=== PATIENT | male | born 1955 | race Caucasian/White ===

== ENCOUNTER → 2017-11-18 | Outpatient (CLI) | payer OTHER, MEDICARE ==
[~2017-11-18] MED LIST: AMLO10 PO; AMOCLA875 PO; ASPI325 PO; ASPI81CH PO; Bactrim Ds Tab1 EACH PO; CLOP75 PO; DOCCAL240 PO; ENAL20 PO; Enalapril-Hctz1 EACH PO; FERR325 PO; GABA300 PO; HYDR1TAB94 PO; INSUASPI; INSUASPI SC; INSUASPI SQ; INSULANI SQ; INSULANPEN SQ; JARDIANCE25 MG PO; LEVO750 PO; METR500 PO; Mobic15 MG PO; POTCHL20ER PO; PRAV10 PO; PRAV20 PO; SENN187 PO; SERT50 PO; SULTRIDS PO; TRESIBA FL100 UNIT/1 SC; TRESIBA FL100 UNIT/1 SQ
[2017-11-18 12:54] LABS: Body Fluid Crystals NEG (NEGATIVE)
[2017-11-18 13:32] LABS: WBC Count, Synovial Fluid 14420 /mm3 (0-180)
[2017-11-18 13:56] LABS: Color, Synovial Fluid Yellow (None-P Yel)
[2017-11-18 13:57] LABS: Appearance, Synovial Fluid Cloudy (Clear); RBC Count, Synovial Fluid 92 /mm3 (0-0)
[2017-11-18 14:25] LABS: Lymphs, Synovial Fluid 1 % (0-15); Monocytes/Macrophages, Synovia 7 % (0-65); Neutrophils, Synovial Fluid 92 % (0-24)
== END ==
LOC: LAB SHORT 12:25 → LAB 12:25
PROVIDERS: Orthopaedic Surgery
DX: M25.40 Effusion, unspecified joint (principal)
CPT/HCPCS: 89051; 89060

== ENCOUNTER 2018-03-07 08:15 | Inpatient (IN) | payer OTHER, MEDICARE ==
[~2018-03-07] VITALS: Ht 175.3 cm; Wt 95.6 kg
[~2018-03-07 08:15] MED LIST changes: -INSUASPI SC; +Novolog Fl100 UNIT/1 INJ
[2018-03-07 12:43] LABS: Source, Urine Clean Catch
[2018-03-07 12:49] LABS: Bilirubin, Urine Neg (Neg); Blood, Urine Neg (Neg); Glucose Qualitative, Urine 4+ (Neg); Ketones, Urine 2+ (Neg); Leukocyte Esterase, Urine Neg (Neg); Nitrite, Urine Neg (Neg); Protein, Urine 3+ (Neg); Specific Gravity, Urine 1.015 (1.003-1.022); Urobilinogen, Urine NORM (Normal)
[2018-03-07 12:50] LABS: BASOPHILS ABSOLUTE AUTO 0.02 K/mm3 (0.00-0.23); BASOPHILS PERCENT AUTO 0 % (0-2); EOSINOPHILS ABSOLUTE AUTO 0.01 K/mm3 (0.00-0.68); EOSINOPHILS PERCENT AUTO 0 % (0-6); Hematocrit 30.2 % (37.0-53.0); Hemoglobin 9.1 g/dL (13.5-17.5); IMMATURE GRAN ABSOLUTE AUTO 0.07 K/mm3 (0.00-0.10); IMMATURE GRAN PERCENT AUTO 0 % (0-1); LYMPHOCYTES PERCENT AUTO 7 % (21-46); MONOCYTES ABSOLUTE AUTO 0.54 K/mm3 (0.16-1.47); MONOCYTES PERCENT AUTO 4 % (4-13); Mean Corpuscular HGB Conc 30.1 g/dL (31.5-36.5); Mean Corpuscular Volume 76 fL (80-100); Mean Platelet Volume 8.3 fL (9.1-12.4); NEUTROPHILS PERCENT AUTO 89 % (41-73); Platelet Count 553 K/mm3 (150-400); RDW Coefficient Variation 18.5 % (11.7-14.2); RDW Standard Deviation 50.7 fL (35.1-46.3); Red Blood Cell Count 3.96 M/mm3 (4.30-5.90); White Blood Cell Count 15.64 K/mm3 (4.00-11.30)
[2018-03-07 12:54] LABS: Appearance, Urine Clear (Clear); Color, Urine Yellow (P-Yellow)
[2018-03-07 12:56] LABS: Red Blood Cells, Urine 0-2 /hpf (0-2)
[2018-03-07 12:57] LABS: Bacteria Few /hpf; Squamous Epithelial Cells Rare /hpf (Few)
[2018-03-07 13:15] LABS: Alanine Aminotransfer (ALT/SGP 30 U/L (12-78); Albumin, Blood 2.2 g/dL (3.4-5.0); Albumin/Globulin Ratio 0.4 (0.8-1.8); Alk Phos 160 U/L (50-136); Anion Gap 9 mmol/L (6-16); Aspartate Aminotrans (AST/SGOT 29 U/L (12-37); Bilirubin, Total 0.2 mg/dL (0.1-1.0); Blood Urea Nitrogen 30 mg/dL (8-24); Bun/Creatinine Ratio 36.6 (12.0-20.0); CO2, Blood 23 mmol/L (21-32); Calcium, Blood 8.2 mg/dL (8.5-10.1); Chloride, Blood 98 mmol/L (98-108); Creatinine, Blood 0.82 mg/dL (0.60-1.20); Globulin, Blood 5.5 g/dL (2.2-4.0); Glomerular Filtration Rate >60 (60-); Glucose, Blood 123 mg/dL (70-99); Potassium, Blood 3.8 mmol/L (3.5-5.5); Sodium, Blood 130 mmol/L (136-145); Total Protein, Blood 7.7 g/dL (6.4-8.2)
[2018-03-07 14:25] LABS: Percent Saturation 5.5 % (20.0-50.0)
[2018-03-07] MEDS ORDERED: OMEPRAZOLE MAGN20 MG PO (17:55)
[2018-03-07] MEDS ORDERED: Ferrous Glucon324 M1 PO (17:56)
[2018-03-07] MEDS ORDERED: BASAGLAR K100 UNIT/1 SC (17:57)
--- NOTE | 2018-03-07 19:13 | NUR ---
SHIFT SUMMARY PATIENT A&O X4, WALKS WITH WHEELCHAIR AT BASELINE BUT HAS NOT BEEN GETTING UP HERE DUE TO SEVERE LOWER BACK PAIN. RN MEDICATED FOR PAIN X1. DENIES NAUSEA OR SOB. HAS A WOUND TO HIS R THIRD TOE AND LEFT SECOND TOE. RN DID WOUND CARE AND DRESSING CHANGES WITH PATIENTS . APPLIED HOME WOUND CREAM. IV FLUIDS RUNNING. SAFETY PARAMETERS IN PLACE. NO ACUTE CHANGES.
--- NOTE | 2018-03-07 20:07 | NUR ---
field start iv rt AC clean dry intact
[2018-03-08 05:21] LABS: BASOPHILS ABSOLUTE AUTO 0.01 K/mm3 (0.00-0.23); BASOPHILS PERCENT AUTO 0 % (0-2); EOSINOPHILS PERCENT AUTO 0 % (0-6); Hematocrit 36.1 % (37.0-53.0); Hemoglobin 10.5 g/dL (13.5-17.5); IMMATURE GRAN ABSOLUTE AUTO 0.05 K/mm3 (0.00-0.10); IMMATURE GRAN PERCENT AUTO 1 % (0-1); LYMPHOCYTES ABSOLUTE AUTO 2.14 K/mm3 (0.84-5.20); LYMPHOCYTES PERCENT AUTO 19 % (21-46); MONOCYTES ABSOLUTE AUTO 0.55 K/mm3 (0.16-1.47); MONOCYTES PERCENT AUTO 5 % (4-13); Mean Corpuscular HGB 22.5 pg (26.0-34.0); Mean Corpuscular HGB Conc 29.1 g/dL (31.5-36.5); Mean Corpuscular Volume 78 fL (80-100); Mean Platelet Volume 8.3 fL (9.1-12.4); NEUTROPHILS ABSOLUTE AUTO 8.35 K/mm3 (1.96-9.15); NEUTROPHILS PERCENT AUTO 75 % (41-73); Platelet Count 619 K/mm3 (150-400); RDW Coefficient Variation 18.4 % (11.7-14.2); RDW Standard Deviation 51.4 fL (35.1-46.3); Red Blood Cell Count 4.66 M/mm3 (4.30-5.90)
[2018-03-08 05:42] LABS: Anion Gap 9 mmol/L (6-16); Blood Urea Nitrogen 32 mg/dL (8-24); Bun/Creatinine Ratio 38.6 (12.0-20.0); CO2, Blood 21 mmol/L (21-32); Calcium, Blood 8.8 mg/dL (8.5-10.1); Chloride, Blood 104 mmol/L (98-108); Creatinine, Blood 0.83 mg/dL (0.60-1.20); Glomerular Filtration Rate >60 (60-); Glucose, Blood 134 mg/dL (70-99); Sodium, Blood 134 mmol/L (136-145)
--- NOTE | 2018-03-08 18:22 | NUR ---
SHIFT SUMMARY PT AXO, PLEASANT AND COOPERATIVE WITH CARE. PT MEDICATED FOR PAIN PER EMAR THOUGH PATIENT STATES THAT THE NORCO WAS MORE EFFECTIVE IN PAIN CONTROL THAN TRAMEDOL. DR CASTELLANOS NOTIFIED AT 1820. VSS, IV PATENT AND INFUSING. CBG ELEVATED, PT EDUCATED ON CORRELATION WITH DIET AND ELEVATION OF CBG. MEDICATED PER EMAR. DRESSINGS CHANGED THIS MORNING AT START OF SHIFT, PICTURES IN CHART. PT REFUSING TO GET UP FROM BED BUT DOES SOME EXERCISES IN BED. BED IN LOW POSITION, CALL LIGHT WITHIN REACH.
--- NOTE | 2018-03-09 06:18 | NUR ---
Rn summary: Patient is alert and oriented. Pt has back pain which he has received meds at shift change and 0140. Pt feels like the 2 norco do not hold him over the 6 hours. Pt has rested some, but has been playing games on his phone most of the night. Pt blood sugar was 356. He got his insulin as ordered. Pt is usually on a medium sliding scale at home and wonders if it can be increased today. Will pass on to day shift. Drsg to mayi toes C/D/I. Mepilex changed to his inner gluteal cleft, small open area present. No BM this shift. Call light in reach.
--- NOTE | 2018-03-09 18:06 | NUR ---
SHIFT SUMMARY PATIENT A&O X4, BEDREST THIS SHIFT. DENIES ANY NAUSEA OR SOB. HAD COMPLAINTS OF CHRONIC BACK AND SIATIC PAIN THROUGHOUT THE SHIFT. RN MEDICATED X 2 WITH NORCO WHICH SEEMS TO HELP BRING PATIENT PAIN LEVEL DOWN. MEPILEX DRESSING ON R BUTTICKS. C/D/I. PATIENT USING URINAL IN BED. RESFUSES TO GET UP DUE TO IT BEING TOO PAINFUL. AT THE BEDISDE. BED IN LOWEST POSITION, CALL LIGHT WITHIN REACH.
--- NOTE | 2018-03-10 03:01 | NUR ---
HYPERTENSION BP THIS AM IS ELEVATED @ 174/85, NO DISCREPANCY BETWEEN R AND L ARMS. PT DENIES HEADACHE OR PAIN. PT DOES NOT HAVE PRN BP MED ORDERED. PLACED CALL TO DR PADRNO TO OBTAIN ORDERS. ORDER FOR 10 MG HYDRALAZINE IV Q6H PRN FOR SBP > 160. ADMINISTERING TO PT.
--- NOTE | 2018-03-10 06:11 | NUR ---
INSULIN: PHARMACY CONSULT PT HAS BEEN USING HOME INSULIN (BASAGLAR) FOR 3 DAYS, HOWEVER THIS MED HAS NOT BEEN VERIFIED BY PHARMACY. DISCUSSED WITH NICK, PHARMACIST,WHO REPORTS THAT THIS INSULIN IS THE HOSPITAL EQUIVALENT TO LANTUS. PT WILL NOW BE ON LANTUS @ NIGHT, HOME MED MAY GO BACK TO PT.
--- NOTE | 2018-03-10 06:13 | NUR ---
SHIFT SUMMARY: PT STILL IMMOBILE THIS SHIFT, REFUSES TO GET OUT OF BED c PT AND NURSING STAFF D/T PAIN. USING URINAL IN BED, Q2H REPOSITIONS. FOR PAIN, PT IS RECIEVING 10MG NORCO Q6H, PT REPORTS THIS IS NOT PROVIDING RELIEF AND EXPRESSES WISHES FOR FREQUENCY TO BE INCREASED TO Q4H. HE REPORTS THAT HE WILL DISCUSS THIS HIMSELF c DR CASTELLANOS. CBG @ 361 THIS PM, REQUIRED LONG ACTING AND SHORT ACTING COVERAGE. PRN HYDRALAZINE ADDED TO EMAR PER DR PADRON ORDERS FOR SBP >160. WOUNDS TO R 3RD TOE, L 2ND TOE, AND R BUTTOCK; DRESSING ARE ALL C/D/I. NS RUNNING @ 75ML/HR INTO 18 G IN R A/C. PT REMAINS A&O, PLEASANT, AND COOPERATIVE c CARE. PLAN OF CARE APPEARS TO BE HOMEHEALTH AND PT UPON D/C. NO OTHER ACUTE CHANGES TO REPORT. WILL CONT TO MONITOR AND PROVIDE CARE UNTIL PRESUMED BY ONCOMING RN.
--- NOTE | 2018-03-10 08:00 | NUR ---
PT PLEASANT SOMEWHAT ANXIOUS CONCERNED ABOUT BACK PAIN. PRESENTS UNMOTIVATED TO MOVE. H/R REG, MURMER NOTED NO TELE. LUNGS CLEAR, RESP EASY, UNLABORED ON R/A. BT X4 LAST BM YEST. VOIDS URINAL. PT NOT GETTING OUT OF BED FEAR OF PAIN. DOES NOT GUARD, BUT FLAILS AND COMPLAINS WHEN ATTEMPTING TO GET TO SITTING POSITION. BED IN LOW POSITOIN, CALL LITE IN REACH, CALLS APPROP
--- NOTE | 2018-03-10 18:42 | NUR ---
PT HAD MRI OF BACK TODAY. PAIN MED MOVED TO ROXYCODONE. DID WELL. PT SLEPT IM MID DAY AFTER DOSE. DID A LITTLE PT TODAY. PT NOT GUARDING BACK PAIN,BUT FLAILING AND COMPLAINING. I DID SIT HIM UP TO EDGE OF BED, HE STATES TOO WEAK TIRED TO SIT. FLOPPED BACK TO BED. MARCIA ATTEMPT TO CONVEY IMPORTANCE OF EXERCISE AND MOVEMENT TO GET OUT OF BED AND HEALED TO GO PLAY GOLF. BED IN LOW POSITION, CALL LITE IN REACH, CALLS APPROP
--- NOTE | 2018-03-11 04:34 | NUR ---
SHIFT SUMMARY A/O X4, ABLE TO MAKE NEEDS KNOWN. COOPERATIVE WITH CARE. CALLS AND ANSWERS QUESTIONS APPROPRIATELY. C/O PAIN 8/10 TO SCIATIC/MID BACK/GENERALIZED; MEDICATED PER EMAR. STATED UNABLE TO GET COMFORTABLY. MINIMAL RESTED NOTED THROUGHOUT SHIFT. NEW IV PLACED BY MAJOR ASSEMBLY INSPECTOR TO [facility]; NS CONTINUES TO RUN AT 75 ML/HR WITHOUT COMPLICATIONS. REMAINS ON BEDREST. HYPERTENSIVE, BUT APPEARS ON TREND WITH PREVIOUS PRESSURE. BED IN LOWEST POSITION. CALL LIGHT AND BELONGINGS WITHIN REACH. WCTM. REPORT TO ONCOMING RN.
--- NOTE | 2018-03-11 06:42 | NUR ---
FEVER 0620 FEVER NOTED BY PHOTOLETTERING MACHINE OPERATOR THIS AM; TAKEN ORALLY. PHOTOLETTERING MACHINE OPERATOR STATED PULSE AND RESPIRATIONS ELEVATED. CALLED ACCESS LEAD AND SHE STATED TO GIVE TYLENOL TO BRING DOWN FEVER. PT STATES NO SOB OR CP NOTED. IV FLUIDS STILL RUNNING @ 75 ML/HR. WILL MAKE DAY RN AWARE.
[2018-03-11 08:22] LABS: Hematocrit 29.9 % (37.0-53.0); Hemoglobin 9.2 g/dL (13.5-17.5); Mean Corpuscular HGB 22.9 pg (26.0-34.0); Mean Corpuscular HGB Conc 30.8 g/dL (31.5-36.5); Mean Platelet Volume 8.4 fL (9.1-12.4); NRBC ABSOLUTE 0.04 K/mm3 (0.00-0.02); NRBC Auto 0.2 /100 WBC (0.0-0.2); Platelet Count 666 K/mm3 (150-400); RDW Coefficient Variation 18.6 % (11.7-14.2); RDW Standard Deviation 49.7 fL (35.1-46.3); Red Blood Cell Count 4.02 M/mm3 (4.30-5.90)
[2018-03-11 08:33] LABS: Mean Corpuscular Volume 74 fL (80-100)
[2018-03-11 08:43] LABS: Anion Gap 7 mmol/L (6-16); Blood Urea Nitrogen 16 mg/dL (8-24); Bun/Creatinine Ratio 22.7 (12.0-20.0); CO2, Blood 26 mmol/L (21-32); Calcium, Blood 8.5 mg/dL (8.5-10.1); Chloride, Blood 99 mmol/L (98-108); Glomerular Filtration Rate >60 (60-); Glucose, Blood 84 mg/dL (70-99); Potassium, Blood 3.3 mmol/L (3.5-5.5); Sodium, Blood 132 mmol/L (136-145)
[2018-03-11 08:47] LABS: BASOPHILS PERCENT MAN 0 % (0-2); EOSINOPHILS PERCENT MAN 0 % (0-6); LYMPHOCYTES ABSOLUTE MAN 2.08 K/mm3 (0.84-5.20); LYMPHOCYTES PERCENT MAN 8 % (21-46); MONOCYTES ABSOLUTE MAN 1.04 K/mm3 (0.16-1.47); MONOCYTES PERCENT MAN 4 % (4-13); NEUTROPHILS ABSOLUTE MAN 22.96 K/mm3 (1.96-9.15); SEG NEUTROPHILS PERCENT MAN 88 % (41-73); TOTAL CELLS COUNTED 100
--- NOTE | 2018-03-11 19:10 | NUR ---
PATIENT TOLERATING BED EXERCISE ONLY. PAIN MEDICATIONS GIVEN FOR 9/10 PAIN. TOES REWRAPPED WITH 'S HELP. POSSIBLE TRANSFER TO [place] TOMORROW MORNING.
--- NOTE | 2018-03-11 20:40 | NUR ---
PT HAD VEWS SCORE OF 4. T 101.6, P 110, RESP 16. TYLENOL GIVEN TO TEMP OF 101.6. ABX INFUSING. WILL CONTINUE TO MONITOR.
--- NOTE | 2018-03-11 22:00 | NUR ---
BEDSIDE REPORT GIVEN TO HUANG CHENG.
--- NOTE | 2018-03-12 05:45 | NUR ---
SHIFT SUMMARY PT VERY LETHARGIC T/O NIGHT BUT WOKE UP AROUND 0415 OR SO AND WAS MORE ALERT. CBG 140 HELD [address] PADRON. CBG @ 0415 WAS 67 GIVEN OJ AND MADAY CRACKERS AND WILL RECHECK. NO C/O PAIN. INCONT OF URINE WHILE ASLEEP BUT USES URINAL WHEN AWAKE. ORAL TEMP @ 2130 WAS 102.1 AND GIVEN TYLENOL CAME DOWN TO 100.5 AND 98.5 WITH RECHECKS. NO STOOL. WILL CONTINUE TO MONITOR AND PASS ON REPORT TO DAY RN
--- NOTE | 2018-03-12 19:21 | NUR ---
AWAITING TRANSFER TO [facility] WHEN A BED IS AVAILABLE. PAIN MEDICATIONS GIVEN Q4 HR FOR CONSTANT BACK PAIN. PATIENT NOT AMBULATING AT THIS TIME. USING URINAL WITH SET UP ASSISTANCE. CALLS APPROPRIATELY. CALL LIGHT IN REACH
--- NOTE | 2018-03-12 19:34 | NUR ---
LEFT AND RIGHT POINTER TOES HAVE WRAPS APPLIED BY PATIENT'S . WOUNDS ARE CLEANED DAILY. WINVIVO CREME APPLIED TO AFFECTED AREAS, WRAPPED IN KERLEX AND TAPED DOWN.
[2018-03-12 19:42] LABS: Vancomycin, Trough 14.9 ug/mL (5.0-10.0)
--- NOTE | 2018-03-13 04:19 | NUR ---
SHIFT SUMMARY: PT IS ALERT AND ORIENTED. PT IS CALM AND COOPERATIVE WITH CARE. PT CALLS APPROPRIATELY. PT IS NOT GETTING OUT OF BED, STILL TOO PAINFUL TO AMBULATE. PT AWAITING TRANSFER TO [place] WHEN BED IS AVAILABLE. PT REPORTS LOW BACK PAIN, MEDICATING PER EMAR. PT DENIES NAUSEA, VOMITING, AND SOB. PT USING THE URINAL IN BED INDEPENDENTLY. NO ACUTE CHANGES OVERNIGHT. BED IN LOW POSITION, CALL LIGHT WITHIN REACH.
[2018-03-13 05:18] LABS: BASOPHILS ABSOLUTE AUTO 0.03 K/mm3 (0.00-0.23); BASOPHILS PERCENT AUTO 0 % (0-2); EOSINOPHILS ABSOLUTE AUTO 0.09 K/mm3 (0.00-0.68); EOSINOPHILS PERCENT AUTO 0 % (0-6); Hematocrit 29.5 % (37.0-53.0); IMMATURE GRAN ABSOLUTE AUTO 0.19 K/mm3 (0.00-0.10); IMMATURE GRAN PERCENT AUTO 1 % (0-1); LYMPHOCYTES ABSOLUTE AUTO 3.29 K/mm3 (0.84-5.20); LYMPHOCYTES PERCENT AUTO 13 % (21-46); MONOCYTES ABSOLUTE AUTO 1.09 K/mm3 (0.16-1.47); MONOCYTES PERCENT AUTO 4 % (4-13); Mean Corpuscular HGB Conc 30.5 g/dL (31.5-36.5); Mean Corpuscular Volume 75 fL (80-100); Mean Platelet Volume 8.5 fL (9.1-12.4); NEUTROPHILS ABSOLUTE AUTO 21.52 K/mm3 (1.96-9.15); NEUTROPHILS PERCENT AUTO 82 % (41-73); Platelet Count 580 K/mm3 (150-400); RDW Coefficient Variation 19.4 % (11.7-14.2); RDW Standard Deviation 52.2 fL (35.1-46.3); Red Blood Cell Count 3.92 M/mm3 (4.30-5.90); White Blood Cell Count 26.21 K/mm3 (4.00-11.30)
[2018-03-13 05:40] LABS: Anion Gap 8 mmol/L (6-16); Blood Urea Nitrogen 17 mg/dL (8-24); Bun/Creatinine Ratio 22.6 (12.0-20.0); CO2, Blood 24 mmol/L (21-32); Chloride, Blood 102 mmol/L (98-108); Creatinine, Blood 0.75 mg/dL (0.60-1.20); Glomerular Filtration Rate >60 (60-); Glucose, Blood 135 mg/dL (70-99); Potassium, Blood 3.9 mmol/L (3.5-5.5); Sodium, Blood 134 mmol/L (136-145)
[2018-03-13 17:55] LABS: Source, Urine Catheter
[2018-03-13 18:07] LABS: Appearance, Urine Clear (Clear); Bilirubin, Urine Neg (Neg); Blood, Urine Neg (Neg); Color, Urine Yellow (P-Yellow); Glucose Qualitative, Urine 2+ (Neg); Ketones, Urine Neg (Neg); Leukocyte Esterase, Urine Neg (Neg); Nitrite, Urine Neg (Neg); Protein, Urine 2+ (Neg); Urobilinogen, Urine NORM (Normal)
[2018-03-13 18:18] LABS: Bacteria Few /hpf; Red Blood Cells, Urine 0-2 /hpf (0-2); Squamous Epithelial Cells Rare /hpf (Few); White Blood Cells, Urine 0-2 /hpf (0-5)
--- NOTE | 2018-03-13 18:18 | NUR ---
PT IS A/OX3, COOPERATIVE, THE PT APPEARS TO BE BREATHING EASILY ON RA, THE PT WAS MEDICATED FOR BACK PAIN T/O THE DAY, THE PT REMAINED IN BED, THE PHYSICAL THERAPIST COACHED THE PT WITH BED EXCERCISES, A BLADDER SCAN WAS PERFORMED ON THE PT THIS AFTERNOON AND IT WAS FOUND THAT HE WAS RETAINING URINE, A MCMULLEN CATHETER WAS INSERTED PER DR. HAHN ORDERS, THE PT HAD 1500 CC OUT IMMEDIATLY, DR SANTOS CONSULT WAS CALLED, HOWEVER THE WILL NOT TAKE CONSULTS FROM THE NURSING STAFF AT THIS TIME AND WILL ONLY TALK DIRECTLY TO THE DOCTORS ON 03/18/18, DR. HAHN WAS NOTIFIED, PT IS AWAITING COBRA TRANSFER TO [facility] WHEN A BED THERE IS AVAILABLE
--- NOTE | 2018-03-14 04:39 | NUR ---
SHIFT SUMMARY: PT IS ALERT AND ORIENTED. PT IS CALM AND COOPERATIVE WITH CARE. PT CALLS APPROPRIATELY. PT STILL TOO PAINFUL TO GET OUT OF BED, MEDICATING PER EMAR FOR PAIN. CATHETER IN PLACE AND DRAINING, APPEARS TO BE SOME BLOOD IN THE URINE. PT SLEPT PERIODICALLY THROUGHOUT THE NIGHT. PT DENIES NAUSEA, VOMITING, AND SOB. AWAITING BED AVAILABILITY AT [facility] IN [place]. NO ACUTE CHANGES OR COMPLICATIONS. WILL REPORT TO DAY NURSE.
[2018-03-14 08:35] LABS: Vancomycin, Trough 19.2 ug/mL (5.0-10.0)
[2018-03-14 08:38] LABS: Alanine Aminotransfer (ALT/SGP 21 U/L (12-78); Albumin, Blood 1.8 g/dL (3.4-5.0); Albumin/Globulin Ratio 0.4 (0.8-1.8); Alk Phos 178 U/L (50-136); Anion Gap 7 mmol/L (6-16); Aspartate Aminotrans (AST/SGOT 13 U/L (12-37); Bilirubin, Total 0.3 mg/dL (0.1-1.0); Blood Urea Nitrogen 13 mg/dL (8-24); Bun/Creatinine Ratio 17.3 (12.0-20.0); CO2, Blood 26 mmol/L (21-32); Calcium, Blood 7.6 mg/dL (8.5-10.1); Chloride, Blood 98 mmol/L (98-108); Creatinine, Blood 0.75 mg/dL (0.60-1.20); Globulin, Blood 4.4 g/dL (2.2-4.0); Glomerular Filtration Rate >60 (60-); Glucose, Blood 114 mg/dL (70-99); Potassium, Blood 3.7 mmol/L (3.5-5.5); Sodium, Blood 131 mmol/L (136-145); Total Protein, Blood 6.2 g/dL (6.4-8.2)
--- NOTE | 2018-03-14 16:11 | NUR ---
PT A/OX3, FORGETFUL AT TIMES, VERY DROWSY AT TIMES, THE PT WAS MEDICATED FOR PAIN T/O THE DAY, THE PT WAS REPOSITIONED T/O THE DAY, THE PT APPEARS TO BE BREATHING EASILY ON RA AT THIS TIME, THE PTS WAS AT THE BEDSIDE FOR MOST OF THE DAY, PT WAS GIVEN LACTULOSE TODAY FOR BOWEL CARE, THE PT REPORTS PASSIN GAS ONLY CALL LIGHT IN REACH, BED IN THE LOW POSITION
[2018-03-15 05:19] LABS: Hematocrit 27.8 % (37.0-53.0); Hemoglobin 8.2 g/dL (13.5-17.5); Mean Corpuscular HGB Conc 29.5 g/dL (31.5-36.5); Mean Corpuscular Volume 75 fL (80-100); Mean Platelet Volume 8.8 fL (9.1-12.4); Platelet Count 538 K/mm3 (150-400); RDW Coefficient Variation 18.8 % (11.7-14.2); RDW Standard Deviation 50.4 fL (35.1-46.3); Red Blood Cell Count 3.73 M/mm3 (4.30-5.90); White Blood Cell Count 15.85 K/mm3 (4.00-11.30)
[2018-03-15 05:48] LABS: Anion Gap 8 mmol/L (6-16); Blood Urea Nitrogen 11 mg/dL (8-24); Bun/Creatinine Ratio 13.8 (12.0-20.0); CO2, Blood 27 mmol/L (21-32); Chloride, Blood 94 mmol/L (98-108); Glomerular Filtration Rate >60 (60-); Glucose, Blood 103 mg/dL (70-99); Potassium, Blood 3.4 mmol/L (3.5-5.5); Sodium, Blood 129 mmol/L (136-145)
[2018-03-15 06:04] LABS: BASOPHILS PERCENT MAN 0 % (0-2); EOSINOPHILS ABSOLUTE MAN 0.15 K/mm3 (0.00-0.68); EOSINOPHILS PERCENT MAN 1 % (0-6); METAMYELOCYTE ABSOLUTE MAN 0.31 K/mm3 (0.00-0.00); MYELOCYTE ABSOLUTE MAN 0.15 K/mm3 (0.00-0.00); TOTAL CELLS COUNTED 100
[2018-03-15 06:31] LABS: LYMPHOCYTES PERCENT MAN 16 % (21-46); NEUTROPHILS ABSOLUTE MAN 11.72 K/mm3 (1.96-9.15); SEG NEUTROPHILS PERCENT MAN 74 % (41-73)
[2018-03-15 06:32] LABS: LYMPHOCYTES ABSOLUTE MAN 2.53 K/mm3 (0.84-5.20); MONOCYTES ABSOLUTE MAN 1.42 K/mm3 (0.16-1.47); MONOCYTES PERCENT MAN 9 % (4-13)
--- NOTE | 2018-03-15 07:41 | NUR ---
Rn Summary: Patient is alert and oriented. He is a little drowsy on and off. Pt having back pain 10/16 all sh;ift. Pt receiving Oxy 10mg q4 hours. This am pt still hurting after 2 hours, tylenol 650 given with baclofen early with some relief. Pt has a rodriguez cath for retention. Clear yellow urine. Pt has not had a BM since 03/08. Pt given MOM and Colace. No results yet this am. Pt encouraged to do deep breathing due to bed ridden condition due to pain. Has slept on and off. Pt with call light in reach. Report to Vannessa ENCINAS.
--- NOTE | 2018-03-15 18:32 | NUR ---
NO ACUTE CHANGES NOTED THIS SHIFT, PT ONLY SEMI COOPERATIVE WITH THERAPIES. SEE THERAPY NOTES. REQUESTING PAIN MEDICATIONS ON A REGULAR BASIS AND REFUSING TO GET UP OR TURN FROM SIDE TO SIDE. WILL CONTINUE TO MONITOR AND REPORT TO ONCOMING RN.
--- NOTE | 2018-03-16 06:11 | NUR ---
PHARMACY SALES REPRESENTATIVE SUMMARY NO ACUTE CHANGES. PT AAOX4 AND COOPERATIVE WITH CARE. TREATED FOR PAIN OF LOWER BACK AND ABCESS X1 PER EMAR. DRESSING C/D/I, HOWEVER PT IS RESISTANT TO REPOSITIONING OR USING PILLOWS TO TAKE PRESSURE OFF WOUND. NO BM THIS SHIFT, GAVE PT ANOTHER DOSE OF MILK OF MAG. PT STATES THAT HIS MILK OF MAG DOSE ON DAY SHIFT HELPED HIM PASS QUITE A BIT OF GAS. NO OTHER COMPLAINTS/CONCERNS FROM PT. VSS, WILL CONTINUE TO MONITOR.
--- NOTE | 2018-03-16 07:45 | NUR ---
MCMULLEN MCMULLEN CATH REMOVED PER ORDERS, WILL MONITOR FOR VOIDS.
--- NOTE | 2018-03-16 12:20 | NUR ---
PT REPORTS NOT BEING ABLE TO VOID, HAS THE URGE BUT UNABLE. PROMOTIONS OFFICER ATTEMPTED TO HELP AND FOUND BED/ATTENDS VERY WET. PT NOT AWARE. WILL CONTINUE TO MONITOR
--- NOTE | 2018-03-16 13:40 | NUR ---
PT REPORTS "DISCOMFORT" OF THE BLADDER, FEELING URGE AND NOT BEING ABLE TO VOID. BLADDER SCAN DONE BY BOBY WISDOM RN WITH A RESULT OF [address] HAHN CALLED AND ORDERS OBTAINED FOR MCMULLEN TO BE REPLACED,
--- NOTE | 2018-03-16 13:51 | NUR ---
MCMULLEN CATH MCMULLEN 14 Fr PLACED BY EMIR JUSTIN RN. PT TOLERATED WELL, REPORTS FEELING RELIEF MCMULLEN DRAINS.
[2018-03-16 14:04] LABS: Source, Urine Catheter
[2018-03-16 14:40] LABS: Bilirubin, Urine Neg (Neg); Blood, Urine Neg (Neg); Glucose Qualitative, Urine Neg (Neg); Ketones, Urine Neg (Neg); Leukocyte Esterase, Urine Neg (Neg); Nitrite, Urine Neg (Neg); Protein, Urine 1+ (Neg); Specific Gravity, Urine 1.005 (1.003-1.022); Urobilinogen, Urine NORM (Normal); pH, Urine 6.5 (5.0-8.0)
[2018-03-16 15:11] LABS: Appearance, Urine Clear (Clear); Color, Urine Yellow (P-Yellow)
--- NOTE | 2018-03-16 18:31 | NUR ---
PT NOT PARTICIPATING WITH PHYSICAL THERAPY. SEE THERAPY NOTES. NO RESULTS FROM MILK OF MAG RECEIVED THIS MORNING, GIVEN SUPPOSITORY THIS AFTERNOON, OF THIS TIME NO RESULTS OBTAINED. WILL CONTINUE TO MONITOR AND REPORT TO ONCOMING RN.
--- NOTE | 2018-03-17 06:22 | NUR ---
STEEL FABRICATING SUPERVISOR SUMMARY PT AAOX4, HOWEVER SOMETIMES FORGETFUL/DISORIENTED AFTER WAKING UP. PT IRRITABLE WITH CARE AT TIMES AND OFTEN REFUSES REPOSITIONING. PT FEBRILE AT ONE POINT, OFFERED TYLENOL. PT REFUSED TYLENOL AND ASKED FOR ASPIRIN FOR FEVER. SPOKE WITH DR URIBE REGARDING THIS, RECIEVED ORDER FOR IBUPROFEN. PT TOOK MED, LAST TEMP 99 DEGREES. PT HAD SEVERAL BM'S TODAY AFTER NOT HAVING ONE FOR 5-6 DAYS. WOUND ON COCCYX CLOSED AND DRY, DRESSING CHANGED AFTER BM. VSS, WILL CONTINUE TO MONITOR.
--- NOTE | 2018-03-17 11:06 | NUR ---
DR SANTOS CONSULT LINE REPORTS HE IS NOT TAKING CONSULTS UNTIL 03/18/18, ON THE 10TH FOR THE ATTENDING PHYSICIAN TO CALL HIM FOR CONSULTS. DR HAHN NOTIFIED.
[2018-03-17 14:19] LABS: Stool Occult Blood Guaiac 1 Pos (Neg)
--- NOTE | 2018-03-17 14:45 | NUR ---
GUAIAC STOOL CAME BACK POSITIVE, DR HAHN NOTIFIED. NO NEW ORDERS AT THIS TIME.
--- NOTE | 2018-03-17 16:50 | NUR ---
SHIFT SUMMARY- PT A/O X3. PT MEDICATED T/O SHIFT FOR BACK PAIN. PT UP TO CHAIR TWICE WITH PHYSICAL THERAPY, ABD BINDER USED FOR BACK SUPPORT. 1 ASSIST WITH FWW BACK INTO BED. LS CLEAR, ON RA. MCMULLEN PATENT AND DRAINING, IN PLACE FOR RETENTION. PICC LINE PLACED FOR LONG-TERM ANTIBIOTICS. NEW PHOTO TAKEN OF RIGHT BUTTOCK, HEALING WELL COMPARED TO OLD PHOTO. IVF DC'D. GUAIAC SENT AND CAME BACK POSITIVE. AWAITING IFECTIOUS DISEASE CONSULT TOMORROW. WILL NEED SNF UPON D/C. NO OTHER ACUTE CHANGES THIS SHIFT.
--- NOTE | 2018-03-18 06:14 | NUR ---
SHIFT SUMMARY PT VERY DROWSY AT START OF SHIFT. HELD OFF ON MEDICATING FOR PAIN UNTIL PT WAS MORE ALERT. PT BECAME INCREASINGLY CONFUSED THROUGHOUT THE NIGHT. BELIEVING HE WAS IN [place] THIS MORNING. AND ASKING ABOUT WHAT SPORTS HE WAS GOING TO HAVE TO DO. PT ALSO PULLED OUT PICC LINE THIS AM. PICC LINE WAS FOUND ON TABLE IN FRONT OF PT. PT REPORTED PAIN IN BACK WHENEVER AWAKE. MEDICATED X 2 W/ 10 MG ROXICODONE. PT REPORTS MEDICATION WAS NOT VERY EFFECTIVE, HOWEVER PT SLEPT OFF AND ON THROUGH MOST OF THE NIGHT. MCMULLEN CATH REMAINS IN PLACE PATENT AND DRAINING YELLOW URINE. VSS. NO OTHER ACUTE CHANGES. WILL CONTINUE TO MONITOR.
--- NOTE | 2018-03-18 11:15 | NUR ---
SPOKE WITH DR HAHN REGARDING POSITIVE GUAIAC AND PT RECEIVING LOVENOX, PER DR HAHN D/C LOVENOX AND PLACE SCD'S.
--- NOTE | 2018-03-18 15:59 | NUR ---
DR SANTOS IN TO SEE PT.
--- NOTE | 2018-03-18 16:00 | NUR ---
MRI SCHEDULED FOR THIS EVENING, PT REPORTS HE IS CLAUSTROPHOBIC AND REQUIRED ATIVAN LAST TIME, PT REPORTS HE RECEIVED 1MG ORAL WHICH WAS INNEFECTIVE. SPOKE WITH DR HAHN WHO ORDERED ATIVAN 1MG IV. WILL GIVE 30 MIN PRIOR TO MRI.
--- NOTE | 2018-03-18 17:06 | NUR ---
SHIFT SUMMARY- PT A/OX4, FORGETFUL AT TIMES. PT MEDICATED X2 FOR BACK PAIN. UP TO CHAIR WITH PHYSICAL THERAPY AND 1 ASSIST. PT REFUSED SHOWER TODAY. LS CLEAR ON RA. HRR, MURMUR NOTED. LOVENOX DC'D DUE TO POSITIVE GUIAC, SCD'S ORDERED HOWEVER PT ONLY TOLERATED SHORT PERIOD OF TIME WITH THEM ON. TOE DRESSINGS CHANGED BY SPOUSE. PICC LINE REPLACED TO MILENA, SECURED WITH COBAN. DR SANTOS CONSULTED, REPEAT MRI ORDERED. POSS D/C TO [facility] TOMORROW. NO OTHER ACUTE CHANGES THIS SHIFT.
--- NOTE | 2018-03-18 17:53 | NUR ---
PT TO IMAGING FOR MRI.
[2018-03-19 05:17] LABS: BASOPHILS ABSOLUTE AUTO 0.02 K/mm3 (0.00-0.23); BASOPHILS PERCENT AUTO 0 % (0-2); EOSINOPHILS ABSOLUTE AUTO 0.21 K/mm3 (0.00-0.68); EOSINOPHILS PERCENT AUTO 2 % (0-6); Hematocrit 25.6 % (37.0-53.0); Hemoglobin 7.6 g/dL (13.5-17.5); IMMATURE GRAN ABSOLUTE AUTO 0.04 K/mm3 (0.00-0.10); IMMATURE GRAN PERCENT AUTO 0 % (0-1); LYMPHOCYTES ABSOLUTE AUTO 2.18 K/mm3 (0.84-5.20); LYMPHOCYTES PERCENT AUTO 17 % (21-46); MONOCYTES PERCENT AUTO 6 % (4-13); Mean Corpuscular HGB 22.6 pg (26.0-34.0); Mean Corpuscular HGB Conc 29.7 g/dL (31.5-36.5); Mean Corpuscular Volume 76 fL (80-100); Mean Platelet Volume 8.1 fL (9.1-12.4); NEUTROPHILS ABSOLUTE AUTO 9.56 K/mm3 (1.96-9.15); NEUTROPHILS PERCENT AUTO 75 % (41-73); Platelet Count 594 K/mm3 (150-400); RDW Coefficient Variation 18.9 % (11.7-14.2); RDW Standard Deviation 52.1 fL (35.1-46.3); Red Blood Cell Count 3.37 M/mm3 (4.30-5.90); White Blood Cell Count 12.81 K/mm3 (4.00-11.30)
[2018-03-19 06:05] LABS: Anion Gap 5 mmol/L (6-16); Blood Urea Nitrogen 8 mg/dL (8-24); Bun/Creatinine Ratio 9.8 (12.0-20.0); CO2, Blood 30 mmol/L (21-32); Calcium, Blood 7.8 mg/dL (8.5-10.1); Chloride, Blood 96 mmol/L (98-108); Creatinine, Blood 0.82 mg/dL (0.60-1.20); Glomerular Filtration Rate >60 (60-); Glucose, Blood 144 mg/dL (70-99); Potassium, Blood 3.9 mmol/L (3.5-5.5); Sodium, Blood 131 mmol/L (136-145)
--- NOTE | 2018-03-19 06:10 | NUR ---
SHIFT SUMMARY PT ONCE AGAIN WAS VERY DROWSY AT START OF SHIFT BUT HAD RECIEVED ATIVAN PRIOR IN PREVIOUS SHIFT FOR MRI SCAN. PT SLEPT HARD THROUGH A GOOD PORTION OF THE NIGHT. WAKING AT APPROX 0400 MUCH MORE ALERT. CONFUSION IMPROVED THIS EVENING. PT CONTINUES TO REPORT BACK PAIN, 7-10/16, MEDICATED WHEN MORE ALERT THIS AM W/ 10 MG ROXICODONE. NEW PICC LINE REMAINED IN PLACE THROUGHOUT THE NIGHT. VSS. OTHERWISE NO OTHER ACUTE CHANGES. WILL CONTINUE TO MONITOR AND REPORT TO DAY RN.
--- NOTE | 2018-03-19 17:54 | NUR ---
LATE ENTRY DISCHARGE SUMMARY PATIENT TRANSFERED BY [facility] @ 1330. BELONGING AND MEDICATIONS SENT WITH PATIENT. AT HIS SIDE.
== END 2018-03-19 14:00 | disposition short-term general hospital (02) | DRG 95 ==
LOC: ER 08:15 → MEDS 08:16
PROVIDERS: Emergency Medicine; Hospitalist; Internal Medicine; ADMIT Internal Medicine
PROC: 02HV33Z Insertion of Infusion Device into Superior Vena Cava, Percutaneous Approach (ICD-10-PCS; principal; 2018-03-17)
PROC: B548ZZA Ultrasonography of Superior Vena Cava, Guidance (ICD-10-PCS; 2018-03-17)
DX: G06.2 Extradural and subdural abscess, unspecified (principal); R78.81 Bacteremia; M46.27 Osteomyelitis of vertebra, lumbosacral region; E11.22 Type 2 diabetes mellitus with diabetic chronic kidney disease; E11.40 Type 2 diabetes mellitus with diabetic neuropathy, unspecified; E11.65 Type 2 diabetes mellitus with hyperglycemia; N18.3 Chronic kidney disease, stage 3 (moderate); I12.9 Hypertensive chronic kidney disease with stage 1 through stage 4 chronic kidney disease, or unspecified chronic kidney disease; I73.9 Peripheral vascular disease, unspecified; E78.5 Hyperlipidemia, unspecified; M46.47 Discitis, unspecified, lumbosacral region; B95.4 Other streptococcus as the cause of diseases classified elsewhere; R33.9 Retention of urine, unspecified; D64.9 Anemia, unspecified; R19.5 Other fecal abnormalities; Z74.09 Other reduced mobility; R10.9 Unspecified abdominal pain; I70.0 Atherosclerosis of aorta; I08.0 Rheumatic disorders of both mitral and aortic valves; Z98.1 Arthrodesis status; Z98.890 Other specified postprocedural states; Z79.4 Long term (current) use of insulin; Z79.899 Other long term (current) drug therapy; Z79.82 Long term (current) use of aspirin; Z87.891 Personal history of nicotine dependence; Z89.411 Acquired absence of right great toe; Z87.440 Personal history of urinary (tract) infections; Z87.01 Personal history of pneumonia (recurrent); Z87.11 Personal history of peptic ulcer disease; Z98.49 Cataract extraction status, unspecified eye
CPT/HCPCS: 36415; 36569; 72100; 72148; 72158; 80048; 80053; 80202; 81001; 82272; 82607; 82728; 82746; 82947; 83036; 83540; 83550; 83605; 85025; 85651; 86140; 87040; 87184; 93306; 96361; 96365; 96372; 96374; 96375; 96376; 97110; 97116; 97162; 97530; 99285-25; A9577; C1751; G0378; G8978; G8979; J0360; J0696; J1100; J1170; J1650; J2060; J3370; J7030; J7050

== ENCOUNTER → 2018-06-10 | Outpatient (CLI) | payer OTHER, MEDICARE ==
[~2018-06-10] MED LIST changes: +BASAGLAR K100 UNIT/1 SC; +Ferrous Glucon324 M1 PO; +OMEPRAZOLE MAGN20 MG PO
[2018-06-10 15:29] LABS: BASOPHILS ABSOLUTE AUTO 0.02 K/mm3 (0.00-0.23); BASOPHILS PERCENT AUTO 0 % (0-2); EOSINOPHILS ABSOLUTE AUTO 0.04 K/mm3 (0.00-0.68); EOSINOPHILS PERCENT AUTO 0 % (0-6); IMMATURE GRAN ABSOLUTE AUTO 0.05 K/mm3 (0.00-0.10); IMMATURE GRAN PERCENT AUTO 1 % (0-1); LYMPHOCYTES ABSOLUTE AUTO 1.89 K/mm3 (0.84-5.20); LYMPHOCYTES PERCENT AUTO 18 % (21-46); MONOCYTES ABSOLUTE AUTO 1.12 K/mm3 (0.16-1.47); MONOCYTES PERCENT AUTO 11 % (4-13); Mean Corpuscular HGB 24.1 pg (26.0-34.0); Mean Corpuscular Volume 78 fL (80-100); Mean Platelet Volume 9.5 fL (9.1-12.4); NEUTROPHILS ABSOLUTE AUTO 7.52 K/mm3 (1.96-9.15); NEUTROPHILS PERCENT AUTO 71 % (41-73); Platelet Count 426 K/mm3 (150-400); RDW Coefficient Variation 17.8 % (11.7-14.2); RDW Standard Deviation 50.4 fL (35.1-46.3); Red Blood Cell Count 3.74 M/mm3 (4.30-5.90); White Blood Cell Count 10.64 K/mm3 (4.00-11.30)
[2018-06-10 15:37] LABS: Alanine Aminotransfer (ALT/SGP 61 U/L (12-78); Albumin, Blood 2.7 g/dL (3.4-5.0); Albumin/Globulin Ratio 0.6 (0.8-1.8); Alk Phos 342 U/L (50-136); Anion Gap 5 mmol/L (6-16); Aspartate Aminotrans (AST/SGOT 51 U/L (12-37); Bilirubin, Total 0.2 mg/dL (0.1-1.0); Blood Urea Nitrogen 23 mg/dL (8-24); Bun/Creatinine Ratio 22.8 (12.0-20.0); CO2, Blood 27 mmol/L (21-32); Calcium, Blood 8.2 mg/dL (8.5-10.1); Chloride, Blood 102 mmol/L (98-108); Creatinine, Blood 1.01 mg/dL (0.60-1.20); Globulin, Blood 4.9 g/dL (2.2-4.0); Glomerular Filtration Rate >60 (60-); Glucose, Blood 182 mg/dL (70-99); Potassium, Blood 3.9 mmol/L (3.5-5.5); Sodium, Blood 134 mmol/L (136-145); Total Protein, Blood 7.6 g/dL (6.4-8.2)
[2018-06-10 15:38] LABS: Percent Saturation 6.8 % (20.0-50.0)
== END | disposition home or self-care (01) ==
LOC: LAB SHORT 15:01 → LAB 15:01
PROVIDERS: Family Medicine
DX: E11.9 Type 2 diabetes mellitus without complications (principal); D50.8 Other iron deficiency anemias; M46.27 Osteomyelitis of vertebra, lumbosacral region; I10 Essential (primary) hypertension
CPT/HCPCS: 80053; 82728; 83540; 83550; 85025; 85651; 86140

== ENCOUNTER 2019-05-09 07:38 | Day surgery (SDC) | payer OTHER ==
[~2019-05-09] VITALS: Ht 175.3 cm; Wt 97.8 kg
[~2019-05-09 07:38] MED LIST changes: +ENDOCET 2.5-321 EACH PO; +Humalog100 UNIT/1 SC; +NOVOLOG FL100 UNIT/1 SC; +Oxybutynin Chlo15 MG PO
--- NOTE | 2019-05-09 10:07 | NUR ---
05/09/19 1007 Fatemeh Adam PROCEDURE ABORTED - UNABLE TO SEE LUMEN DUE TO OBSTRUCTION FROM BLADDER MASS
== END 2019-05-09 10:33 | disposition home or self-care (01) ==
LOC: ORSCSDS 07:38
PROVIDERS: Student in an Organized Health Care Education/Training Program
PROC: 0DBN8ZX Excision of Sigmoid Colon, Via Natural or Artificial Opening Endoscopic, Diagnostic (ICD-10-PCS; principal; 2019-05-09 09:00)
DX: R19.09 Other intra-abdominal and pelvic swelling, mass and lump (principal); K64.8 Other hemorrhoids; K62.89 Other specified diseases of anus and rectum; K57.30 Diverticulosis of large intestine without perforation or abscess without bleeding; E11.9 Type 2 diabetes mellitus without complications; I10 Essential (primary) hypertension; Z79.01 Long term (current) use of anticoagulants; Z79.4 Long term (current) use of insulin; Z79.899 Other long term (current) drug therapy
CPT/HCPCS: 82947; J2704; J7120; J7799

== ENCOUNTER 2020-04-28 10:45 | Inpatient (IN) | payer OTHER ==
[~2020-04-28] VITALS: Ht 175.3 cm; Wt 83.7 kg
[~2020-04-28 10:45] MED LIST changes: +Enalapril Malea20 MG PO; -Humalog100 UNIT/1 SC; -NOVOLOG FL100 UNIT/1 SC; +NOVOLOG FL100 UNIT/3 SC
[2020-04-28 11:19] LABS: BASOPHILS ABSOLUTE AUTO 0.04 K/mm3 (0.00-0.23); BASOPHILS PERCENT AUTO 0 % (0-2); EOSINOPHILS PERCENT AUTO 0 % (0-6); Hematocrit 34.2 % (37.0-53.0); Hemoglobin 10.8 g/dL (13.5-17.5); IMMATURE GRAN ABSOLUTE AUTO 0.09 K/mm3 (0.00-0.10); IMMATURE GRAN PERCENT AUTO 1 % (0-1); LYMPHOCYTES ABSOLUTE AUTO 1.09 K/mm3 (0.84-5.20); LYMPHOCYTES PERCENT AUTO 7 % (21-46); MONOCYTES ABSOLUTE AUTO 0.46 K/mm3 (0.16-1.47); MONOCYTES PERCENT AUTO 3 % (4-13); Mean Corpuscular HGB 25.7 pg (26.0-34.0); Mean Corpuscular HGB Conc 31.6 g/dL (31.5-36.5); Mean Corpuscular Volume 81 fL (80-100); Mean Platelet Volume 8.7 fL (9.1-12.4); NEUTROPHILS ABSOLUTE AUTO 14.76 K/mm3 (1.96-9.15); NEUTROPHILS PERCENT AUTO 90 % (41-73); Platelet Count 822 K/mm3 (150-400); RDW Coefficient Variation 14.9 % (11.7-14.2); RDW Standard Deviation 43.9 fL (35.1-46.3); Red Blood Cell Count 4.21 M/mm3 (4.30-5.90); White Blood Cell Count 16.44 K/mm3 (4.00-11.30)
[2020-04-28 11:46] LABS: Albumin, Blood 1.9 g/dL (3.4-5.0); Albumin/Globulin Ratio 0.3 (0.8-1.8); Bilirubin, Total 0.6 mg/dL (0.1-1.0); Bun/Creatinine Ratio 18.8 (12.0-20.0); Calcium, Blood 8.1 mg/dL (8.5-10.1); Creatinine, Blood 2.02 mg/dL (0.60-1.20); Potassium, Blood 5.2 mmol/L (3.5-5.5); Total Protein, Blood 7.9 g/dL (6.4-8.2)
[2020-04-28] MEDS ORDERED: TRULICITY0.75 MG/01 SC (13:25)
[2020-04-28] MEDS ORDERED: Cipro500 MG PO (13:26)
[2020-04-28] MEDS ORDERED: SULFAMETHOXAZO1 EAC1 PO (13:28)
[2020-04-28] MEDS ORDERED: BASAGLAR K100 UNIT/6 SC (14:08)
[2020-04-28 16:21] LABS: Influenza A, PCR NEGATIVE (NEGATIVE); Influenza B, PCR NEGATIVE (NEGATIVE); Resp Syncytial Virus, PCR NEGATIVE (NEGATIVE); SARS-Cov-2 (COVID-19) PCR, MMC NEGATIVE (NEGATIVE)
--- NOTE | 2020-04-28 18:31 | NUR ---
ARRIVAL TO ICU PT ARRIVES TO ICU FROM ER AT 1715. ADMITING DX PNEUMOPERITENOUM. PT REPORTS ABD PAIN X 1 DAY. CURRENTLY BEING TREATED FOR BLADDER CA IN [place]. STATES PAIN 8/10. MEDICATED c DILAUID c MINIMAL RELIEF. PT ARRIVED CLAMMY, DIAPHORETIC, PALE. HYPOTENSIVE. PICC LINE PLACED TO [facility] BY VIVIENNE ENCINAS. LEVO GTT STARTED FOR MAP >65, CURRENTLY INFUSING AT 10 MCG/MIN. NSR, RATE 90-100. 2L O2 PLACED VIA NC POST DILAUDID ADMINISTRATION. PT A&OX 4. ABD ROUND, DISTENDED, TENDER THROUGHOUT. PT STATES PAIN WORSE ON LEFT LOWER QUADRENT. BT X 4. DENIES NAUSEA AT THIS TIME. MCMULLEN PLACED, URINE SENT TO LAB. WILL CONTINUE TO MONITOR UNTIL REPORT TO ONCOMING NURSE.
[2020-04-28 18:38] LABS: Source, Urine Clean Catch
[2020-04-28 18:41] LABS: Appearance, Urine Hazy (Clear); Bilirubin, Urine Neg (Neg); Blood, Urine Neg (Neg); Color, Urine Yellow (P-Yellow); Glucose Qualitative, Urine 3+ (Neg); Ketones, Urine 1+ (Neg); Leukocyte Esterase, Urine 2+ (Neg); Nitrite, Urine Neg (Neg); Protein, Urine 3+ (Neg); Specific Gravity, Urine 1.025 (1.003-1.022); Urobilinogen, Urine NORM (Normal)
[2020-04-28 18:51] LABS: Amorphous Heavy (0-Heavy); Bacteria Many /hpf; Red Blood Cells, Urine 0-2 /hpf (0-2); Squamous Epithelial Cells Few /hpf (Few); White Blood Cells, Urine 25-50 /hpf (0-5)
[2020-04-29 04:21] LABS: BASOPHILS ABSOLUTE AUTO 0.04 K/mm3 (0.00-0.23); BASOPHILS PERCENT AUTO 0 % (0-2); EOSINOPHILS PERCENT AUTO 0 % (0-6); Hematocrit 29.3 % (37.0-53.0); Hemoglobin 8.9 g/dL (13.5-17.5); IMMATURE GRAN ABSOLUTE AUTO 0.22 K/mm3 (0.00-0.10); IMMATURE GRAN PERCENT AUTO 1 % (0-1); LYMPHOCYTES ABSOLUTE AUTO 1.38 K/mm3 (0.84-5.20); LYMPHOCYTES PERCENT AUTO 6 % (21-46); MONOCYTES ABSOLUTE AUTO 0.61 K/mm3 (0.16-1.47); MONOCYTES PERCENT AUTO 3 % (4-13); Mean Corpuscular HGB 25.4 pg (26.0-34.0); Mean Corpuscular HGB Conc 30.4 g/dL (31.5-36.5); Mean Corpuscular Volume 84 fL (80-100); Mean Platelet Volume 8.2 fL (9.1-12.4); NEUTROPHILS ABSOLUTE AUTO 20.88 K/mm3 (1.96-9.15); NEUTROPHILS PERCENT AUTO 90 % (41-73); Platelet Count 712 K/mm3 (150-400); RDW Coefficient Variation 15.1 % (11.7-14.2); RDW Standard Deviation 46.1 fL (35.1-46.3); White Blood Cell Count 23.13 K/mm3 (4.00-11.30)
[2020-04-29 04:39] LABS: Albumin, Blood 2.7 g/dL (3.4-5.0); Albumin/Globulin Ratio 0.7 (0.8-1.8); Bilirubin, Total 0.6 mg/dL (0.1-1.0); Bun/Creatinine Ratio 15.8 (12.0-20.0); Calcium, Blood 7.3 mg/dL (8.5-10.1); Creatinine, Blood 2.98 mg/dL (0.60-1.20); Globulin, Blood 3.8 g/dL (2.2-4.0); Magnesium, Blood 2.1 mg/dL (1.6-2.4); Potassium, Blood 5.4 mmol/L (3.5-5.5); Total Protein, Blood 6.5 g/dL (6.4-8.2)
[2020-04-29 05:36] LABS: BAND PERCENT MAN 27 % (0-8); BASOPHILS PERCENT MAN 0 % (0-2); EOSINOPHILS PERCENT MAN 0 % (0-6); LYMPHOCYTES ABSOLUTE MAN 2.77 K/mm3 (0.84-5.20); LYMPHOCYTES PERCENT MAN 12 % (21-46); METAMYELOCYTE ABSOLUTE MAN 0.69 K/mm3 (0.00-0.00); METAMYELOCYTE PERCENT MAN 3 % (0-0); MONOCYTES PERCENT MAN 0 % (4-13); NEUTROPHILS ABSOLUTE MAN 19.66 K/mm3 (1.96-9.15); SEG NEUTROPHILS PERCENT MAN 58 % (41-73); TOTAL CELLS COUNTED 100
--- NOTE | 2020-04-29 05:49 | NUR ---
SHIFT SUMMARY PT. DID NOT SLEEP MUCH OF THE NIGHT. INITIALLY HAD SOME MOMENTS OF DOZING OFF FOR A FEW MINUTES THEN WAKE UP. INFORMED DR MUSA OF LOW TEMPERATURE, SWEATING, NO FURTHER ORDERS, TRY TO USE WARM BLANKETS, PT. TOOK THEM OFF AFTER AN HOUR, STATES HE WAS TOO UNCOMFORTABLE. PT. STARTED GETTING MORE ANXIOUS AROUND 4AM, GAVE 1MG IVP ATIVAN. PT. FELL DEEPLY ASLEEP, HAD TO RESTART LEVOPHED, DESATURATED, EVEN HAVING TO DO JAW THRUST FOR ABOUT [address] ENGLAND WE WILL BE GIVING ROMAZICON, PER DR. URIBE DO NOT GIVE ROMAZICON, "ATIVAN IS SHORT ACTING, IT WILL WEAR OFF." NO FURTHER INTERVENTION AT THIS TIME. AFTER THE 30 SECONDS OF JAW THRUST PT. STIRRED, WAS ABLE TO MAINTAIN AIRWAY BETTER. STILL ON 15L NON-REBREATHER, BUT MAINTAINING SATURATIONS. LEVOPHED @ 5 MCG/MIN. ASSESSMENT IS CHARTED. VSS. WILL CONTINUE TO MONITOR.
--- NOTE | 2020-04-29 07:15 | NUR ---
ASSUMED CARE PT AGONAL BREATHING, LEVO AT 7, PUPILS PINPOINT AND SLUGGISH. PT WILL ARROSE BUT MUMBLES INCOHERENTLY. DIFFICULT TO KEEP AWAKE, CORE TEMP READING BELOW 95 DEGREES. CHARGE NURSE INFORMED, WARM BLANKETS PLACED AND MD CALLED WITH UPDATE. NON REBREATHER IN PLACE, ABDOMEN DISTENDED, HARD AND TENDER TO TOUCH. NG TUBE PLACED FOR DECOMPRESSION. PT'S BP'S CONTINUE TO DROP, LEVOPHED INCREASED TO 15, VASOPRESON STARTED, 500ML BOLUS STARTED.
[2020-04-29 09:49] LABS: PO2 Arterial 85.8 mmHg (80-100); pH Blood Arterial 6.92 (7.35-7.45)
[2020-04-29 09:50] LABS: PCO2 Arterial 87.2 mmHg (35-45)
--- NOTE | 2020-04-29 10:00 | NUR ---
EMERGENCY INTUBATION RESPIRATORY AND MD INTUCATED PT AT 1017AM WITH 2 OF VERSED. RESTRAINTS PLACED, PT VOMITED AND SUCTION PERFORMED. #[address] @27 AT TEETH. PTS COLORING IMMEDIATELY STARTED TO IMPROVE. NO SEDATION NEEDED FOR INTUBATION DUE TO HYPOXIA.
--- NOTE | 2020-04-29 11:00 | NUR ---
SURGICAL STAFF HERE TO TAKE PT DOWN FOR SURG. EXTRA BAG OF LEVO AND ANTIBIOTICS SENT DOWN WITH SURG STAFF. VENT SETTINGS PEEP 8, TV 500 RR 16.
--- NOTE | 2020-04-29 11:47 | NUR ---
04/29/20 Cesar7 Tarsha Rodgers PT ENTERED OR WITH MCMULLEN CATHETER
--- NOTE | 2020-04-29 14:40 | NUR ---
RETURNED FROM SURG MIDLINE INCISION WITH WOUND SEAL. COLOSTOMY IN PLACE MID LEFT ABDOMINAL. PTS CORE TEMP STILL LOW, SURGEON HAD BEAR HUGGER ON FOR 3 HOURS, WITH NO RESULTS. BEAR HUGGER PLACED ON HIM UPON RETURN FROM SURG . NO SEDATION UPON RETURN AND PT IS CALM. ARTERIAL LINE PLACED BY SURG IN RIGHT RADIAL. RETURNED ON LEVO 15, VASO .04 AND INSULIN. RECHECK OF BS WAS 194 SO INSULIN DRIP D/C'D UPON ARRIVAL. CALLED AND UPDATED BY RN AND SURGEON.
[2020-04-29 15:06] LABS: PCO2 Arterial 39.4 mmHg (35-45); PO2 Arterial 129 mmHg (80-100)
[2020-04-29 15:07] LABS: pH Blood Arterial 7.21 (7.35-7.45)
--- NOTE | 2020-04-29 18:46 | NUR ---
SHIFT SUMMARY PT TAKEN FOR SURG AFTER EMERGENT INTUBATION THIS MORNING. SURG WENT WELL, PERF-BOWEL REPAIRED IN TRANSVERSE COLON, COLOSTOMY PLACED MID LEFT ABDOMINAL PT REMAINS ON LEVO @ 15, VASO @ .04, NS @ 75 AND BICARB AT 75. PROPOFOL @ 10 STARTED AFTER WIFES VISIT DUE TO PATIENT CHEWING ON THE ET TUBE. URINE OUTPUT MINIMAL AND ALBUMIN STARTED. PT REMAINS WITH BEAR HUGGER DUE TO CORE TEMP STAYING BELOW 96.
[2020-04-30 03:47] LABS: BASOPHILS ABSOLUTE AUTO 0.02 K/mm3 (0.00-0.23); BASOPHILS PERCENT AUTO 0 % (0-2); Hematocrit 19.9 % (37.0-53.0); Hemoglobin 6.3 g/dL (13.5-17.5); LYMPHOCYTES ABSOLUTE AUTO 1.22 K/mm3 (0.84-5.20); LYMPHOCYTES PERCENT AUTO 8 % (21-46); MONOCYTES ABSOLUTE AUTO 0.28 K/mm3 (0.16-1.47); MONOCYTES PERCENT AUTO 2 % (4-13); Mean Corpuscular HGB Conc 31.7 g/dL (31.5-36.5); Mean Corpuscular Volume 82 fL (80-100); Mean Platelet Volume 8.5 fL (9.1-12.4); Platelet Count 382 K/mm3 (150-400); RDW Coefficient Variation 15.2 % (11.7-14.2); Red Blood Cell Count 2.42 M/mm3 (4.30-5.90); White Blood Cell Count 14.89 K/mm3 (4.00-11.30)
[2020-04-30 03:49] LABS: EOSINOPHILS PERCENT AUTO 0 % (0-6); IMMATURE GRAN ABSOLUTE AUTO 0.16 K/mm3 (0.00-0.10); IMMATURE GRAN PERCENT AUTO 1 % (0-1); NEUTROPHILS ABSOLUTE AUTO 13.21 K/mm3 (1.96-9.15); NEUTROPHILS PERCENT AUTO 89 % (41-73)
[2020-04-30 04:04] LABS: BAND PERCENT MAN 9 % (0-8); BASOPHILS PERCENT MAN 0 % (0-2); EOSINOPHILS PERCENT MAN 0 % (0-6); LYMPHOCYTES ABSOLUTE MAN 1.48 K/mm3 (0.84-5.20); LYMPHOCYTES PERCENT MAN 10 % (21-46); MONOCYTES ABSOLUTE MAN 0.14 K/mm3 (0.16-1.47); MONOCYTES PERCENT MAN 1 % (4-13); NEUTROPHILS ABSOLUTE MAN 13.25 K/mm3 (1.96-9.15); SEG NEUTROPHILS PERCENT MAN 80 % (41-73); TOTAL CELLS COUNTED 100
[2020-04-30 04:07] LABS: Alanine Aminotransfer (ALT/SGP 32 U/L (12-78); Albumin, Blood 3.1 g/dL (3.4-5.0); Albumin/Globulin Ratio 1.2 (0.8-1.8); Alk Phos 61 U/L (50-136); Anion Gap 14 mmol/L (6-16); Aspartate Aminotrans (AST/SGOT 40 U/L (12-37); Bilirubin, Direct 0.6 mg/dL (0.0-0.3); Bilirubin, Indirect 0.3 mg/dL (0.1-0.7); Bilirubin, Total 0.9 mg/dL (0.1-1.0); Blood Urea Nitrogen 51 mg/dL (8-24); Bun/Creatinine Ratio 15.5 (12.0-20.0); CO2, Blood 17 mmol/L (21-32); Calcium, Blood 6.7 mg/dL (8.5-10.1); Chloride, Blood 103 mmol/L (98-108); Creatinine, Blood 3.29 mg/dL (0.60-1.20); Globulin, Blood 2.6 g/dL (2.2-4.0); Glomerular Filtration Rate 20 (60-); Glucose, Blood 320 mg/dL (70-99); Phosphorus, Blood 6.7 mg/dL (2.5-4.9); Potassium, Blood 5.3 mmol/L (3.5-5.5); Sodium, Blood 134 mmol/L (136-145); Total Protein, Blood 5.7 g/dL (6.4-8.2); Vancomycin, Random 17.8 ug/mL
--- NOTE | 2020-04-30 06:49 | NUR ---
SHIFT SUMMARY PATIENT TEMPERATURE VLAD, PT. STARTED HAVING URINE OUTPUT. STILL MINIMAL, STILL UNDER 300 ML FOR TONIGHT HOWEVER. WHEN I FIRST GOT ON SHIFT PATIENT WAS WIDE AWAKE, ANSWERED ORIENTATION QUESTIONS APPROPRIATELY, VERY ANXIOUS. INCREASED PROPOFOL. HAD TO INCREASE A COUPLE OF TIMES THROUGH NIGHT FOR VENTILATOR TOLERANCE, WOULD SOMETIMES STACK BREATHS/ INCREASE PEAK PRESSURES, DOING WELL ON 30 MCG/KG/MIN. OF PROPOFOL. GAVE DILAUDID TWICE THRU NIGHT FOR PAIN. AM LABS REVEALED HEMOGLOBIN OF 6.3, GIVING 1 UNIT OF PACKED RED BLOOD CELLS AT THIS TIME. ASSESSMENT IS CHARTED. VSS. WILL CONTINUE TO MONITOR.
--- NOTE | 2020-04-30 08:00 | NUR ---
ASSUMED CARE / DR POWERS: REPORT RECEIVED FROM GAGAN Collado RN. ASSUMED CARE OF THIS PT AT APPROX 0700. ON ASSESSMENT, THE PT IS RESTING QUIETLY. HE IS INTUBATED W/ 8.0 ETT NOTED TO BE 26.0 CM SIMONE. SEDATED W/ PROPOFOL CURRENTLY INFUSING AT 30 MCG/KG/MIN, PAIN MEDS PRN. PT OPENS EYES TO VERBAL & PAINFUL STIMULUS, FOLLOWS DIRECTION. LS CLEAR T/O, VENT SETTINGS: AC 16/500/8/45% W/ O2 SATS > 92%. MONITOR SHOWS SR W/ HR 80s, LEVOPHED & VASOPRESSIN INFUSING FOR HYPOTENSION -SEE VS & FLOWSHEET. ABD IS DISTENDED & FIRM, PT GRIMACES TO PALPATION, BT HYPOACTIVE. NEW OSTOMY TO LLQ IS NOTED TO HAVE PINK/BEEFY COLORED STOMA & SMALL AMNT SS DRAINAGE IN OSTOMY BAG. TEMP MCMULLEN PATENT/ DRAINING SCANT AMNTS YELLOW URINE. SKIN CONDITION OVERALL INTACT, MIDLINE SURGICAL INCISION TO ABD W/ GERSON WOUND VAC IN PLACE. MOD AMNT DRIED SS DRAINAGE NOTED TO DRESSING. [address] UN[address] PRBCs INFUSING CURRENTLY. DR POWERS AT BEDSIDE THIS AM. REQUEST FOR F/U H&H AFTER BLOOD TRANFUSION COMPLETE, PROVIDER STS OKAY & ORDERS PLACED. NO CHANGES AT THIS TIME.
--- NOTE | 2020-04-30 09:50 | NUR ---
DR RM: PROVIDER AT BEDSIDE TO EVAL PT. THE PT WILL REMAIN INTUBATED TODAY. HE WOULD LIKE TO BE NOTIFIED OF F/U H&H RESULTS & MAY ORDER A 2ND UNIT OF PRBCs. HE REQUESTS THAT ABD PRESSURE ALSO BE CHECKED AT LEAST ONCE PER SHIFT ON THIS PT.
[2020-04-30 10:09] LABS: Hematocrit 23.3 % (37.0-53.0); Hemoglobin 7.5 g/dL (13.5-17.5)
--- NOTE | 2020-04-30 12:58 | NUR ---
DR RAGLAND: PROVIDER AT BEDSIDE TO EVAL PT. STS THAT HIS SS INSULIN COVERAGE MAY NEED TO BE CHANGED OR INSULIN DRIP THAT WAS INFUSING IN OR MAY NEED TO BE RESUMED FOR PT's CONTINUED HYPERGLYCEMIA. NO OTHER CHANGES AT THIS TIME.
--- NOTE | 2020-04-30 18:55 | NUR ---
SHIFT SUMMARY: NO ACUTE CHANGES SINCE PRIOR UPDATES. PT REMAINS INTUBATED & SEDATED. HE IS ABLE TO ANSWER YES/NO QUESTIONS BY NODDING HEAD. HE NODS "YES" TO PAIN IN HIS ABDOMEN & CHRONIC PAIN IN BACK ALSO. LS CLEAR T/O, VENT SETTINGS: AC 16/500/8/45% W/ O2 SATS > 92%. MONITOR SHOWS SR W/ HR 80s, VASOPRESSIN HAS BEEN TURNED OFF & LEVOPHED CURRENTLY INFUSING AT 4 MCG/MIN - SEE VS. NGT TO LIS. STOMA PINK/BEEFY & CONTINUES DRAINING SCANT AMNTS SS DRAINAGE. ABD DISTENDED & TENDER W/ PT GRIMACING DURING REPOSIITIONING. GERSON DRESSING & WV TO MIDLINE ABD ARE BOTH PATENT. SMALL AMNT DRIED SS DRAINAGE TO GERSON DRESSING IS UNCHANGED SINCE AM ASSESSMENT. TEMP MCMULLEN PATENT/ DRAINING. SKIN OVERALL CDI. ART LINE TO L RADIAL REMAINS INTACT & SITE WNL. WILL CONTINUE TO MONITOR & REPORT OFF TO ONCOMING RN.
[2020-05-01 03:44] LABS: BASOPHILS ABSOLUTE AUTO 0.03 K/mm3 (0.00-0.23); BASOPHILS PERCENT AUTO 0 % (0-2); EOSINOPHILS ABSOLUTE AUTO 0.01 K/mm3 (0.00-0.68); EOSINOPHILS PERCENT AUTO 0 % (0-6); Hemoglobin 8.3 g/dL (13.5-17.5); IMMATURE GRAN ABSOLUTE AUTO 0.36 K/mm3 (0.00-0.10); IMMATURE GRAN PERCENT AUTO 2 % (0-1); LYMPHOCYTES ABSOLUTE AUTO 1.49 K/mm3 (0.84-5.20); LYMPHOCYTES PERCENT AUTO 8 % (21-46); MONOCYTES ABSOLUTE AUTO 0.18 K/mm3 (0.16-1.47); MONOCYTES PERCENT AUTO 1 % (4-13); Mean Corpuscular HGB 27.2 pg (26.0-34.0); Mean Corpuscular HGB Conc 33.2 g/dL (31.5-36.5); Mean Corpuscular Volume 82 fL (80-100); Mean Platelet Volume 8.5 fL (9.1-12.4); NEUTROPHILS ABSOLUTE AUTO 17.45 K/mm3 (1.96-9.15); NEUTROPHILS PERCENT AUTO 89 % (41-73); Platelet Count 330 K/mm3 (150-400); RDW Coefficient Variation 15.9 % (11.7-14.2); RDW Standard Deviation 47.8 fL (35.1-46.3); Red Blood Cell Count 3.05 M/mm3 (4.30-5.90); White Blood Cell Count 19.52 K/mm3 (4.00-11.30)
[2020-05-01 03:58] LABS: PCO2 Arterial 31.3 mmHg (35-45); PO2 Arterial 61.9 mmHg (80-100); pH Blood Arterial 7.42 (7.35-7.45)
[2020-05-01 04:02] LABS: Albumin, Blood 2.2 g/dL (3.4-5.0); Anion Gap 10 mmol/L (6-16); Blood Urea Nitrogen 53 mg/dL (8-24); Bun/Creatinine Ratio 13.8 (12.0-20.0); CO2, Blood 23 mmol/L (21-32); Calcium, Blood 6.5 mg/dL (8.5-10.1); Chloride, Blood 103 mmol/L (98-108); Creatinine, Blood 3.84 mg/dL (0.60-1.20); Glomerular Filtration Rate 17 (60-); Glucose, Blood 237 mg/dL (70-99); Magnesium, Blood 1.7 mg/dL (1.6-2.4); Phosphorus, Blood 5.2 mg/dL (2.5-4.9); Sodium, Blood 136 mmol/L (136-145); Vancomycin, Random 27.4 ug/mL
--- NOTE | 2020-05-01 04:48 | NUR ---
SHIFT SUMMARY PATIENT SLEPT WELL THROUGH NIGHT. ATTEMPTED TWICE TO LOWER LEVOPHED, FAIRLY IMMEDIATE DROP IN BLOOD PRESSURE, MAP DOWN TO 60, KEPT AT 4 MCG/MIN. TONIGHT INTRA-ABDOMINAL PRESSURE MEASURED [address] URIBE FOR ELECTROLYTE REPLACEMENT. ASSESSMENT IS CHARTED. VSS. WILL CONTINUE TO MONITOR.
--- NOTE | 2020-05-01 08:10 | NUR ---
ASSUMED CARE: REPORT RECEIVED FROM GAGAN Collado RN. ASSUMED CARE OF THIS PT AT APPROX 0700. ON ASSESSMENT, THE PT IS LIGHTLY SEDATED W/ PROPOFOL & INTUBATED W/ AN 8.0 ETT, NOTED TO BE 26.0 CM SIMONE. PT AWAKENS EASILY TO VERBAL STIMULUS & IS ABLE TO ANSWER YES/NO QUESTIONS BY NODDING HEAD. HE DENIES PAIN AT THIS TIME & IS OVERALL RESTING QUIETLY. LS CLEAR T/O, VENT SETTINGS: AC 16/500/8/45%, O2 SATS > 92%. MONITOR SHOWS SR W/ HR 70s, LEVOPHED INFUSING AT 2MCG/MIN FOR HYPOTENSION. NGT TO LIS W/ DECREASING OUTPUT NOTED IN CANISTER. OSTOMY TO LLQ W/ PINK STOMA & SCANT AMNT SS DRAINAGE NOTED IN OSTOMY BAG. IAP 12. TEMP MCMULLEN PATENT/ DRAINING. SKIN OVERALL CDI, MIDLINE SURGICAL INCISION TO ABD W/ GERSON WV IN PLACE, PATENT. DRESSING HAS SMALL AMNT OF DRIED SS DRAINAGE NOTED WHICH IS UNCHANGED FROM YESTERDAY's ASSESSMENT. WILL CONTINUE TO MONITOR & UPDATE NEEDED.
--- NOTE | 2020-05-01 08:45 | NUR ---
UPDATE: THIS RN HAS SPOKEN TO PAULINE Melendez REFRIGERATION ENGINEERING TEACHER, REGARDING THIS PT's ORDER FOR AN URGENT ECHO THAT WAS PLACED ON 04/29/[address] RAGLAND, BUT NO REPORT CAN BE FOUND. HE STS THAT THE ECHO WAS ORDERED PREOPERATIVELY & DID NOT GET COMPLETED BECAUSE THE PT WAS TAKEN TO SURGERY QUICKLY BEFORE THE ECHO WAS STARTED. HE NOTES THAT IF DR RM WOULD LIKE AN ECHO TO BE COMPLETED, IT WOULD BE BEST TO PLACE A NEW ORDER. DR RM IN UNIT THIS AM & THIS ISSUE IS DISCUSSED. HE WOULD LIKE AN ECHO TO BE COMPLETED & NEW ORDERS HAVE BEEN PLACED. HE ALSO STS OKAY TO D/C PT's ARTERIAL LINE TO L RADIAL ART TODAY.
--- NOTE | 2020-05-01 11:10 | NUR ---
Echocardiogram using 0.50ml of Definity contrast performed.
--- NOTE | 2020-05-01 11:11 | NUR ---
Echocardiogram using 0.60ml of Definity contrast and 9.0ml of agitated saline contrast performed.
--- NOTE | 2020-05-01 12:55 | NUR ---
ARTERIAL LINE REMOVAL: ART LINE TO R RADIAL ARTERY HAS BEEN REMOVED AT 1220. MANUAL PRESSURE HELD BY THIS RN FOR 20 MINS. UPON INSPECTION, SITE IS WNL & NO BLEEDING IS NOTED BUT THERE IS A MODERATE AMNT OF BRUISING AROUND INSERTION SITE. TEGADERM PLACED & SITE BEGINS OOZING A MOD AMNT OF SANGUINOUS DRAINAGE QUICKLY AFTER. THIS RN BEGINS HOLDING PRESSURE AGAIN FOR APPROX 10 MINS & HAL Wallis RN, BRINGS A JOHNNY PATCH & NEW TEGADERM DRESSING TO BEDSIDE. ONCE OOZING HAS STOPPED, JOHNNY PATCH & TEGADERM PLACED TO SITE. NO FURTHER BLEEDING/ OOZING HAS BEEN NOTED & SITE REMAINS STABLE.
--- NOTE | 2020-05-01 17:41 | NUR ---
SHIFT SUMMARY: NO ACUTE CHANGES SINCE PRIOR UPDATES. PT REMAINS INTUBATED & SEDATED, ANSWERING YES/NO QUESTIONS BY NODDING HIS HEAD. LS CLEAR T/O, VENT SETTINGS: AC 16/500/5/40% W/ O2 SATS > 92%. MONITOR SHOWS SR W/ HR 70s, BP OVERALL STABLE SINCE LEVOPHED TURNED OFF. SBP DECREASED TO 90s BRIEFLY AFTER FENTANYL PER EMAR BUT SINCE IMPROVED TO 110s. NGT TO RT NARE CONTINUES TO DR ELLYN CONTE STS THE PT WILL NEED AT LEAST ONE MORE DAY BEFORE ENTERAL FEEDING CAN BE STARTED. OSTOMY TO LLQ CONTINUES DRAINING SMALL AMNTS OF DRAINAGE, NOW MORE SEROUS IN COLOR. TEMP MCMULLEN PATENT/ DRAINING, URINE OUTPUT W/ SCANT IMPROVEMENT NOTED AFTER LASIX PER EMAR - SEE I&O. SKIN OVERALL CDI. MIDLINE SURGICAL SITE W/ PATENT GERSON [place]. WILL CONTINUE TO MONITOR & REPORT OFF TO ONCOMING RN.
--- NOTE | 2020-05-01 21:18 | NUR ---
Care assumed 1899 Report recieved from Lora Wallis RN. Pt sedated with propofol and intubated. Pt awakens with verbal stimulus and is able to answer yes/no questions by nodding. Nods yes to being in pain, nods yes to abd/back pain, treated with PRN Fentanyl 50 mcg. Nods no when asked if he knows location. Updated on care/event. Vent settings AC 16/500/5/45%, SPO2 > 90%. NGT to LIS. Levophed on SB. MAP > 65. NSR. Ostomy to LLQ w/ pink stoma and scant amount of SS drainage in ostomy bag. Temp rodriguez patent/draining to gravity. Midline surgical incision to abd w/ GERSON wound vac in place. Dressing with dired SS drainage from yesterday. Will continue to monitor.
--- NOTE | 2020-05-01 22:08 | NUR ---
Norepinephrine restarted 2204 Pts SBP 90'S and MAP 60-65. Norepinephrine restarted at 2 mcg/min to maintaine MAP > 65.
--- NOTE | 2020-05-02 00:36 | NUR ---
UPDATE PT on propofol at 30 mcg/kg/min. Pt following directions, opens eyes to sound, and able to nod yes/no to simple questions. Nods no when asked if in pain. Levophed GTT 2 mcg/min, MAP > 65. Vent settings unchanged. SPO2 > 90%. Temp 97.9. HR 80's. Urineout of 100 mls, clear yellow. IAP attempted once with reading of 24. Will reattempt again with charge nurse.
--- NOTE | 2020-05-02 01:12 | NUR ---
IAP 21 IAP 21, checking again with the assitance of Katelin Corcoran RN.
[2020-05-02 05:05] LABS: PCO2 Arterial 34.6 mmHg (35-45); PO2 Arterial 62.2 mmHg (80-100)
[2020-05-02 05:24] LABS: BASOPHILS ABSOLUTE AUTO 0.03 K/mm3 (0.00-0.23); BASOPHILS PERCENT AUTO 0 % (0-2); EOSINOPHILS PERCENT AUTO 0 % (0-6); Hematocrit 26.2 % (37.0-53.0); Hemoglobin 8.6 g/dL (13.5-17.5); IMMATURE GRAN ABSOLUTE AUTO 0.43 K/mm3 (0.00-0.10); IMMATURE GRAN PERCENT AUTO 2 % (0-1); LYMPHOCYTES ABSOLUTE AUTO 2.13 K/mm3 (0.84-5.20); LYMPHOCYTES PERCENT AUTO 9 % (21-46); MONOCYTES ABSOLUTE AUTO 0.25 K/mm3 (0.16-1.47); MONOCYTES PERCENT AUTO 1 % (4-13); Mean Corpuscular HGB 26.8 pg (26.0-34.0); Mean Corpuscular HGB Conc 32.8 g/dL (31.5-36.5); Mean Corpuscular Volume 82 fL (80-100); NEUTROPHILS ABSOLUTE AUTO 20.98 K/mm3 (1.96-9.15); NEUTROPHILS PERCENT AUTO 88 % (41-73); Platelet Count 358 K/mm3 (150-400); RDW Coefficient Variation 16.3 % (11.7-14.2); Red Blood Cell Count 3.21 M/mm3 (4.30-5.90); White Blood Cell Count 23.92 K/mm3 (4.00-11.30)
[2020-05-02 05:34] LABS: Albumin, Blood 1.8 g/dL (3.4-5.0); Anion Gap 11 mmol/L (6-16); Blood Urea Nitrogen 57 mg/dL (8-24); Bun/Creatinine Ratio 13.4 (12.0-20.0); CO2, Blood 22 mmol/L (21-32); Calcium, Blood 7.4 mg/dL (8.5-10.1); Chloride, Blood 100 mmol/L (98-108); Creatinine, Blood 4.25 mg/dL (0.60-1.20); Glomerular Filtration Rate 15 (60-); Glucose, Blood 221 mg/dL (70-99); Magnesium, Blood 1.8 mg/dL (1.6-2.4); Phosphorus, Blood 5.8 mg/dL (2.5-4.9); Potassium, Blood 4.1 mmol/L (3.5-5.5); Sodium, Blood 133 mmol/L (136-145); Vancomycin, Random 23.3 ug/mL
--- NOTE | 2020-05-02 07:34 | NUR ---
Shift Summary Pt intubated and sedated. Vent settings unchanged. Propofol GTT 35 MCG/KG/MIN, pt able to follow commands and nod yes/no when in pain. Levophed GTT 1 mcg/min, MAP > 70. Pt treated with Fentanyl twice during shift with good effect. Pt has appeared diaphortic t/o shift. NGT to RT Nare to LIS. Ostomy to LLQ draining small amount of drainage, serous in color. Temp rodriguez in place, 250 mls of urineout during shift. Midline surgical site w/ patent GERSON [place]. NSR with rare PAC. SPO2 > 90%. Will report to oncoming shift.
--- NOTE | 2020-05-02 07:40 | NUR ---
ASSUMED CARE BEDSIDE REPORT FROM MIK ENCNIAS. PT INTUBATED AND SEDATED. VENT SETTINGS AC 16/500/5/45%. PROPOFOL GTT 35 MCG/KG/MIN. LUNGS DIMINISHED IN BASES. SMALL AMOUNT OF THICK, YELLOW SECRETIONS THROUGH ETT. PT OPENS EYES TO VERBAL STIMULI. FOLLOWS SIMPLE COMMANDS. NODS HEAD TO YES/NO QUESTIONS. ABD ROUND, SOFT, DISTENDED. BT X 4. NGT TO RIGHT NARE, LIS, GREEN/YELLOW LIQUID OUT. GERSON DRESSING MIDLINE ABD, DRESSING C/D/I. COLOSTOMY TO LLQ. STOMA RED. LIQUID SEROUS OUTPUT. MCMULLEN PATENT, DRAINING TO GRAVITY. PICC TO RUE, DRESSING TO BE CHANGED THIS SHIFT. WILL CONTINUE TO MONITOR.
--- NOTE | 2020-05-02 10:38 | NUR ---
PROPOFOL PLACED ON STANDBY. VENT SETTINGS CHANGED TO SPONT 10/5/45%. PT TOLERATING WELL. SLIGHTLY AGITATED. FOLLOWING COMMANDS. NODS HEAD YES TO WANTING ETT OUT. ETT REMOVED AT 1015. PLACED ON 4L O2 VIA NC, INCREASED TO 6L AFTER DESAT TO MID 80'S. WEAK COUGH. ASSIST c ERLIN TO MANAGE SECRETIONS. PT C/O BACK PAIN. WILL CONTINUE TO MONITOR.
--- NOTE | 2020-05-02 17:33 | NUR ---
SHIFT SUMMARY PT EXTUBATED THIS SHIFT. TOLERATED WELL. 9L O2 VIA HIGH FLOW, O2 SATS MID 90'S. LUNGS COARSE. WET COUGH. PT SUCTIONING SECRETIONS, MANAGING WELL. A&OX 4. PT C/O CHRONIC BACK PAIN. REPOSITIONED SEVERAL TIMES AND MEDICATED c FENTANYL FOR PAIN c MINIMAL RELIEF. OGT TO LIS. 50 ML YELLOW BILE OUT. HYPOACTIVE BT. SEROUS FLUID IN OSTOMY BAG, 40 ML OUT THIS SHIFT. NO GAS. MCMULLEN PATENT, DRAINING CLEAR YELLOW URINE TO GRAVITY, 350 ML OUT THIS SHIFT. PICC DRESSING CHANGED. PT UP TO CHAIR FOR HALF OF SHIFT. VSS. WILL CONTINUE TO MONITOR.
--- NOTE | 2020-05-02 17:59 | NUR ---
DR RAGLAND ROUNDS DISCUSSED PAIN MANAGEMENT c DR RAGLAND. CONTINUE FENTANYL. LIDOCAINE PATCH PER DR RM. PHARMACY OUT OF [facility], DIETARY CONSULT ORDERED TO START TRICKLE FEEDS. WHEN LIFING PT BACK TO BED, ADDITIONAL 250 ML OUT NGT.
--- NOTE | 2020-05-02 20:57 | NUR ---
Care Assumed 1900 Pt sitting in bed watching TV with glasses on. On 9 L O2 via high flow, SPO2 > 90%. A/O X 4, able to state location, event, year, and makes needs known. NGT to LIS. Temp rodriguez in place, draining to gravity with 65 mls of clear yellow urine in bag. Ostomy in place with scant serous fluid in bag, no gas. PICC infusing TKO. Pt states having back pain (11/16), unchanged with repositioning. Asked to apply heat/cold therapy, pt states that does not help. Has chronic lower back pain that radiates upward. Pt states pain started a few years ago after he had a "back abscess" that required surgery. Pain treated with PRN Fentanyl. VSS. Will continue to monitor.
--- NOTE | 2020-05-02 23:16 | NUR ---
UPDATE Pt continues to have lower back pain, (12/16). Treated with Fentanyl decreased to 10/16. Pt sitting in bed watching TV. A/O X 4. 125 ML Of urine output.
--- NOTE | 2020-05-03 00:31 | NUR ---
Pain, lower back Pt states having lower back pain (10/10). PRN Fentanyl due in one more hour. Pt updated on this. Offered warm/cold cloth and offered to be repositioned but patient says no. Will continue to monitor.
--- NOTE | 2020-05-03 04:30 | NUR ---
Update- Provider call. Pt with increased pain (12/16), unable to be managed with Fentanyl 50 mcg Q 2 PRN. Pt states having breakthrough pain after one hour. Grimacing and appears anxious. Grimacing during turns or refusing being turned due to pain. Pt states pain is in lower back and radiates upward. Dr. Arnett called and updated on pt status. Recieved orders to increase Fentanyl to 75 mcg Q2PRN. Pt A/O to location and event, able to follow commands. Was not able to rest t/o the night. Using call light frequently (2-3 per hr) asking for pain med. Pt apologetic for using call light frequently. Offered cold/warm therapy and turns, pt states neither will help and refused. Offered to turn on TV as distraction therapy. Pt sitting in bed watching TV. Will continue to monitor.
[2020-05-03 05:10] LABS: BASOPHILS ABSOLUTE AUTO 0.08 K/mm3 (0.00-0.23); BASOPHILS PERCENT AUTO 0 % (0-2); EOSINOPHILS PERCENT AUTO 0 % (0-6); Hematocrit 28.5 % (37.0-53.0); Hemoglobin 9.3 g/dL (13.5-17.5); IMMATURE GRAN PERCENT AUTO 3 % (0-1); LYMPHOCYTES ABSOLUTE AUTO 2.05 K/mm3 (0.84-5.20); LYMPHOCYTES PERCENT AUTO 7 % (21-46); MONOCYTES ABSOLUTE AUTO 0.68 K/mm3 (0.16-1.47); MONOCYTES PERCENT AUTO 2 % (4-13); Mean Corpuscular HGB 26.8 pg (26.0-34.0); Mean Corpuscular HGB Conc 32.6 g/dL (31.5-36.5); Mean Corpuscular Volume 82 fL (80-100); Mean Platelet Volume 8.8 fL (9.1-12.4); NEUTROPHILS ABSOLUTE AUTO 24.67 K/mm3 (1.96-9.15); NEUTROPHILS PERCENT AUTO 87 % (41-73); NRBC ABSOLUTE 0.02 K/mm3 (0.00-0.02); NRBC Auto 0.1 /100 WBC (0.0-0.2); Platelet Count 378 K/mm3 (150-400); RDW Coefficient Variation 16.7 % (11.7-14.2); RDW Standard Deviation 49.8 fL (35.1-46.3); Red Blood Cell Count 3.47 M/mm3 (4.30-5.90); White Blood Cell Count 28.48 K/mm3 (4.00-11.30)
--- NOTE | 2020-05-03 05:28 | NUR ---
[facility] downtime- Fentanyl 50 mcg given 0202 Pt with increased pain, grimacing, and states having pain 10/10. Refusing to be turned due to pain. Treated with PRN Fentany 50 mcg. Pt states pain decreases to 7-8/10 and returns to 10/10 after one hour.
[2020-05-03 05:45] LABS: Anion Gap 11 mmol/L (6-16); Blood Urea Nitrogen 62 mg/dL (8-24); CO2, Blood 21 mmol/L (21-32); Calcium, Blood 8.1 mg/dL (8.5-10.1); Chloride, Blood 103 mmol/L (98-108); Creatinine, Blood 4.76 mg/dL (0.60-1.20); Glomerular Filtration Rate 13 (60-); Glucose, Blood 109 mg/dL (70-99); Potassium, Blood 4.7 mmol/L (3.5-5.5); Sodium, Blood 135 mmol/L (136-145); Vancomycin, Random 20.6 ug/mL
--- NOTE | 2020-05-03 07:09 | NUR ---
Shift Summary Pt sitting in bed watching TV. Continues to state having pain 10/10, lower back pain that radiates upward. Pt states Fentanyl 70 mcg only decreased the pain for one and half hour. Treated with PRN Fentanyl per emar. Ostomy has 12 mls of output this shift. NGT to LIS. IAB 24. Pt remains on 9 L via highflow NC, SPO2 > 90%. Pt appears to have a sinus arrhythmia, has occasional PVC's/PAC's as well. Roy in place, draining to gravity with 270 urine output. Will report to oncoming shift.
--- NOTE | 2020-05-03 08:00 | NUR ---
ASSUMED CARE BEDSIDE REPORT FROM MIK RN. PT RESTING IN BED. AWAKE. A&OX 4. ANSWERS QUESTIONS APPROPRIATELY, FOLLOWS COMMANDS. PT C/O LOW BACK PAIN, CHRONIC. REPORTS MINIMAL RELIEF FROM PAIN MEDS. STATES ABD FEELS BETTER THAN YESTERDAY. LUNGS CLEAR. PT ON 9L VIA HF O2. WET, PRODUCTIVE COUGH. MANAGING SECRETIONS c ERLIN. ABD ROUND, FIRM, DISTENDED. HYPOACTIVE BT. GERSON DRESSING MIDLINE, C/D/I c WOUND VAC IN PLACE. SMALL AMOUNT OF DRAINAGE TO DRESSING FROM PREVIOUS SHIFTS. OSTOMY TO LLQ, STOMA PINK, MOIST. SMALL AMOUNT OF SEROUS FLUIDS s GAS IN APPLIANCE. NGT TO RIGHT NARE, LIS, CLEAR/YELLOW EMESIS OUT. MCMULLEN PATENT, DRAINING CLEAR YELLOW URINE TO GRAVITY. IAP MEASURED, 24 MMHG. VSS. PICC TO RUE, DRESSING C/D/I. WILL CONTINUE TO MONITOR.
--- NOTE | 2020-05-03 11:30 | NUR ---
DR RM/DR RAGLAND ROUNDS DR RAGLAND AWARE OF IAP. OK TO PROCEED c TRICKLE TUBE FEEDS, MEASURING RESIDUALS q4. STATUS CHANGE TO SURGICAL c TELE. DISCUSSED LASIX AND KIDNEY FUNCTION c DR RM. PENDING LASIX ORDER. WILL CONTINUE TO MONITOR.
--- NOTE | 2020-05-03 14:20 | NUR ---
REPORT TO TWIN ENCINAS ON SURGICAL FLOOR. PT TRANSFERRED c ALL BELONGINGS.
--- NOTE | 2020-05-03 18:25 | NUR ---
SHIFT SUMMARY PT POD #4 FOR SIGMOID COLECTOMY AND COLOSTOMY. PT A/O X4; RECEIVING TUBE FEEDING VIA NG. ABD IS DISTENDED. PT FREQUENTLY C/O BACK PAIN AND IS TREATED PER EMR. Q6 CBG'S, BLOOD GLUCOSE STABLE. VSS; WILL REPORT TO JOSH RN.
[2020-05-04 06:04] LABS: BASOPHILS ABSOLUTE AUTO 0.07 K/mm3 (0.00-0.23); BASOPHILS PERCENT AUTO 0 % (0-2); EOSINOPHILS ABSOLUTE AUTO 0.05 K/mm3 (0.00-0.68); EOSINOPHILS PERCENT AUTO 0 % (0-6); Hemoglobin 8.9 g/dL (13.5-17.5); IMMATURE GRAN ABSOLUTE AUTO 1.29 K/mm3 (0.00-0.10); IMMATURE GRAN PERCENT AUTO 5 % (0-1); LYMPHOCYTES ABSOLUTE AUTO 1.74 K/mm3 (0.84-5.20); LYMPHOCYTES PERCENT AUTO 6 % (21-46); MONOCYTES PERCENT AUTO 4 % (4-13); Mean Corpuscular HGB 27.1 pg (26.0-34.0); Mean Corpuscular HGB Conc 31.8 g/dL (31.5-36.5); Mean Corpuscular Volume 85 fL (80-100); NEUTROPHILS ABSOLUTE AUTO 24.72 K/mm3 (1.96-9.15); NEUTROPHILS PERCENT AUTO 86 % (41-73); Platelet Count 365 K/mm3 (150-400); RDW Coefficient Variation 17.2 % (11.7-14.2); RDW Standard Deviation 53.2 fL (35.1-46.3); Red Blood Cell Count 3.28 M/mm3 (4.30-5.90); White Blood Cell Count 28.87 K/mm3 (4.00-11.30)
--- NOTE | 2020-05-04 06:25 | NUR ---
SHIFT SUMMARY POD5 PARTIAL COLECTOMY W/ OSTOMY, A/O X4, VSS, TOLERATING TUBE FEEDINGS W/ MINIMAL RESIDUAL, C/O HIGH PAIN LEVELS THOUGH FACE AND FLACC SCALE SHOW SIGNIFICANTLY LOWER SCORES, LAST 2 PAIN MEDICATION ADMINISTRATIONS HAVE BEEN LESS THAN ORDERED W/ SIMILAR PAIN MANAGEMENT LEVELS AND SLIGHTLY LESS SEDATIVE EFFECTS. VOIDING WELL VIA MCMULLEN WHICH IS PATENT AND DRAINING TO GRAVITY. ON BEDREST PER ORDERS. CALL LIGHT IN REACH, WILL CONTINUE TO MONITOR AND REPORT TO ONCOMING DAY RN.
[2020-05-04 06:32] LABS: Anion Gap 17 mmol/L (6-16); Blood Urea Nitrogen 72 mg/dL (8-24); Bun/Creatinine Ratio 13.5 (12.0-20.0); CO2, Blood 15 mmol/L (21-32); Chloride, Blood 103 mmol/L (98-108); Creatinine, Blood 5.34 mg/dL (0.60-1.20); Glomerular Filtration Rate 12 (60-); Glucose, Blood 193 mg/dL (70-99); Magnesium, Blood 2.2 mg/dL (1.6-2.4); Potassium, Blood 5.5 mmol/L (3.5-5.5); Sodium, Blood 135 mmol/L (136-145); Vancomycin, Random 18.7 ug/mL
[2020-05-04 06:38] LABS: Phosphorus, Blood 8.3 mg/dL (2.5-4.9)
--- NOTE | 2020-05-04 06:46 | NUR ---
[facility]OSPHORUS RECEIVED CRITICAL HIGH PHOS FROM LAB, CALL PLACED TO NOC HOSPITALIST, WAITING ON RETURN PHONE CALL.
--- NOTE | 2020-05-04 07:11 | NUR ---
CRITICAL PHOS: PT PHOS CRITICALLY HIGH 8.[address] PADRON NOTIFIED, PT LABS REVIEWED W/MD; DISCUSSED CONCERN OF SEVERAL OF PT LABS INCLUDING CRITICAL PHOS, WBC, CREATININE AND GFR. STATES HE WILL REVIEW CHART. NO NEW ORDERS AT THIS TIME.
--- NOTE | 2020-05-04 07:30 | NUR ---
ASSUMED CARE: PT RESTING IN BED BUT AWAKE ENOUGH TO TALK TO STAFF. NG TUBE IN PLACE WITH TRICKLE FEEDS. NSR ON TELE. NIGHT CASE PLANNER FOR PAIN AT THIS TIME. NO FURTHER NEEDS OR CONCERNS.
--- NOTE | 2020-05-04 07:42 | NUR ---
BLEEDING PT SLOWLY BLEEDING FROM HEPARIN INJECTION GIVEN AT MIDNIGHT, BANDAGE PLACED OVER SITE AND IS STILL SLOWLY SEEPING THROUGH, DAY RN NOTIFIED AND WILL HOLD NEXT DOSE.
--- NOTE | 2020-05-04 08:25 | NUR ---
SPOKE WITH DR POWERS REGARDING IONIZED CALCIUM RESULTS. DECLINES VBG ORDER. INFORMED OF PT'S PAIN MEDICATION REQUIREMENTS WITH NEW ORDERS IN PLACE. NO FURTHER NEEDS AT THIS TIME.
--- NOTE | 2020-05-04 14:30 | NUR ---
CALL TO DR POWERS TO MAKE HER AWARE OF DR LA'S PLANS AND TO LET HER KNOW THAT PT'S FENTANYL USAGE HAS NOT CHANGED SINCE NORCO WAS STARTED THIS AM. PT STATES NORCO HELPS AND FENTANYL HELPS BUT STATES HIS PAIN LEVEL IS THE SAME. WILL CONTINUE TO MEDICATE AND MONITOR ABLE.
[2020-05-04 16:14] LABS: Albumin, Blood 1.6 g/dL (3.4-5.0); Anion Gap 15 mmol/L (6-16); Blood Urea Nitrogen 77 mg/dL (8-24); Bun/Creatinine Ratio 14.1 (12.0-20.0); CO2, Blood 17 mmol/L (21-32); Calcium, Blood 8.2 mg/dL (8.5-10.1); Chloride, Blood 103 mmol/L (98-108); Creatinine, Blood 5.48 mg/dL (0.60-1.20); Glomerular Filtration Rate 11 (60-); Glucose, Blood 226 mg/dL (70-99); Potassium, Blood 5.3 mmol/L (3.5-5.5); Sodium, Blood 135 mmol/L (136-145)
[2020-05-04 16:16] LABS: Phosphorus, Blood 8.7 mg/dL (2.5-4.9)
[2020-05-04 16:26] LABS: Appearance, Urine Turbid (Clear); Bilirubin, Urine Neg (Neg); Blood, Urine 3+ (Neg); Color, Urine Yellow (P-Yellow); Glucose Qualitative, Urine Neg (Neg); Ketones, Urine Neg (Neg); Leukocyte Esterase, Urine 3+ (Neg); Nitrite, Urine Neg (Neg); Protein, Urine 2+ (Neg); Specific Gravity, Urine 1.015 (1.003-1.022); Urobilinogen, Urine NORM (Normal)
[2020-05-04 16:34] LABS: White Blood Cells, Urine TNTC /hpf (0-5); Yeast/Fungi Urine Many /hpf
[2020-05-04 16:35] LABS: Bacteria Many /hpf; Red Blood Cells, Urine TNTC /hpf (0-2); Squamous Epithelial Cells Rare /hpf (Few)
--- NOTE | 2020-05-04 17:55 | NUR ---
SHIFT SUMMARY: PT HAS REQUIRED FREQUENT MEDICATIONS FOR PAIN. HAVE BEEN WORKING TO FINE TUNE PAIN MANAGEMENT WITH DR POWERS THIS SHIFT. DR LA CAME TO SEE PT TODAY AND WAS UPDATED ON AFTERNOON LABS. INSTRUCTED FOR EXTRA DOSE OF LASIX THIS EVENING AND WILL CONTINUE TO FOLLOW LABS TO DETERMINE IF DIALYSIS IS NEEDED. TRICKLE FEEDS PER NG TUBE WITH RESIDUALS OF 30-40CC THROUGHOUT DAY. NO FURTHER NEEDS OR CONCERNS AT THIS TIME.
--- NOTE | 2020-05-05 04:53 | NUR ---
SHIFT SUMMARY PT IS A/O X4. CALLING FREQUENTLY FOR PAIN MEDICATIONS OVERNIGHT; MED OFTEN ORDERED WITH IV FENTANYL WELL NORCO. PT APPEARS COMFORTABLE AND IN NO DISTRESS. USING 7L O2 WITH HUMIDIFIER. DENIES NEW SOB, HOWEVER PT HAS HAD MOIST COUGH AND IS USING SUCTION PRN. COLECTOMY FUNTIONING WITH BROWN OUTPUT. NG TUBE WITH CONT. FEEDINGS IN PLACE OVERNIGHT. MCMULLEN IN PLACE, PATENT, STAT LOCK ON. PT RESTING IN BED AT THIS TIME, CALL LIGHT IN REACH.
[2020-05-05 06:18] LABS: BASOPHILS ABSOLUTE AUTO 0.04 K/mm3 (0.00-0.23); BASOPHILS PERCENT AUTO 0 % (0-2); EOSINOPHILS ABSOLUTE AUTO 0.16 K/mm3 (0.00-0.68); EOSINOPHILS PERCENT AUTO 1 % (0-6); Hematocrit 26.6 % (37.0-53.0); Hemoglobin 8.6 g/dL (13.5-17.5); IMMATURE GRAN ABSOLUTE AUTO 0.99 K/mm3 (0.00-0.10); IMMATURE GRAN PERCENT AUTO 5 % (0-1); LYMPHOCYTES ABSOLUTE AUTO 1.56 K/mm3 (0.84-5.20); LYMPHOCYTES PERCENT AUTO 7 % (21-46); MONOCYTES ABSOLUTE AUTO 1.19 K/mm3 (0.16-1.47); MONOCYTES PERCENT AUTO 6 % (4-13); Mean Corpuscular HGB Conc 32.3 g/dL (31.5-36.5); Mean Corpuscular Volume 84 fL (80-100); Mean Platelet Volume 8.9 fL (9.1-12.4); NEUTROPHILS ABSOLUTE AUTO 17.87 K/mm3 (1.96-9.15); NEUTROPHILS PERCENT AUTO 82 % (41-73); Platelet Count 320 K/mm3 (150-400); RDW Coefficient Variation 17.2 % (11.7-14.2); RDW Standard Deviation 51.8 fL (35.1-46.3); Red Blood Cell Count 3.18 M/mm3 (4.30-5.90); White Blood Cell Count 21.81 K/mm3 (4.00-11.30)
[2020-05-05 06:43] LABS: Magnesium, Blood 2.2 mg/dL (1.6-2.4)
[2020-05-05 06:44] LABS: Albumin, Blood 1.7 g/dL (3.4-5.0); Anion Gap 12 mmol/L (6-16); Blood Urea Nitrogen 81 mg/dL (8-24); Bun/Creatinine Ratio 14.1 (12.0-20.0); CO2, Blood 20 mmol/L (21-32); Calcium, Blood 7.9 mg/dL (8.5-10.1); Chloride, Blood 103 mmol/L (98-108); Creatinine, Blood 5.73 mg/dL (0.60-1.20); Glomerular Filtration Rate 11 (60-); Glucose, Blood 230 mg/dL (70-99); Potassium, Blood 4.9 mmol/L (3.5-5.5); Sodium, Blood 135 mmol/L (136-145); Vancomycin, Random 17.9 ug/mL
[2020-05-05 06:47] LABS: Phosphorus, Blood 8.4 mg/dL (2.5-4.9)
--- NOTE | 2020-05-05 19:15 | NUR ---
SHIFT SUMMARY PT A/O X3 AND C/O PAIN QUITE OFTEN. Q2 FENTANYL SWITCHED TO Q2 DILAUDID AND PT REPORTED IMPROVED PAIN MANAGMENT. 24 HOUR URINE COLLECTION. PT ONLY HAD ABOUT 375 ML OF URINE OUT THIS SHIFT. PT GETTING BUMEX WELL OTHER DIURETICS. NG TUBE IN PLACE AND PT GETTING TPN. VSS.
[2020-05-06 04:30] LABS: Hematocrit 27.2 % (37.0-53.0); Hemoglobin 8.5 g/dL (13.5-17.5); Mean Corpuscular HGB 26.7 pg (26.0-34.0); Mean Corpuscular HGB Conc 31.3 g/dL (31.5-36.5); Mean Corpuscular Volume 86 fL (80-100); Mean Platelet Volume 9.1 fL (9.1-12.4); Platelet Count 295 K/mm3 (150-400); RDW Coefficient Variation 17.6 % (11.7-14.2); RDW Standard Deviation 54.2 fL (35.1-46.3); Red Blood Cell Count 3.18 M/mm3 (4.30-5.90); White Blood Cell Count 20.85 K/mm3 (4.00-11.30)
--- NOTE | 2020-05-06 04:52 | NUR ---
SHIFT SUMMARY PT HAS BEEN ALERT AND AWAKENING EASILY. PT HAS SEEMED TO HAVE SOME CONFUSION AND FORGETFULNESS OVERNIGHT. HAS OCCASIONALLY BEEN CALLING OUT INSTEAD OF USING CALL LIGHT AND STATES THAT HE IS HAVING MORE DIFFICULTY REMEMBERING THINGS. REMINDED TO USE CALL LIGHT WHEN IN NEED OF STAFF ASSISTANCE. LUNGS SOUND VERY COARSE OVERNIGHT ALTHOUGH PT DENIES SOB. BUMEX GIVEN PER ORDER AT START OF SHIFT; PT HAS HAD 300 URINE OUTPUT IN CATHETER OVERNIGHT. BLADDER SCAN COMPLETED WITH ONLY 45 MLS ON SCAN. PT HAS BEEN TOLERATING ONLY VERY MINIMAL REPOSITIONING OVERNIGHT, REFUSING MORE THAN MINOR ADJUSTMENTS.
[2020-05-06 05:02] LABS: Anion Gap 11 mmol/L (6-16); Blood Urea Nitrogen 82 mg/dL (8-24); Bun/Creatinine Ratio 13.6 (12.0-20.0); CO2, Blood 22 mmol/L (21-32); Calcium, Blood 7.6 mg/dL (8.5-10.1); Chloride, Blood 103 mmol/L (98-108); Creatinine, Blood 6.01 mg/dL (0.60-1.20); Glomerular Filtration Rate 10 (60-); Glucose, Blood 180 mg/dL (70-99); Magnesium, Blood 2.3 mg/dL (1.6-2.4); Sodium, Blood 136 mmol/L (136-145); Vancomycin, Random 18.3 ug/mL
[2020-05-06 05:32] LABS: BAND PERCENT MAN 7 % (0-8); BASOPHILS PERCENT MAN 0 % (0-2); EOSINOPHILS PERCENT MAN 1 % (0-6); LYMPHOCYTES ABSOLUTE MAN 2.08 K/mm3 (0.84-5.20); LYMPHOCYTES PERCENT MAN 10 % (21-46); METAMYELOCYTE PERCENT MAN 1 % (0-0); MONOCYTES ABSOLUTE MAN 0.83 K/mm3 (0.16-1.47); MONOCYTES PERCENT MAN 4 % (4-13); MYELOCYTE ABSOLUTE MAN 0.62 K/mm3 (0.00-0.00); MYELOCYTE PERCENT MAN 3 % (0-0); NEUTROPHILS ABSOLUTE MAN 16.88 K/mm3 (1.96-9.15); Phosphorus, Blood 8.8 mg/dL (2.5-4.9); SEG NEUTROPHILS PERCENT MAN 74 % (41-73); TOTAL CELLS COUNTED 100
--- NOTE | 2020-05-06 22:00 | NUR ---
ASSUMED CARE AT 1900. PT CALLING FREQUENTLY FISHERIES SPECIALIST LIGHT AND CALLING OUT LOUDLY. ASKING FOR ASSISTANCE CHANGING VOLUME ON REMOTE, REQUESTING HOB AND LEGS ADJUSTED UP AND DOWN REPEATEDLY. INQUIRING ABOUT PAIN MEDICATIONS MULT TIMES; REMINDED OF THE TIME HE CAN HAVE PAIN MEDS. CONTINUES TO ASK FREQUENTLY. PT APPEARS COMFORTABLE AT REST, DOES APPEAR TO BE ANXIOUS. DISCUSSED SCHEDULING REPOSITIONING AND PAIN MEDS T/O SHIFT. PT AGREEABLE, YET CONTINUES TO CALL SOON STAFF LEAVE ROOM. PT ONLY TOLERATING SMALL MOVEMENTS AND REFUSING ASSESSMENT OF BACK/BUTTOCKS.
[2020-05-07 04:13] LABS: Hematocrit 26.5 % (37.0-53.0); Hemoglobin 8.4 g/dL (13.5-17.5)
[2020-05-07 04:37] LABS: Albumin, Blood 2.2 g/dL (3.4-5.0); Anion Gap 14 mmol/L (6-16); Blood Urea Nitrogen 90 mg/dL (8-24); Bun/Creatinine Ratio 13.2 (12.0-20.0); CO2, Blood 18 mmol/L (21-32); Calcium, Blood 7.6 mg/dL (8.5-10.1); Chloride, Blood 105 mmol/L (98-108); Glomerular Filtration Rate 9 (60-); Glucose, Blood 145 mg/dL (70-99); Magnesium, Blood 2.4 mg/dL (1.6-2.4); Potassium, Blood 5.5 mmol/L (3.5-5.5); Sodium, Blood 137 mmol/L (136-145); Vancomycin, Random 16.5 ug/mL
[2020-05-07 04:44] LABS: Phosphorus, Blood 9.6 mg/dL (2.5-4.9)
--- NOTE | 2020-05-07 04:45 | NUR ---
SHIFT SUMMARY PT HAS BEEN ALERT AND ORIENTED ALTHOUGH FORGETFUL, STATING HE FORGETS TO USE CALL LIGHT AND INSTEAD CALLS OUT. REMINDED TO USE CALL LIGHT AND HAD PT DEMONSTRATE MULT TIMES, WITH MINIMAL IMPROVEMENT. PT HAS BEEN REPOSITIONED MULTIPLE TIMES BUT HAS NOT BEEN ABLE TO TOLERATE TURNING ON SIDE FOR ASSESSMENT OF BACK. DR. JEFFERSON WAS IN TO SEE PT THIS SHIFT AND ORDERD ADDITIONAL DIURETICS. PT CONTINUES TO HAVE MINIMAL URINE OUTPUT EVEN AFTER DIURETICS. PLAN IS FOR PERMACATH PLACEMENT TODAY.
--- NOTE | 2020-05-07 07:10 | NUR ---
ENTERED ROOM AT 0635 WHEN NOTIFIED BY FEEDER LOADER THAT PT'S BREATHING APPEARED TO BE WORSENING. O2 SAT 84% AT 7L; INCREASED UP TO 13L HUMIDIFIED O2 WHICH BROUGHT O2 UP TO 90%. HOB ELEVATED. PT'S MENTATION ALSO SEEMS DECREASED, AWAKENING TO VERBAL STIMULI. HOSPITALIST ON CASE CALLED AND DISCUSSED CHANGES; REPORTS SHE IS PUTTING IN ORDERS AND WILL SEE PT SOON. REPORT TO DAY SHIFT RN.
--- NOTE | 2020-05-07 07:58 | NUR ---
DR JEFFERSON AND HOSPITALIST TO SEE PT. NEW ORDERS GIVEN. AWAITING TRANSFER TO ICU.
[2020-05-07 08:12] LABS: PCO2 Arterial 48.3 mmHg (35-45); PO2 Arterial 75.1 mmHg (80-100); pH Blood Arterial 7.13 (7.35-7.45)
--- NOTE | 2020-05-07 11:21 | NUR ---
TRANSFER: REPORT GIVEN TO EZE THERMOSPRAY OPERATOR. PT TRANSFERED AT ABOUT 1113
--- NOTE | 2020-05-07 17:52 | NUR ---
SHIFT SUMMARY PATIENT ARRIVED FROM SURGICAL FLOOR, APPARENT SIGNS OF DISTRESS WITH CALL LIGHT WITHIN REACH. PATIENT ALERT AND ORIENTED, COMPLAINS OF 8/10 TO 10/10 PAIN THIS SHIFT, COMPLAINS OF CHRONIC BACK PAIN AND PAIN AND ABDOMINAL SURGICAL SITE. COLOSTOMY BAG IN PLACE WITH SOFT/BROWN OUTPUT, GERSON DRESSING IN PLACE WITH ADEQUATE SEAL. DR. FORD SAW PATIENT TODAY, STATED PATIENT IS NOT CURRENTLY SURGICAL CANDIDATE FOR EMERGENT PERMACATH PLACEMENT. DR. VILLAGRAN PLACED TEMPORARY IJ DIALYSIS CATH AT BEDSIDE, PATIENT TOLERATED WELL. DR. JEFFERSON NOTIFIED BY THIS RN OF DIALYSIS CATH PLACEMENT, DIALYSIS ORDERED FOR TODAY. PATIENT RECIEVED DIALYSIS AT BEDSIDE, TOLERATED WELL. PATIENT IS STATES FEELING TIRED AFTER DIALYSIS, BUT VSS. PLAN IS FOR ANOTHER DIALYSIS SESSION TOMORROW. PATIENT ARRIVED TO UNIT ON 15 L HIGH FLOW NASAL CANNULA, TITRATED DOWN TO 2 L NASAL CANNULA AND O2 SATS MAINTAINING IN MID-90S AT THIS TIME.
[2020-05-07 18:54] LABS: Base Excess Venous -6.6 mmol/L; Bicarbonate Venous 19.2 mmol/L (24.0-30.0); PCO2 Venous 41.2 mmHg (38-42); PO2 Venous 63.1 mmHg (38-42); pH Blood Venous 7.29 (7.34-7.37)
--- NOTE | 2020-05-07 20:52 | NUR ---
ASSESSMENT/ASSUMED CARE PT SITTING UP IN BED. C/O PAIN TO BACK AND ABD, WILL MED WITH FENTANYL. LUNGS COARSE ON 5 LITERS VIA HIGH FLOW NC. PT WITH MOIST PRODUCTIVE COUGH. HEART RATE REGULAR. BP STABLE. BT+ HYPOACTIVE. ABD DISTENDED AND FIRM. COLOSTOMEY LEFT ABD WITH BROWN STOOL. MIDLINE GERSON DRSG INTACT. RIGHT ABD WITH FOAM DRSG INTACT. RIGHT LOWER ABD WITH BANDAID SATURATED WITH BLOOD. DRSG CHANGED TO FOAM DRSG. MCMULLEN CATH PATENT DRAINING CLOUDY YELLOW URINE.
[2020-05-08 03:36] LABS: BASOPHILS ABSOLUTE AUTO 0.03 K/mm3 (0.00-0.23); BASOPHILS PERCENT AUTO 0 % (0-2); EOSINOPHILS ABSOLUTE AUTO 0.05 K/mm3 (0.00-0.68); EOSINOPHILS PERCENT AUTO 0 % (0-6); Hematocrit 24.3 % (37.0-53.0); Hemoglobin 7.9 g/dL (13.5-17.5); IMMATURE GRAN ABSOLUTE AUTO 0.64 K/mm3 (0.00-0.10); IMMATURE GRAN PERCENT AUTO 3 % (0-1); LYMPHOCYTES ABSOLUTE AUTO 1.52 K/mm3 (0.84-5.20); LYMPHOCYTES PERCENT AUTO 8 % (21-46); MONOCYTES ABSOLUTE AUTO 0.93 K/mm3 (0.16-1.47); MONOCYTES PERCENT AUTO 5 % (4-13); Mean Corpuscular HGB Conc 32.5 g/dL (31.5-36.5); Mean Corpuscular Volume 83 fL (80-100); Mean Platelet Volume 9.6 fL (9.1-12.4); NEUTROPHILS ABSOLUTE AUTO 16.79 K/mm3 (1.96-9.15); NEUTROPHILS PERCENT AUTO 84 % (41-73); NRBC ABSOLUTE 0.02 K/mm3 (0.00-0.02); NRBC Auto 0.1 /100 WBC (0.0-0.2); Platelet Count 345 K/mm3 (150-400); RDW Standard Deviation 53.7 fL (35.1-46.3); Red Blood Cell Count 2.93 M/mm3 (4.30-5.90); White Blood Cell Count 19.96 K/mm3 (4.00-11.30)
[2020-05-08 03:58] LABS: Anion Gap 12 mmol/L (6-16); Blood Urea Nitrogen 69 mg/dL (8-24); Bun/Creatinine Ratio 12.3 (12.0-20.0); CO2, Blood 23 mmol/L (21-32); Calcium, Blood 7.6 mg/dL (8.5-10.1); Chloride, Blood 104 mmol/L (98-108); Creatinine, Blood 5.63 mg/dL (0.60-1.20); Glomerular Filtration Rate 11 (60-); Glucose, Blood 186 mg/dL (70-99); Magnesium, Blood 2.2 mg/dL (1.6-2.4); Potassium, Blood 4.9 mmol/L (3.5-5.5); Sodium, Blood 139 mmol/L (136-145); Vancomycin, Random 23.5 ug/mL
[2020-05-08 04:43] LABS: Phosphorus, Blood 8.4 mg/dL (2.5-4.9)
--- NOTE | 2020-05-08 06:32 | NUR ---
SHIFT SUMMMARY PT RESTING QUIETLY. SITTING UP IN BED WATCHING TV. PT MED Q2HR FOR BACK AND ABD PAIN "03/01". PT TURNED FREQUENTLY WHEN PT ALLOWS. VSS. COLOSTOMY APPLIANCE INTACT. BROWN STOOL NOTED. DIALYSIS CATH TO LEFT IJ CLAMPED. PICC LINE TO RIGHT UPPER ARM WITH NS AT 10 ML/HR. REPORT TO ON COMING NURSE.
[2020-05-08 09:10] LABS: HBSAG SCREEN Negative (Negative); HEP A AB, IGM Negative (Negative); HEP B CORE AB, IGM Negative (Negative); HEP C VIRUS AB 0.4 (0.0-0.9)
--- NOTE | 2020-05-08 16:19 | NUR ---
PT TOLERATED HD WELL. NO DISTRESS NOTED. TOTAL VOLUME [id number].
--- NOTE | 2020-05-08 16:30 | NUR ---
PT RETURNED FROM DIALYSIS. VITALS STABLE. PT SLEEPING, AWAKENS EASILY. SINUS RHYTHM WITH PAC'S NOTED ON THE MONITOR.
[2020-05-08 16:31] LABS: Vancomycin, Random 13.2 ug/mL
--- NOTE | 2020-05-08 17:45 | NUR ---
TRANSFER OF CARE REPORT GIVEN TO HUANG MACKEY ON SURGICAL FLOOR. BELONGINGS GATHERED AND TRANSFERRED WITH PT. PT TRANSFERRING TO ROOM 227.
[2020-05-09 04:53] LABS: Hemoglobin 8.1 g/dL (13.5-17.5)
[2020-05-09 05:09] LABS: Anion Gap 13 mmol/L (6-16); Blood Urea Nitrogen 52 mg/dL (8-24); Bun/Creatinine Ratio 11.5 (12.0-20.0); CO2, Blood 24 mmol/L (21-32); Calcium, Blood 7.5 mg/dL (8.5-10.1); Chloride, Blood 100 mmol/L (98-108); Creatinine, Blood 4.53 mg/dL (0.60-1.20); Glomerular Filtration Rate 14 (60-); Glucose, Blood 150 mg/dL (70-99); Phosphorus, Blood 7.1 mg/dL (2.5-4.9); Sodium, Blood 137 mmol/L (136-145)
--- NOTE | 2020-05-09 05:34 | NUR ---
SHIFT SUMMARY POD10 EXLAP W/ NEW OSTOMY PLACEMENT, A/O X2/3 AND FORGETFUL, TOLERATING PO, MINIMAL OUTPUT IN MCMULLEN (PROVIDER AWARE PER PRIOR CHART NOTES), DOESN'T USE CALL LIGHT, REORIENTED TO ITS USE W/ NO IMPROVEMENT, CALLS OUT REPEATEDLY WHEN HE NEEDS ANYTHING. C/O BEING HOT, BLANKETS REMOVED (SHEET LEFT ON PT), FAN GIVEN TO PT, COOL WASH CLOTH PLACED ON FOREHEAD (TEMP TAKEN PRIOR TO THIS AND NORMAL (SEE VITALS), PT STATES MUCH BETTER. VSS T/O SHIFT. CALL LIGHT IN REACH, WILL CONTINUE TO MONITOR AND REPORT TO ONCOMING DAY RN.
--- NOTE | 2020-05-09 09:20 | NUR ---
pt transported to dialysis via bed
[2020-05-09 13:11] LABS: M-SPIKE, % 15.7 % (Not Observed); M-SPIKE, MG/24 HR 23.7 mg/24 hr (Not Observed); PROTEIN,TOTAL,URINE 30.2 mg/dL (Not Estab.)
[2020-05-09 14:11] LABS: A/G RATIO 0.9 (0.7-1.7); ALBUMIN 2.6 g/dL (2.9-4.4); ALPHA-1-GLOBULIN 0.4 g/dL (0.0-0.4); ALPHA-2-GLOBULIN 0.6 g/dL (0.4-1.0); BETA GLOBULIN 0.9 g/dL (0.7-1.3); GAMMA GLOBULIN 1.2 g/dL (0.4-1.8); GLOBULIN, TOTAL 3.2 g/dL (2.2-3.9); IMMUNOGLOBULIN A, QN, SERUM 881 mg/dL (61-437); IMMUNOGLOBULIN G, QN, SERUM 1133 mg/dL (603-1613); IMMUNOGLOBULIN M, QN, SERUM 40 mg/dL (20-172); M-SPIKE Not Observed g/dL (Not Observed); PROTEIN, TOTAL, SERUM 5.8 g/dL (6.0-8.5)
--- NOTE | 2020-05-09 15:45 | NUR ---
Pt resting in bed upon arrival. Pt struggles with keeping his eyes open. Spouse Ariela at bedside. Ariela reports Pt tiredness from working with PT. Offered therapeutic listening and answered questions. Ariela requests to speak with MD for update and to ask further questions. Discussed advanced directives and Pt denies need. Continued therapeutic listening. Ended visit to allow Pt to rest. No other concerns reported at this time. Called and spoke with Dr Erazo who is covering for Dr Cheney. Relayed spouses request to speak with MD. Palliative Care will remain available.
--- NOTE | 2020-05-09 22:50 | NUR ---
PT FOUND WITH PERMACATH LYING ON BEDSIDE TABLE. PRESSURE HELD TO SITE IN LEFT NECK FOR 10 MINUTES THEN OCCLUSIVE DRESSING APPLIED. WHEN ASKED WHAT HAPPENED, PT STATED "IT WAS BOTHERING ME". PT REPORTED THAT HE HAD GRABBED AND PULLED IT OUT AND CONFIRMED THAT HE FELT RESISTANCE WHEN PULLING. PT POSITIONED TO LIE FLAT IN BED AND WILL REMAIN FLAT FOR ONE HOUR PER DRs ORDERS. PT WILL BE MADE NPO AT MIDNIGHT AND 0800 DOSE OF HEPARIN WILL BE HELD.
[2020-05-10 04:37] LABS: BASOPHILS ABSOLUTE AUTO 0.03 K/mm3 (0.00-0.23); BASOPHILS PERCENT AUTO 0 % (0-2); EOSINOPHILS ABSOLUTE AUTO 0.05 K/mm3 (0.00-0.68); EOSINOPHILS PERCENT AUTO 0 % (0-6); Hematocrit 23.5 % (37.0-53.0); Hemoglobin 7.7 g/dL (13.5-17.5); IMMATURE GRAN ABSOLUTE AUTO 0.28 K/mm3 (0.00-0.10); IMMATURE GRAN PERCENT AUTO 1 % (0-1); LYMPHOCYTES ABSOLUTE AUTO 1.93 K/mm3 (0.84-5.20); LYMPHOCYTES PERCENT AUTO 9 % (21-46); MONOCYTES ABSOLUTE AUTO 0.94 K/mm3 (0.16-1.47); MONOCYTES PERCENT AUTO 4 % (4-13); Mean Corpuscular HGB 27.2 pg (26.0-34.0); Mean Corpuscular HGB Conc 32.8 g/dL (31.5-36.5); Mean Corpuscular Volume 83 fL (80-100); Mean Platelet Volume 9.6 fL (9.1-12.4); NEUTROPHILS ABSOLUTE AUTO 18.31 K/mm3 (1.96-9.15); NEUTROPHILS PERCENT AUTO 85 % (41-73); NRBC ABSOLUTE 0.02 K/mm3 (0.00-0.02); NRBC Auto 0.1 /100 WBC (0.0-0.2); Platelet Count 388 K/mm3 (150-400); RDW Standard Deviation 52.7 fL (35.1-46.3); Red Blood Cell Count 2.83 M/mm3 (4.30-5.90); White Blood Cell Count 21.54 K/mm3 (4.00-11.30)
[2020-05-10 04:54] LABS: Albumin, Blood 1.8 g/dL (3.4-5.0); Anion Gap 9 mmol/L (6-16); Blood Urea Nitrogen 41 mg/dL (8-24); Bun/Creatinine Ratio 10.6 (12.0-20.0); CO2, Blood 28 mmol/L (21-32); Calcium, Blood 7.7 mg/dL (8.5-10.1); Chloride, Blood 100 mmol/L (98-108); Creatinine, Blood 3.85 mg/dL (0.60-1.20); Glomerular Filtration Rate 17 (60-); Glucose, Blood 226 mg/dL (70-99); Potassium, Blood 3.6 mmol/L (3.5-5.5); Sodium, Blood 137 mmol/L (136-145)
--- NOTE | 2020-05-10 05:50 | NUR ---
SHIFT SUMMARY: SHELLEY AROUSES TO VOICE AND RESPONDS APPROPRIATELY, WILMAN SLOWLY. VSS, NO ACUTE EVENTS OVERNIGHT OTHER THAN SELF-REMOVING THE PERMACATH. HE HAS DECLINED REPOSITIONING. BLE FLOATED. PICC LINE TO MILENA PATENT. HE REPORTS FEELING TIRED AFTER DIALYSIS YESTERDAY. GERSON PATENT, OSTOMY WITH LARGE OUTPUT THIS SHIFT. HE IS LYING IN BED WITH THE CALL LIGHT IN REACH. HE HAS NOT USED THE CALL LIGHT THIS SHIFT. WILL REPORT TO DAY SHIFT RN.
[2020-05-10 07:10] LABS: ANTIGLOMERULAR BM AB 3 units (0-20)
--- NOTE | 2020-05-10 07:42 | NUR ---
ASSUMED CARE: PT RESTING QUIETLY IN BED, NSR ON TELE WITH PACS. CALL TO HOSPITALIST ABOUT PT'S PERMACATH REMOVAL. HOSPITALIST REFFERED TO SURGERY. SPOKE WITH DR CLARK WHO DEFFERRED TO DR RAGLAND SINCE DR RAGLAND INITIALLY OPERATED. DR CLARK WAS UPDATED WELL IN CASE DR RAGLAND IS UNAVAILABLE. PT NPO AT THIS TIME.
--- NOTE | 2020-05-10 07:46 | NUR ---
PT REPORTS DRINKING A SMALL AMOUNT OF WATER AT APPROX 0300 THIS AM. HE WAS REMINDED OF HIS NPO STATUS AND ALL PO OPTIONS WERE REMOVED.
--- NOTE | 2020-05-10 10:01 | NUR ---
PT CONTINUES TO LIE COMFORTABLY IN BED. DENIES ANY NEEDS AT THIS TIME. 94% ON ROOM AIR. WILL CONTINUE TO MONITOR.
--- NOTE | 2020-05-10 11:10 | NUR ---
MESSAGE LEFT FOR DR LA TO ENSURE THAT SHE IS AWARE THAT PT'S PERMACATH WAS REMOVED LAST NIGHT WITH PLANS FOR SURGEON TO REPLACE LATER TODAY.
[2020-05-10 13:09] LABS: ANA DIRECT Negative (Negative); ANTIMYELOPEROXIDASE (MPO) ABS <9.0 U/mL (0.0-9.0); ANTIPROTEINASE 3 (PR-3) ABS <3.5 U/mL (0.0-3.5); ATYPICAL PANCA <1:20 titer (Neg:<1:20); CYTOPLASMIC (C-ANCA) <1:20 titer (Neg:<1:20); PERINUCLEAR (P-ANCA) <1:20 titer (Neg:<1:20)
--- NOTE | 2020-05-10 13:37 | NUR ---
History, Chart, Medications and Allergies reviewed before start of procedure.Patient confirms NPO status and agrees with scheduled surgery. TEGADERM REMOVED OFF L SIDE NECK, SUTURE INTACT, ODER NOTED AND YELLOW PURLENT DRAINAGE. WIPED WITH CLORAHEXADINE.
--- NOTE | 2020-05-10 14:12 | NUR ---
PT IN DAY SURGERY. DR LA CAME TO SEE PT AND AWARE OF PT BEING IN SURGERY TO GET NEW CATH PLACED. STATES THAT IF FAMILY HAS QUESTIONS SHE WILL BE HAPPY TO CALL THEM WHEN SHE ROUNDS TOMORROW AM LONG NUMBERS ARE WRITTEN ON BOARD.
--- NOTE | 2020-05-10 14:16 | NUR ---
05/10/20 1416 Quyen Nelson PT ON SCHEDULED ANTIBIOTICS AND RECIEVED PRIOR TO ARRIVAL TO OR.
--- NOTE | 2020-05-10 15:45 | NUR ---
PT RETURNED FROM OR FOR PERMACATH PLACEMENT. SITE SECURED WITH SOME BLEEDING NOTED FROM SITE. PT SLIGHTLY DIAPHORETIC WHICH PACU NURSE STATES HAS BEEN NORM FOR PT. CONFIRMED WITH PACU THAT IV HEPARIN WAS ADMINISTERED IN OR. NO CREPITUS NOTED TO SITE. PT LETHARGIC, VSS. NSR ON TELE.
--- NOTE | 2020-05-10 17:30 | NUR ---
PT WITH BLEEDING TO HALF PERMACATH DRESSING AND BLOOD POOLING UNDER TEGADERM. CALL TO DR CLARK WHO STATED TO HOLD PRESSURE AT NECK INSERTION SITE AND TO CHANGE OUT DRESSING.
--- NOTE | 2020-05-10 18:20 | NUR ---
SHIFT SUMMARY: PT'S DRESSING CONTINUES TO OOZE WITH OCCASIONAL PRESSURE NEEDED. NEW DRESSING IN PLACE. PT MEDICATED X1 FOR PAIN THIS SHIFT. OSTOMY PUTING OUT SOFT BROWN STOOL. CONTINUING TO MONITOR BLEEDING WITH NO FURTHER NEEDS AT THIS TIME.
--- NOTE | 2020-05-10 19:35 | NUR ---
SECOND CALL MADE TO DR CLARK DUE TO BLEEDING CONTINUING AND SATURATING 3/[address] CLARK ADDED NEW SUTURE AND CHANGED OUT DRESSING. SAND BAG APPLIED TO SITE. NIGHT SIDE STITCHER AT BEDSIDE ASSISTING AND AWARE OF SITUATION.
--- NOTE | 2020-05-10 21:16 | NUR ---
PROVIDER NOTIFY PACKER INSULATION PHYSICIAN NOTIFIED OF BG OF [id number]. NO NEW ORDERS AT THIS TIME.
--- NOTE | 2020-05-11 03:22 | NUR ---
ECHOCARDIOGRAPHY RADIOLOGY TECHNOLOGIST SUMMARY PT DROWSY T/O SHIFT BUT RESPONDS TO VERBAL STIMULI. DENIES PAIN OR SOB. DECLINED REPOSITIONING. PERMACATH IN PLACE TO R. CHEST WALL, DRESSING C/D/I. OSTOMY PUTTING OUT LARGE AMOUNT OF SOFT BROWN STOOL. VSS, NO ACUTE CHANGES AT THIS TIME. BED IN LOWEST POSITION WITH CALL LIGHT IN REACH. WILL CONTINUE TO MONITOR AND REPORT TO ONCOMING RN.
[2020-05-11 04:39] LABS: BASOPHILS ABSOLUTE AUTO 0.01 K/mm3 (0.00-0.23); BASOPHILS PERCENT AUTO 0 % (0-2); EOSINOPHILS PERCENT AUTO 0 % (0-6); Hematocrit 20.4 % (37.0-53.0); Hemoglobin 6.4 g/dL (13.5-17.5); IMMATURE GRAN ABSOLUTE AUTO 0.19 K/mm3 (0.00-0.10); IMMATURE GRAN PERCENT AUTO 1 % (0-1); LYMPHOCYTES ABSOLUTE AUTO 0.94 K/mm3 (0.84-5.20); LYMPHOCYTES PERCENT AUTO 7 % (21-46); MONOCYTES ABSOLUTE AUTO 0.29 K/mm3 (0.16-1.47); MONOCYTES PERCENT AUTO 2 % (4-13); Mean Corpuscular HGB 27.2 pg (26.0-34.0); Mean Corpuscular HGB Conc 31.4 g/dL (31.5-36.5); Mean Corpuscular Volume 87 fL (80-100); NEUTROPHILS ABSOLUTE AUTO 12.77 K/mm3 (1.96-9.15); NEUTROPHILS PERCENT AUTO 90 % (41-73); Platelet Count 338 K/mm3 (150-400); RDW Coefficient Variation 18.5 % (11.7-14.2); RDW Standard Deviation 57.5 fL (35.1-46.3); Red Blood Cell Count 2.35 M/mm3 (4.30-5.90)
[2020-05-11 05:00] LABS: Albumin, Blood 1.7 g/dL (3.4-5.0); Anion Gap 8 mmol/L (6-16); Blood Urea Nitrogen 48 mg/dL (8-24); Bun/Creatinine Ratio 10.8 (12.0-20.0); CO2, Blood 29 mmol/L (21-32); Calcium, Blood 7.8 mg/dL (8.5-10.1); Chloride, Blood 99 mmol/L (98-108); Creatinine, Blood 4.43 mg/dL (0.60-1.20); Glomerular Filtration Rate 14 (60-); Glucose, Blood 366 mg/dL (70-99); Potassium, Blood 4.4 mmol/L (3.5-5.5); Sodium, Blood 136 mmol/L (136-145)
[2020-05-11 05:58] LABS: Phosphorus, Blood 8.5 mg/dL (2.5-4.9)
--- NOTE | 2020-05-11 06:12 | NUR ---
PHYSICIAN NOTIFY [employer] NET PROGRAMMER PROVIDER NOTIFIED OF CRITICAL HIGH PHOSPHORUS OF 8.5 AND HGB OF 6.4, NEW ORDER PLACED TO TRANSFUSE 1 UNIT PRBC
--- NOTE | 2020-05-11 07:00 | NUR ---
ASSUMED CARE: PT RESTING AT THIS TIME. NIGHT RN RECENTLY COLLECTED LABS FROM PICC LINE. PT TO GET PRBCS TODAY. WILL CHECK WITH NEPHROLOGY TO SEE IF IT IS TO BE GIVEN DURING DIALYSIS
--- NOTE | 2020-05-11 07:27 | NUR ---
SPOKE WITH DIALYSIS NURSE WHO STATES UNIT OF BLOOD WILL BE GIVEN WITH DIALYSIS TODAY.
--- NOTE | 2020-05-11 09:15 | NUR ---
PT TAKEN TO DIALYSIS VIA BED
--- NOTE | 2020-05-11 18:28 | NUR ---
SHIFT SUMMARY: PT WORKED WITH PHYSICAL THERAPY AND DANGLED AT SIDE OF BED AND STOOD. PT RESISTANT TO OPPORTUNITIES FOR FURTHER MOVEMENT. RESTING IN BED AT THIS TIME WATCHING TV. NO NEW BLEEDING FROM PERMACATH THIS SHIFT. DIALYSIS TODAY WITH BLOOD TRANSFUSION PROVIDED. OSTOMY PUTTING OUT BROWN SOFT STOOL. MEDICATED FOR PAIN X2. NO FURTHER NEEDS AT THIS TIME.
[2020-05-12 04:58] LABS: BASOPHILS ABSOLUTE AUTO 0.02 K/mm3 (0.00-0.23); BASOPHILS PERCENT AUTO 0 % (0-2); EOSINOPHILS ABSOLUTE AUTO 0.05 K/mm3 (0.00-0.68); EOSINOPHILS PERCENT AUTO 0 % (0-6); Hematocrit 25.5 % (37.0-53.0); Hemoglobin 8.1 g/dL (13.5-17.5); IMMATURE GRAN PERCENT AUTO 1 % (0-1); LYMPHOCYTES ABSOLUTE AUTO 2.22 K/mm3 (0.84-5.20); LYMPHOCYTES PERCENT AUTO 10 % (21-46); MONOCYTES ABSOLUTE AUTO 0.87 K/mm3 (0.16-1.47); MONOCYTES PERCENT AUTO 4 % (4-13); Mean Corpuscular HGB 27.6 pg (26.0-34.0); Mean Corpuscular HGB Conc 31.8 g/dL (31.5-36.5); Mean Corpuscular Volume 87 fL (80-100); Mean Platelet Volume 9.8 fL (9.1-12.4); NEUTROPHILS ABSOLUTE AUTO 17.89 K/mm3 (1.96-9.15); NEUTROPHILS PERCENT AUTO 84 % (41-73); Platelet Count 352 K/mm3 (150-400); RDW Coefficient Variation 17.4 % (11.7-14.2); Red Blood Cell Count 2.93 M/mm3 (4.30-5.90); White Blood Cell Count 21.25 K/mm3 (4.00-11.30)
[2020-05-12 05:12] LABS: Albumin, Blood 1.7 g/dL (3.4-5.0); Anion Gap 8 mmol/L (6-16); Blood Urea Nitrogen 33 mg/dL (8-24); Bun/Creatinine Ratio 9.4 (12.0-20.0); CO2, Blood 29 mmol/L (21-32); Calcium, Blood 7.6 mg/dL (8.5-10.1); Chloride, Blood 96 mmol/L (98-108); Glomerular Filtration Rate 19 (60-); Glucose, Blood 259 mg/dL (70-99); Phosphorus, Blood 5.8 mg/dL (2.5-4.9); Potassium, Blood 3.4 mmol/L (3.5-5.5); Sodium, Blood 133 mmol/L (136-145)
--- NOTE | 2020-05-12 05:31 | NUR ---
SHIFT SUMMARY S/P COLON RESECTION W/ OSTOMY PLACEMENT, A/O X4, VSS, TOLERATING PO, PASSING FLATUS THROUGH OSTOMY, VOIDING WELL VIA MCMULLEN, HGB AND PHOSPHORUS LABS IMPROVED, PAIN WELL CONTROLLED. CALL LIGHT IN REACH, WILL CONTINUE TO MONITOR AND REPORT TO ONCOMING DAY RN.
--- NOTE | 2020-05-12 10:48 | NUR ---
DIALYSIS PT'S BP DROPPED AND HE BECAME NAUSEATED. WANTED OFF AND COULD NOT TALK HIM OUT OF IT. DC'ED TX
--- NOTE | 2020-05-12 17:55 | NUR ---
SHIFT SUMMARY NO ACUTE CHANGES THIS SHIFT. PT A/O X3; PLEASANT AND COOPERATIVE WITH CARE. GERSON DRESSING REPLACED AND PERMACATH DRESSING CHANGED THIS AM. MEDICATED FOR PAIN X3 THIS SHIFT. WORKED WITH P.T. HAD DIALYSIS THIS AM, BUT WAS NOT ABLE TO FULLY COMPLETE IT DUE TO LOW BP. MCMULLEN PATENT AND DRAINING.
--- NOTE | 2020-05-13 03:17 | NUR ---
SHIFT SUMMARY S/P SIG COLON RESECTION W/ OSTOMY PLACEMENT AND R IJ PERMACATH PLACEMENT, A/O X4, VSS, TOLERATING DIET, VOIDING WLL VIA MCMULLEN, PAIN MANAGED PER EMAR, PASSING FLATUS AND STOOL VIA OSTOMY. NO ACUTE EVENTS THIS SHIFT. CALL LIGHT IN REACH, WILL CONTINUE TO MONITOR AND REPORT TO ONCOMING DAY RN.
[2020-05-13 08:57] LABS: BASOPHILS ABSOLUTE AUTO 0.03 K/mm3 (0.00-0.23); BASOPHILS PERCENT AUTO 0 % (0-2); EOSINOPHILS ABSOLUTE AUTO 0.13 K/mm3 (0.00-0.68); EOSINOPHILS PERCENT AUTO 1 % (0-6); Hematocrit 24.9 % (37.0-53.0); IMMATURE GRAN ABSOLUTE AUTO 0.17 K/mm3 (0.00-0.10); IMMATURE GRAN PERCENT AUTO 1 % (0-1); LYMPHOCYTES ABSOLUTE AUTO 1.57 K/mm3 (0.84-5.20); LYMPHOCYTES PERCENT AUTO 8 % (21-46); MONOCYTES ABSOLUTE AUTO 0.85 K/mm3 (0.16-1.47); MONOCYTES PERCENT AUTO 4 % (4-13); Mean Corpuscular HGB 27.7 pg (26.0-34.0); Mean Corpuscular HGB Conc 32.1 g/dL (31.5-36.5); Mean Corpuscular Volume 86 fL (80-100); Mean Platelet Volume 10.2 fL (9.1-12.4); NEUTROPHILS ABSOLUTE AUTO 16.65 K/mm3 (1.96-9.15); NEUTROPHILS PERCENT AUTO 86 % (41-73); Platelet Count 388 K/mm3 (150-400); RDW Coefficient Variation 17.8 % (11.7-14.2); RDW Standard Deviation 53.9 fL (35.1-46.3); Red Blood Cell Count 2.89 M/mm3 (4.30-5.90)
[2020-05-13 09:38] LABS: Albumin, Blood 1.7 g/dL (3.4-5.0); Anion Gap 9 mmol/L (6-16); Blood Urea Nitrogen 37 mg/dL (8-24); Bun/Creatinine Ratio 9.2 (12.0-20.0); CO2, Blood 27 mmol/L (21-32); Calcium, Blood 8.1 mg/dL (8.5-10.1); Chloride, Blood 96 mmol/L (98-108); Creatinine, Blood 4.03 mg/dL (0.60-1.20); Glomerular Filtration Rate 16 (60-); Glucose, Blood 117 mg/dL (70-99); Potassium, Blood 3.6 mmol/L (3.5-5.5); Sodium, Blood 132 mmol/L (136-145)
--- NOTE | 2020-05-13 19:26 | NUR ---
SHIFT SUMMARY NO ACUTE CHANGES THIS SHIFT. NO DIALYSIS TODAY. PT BLOOD SUGARS HAVE BEEN LOWER THAN NORMAL THIS SHIFT AND AFTERNOON/EVENING INSULIN HELD. BEEN RESTING COMFORTABLY FOR THE MAJORITY OF THE SHIFT. PAIN TREATED PER EMR. VSS.
--- NOTE | 2020-05-14 02:52 | NUR ---
SHIFT SUMMARY S/P SIG COLECTOMY W/ OSTOMY PLACEMENT 04/29/20, A/O X4 W/ FLAT AFFECT BUT COOPERATIVE W/ CARE, TOLERATING PO, VOIDING SMALL AMT IN MCMULLEN (DR JOSEPH), RECEIVING SCHEDULED DIALYSIS, STOOL PASSING THROUGH OSTOMY, APPLIANCE CHANGED THIS SHIFT DUE TO SMALL LEAK ON THE INFERIOR SIDE OF THE SEAL, PAIN WELL MANAGED THOUGH PT RATES PAIN AT SIGNIFICANTLY HIGH LEVELS WHEN ASKED ABOUT 0-10 PAIN SCALE (REPORTS 18 OUT OF 10) THOUGH HIS APPEARANCE/FACE SCALE RATES AROUND 2-4 OUT OF 10. NO ACUTE EVENTS THIS SHIFT. CALL LIGHT IN REACH, WILL CONTINUE TO MONITOR AND REPORT TO ONCOMING DAY RN.
[2020-05-14 04:45] LABS: BASOPHILS ABSOLUTE AUTO 0.04 K/mm3 (0.00-0.23); BASOPHILS PERCENT AUTO 0 % (0-2); EOSINOPHILS ABSOLUTE AUTO 0.03 K/mm3 (0.00-0.68); EOSINOPHILS PERCENT AUTO 0 % (0-6); Hematocrit 28.2 % (37.0-53.0); Hemoglobin 8.8 g/dL (13.5-17.5); IMMATURE GRAN ABSOLUTE AUTO 0.15 K/mm3 (0.00-0.10); IMMATURE GRAN PERCENT AUTO 1 % (0-1); LYMPHOCYTES ABSOLUTE AUTO 1.31 K/mm3 (0.84-5.20); LYMPHOCYTES PERCENT AUTO 6 % (21-46); MONOCYTES ABSOLUTE AUTO 0.92 K/mm3 (0.16-1.47); MONOCYTES PERCENT AUTO 4 % (4-13); Mean Corpuscular HGB 27.2 pg (26.0-34.0); Mean Corpuscular HGB Conc 31.2 g/dL (31.5-36.5); Mean Corpuscular Volume 87 fL (80-100); Mean Platelet Volume 9.7 fL (9.1-12.4); NEUTROPHILS ABSOLUTE AUTO 19.82 K/mm3 (1.96-9.15); NEUTROPHILS PERCENT AUTO 89 % (41-73); Platelet Count 449 K/mm3 (150-400); RDW Coefficient Variation 18.3 % (11.7-14.2); RDW Standard Deviation 56.2 fL (35.1-46.3); Red Blood Cell Count 3.23 M/mm3 (4.30-5.90); White Blood Cell Count 22.27 K/mm3 (4.00-11.30)
[2020-05-14 05:07] LABS: Albumin, Blood 1.6 g/dL (3.4-5.0); Anion Gap 9 mmol/L (6-16); Blood Urea Nitrogen 44 mg/dL (8-24); Bun/Creatinine Ratio 9.4 (12.0-20.0); CO2, Blood 28 mmol/L (21-32); Calcium, Blood 8.1 mg/dL (8.5-10.1); Chloride, Blood 97 mmol/L (98-108); Creatinine, Blood 4.68 mg/dL (0.60-1.20); Glomerular Filtration Rate 13 (60-); Glucose, Blood 91 mg/dL (70-99); Phosphorus, Blood 7.1 mg/dL (2.5-4.9); Potassium, Blood 3.6 mmol/L (3.5-5.5); Sodium, Blood 134 mmol/L (136-145)
--- NOTE | 2020-05-14 09:30 | NUR ---
PT TO DIALYSIS IN BED
--- NOTE | 2020-05-14 14:49 | NUR ---
LONG DISCUSSION RE GETTING OUT OF BED AND INTO RECLINER W/ELEVATED BLE'S. PT WORKED TO GET TO SIDE OF THE BED BUT THEN GAVE UP AND SAID HE REF TO STAND AGAIN AND GET INTO THE CHAIR. WE DISCUSSED BED EXERCISES AND REPOSITIONING. WAS AT BEDSIDE FOR THIS DISCUSSION.
--- NOTE | 2020-05-14 18:12 | NUR ---
SHIFT SUMMARY PT A&OX4, VSS, CBGS CNI, DIALYSIS TODAY. S/P COLECTOMY W/OSTOMY, ABD DISTENSION. PICC MILENA. BASICALLY REFUSED TO WORK WITH PT AND GET INTO A CHAIR TODAY; FINALLY TALKED THE PT INTO SITTING ON/STANDING BY SIDE OF BED. BEDREST/BARELY REPOSITIONS. MCMULLEN PATENT & DRAINING YELLOW URINE, LOW OUTPUT; STARTED BLADDER TRAINING TODAY. WILL REPORT TO ONCOMING JOSH RN.
--- NOTE | 2020-05-15 06:38 | NUR ---
SHIFT SUMMARY: NO SIGNIFICANT CHANGES THIS SHIFT. COLOSTOMY PRODUCING FLATUS AND SOFT BROWN STOOL. 210CC EMPTIED FROM BAG. MIDLINE DRESSING C/D/I. PAIN BEING MANAGED WITH NORCO PER EMAR. CRITICAL CBG LAST NIGHT WITH LOWEST BEING 41. PT TREATED PER HYPOGLYCEMIC PROTOCOL. AT THE TIME PT REPORTING BEING ASYMPTOMATIC. PT ABLE TO EUGENIO PO. DENIES N/V. REPOSITIONED IN BED PRN. PT HAS BEEN A&O X4 THROUGHOUT SHIFT. VS WNL. O2 STABLE ON 4L VIA NC. LUNGS CONGESTED THIS MORNING. PT ENC TO USE INCENTIVE SPIROMETER AND ALLOW REPOSTIONING. PT OCC COUGHING; NON PRODUCTIVE. DENIES SOB. MCMULLEN DRAINING MINIMAL URINE. 125CC YELLOW URINE EMPTIED.
--- NOTE | 2020-05-15 14:46 | NUR ---
ASSESSED BACKSIDE, BOTTOM EXCORIATED, PHOTO IN CHART. PT VERBAL AGREED TO PHOTO- BOTH AXEL RN AND I WITNESSED PT AGREEMENT AND PARTICIPATION AND AGREEMENT TO REPOSITIONING TO STAY OFF BACK, PILLOW UNDER LEFT HIP/BACK.
--- NOTE | 2020-05-15 18:19 | NUR ---
SHIFT SUMMARY PT A&OX4, VSS, CBGS AC/HS CNI. S/P SIG COLECTOMY W/OSTOMY, MOD ABD DISTENSION. PAIN MANAGED WITH 10 MG PRN. EUGENIO PO; LOW INTAKE. PHYSICAL THERAPY WORKED WITH PT TODAY; PT PARTICIPATED. PHOTO TAKEN OF PT COCCYX, EXCORIATED, MEPILEX ON. MCMULLEN REMOVED, BLADDER SCAN 92 MLS/HR; PT HAS HAD LOW OUTPUT. WILL REPORT TO ONCOMING NOC RN.
[2020-05-16 06:03] LABS: BASOPHILS ABSOLUTE AUTO 0.04 K/mm3 (0.00-0.23); BASOPHILS PERCENT AUTO 0 % (0-2); EOSINOPHILS ABSOLUTE AUTO 0.14 K/mm3 (0.00-0.68); EOSINOPHILS PERCENT AUTO 1 % (0-6); Hematocrit 24.2 % (37.0-53.0); Hemoglobin 7.4 g/dL (13.5-17.5); IMMATURE GRAN ABSOLUTE AUTO 0.15 K/mm3 (0.00-0.10); IMMATURE GRAN PERCENT AUTO 1 % (0-1); LYMPHOCYTES ABSOLUTE AUTO 1.28 K/mm3 (0.84-5.20); LYMPHOCYTES PERCENT AUTO 7 % (21-46); MONOCYTES ABSOLUTE AUTO 1.34 K/mm3 (0.16-1.47); MONOCYTES PERCENT AUTO 7 % (4-13); Mean Corpuscular HGB Conc 30.6 g/dL (31.5-36.5); Mean Corpuscular Volume 88 fL (80-100); Mean Platelet Volume 9.9 fL (9.1-12.4); NEUTROPHILS ABSOLUTE AUTO 16.14 K/mm3 (1.96-9.15); NEUTROPHILS PERCENT AUTO 85 % (41-73); Platelet Count 471 K/mm3 (150-400); RDW Coefficient Variation 18.4 % (11.7-14.2); RDW Standard Deviation 59.4 fL (35.1-46.3); Red Blood Cell Count 2.74 M/mm3 (4.30-5.90); White Blood Cell Count 19.09 K/mm3 (4.00-11.30)
[2020-05-16 06:27] LABS: Albumin, Blood 1.4 g/dL (3.4-5.0); Anion Gap 10 mmol/L (6-16); Blood Urea Nitrogen 41 mg/dL (8-24); Bun/Creatinine Ratio 8.6 (12.0-20.0); CO2, Blood 28 mmol/L (21-32); Calcium, Blood 8.1 mg/dL (8.5-10.1); Chloride, Blood 95 mmol/L (98-108); Creatinine, Blood 4.76 mg/dL (0.60-1.20); Glomerular Filtration Rate 13 (60-); Glucose, Blood 84 mg/dL (70-99); Phosphorus, Blood 7.5 mg/dL (2.5-4.9); Potassium, Blood 3.9 mmol/L (3.5-5.5); Sodium, Blood 133 mmol/L (136-145)
--- NOTE | 2020-05-16 14:11 | NUR ---
confusion PT REPEATEDLY PRESSED CALL LIGHT. WHEN ASKED WHAT NEEDED, HE STATED "I NEED TO VOTE". REORIENTED TO USE OF CALL LIGHT. WHEN ASKED PT IF KNOWS WHERE HE IS, HE STATED "[facility]".
--- NOTE | 2020-05-16 17:10 | NUR ---
SUMMARY NO ACUTE CHANGES T/O SHIFT. REC'D DIALYSIS FIRST PART OF SHIFT. SAT UP BRIEFLY ON EDGE OF BED W/THERAPY. DID NOT REQUIRE SLIDING SCALE COVERAGE FOR CBGS. CONFUSED AT TIMES. CALL LIGHT IN REACH.
--- NOTE | 2020-05-16 21:40 | NUR ---
PT RESTING COMFORTABLY IN BED.
--- NOTE | 2020-05-17 04:40 | NUR ---
SHIFT SUMMARY: 65 Y/O MALE RESTED COMFORTABLY ALL SHIFT; PT C/O ABD PAIN RATED 7/10 WITH PERCOCET GIVEN WITH RELIEF FELT; PTS COLOSTOMY DRAINING SOFT BROWN STOOL WITH WAFER INTACT, OSTOMY PINK AND ROUND; ALERT AND ORIENTED X 4, ABLE TO FOLLOW SIMPLE VERBAL COMMANDS; ABD INCISION WELL APPROXIMATED; BED ALARM APPLIED FOR SAFETY, BED LOW POSITION WITH CALL LIGHT AT SIDE.
[2020-05-17 07:59] LABS: BASOPHILS ABSOLUTE AUTO 0.02 K/mm3 (0.00-0.23); BASOPHILS PERCENT AUTO 0 % (0-2); EOSINOPHILS ABSOLUTE AUTO 0.03 K/mm3 (0.00-0.68); EOSINOPHILS PERCENT AUTO 0 % (0-6); Hematocrit 23.9 % (37.0-53.0); Hemoglobin 7.3 g/dL (13.5-17.5); IMMATURE GRAN ABSOLUTE AUTO 0.11 K/mm3 (0.00-0.10); IMMATURE GRAN PERCENT AUTO 1 % (0-1); LYMPHOCYTES ABSOLUTE AUTO 1.47 K/mm3 (0.84-5.20); LYMPHOCYTES PERCENT AUTO 9 % (21-46); MONOCYTES ABSOLUTE AUTO 1.14 K/mm3 (0.16-1.47); MONOCYTES PERCENT AUTO 7 % (4-13); Mean Corpuscular HGB 27.1 pg (26.0-34.0); Mean Corpuscular HGB Conc 30.5 g/dL (31.5-36.5); Mean Corpuscular Volume 89 fL (80-100); Mean Platelet Volume 9.3 fL (9.1-12.4); NEUTROPHILS ABSOLUTE AUTO 14.34 K/mm3 (1.96-9.15); NEUTROPHILS PERCENT AUTO 84 % (41-73); Platelet Count 507 K/mm3 (150-400); RDW Coefficient Variation 18.4 % (11.7-14.2); RDW Standard Deviation 58.8 fL (35.1-46.3); Red Blood Cell Count 2.69 M/mm3 (4.30-5.90); White Blood Cell Count 17.11 K/mm3 (4.00-11.30)
--- NOTE | 2020-05-17 17:35 | NUR ---
PT AOX4 AND COOPERATIVE OF CARE. PT HAS BEEN INDEPENDENT IN ROOM AND HAS BEEN GETTING UP FROM BED TO CHAIR. PAIN TREATED PER EMAR. PT HAD ABDOMEN BANDAGE CHANGED BY DR CLARK IN THE AM AND THEN THIS WOOL CLEANER REMOVED AND CHANGED BANDAGE AND FLUSHED WOUND. BANDAGE REAPPLIED.CALL LIGHT WITHIN REACH WILL CONTINUE TO MONITOR.
--- NOTE | 2020-05-17 17:50 | NUR ---
PT AOX3 AND COOPERATIVE OF MOST CARE. PT STARTED SHIFT WITH LOW CBG OF 49. RECHECKED AN HOUR LATER AND WAS UP TO 99, BUT DID NOT WANT TO EAT OR DRINK MUCH. DR GIL NOTIFIED AND SEMGLEE WAS HELD. PT RESTING IN BED ALL DAY. PT ENCOURAGED TO EAT, BUT HAS JUST ATE VANILLA PUDDING. CALL LIGHT IS WITHIN REACH ABDOMINAL PAIN TREATED PER EMAR. COLOSTOMY BAG IN PLACE WILL CONTINUE TO MONITOR.
--- NOTE | 2020-05-18 05:00 | NUR ---
SUMMARY PT CONTINUES TO HAVE LOW BLOOD SUGARS. WILL ONLY EAT FEW BITES AND DRINK SMALL AMNT.STATES HAS NO APPETITE.PT CURRENTLY ON 4 L OXYMIZER WITH SATS 91-92% PT WITH MILD CONFUSION AT TIMES.FORGETS AND REMOVES 02. PT DESATS TO 78% WITHIN BRIEF MINUTES.I CALLED AND SPOKE WITH DR URIBE AND DISCUSSED ABOVE WELL CXR RESULTS PRIOR AND LABS INSULIN WAS DCD.WAS REPORTED TO ME PER DAY RN PLANS ARE FOR DIALYSIS TODAY.
[2020-05-18 08:14] LABS: BASOPHILS ABSOLUTE AUTO 0.02 K/mm3 (0.00-0.23); BASOPHILS PERCENT AUTO 0 % (0-2); EOSINOPHILS ABSOLUTE AUTO 0.12 K/mm3 (0.00-0.68); EOSINOPHILS PERCENT AUTO 1 % (0-6); Hematocrit 23.6 % (37.0-53.0); Hemoglobin 7.2 g/dL (13.5-17.5); IMMATURE GRAN ABSOLUTE AUTO 0.09 K/mm3 (0.00-0.10); IMMATURE GRAN PERCENT AUTO 1 % (0-1); LYMPHOCYTES PERCENT AUTO 10 % (21-46); MONOCYTES ABSOLUTE AUTO 1.32 K/mm3 (0.16-1.47); MONOCYTES PERCENT AUTO 9 % (4-13); Mean Corpuscular HGB 27.5 pg (26.0-34.0); Mean Corpuscular HGB Conc 30.5 g/dL (31.5-36.5); Mean Corpuscular Volume 90 fL (80-100); Mean Platelet Volume 9.1 fL (9.1-12.4); NEUTROPHILS ABSOLUTE AUTO 11.12 K/mm3 (1.96-9.15); NEUTROPHILS PERCENT AUTO 79 % (41-73); Platelet Count 533 K/mm3 (150-400); RDW Coefficient Variation 18.4 % (11.7-14.2); RDW Standard Deviation 60.1 fL (35.1-46.3); Red Blood Cell Count 2.62 M/mm3 (4.30-5.90); White Blood Cell Count 14.07 K/mm3 (4.00-11.30)
[2020-05-18 08:32] LABS: Albumin, Blood 1.5 g/dL (3.4-5.0); Albumin/Globulin Ratio 0.3 (0.8-1.8); Bilirubin, Total 1.1 mg/dL (0.1-1.0); Bun/Creatinine Ratio 7.7 (12.0-20.0); Calcium, Blood 8.1 mg/dL (8.5-10.1); Creatinine, Blood 4.13 mg/dL (0.60-1.20); Globulin, Blood 5.9 g/dL (2.2-4.0); Potassium, Blood 4.3 mmol/L (3.5-5.5); Total Protein, Blood 7.4 g/dL (6.4-8.2)
--- NOTE | 2020-05-18 08:55 | NUR ---
meds given as sched pt had difficulty waking up to go to dailysis as soon as possible
--- NOTE | 2020-05-18 11:29 | NUR ---
Dialysis- Put pt. on tx today and 30 min into tx, pt wanted off tx. Staff talked with pt and he decided to try to stay on tx a little bit longer. Pt. stayed on for longer then asked to be taken off tx again. Pt. had 45 min left on tx when he wanted off for good.
--- NOTE | 2020-05-18 12:00 | NUR ---
MEDS GIVEN SCHED PT DROWSY
[2020-05-18 18:32] LABS: Influenza A, PCR NEGATIVE (NEGATIVE); Influenza B, PCR NEGATIVE (NEGATIVE); Resp Syncytial Virus, PCR NEGATIVE (NEGATIVE); SARS-Cov-2 (COVID-19) PCR, MMC NEGATIVE (NEGATIVE)
--- NOTE | 2020-05-18 18:41 | NUR ---
ASSUMED CARE OF PT AT ABOUT 1600.
--- NOTE | 2020-05-18 18:42 | NUR ---
SUMMARY: FROM THE TIME OF ASSUMING CARE TO NOW, NO ACUTE CHANGE. HUANG LUCAS REPORTED TO THIS RN THAT 02 TITRATED FROM 10-15L TODAY VIA OXYMIZER. APPEARS TO NEED MORE O2 WITH EXERTION AND WHEN AT REST RECOVERS WELL. 02 CURRENTLY AT 13L AND SATS ARE 88-91%, ALTHOUGH PT IS FORGETFUL AND PULLS OFF PROBE OR O2 FROM FACE, SO OFTEN DIFFICULT TO GET ACCURATE READING. WHEN 02 REMOVED, SP02 DROPS TO 75-80%. LUNGS ARE CLEAR, PT HAS A PRODUCTIVE COUGH AND USES SUCTIONING AT BEDSIDE. SMALL AMT OF LIQ BROWN STOOL FROM OSTOMY. CBG STABLE TONIGHT, ALTHOUGH PT REFUSED DINNER AND REPORTS NO APPETITE. COVID TEST SENT. NO ACUTE SAFETY CONCERNS AT THIS TIME, PT IS RESTING. WILL REPORT TO NOC RN.
--- NOTE | 2020-05-18 22:20 | NUR ---
PT WITH INCREASED O2 DEMANDS, UNABLE TO MAINTAIN SATS ON BIPAP. PT WAS ALERT AND ORIENTED AT BEGINNING OF SHIFT, CURRENTLY CONFUSED AND SOMNOLENT. HE DOES AROUSE TO VOICE AND IS ANSWERING QUESTIONS. BLOOD SUGAR STABLE. ON-CALL PHYSICIAN NOTIFIED, ORDERS OBTAINED FOR CHEST X-RAY, EKG, AND ABG.
[2020-05-18 22:21] LABS: PCO2 Arterial 68.6 mmHg (35-45); PO2 Arterial 74.7 mmHg (80-100)
--- NOTE | 2020-05-18 23:23 | NUR ---
AGREE WITH SHIFT ASSESSMENT WITH SOME CHANGES TO CARDIAC, RESP, AND NEURO.
--- NOTE | 2020-05-18 23:23 | NUR ---
PT TRANSFER PT ARRIVED TO FLOOR AT 2323 VIA STRETCHER AND STREATCHER WAS SWAPPED OUT. PT WAS ON 15L OXIMIZER WAS THEN PUT ON 8L WITH SATS OF 98% IMMEDIATLY. RT ATTEMPTED TO PLACE BIPAP BUT WAS NOT TOLERATED WELL BY PATIENT AND WOULD TAKE IT OFF. VITALS ARE STABLE AND WILL CONTINUE TO MONITOR.
--- NOTE | 2020-05-19 04:41 | NUR ---
PT WAS TITRATED TO 4L FROM 15L UPON ARRIVAL FROM SURGICAL FLOOR. PER REPORT HE WAS ON 15L DUE TO LOW SATS. SATING AT >90% ON 4L. PT REPEATIDLY TAKES OFF OXYGEN AND SENSOR. CENTRAL MONITORING IN PLACE DUE TO AK TAKING OFF OXYGENATION.
[2020-05-19 04:48] LABS: BASOPHILS ABSOLUTE AUTO 0.02 K/mm3 (0.00-0.23); BASOPHILS PERCENT AUTO 0 % (0-2); EOSINOPHILS ABSOLUTE AUTO 0.05 K/mm3 (0.00-0.68); EOSINOPHILS PERCENT AUTO 0 % (0-6); Hematocrit 20.1 % (37.0-53.0); IMMATURE GRAN PERCENT AUTO 1 % (0-1); LYMPHOCYTES ABSOLUTE AUTO 1.77 K/mm3 (0.84-5.20); LYMPHOCYTES PERCENT AUTO 13 % (21-46); MONOCYTES ABSOLUTE AUTO 1.45 K/mm3 (0.16-1.47); MONOCYTES PERCENT AUTO 10 % (4-13); Mean Corpuscular HGB Conc 29.9 g/dL (31.5-36.5); Mean Corpuscular Volume 91 fL (80-100); NEUTROPHILS ABSOLUTE AUTO 10.77 K/mm3 (1.96-9.15); NEUTROPHILS PERCENT AUTO 76 % (41-73); RDW Coefficient Variation 17.9 % (11.7-14.2); RDW Standard Deviation 59.6 fL (35.1-46.3); Red Blood Cell Count 2.22 M/mm3 (4.30-5.90); White Blood Cell Count 14.16 K/mm3 (4.00-11.30)
[2020-05-19 04:52] LABS: Mean Platelet Volume 9.3 fL (9.1-12.4); Platelet Count 597 K/mm3 (150-400)
[2020-05-19 05:09] LABS: Albumin, Blood 1.5 g/dL (3.4-5.0); Albumin/Globulin Ratio 0.3 (0.8-1.8); Bilirubin, Total 0.5 mg/dL (0.1-1.0); Bun/Creatinine Ratio 7.6 (12.0-20.0); Calcium, Blood 8.1 mg/dL (8.5-10.1); Creatinine, Blood 3.3 mg/dL (0.60-1.20); Globulin, Blood 5.7 g/dL (2.2-4.0); Percent Saturation 15.1 % (20.0-50.0); Potassium, Blood 4.4 mmol/L (3.5-5.5); Total Protein, Blood 7.2 g/dL (6.4-8.2)
--- NOTE | 2020-05-19 05:50 | NUR ---
CALLED DR LA REGARDING PT'S HGB 6.0 FROM 7.2. SHE STATED THAT WE CAN GIVE 1 UNIT OF RBC'S.
--- NOTE | 2020-05-19 05:53 | NUR ---
SHIFT SUMMARY PT CAME TO UNIT AT 2323 HE WAS CONFUSED AND PULLING OFF OXYGEN AND SENSOR OFF ALL NIGHT. CAMERA MONITORING IN PLACE. VITALS ARE STABLE. O2 FROM 15L OXYMIZER DOWN TO 4L WITH SATS OF >90%. NON COMBATIVE AND FOLLOWS IMMEDIATE COMMANDS. OSTOMY OF LLQ APPLIANCE INTACT. PT IS INCONT OF URINE AND IS BEDREST, ATTENDS IN PLACE. PT IS Q2 TURNS CANNOT TURN HIMSELF. MIDLINE INCESION IS C/D/I. TELE READING-NSR. PICC AND PERMACATH C/D/I. HGB IS 6.[address] LA NOTIFIED.
--- NOTE | 2020-05-19 08:50 | NUR ---
PT TO DIALYSIS VIA BED WITH O2 AND BLOOD SLIP.
--- NOTE | 2020-05-19 11:55 | NUR ---
PT ARRIVED BACK TO ROOM 209 FROM DIALYSIS. REPORT RECIEVED FROM PREVIOUS RN. ALL BELONGINGS BROUGHT OVER PRIOR TO ARRIVAL. PT CURRENTLY RESTING IN BED. DECLINES BEING HUNGRY AT THIS TIME. PT ON 1L 0XYGEN VIA NASAL CANULA ON ARRIVAL. DENIES SOB.
--- NOTE | 2020-05-19 14:03 | NUR ---
PT REMOVED OXYGEN TUBING. PT STATED HE DIDNT WANT IT ON AND DIDNT CARE IF HE DESATTED. EDUCATED PATIENT ON IMPORTANCE OF KEEPING IT IN. PT DID DEEP BREATHING AND WAS REMAINING ABOVE 90% WHILE THIS NURSE WAS IN ROOM. WILL MONITOR FOR DESATING AND ATTEMPT TO REAPPLY OXYGEN IF PATIENT ALLOWS.
--- NOTE | 2020-05-19 16:34 | NUR ---
NO ACUTE CHANGES SINCE ARRIVAL TO UNIT PT HAS BEEN KEEPING OXYGEN IN NOSE WHILE IS IN ROOM. SATS REMAIN ABOVE 92% WITH IT ON. 2L CURRENTLY. REPORTS PAIN MINIMAL AT THIS TIME. OSTOMY PINK AND BEEFY BROWN STOOL IN BAG. ABDOMEN DISTENDED. PT VERY RESISTANT TO CARE DURING SHIFT. TOLERATING PO WELL, NO NAUSEA. MIDLINE DRESSING CDI.
--- NOTE | 2020-05-20 06:48 | NUR ---
SHIFT SUMMARY NO ACUTE CHANGES OVERNIGHT. PT AOX3. PT TENDS TO PULL OUT HIS NASAL CANULA INTERMINTLY. HE WAS ON 3L N/C AT THE BEGINNING OF SHIFT AT 88-91%. DESATURATING AT ROOM AIR FROM 60'S-80'S. ADVICE AND PROVIDE EDUCATION ABOUT 02 NEED. PT DENIES SOB AND CHEST PAIN. PT WAS APPROPRIATE AND COOPERATIVE WITH HIS CARE MOST OF THE TIMES. HE SLEPT T/O SHIFT. REPORTS BACK PAIN, REPOSITIONED AND 1 PERCOCET GIVEN. ABX ADMINISTERED ON ANNE MARIE PICC. CALL LIGHT WITHIN REACH. WILL PROVIDE REPORT TO AM NURSE.
[2020-05-20 10:36] LABS: BASOPHILS ABSOLUTE AUTO 0.04 K/mm3 (0.00-0.23); BASOPHILS PERCENT AUTO 0 % (0-2); EOSINOPHILS ABSOLUTE AUTO 0.19 K/mm3 (0.00-0.68); EOSINOPHILS PERCENT AUTO 1 % (0-6); Hematocrit 24.3 % (37.0-53.0); Hemoglobin 7.3 g/dL (13.5-17.5); IMMATURE GRAN ABSOLUTE AUTO 0.08 K/mm3 (0.00-0.10); IMMATURE GRAN PERCENT AUTO 1 % (0-1); LYMPHOCYTES ABSOLUTE AUTO 1.53 K/mm3 (0.84-5.20); LYMPHOCYTES PERCENT AUTO 12 % (21-46); MONOCYTES ABSOLUTE AUTO 0.94 K/mm3 (0.16-1.47); MONOCYTES PERCENT AUTO 7 % (4-13); Mean Corpuscular HGB 26.8 pg (26.0-34.0); Mean Corpuscular Volume 89 fL (80-100); NEUTROPHILS ABSOLUTE AUTO 10.56 K/mm3 (1.96-9.15); NEUTROPHILS PERCENT AUTO 79 % (41-73); Platelet Count 454 K/mm3 (150-400); RDW Coefficient Variation 17.2 % (11.7-14.2); RDW Standard Deviation 55.9 fL (35.1-46.3); Red Blood Cell Count 2.72 M/mm3 (4.30-5.90); White Blood Cell Count 13.34 K/mm3 (4.00-11.30)
[2020-05-20 10:55] LABS: Albumin, Blood 1.5 g/dL (3.4-5.0); Albumin/Globulin Ratio 0.3 (0.8-1.8); Bilirubin, Total 0.5 mg/dL (0.1-1.0); Bun/Creatinine Ratio 7.4 (12.0-20.0); Calcium, Blood 7.8 mg/dL (8.5-10.1); Creatinine, Blood 2.98 mg/dL (0.60-1.20); Globulin, Blood 5.6 g/dL (2.2-4.0); Potassium, Blood 3.8 mmol/L (3.5-5.5); Total Protein, Blood 7.1 g/dL (6.4-8.2)
--- NOTE | 2020-05-20 16:18 | NUR ---
shift summary PT AA0X4, PLEASANT AND COOPERATIVE DURING SHIFT. DECLINED TO EAT MUCH TODAY. TOLERATING PO, NO NAUSEA. PT INC OF VOID, NO OUTPUT IN OSTOMY TODAY. MEDICATED FOR PAIN X1, HAS STATED RELIEF SINCE. REPOSITION WITH ASSISTANCE. USES CALL LIGHT APPROPRIATLY.
--- NOTE | 2020-05-20 17:02 | NUR ---
maddy removed and steri strips applied per orders. no drainage with removal. pt tolerated well. denied any pain.
--- NOTE | 2020-05-20 22:44 | NUR ---
ABD WOUND UPON INCISION INSPECTION, THIS RN NOTICED SEPARATION OF ABD INCISION. DR. RAGLNAD WAS NOTIFIED OF THE 6CM IN LENGTH, 2-3CM WIDTH AND 1-1.75CM IN DEPTH. DR. RAGLAND NOTIFIED FOR WET TO DRY DRESSINGS AT THIS TIME. PATIENT HAS CALL LIGHT WITHIN REACH.
--- NOTE | 2020-05-21 03:23 | NUR ---
SHIFT SUMMARY: POD 21 COLECTOMY PATIENT IS ALERT AND ORIENTED X2-3. HE IS MORE ALERT DURING DAYSHIFT THAN NIGHTS IS WHAT DAYSHIFT RN REPORTED YESTERDAY. VS ARE WNL AND IS ON 4L OXYGEN NC. THOUGH PATIENT WILL PULL THE NC DOWN EVEN WHEN REPOSITIONING TUBING. PATIENT REPORTS ONLY EATING SMALL BITES OF LUNCH. HIS OSTOMY IS INTACT WITH SMALL AMOUNT OF GREEN OUTPUT. ABD INCISION HAS (SEE OTHER NURSE NOTE FOR MORE DETAIL). PATIENT'S ABD DRESSING IS C/D/I AT THIS TIME. HE IS ALSO INCONTINENT AND HAS BEEN GETTING CHANGED PRN. TELE IS ON AND IS SINUS WITH PAC'S. CALL LIGHT WITHIN REACH. PATIENT IS CURRENTLY SLEEPING LAYING IN BED. THE PLAN IS TO TALK WITH PALLIATIVE CARE AND TO WORK WITH PT/OT TODAY.
[2020-05-21 08:52] LABS: BASOPHILS ABSOLUTE AUTO 0.05 K/mm3 (0.00-0.23); BASOPHILS PERCENT AUTO 0 % (0-2); EOSINOPHILS ABSOLUTE AUTO 0.11 K/mm3 (0.00-0.68); EOSINOPHILS PERCENT AUTO 1 % (0-6); Hematocrit 25.9 % (37.0-53.0); IMMATURE GRAN ABSOLUTE AUTO 0.12 K/mm3 (0.00-0.10); IMMATURE GRAN PERCENT AUTO 1 % (0-1); LYMPHOCYTES ABSOLUTE AUTO 1.49 K/mm3 (0.84-5.20); LYMPHOCYTES PERCENT AUTO 10 % (21-46); MONOCYTES ABSOLUTE AUTO 0.97 K/mm3 (0.16-1.47); MONOCYTES PERCENT AUTO 6 % (4-13); Mean Corpuscular HGB 27.3 pg (26.0-34.0); Mean Corpuscular HGB Conc 30.9 g/dL (31.5-36.5); Mean Corpuscular Volume 88 fL (80-100); Mean Platelet Volume 8.9 fL (9.1-12.4); NEUTROPHILS ABSOLUTE AUTO 12.59 K/mm3 (1.96-9.15); NEUTROPHILS PERCENT AUTO 82 % (41-73); Platelet Count 550 K/mm3 (150-400); RDW Coefficient Variation 17.2 % (11.7-14.2); RDW Standard Deviation 55.1 fL (35.1-46.3); Red Blood Cell Count 2.93 M/mm3 (4.30-5.90); White Blood Cell Count 15.33 K/mm3 (4.00-11.30)
[2020-05-21 09:27] LABS: Albumin, Blood 1.5 g/dL (3.4-5.0); Albumin/Globulin Ratio 0.2 (0.8-1.8); Bilirubin, Total 0.6 mg/dL (0.1-1.0); Creatinine, Blood 3.48 mg/dL (0.60-1.20); Globulin, Blood 6.1 g/dL (2.2-4.0); Potassium, Blood 4.1 mmol/L (3.5-5.5); Total Protein, Blood 7.6 g/dL (6.4-8.2)
--- NOTE | 2020-05-21 09:50 | NUR ---
PT TO DIALYSIS AT APPROX 0910
--- NOTE | 2020-05-21 13:12 | NUR ---
PT BACK FROM DIALYSIS
--- NOTE | 2020-05-21 14:03 | NUR ---
pt lying in bed, call light within reach, bed in lowest position, bed rails up x 2. assumed care following receiving report from previous RN
--- NOTE | 2020-05-21 16:47 | NUR ---
1500-APPLIED WOUND VAC TO MIDLINE INCISION, DEHISCENCE NOTED PROXIMAL AND DISTAL ENDS OF INCISION, BLACK SPONGE AND ADHESIVE DRESSING APPLIED TO WOUND WITH GOOD COMPRESSION/SEAL NOTED. 1530-PATIENT'S WITH PATIENT ADVOCATE; THIS RN ANSWERED SPOUSE'S QUESTIONS 1600-CARE MANAGEMENT CHECKING IN WITH PT'S SPOUSE
--- NOTE | 2020-05-21 17:46 | NUR ---
shift summary: pt has remained restful since assuming care following dialysis, which states is baseline for him. pt awaken to verbal stimuli and answers questions appropriately. midline wound vac compressed and sealed.
--- NOTE | 2020-05-21 18:52 | NUR ---
Spiritual care note: Nikolay was slow to respond and spoke with a flat affect. He admits he is tired of being hospitalized. He also says he is irritated that PT "is always telling me what to do." He seems to understand the connection between working with PT here in order to transfer to SNF for rehab. But, he states, "Sometimes I don't feel like it." He appeared irritable and tired. I tried to engage him in conversation about his and their 2 dogs, or a time in his life when he was really happy. He did not appear to want to engage, but did allow prayer. I will continue to follow as schedule permits. No family present at time of visit.
--- NOTE | 2020-05-22 04:46 | NUR ---
SHIFT SUMMARY NO ACUTE CHANGES THIS SHIFT, MEDICATED 1X FOR PAIN, NO OTHER C/O ANY KIND, PT HAS BEEN AGREEABLE TO REPOS THIS SHIFT, WOUND VAC DRESSING CDI, OSTOMY INTACT W/SMALL AMT OF LOOSE BROWN/GREEN STOOL, SLEPT T/O THE NIGHT, SLEEPING AT THIS TIME, CALL LIGHT IN REACH, BED ALARM ACTIVE, WILL CONT TO MONITOR UNTIL REPORT GIVEN TO DAY RN.
--- NOTE | 2020-05-22 17:46 | NUR ---
Spiritual care note: Nikolay was withdrawn and dismissive when I came by to visit. He made it clear he did not want a visitor. I will continue to try to engage.
--- NOTE | 2020-05-22 18:05 | NUR ---
SHIFT SUMMARY PT HAS BEEN LETHARGIC, BUT RESPONDS TO VERABL STIMULI EASILY. PT SLEPT IN ROOM WHEN LEFT ALONE T/O THE DAY. NO DIAYLSIS TODAY. PT REFUSED PHYSICAL THERAPY TODAY, BUT AGREED TO PARTICIPATE TOMORROW. PT GIVEN BEDBATH TODAY. OVERALL POOR APPETITE. UPON DISCUSSION THIS AFTERNOON, PT STATES HE HAS BEEN NAUSEOUS TODAY. TREATMENT PER EMAR. PT SEEMS TO EAT BEST WHEN FOOD IS IN SMALL CONTAINERS THAT HE CAN HOLD, SUCH A MAGIC CUP OR PUDDING. WHEN THESE THINGS ARE POINTED OUT AND HANDED TO THE PT, HE EATS MORE. NEW DRESSING PLACED TO SACRUM AND UPDATED PHOTO OBTAINED. WOUND HAS STARTED TO SLUFF SOME. PT EDUCATED ON THE IMPORTANCE OF REPOSITIONING AND REDISTRIBUTING HIS WEIGHT. PT NODDED AFTER THIS DISCUSSION. NO OTHER ACUTE CHANGES IN ASSESSMENT AT THIS TIME. TELE MD'ED TODAY. CALL LIGHT IN REACH.
--- NOTE | 2020-05-23 04:03 | NUR ---
SHIFT SUMMARY: POD 24 COLECTOMY PATIENT IS ALERT AND ORIENTED X2-3. HE IS MORE ALERT DURING DAYSHIFT ACCORDING TO DAYSHIFT RN YESTERDAY. BED ALARM ON. VS ARE WNL AND IS ON 4L OXYGEN NC, BUT HE OFTEN DURING THE NIGHT TAKES OFF THE NC. HIS OSTOMY HAS HAD GAS BUILT UP AND SMALL AMOUNT OF BROWN LIQUID OUTPUT. ALSO HIS MIDLINE WOUND VAC IS COMPRESSED AND IS INTACT. PATIENT HAS BEEN REPOSITIONED OFTEN HE ALLOWS TO BE MOVED AT TIMES. ENCOURAGED PATIENT TO HAVE PILLOWS REPOSITIONED/ROTATED TO DECREASE PRESSURE ON HIS COCCYX. HE WAS ALSO EDUCATED ON INCREASING HIS PO INTAKE. HE IS INCONTINENT AND HAS HAD HIS ATTENDS CHANGED PRN. PATIENT IS CURRENTLY LAYING IN BED AND SNORING. CALL LIGHT WITHIN REACH. THE PLAN IS TO INCREASE PO INTAKE OF NUTRITION AND ENCOURAGING REPOSITIONING.
[2020-05-23 09:59] LABS: BASOPHILS ABSOLUTE AUTO 0.03 K/mm3 (0.00-0.23); BASOPHILS PERCENT AUTO 0 % (0-2); EOSINOPHILS ABSOLUTE AUTO 0.16 K/mm3 (0.00-0.68); EOSINOPHILS PERCENT AUTO 1 % (0-6); Hematocrit 25.7 % (37.0-53.0); Hemoglobin 7.9 g/dL (13.5-17.5); IMMATURE GRAN ABSOLUTE AUTO 0.13 K/mm3 (0.00-0.10); IMMATURE GRAN PERCENT AUTO 1 % (0-1); LYMPHOCYTES ABSOLUTE AUTO 1.72 K/mm3 (0.84-5.20); LYMPHOCYTES PERCENT AUTO 11 % (21-46); MONOCYTES ABSOLUTE AUTO 1.09 K/mm3 (0.16-1.47); MONOCYTES PERCENT AUTO 7 % (4-13); Mean Corpuscular HGB 27.3 pg (26.0-34.0); Mean Corpuscular HGB Conc 30.7 g/dL (31.5-36.5); Mean Corpuscular Volume 89 fL (80-100); Mean Platelet Volume 9.1 fL (9.1-12.4); NEUTROPHILS ABSOLUTE AUTO 12.33 K/mm3 (1.96-9.15); NEUTROPHILS PERCENT AUTO 80 % (41-73); Platelet Count 563 K/mm3 (150-400); RDW Coefficient Variation 17.2 % (11.7-14.2); RDW Standard Deviation 55.5 fL (35.1-46.3); Red Blood Cell Count 2.89 M/mm3 (4.30-5.90); White Blood Cell Count 15.46 K/mm3 (4.00-11.30)
[2020-05-23 10:37] LABS: Albumin, Blood 1.4 g/dL (3.4-5.0); Anion Gap 8 mmol/L (6-16); Blood Urea Nitrogen 32 mg/dL (8-24); Bun/Creatinine Ratio 9.2 (12.0-20.0); CO2, Blood 31 mmol/L (21-32); Calcium, Blood 8.2 mg/dL (8.5-10.1); Chloride, Blood 95 mmol/L (98-108); Creatinine, Blood 3.49 mg/dL (0.60-1.20); Glomerular Filtration Rate 19 (60-); Glucose, Blood 135 mg/dL (70-99); Phosphorus, Blood 4.2 mg/dL (2.5-4.9); Potassium, Blood 3.9 mmol/L (3.5-5.5); Sodium, Blood 134 mmol/L (136-145)
--- NOTE | 2020-05-23 12:21 | NUR ---
DIALYSIS PT REQUESTED OFF TX. I ASKED IF HE COULD GIVE US ANOTHER 30 MINS. HE SAID HE WOULD TRY BUT A FEW MINUTES LATER, HE SAID HE WAS DONE. RETURNED HIS BLOOD. HE'S FLOW SHEET WAS FROZEN. IT CONTACTED. WILL FINISH CHARTING WHEN HIS FLOW SHEET IS RELEASED.
--- NOTE | 2020-05-23 18:16 | NUR ---
Shift Summary A/Ox4, occassional forgetfulness. Wound vac dressing and PICC line dressing changed per unit protocol. Refused physical therapy stating "I don't feel good" and "I just don't want to" as reasons for refusal. Dr. Washburn is aware of patient's continued refusal and lack of motivation. Patient agreeable to repositioning at times. Medicated for 8/10 pain x 2 per EMAR without adequate relief per patient report despite appearing comfortably resting in bed. Uses call light for needs, but most times, hollars for assistance. (Ariela) at bedside briefly, status update provided. Had hemodialysis. Flat affect, appears withdrawn. VSS, on 4L O2 per NC. Breathing E/U. Bed in lowest position, call light and suction nearby. Bed alarm on.
--- NOTE | 2020-05-24 05:07 | NUR ---
SHIFT SUMMARY: MIKE AROUSES EASILY AND RESPONDS APPROPRIATELY. NO ACUTE EVENTS OVERNIGHT, HAS REFUSED TO ALLOW STAFF TO CHECK HIS VITAL SIGNS. HE DID ALLOW STAFF TO REPOSITION TO HIS RIGHT SIDE. SMALL AMOUNT BROWN STOOL THROUGH THE OSTOMY. PERMACATH TO RU CHEST WALL. ATTENDS IN PLACE. HE IS LYING IN BED WITH HIS CALL LIGHT IN REACH. HE IS TOLERATING THE SMALL AMOUNTS HE TAKES IN PO, ENCOURAGED INTAKE. HE HAS USED THE CALL LIGHT APPROPRIATELY THIS SHIFT. WILL REPORT TO DAY SHIFT RN.
--- NOTE | 2020-05-24 16:05 | NUR ---
DR MAYERS RECENTLY HERE TO SEE PT, FAMILY HERE WELL.
--- NOTE | 2020-05-24 18:05 | NUR ---
SHIFT SUMMARY PT REPORTED EATING BREAKFEAST. PT DID NOT WANT TO EAT LUNCH OR DINNER, ENCOURAGED TO EAT/DRINK. PT ATE CRACKERS, DENIED WANTING ANYTHING ELSE, DISCUSSED NUTRITION. PT DRINKING. PT BEEN REPOSITIONED AT TIMES, AT TIMES PT REPORTED COMFORTABLE AND DID NOT WANT TO BE REPOSITIONED. PT WORKED WITH THERAPY TODAY. MOBILITY ENCOURAGED. PT USING CALL LIGHT WELL. PT BEEN MED PRN PAIN. ASSISTED WITH ADL'S PRN. PT IN TO SEE PT TODAY, REQUESTED TO SPEAK TO WHO CAME AND DISCUSSED PT'S STATUS WITH . CALL LIGHT IN REACH.
[2020-05-25 05:35] LABS: Hematocrit 25.8 % (37.0-53.0); Hemoglobin 7.9 g/dL (13.5-17.5)
[2020-05-25 06:01] LABS: Albumin, Blood 1.4 g/dL (3.4-5.0); Albumin/Globulin Ratio 0.2 (0.8-1.8); Bilirubin, Total 0.5 mg/dL (0.1-1.0); Bun/Creatinine Ratio 9.3 (12.0-20.0); Calcium, Blood 8.3 mg/dL (8.5-10.1); Creatinine, Blood 3.55 mg/dL (0.60-1.20); Globulin, Blood 6.4 g/dL (2.2-4.0); Phosphorus, Blood 3.6 mg/dL (2.5-4.9); Potassium, Blood 3.8 mmol/L (3.5-5.5); Total Protein, Blood 7.8 g/dL (6.4-8.2)
--- NOTE | 2020-05-25 06:02 | NUR ---
SHIFT SUMMARY: MIKE AROUSES EASILY AND RESPONDS APPROPRIATELY. VSS, NO ACUTE EVENTS THIS SHIFT. HE HAS ALLOWED STAFF TO TURN AND REPOSITION HIM THIS SHIFT. HE REPORTS MINIMAL PAIN RELIEF WITH THE PERCOCET. PICC TO MILENA PATENT, DRAWS EASILY. HE IS TOLERATING PO INTAKE WELL, ENCOURAGED TO INCREASE NUTRITIONAL INTAKE. MEPILEX TO COCCYX IN PLACE, ATTENDS IN PLACE, INCONTINENT OF BLADDER. OSTOMY WITH SMALL AMOUNT OF BROWN STOOL AND GAS OUTPUT. HEELS FLOATED. HE IS ABLE TO MAKE HIS NEEDS KNOWN. HE IS LYING IN BED WITH THE CALL LIGHT IN REACH. WILL REPORT TO DAY SHIFT RN.
--- NOTE | 2020-05-25 09:13 | NUR ---
PT LEFT FOR DIALYSIS IN BED.
--- NOTE | 2020-05-25 12:31 | NUR ---
PT BACK FROM DIALYSIS. PT ASSISTED WITH ADL'S PRN.
--- NOTE | 2020-05-25 12:31 | NUR ---
PO INTAKE ENCOURAGED.
--- NOTE | 2020-05-25 14:30 | NUR ---
PT RECENTLY WORKED WITH THERAPY, FAMILY WAS PRESENT.
--- NOTE | 2020-05-25 15:20 | NUR ---
PO INTAKE BEEN ENCOURAGED MULT TIMES T/O DAY. PT REPORTS WILL HAVE SOME CHICKEN BROTH, GIVEN.
--- NOTE | 2020-05-25 15:31 | NUR ---
DR LITTLE IN ROOM, FAMILY PRESENT.
--- NOTE | 2020-05-25 15:45 | NUR ---
SHIFT SUMMARY PT BEEN REPOSITIONED MULT TIMES TODAY IN BED. PT WORKED WITH THERAPY AND SAT UP IN BED. PO INTAKE BEEN ENCOURAGED, ACTIVITY BEEN ENCOURAGED. PT BLE ELEVATED ON PILLOWS, FLOATING HEELS. PT HAS MEPILEX IN PLACE TO BOTTOM. PT HAD DIALYSIS TODAY. FAMILY IN TO SEE PT TODAY. PT BEEN ASSISTED WITH ADL'S PRN.
--- NOTE | 2020-05-25 16:17 | NUR ---
OTHER RN Eyad GIVEN REPORT AND IS ASSUMING CARE OF PT.
--- NOTE | 2020-05-26 02:50 | NUR ---
SHIFT SUMMARY: POD 24 COLECTOMY PATIENT IS ALERT AND ORIENTED X3 WHILE AWAKE. PATIENT HAS BEEN ASLEEP MAJORITY OF THE SHIFT BUT IS EASILY AROUSABLE. VS ARE WNL AND IS ON 4L OXYGEN NC. HAVE TO REMIND PATIENT THAT HE NEEDS TO HAVE NC ON SINCE HE TAKES IT OFF DURING HIS SLEEP. PAIN IS CONTROLLED WITH 1 PERCOCET PO. HIS MIDLINE WOUND VAC IS COMPRESSED AND VERY SMALL AMOUNT OF OUTPUT COMING FROM IT. OSTOMY IS PRODUCING GAS AND SMALL AMOUNTS OF STOOL. HE HAS BEEN OFFERED EVERY TWO HOURS TO REPOSITION BUT HAS REFUSED HALF OF THE TIME. HE IS INCONTINENT AND IS TWO PERSON MAX ASSIST TO CHANGE. POWERGLIDE IN [place] IS INFUSING AND IS WNL. HE CALLS APPROPRIATELY. CALL LIGHT WITHIN REACH. THE PLAN IS TO CONTINUE ENCOURAGEMENT OF NUTRITION AND WORKING WITH PHYSICAL THERAPY.
--- NOTE | 2020-05-26 14:34 | NUR ---
PT AGREED TO BED BATH AND LININ CHANGE. MEPILEX DRESSING REMOVED AT [facility], APPEARS TO BE 3 SMALL OPEN SORES, SOME DRY SKIN. WOUND CLEANSED AND PICTURES TAKEN. MEPILEX REPLACED, SEE PAPER CHART FOR PICTURES. WILL CTM AND TURN Q2.
--- NOTE | 2020-05-26 17:18 | NUR ---
SUMMARY: NO ACUTE CHANGE TODAY. VSS, A/O. PT COMPLIANT WITH CARE TODAY, FRIENDLY. SURGICAL SITE/ WOUND VAC WNL. SMALL FORMED STOOL PASSING FROM OSTOMY. ABD IS FIRM, DISTENDED, SMALL AMT OF GAS NOTED FROM OSTOMY. PT CONTINUES TO HAVE SMALL APPETITE. HAS DENIED PAIN TODAY. WORKED WELL WITH PHYSICAL THERAPY, SEE NOTES. NO SAFETY CONCERNS.
--- NOTE | 2020-05-27 02:51 | NUR ---
SHIFT SUMMARY S/P EX LAP/SIG COLECTOMY W/ OSTOMY PLACEMENT 04/29/20, A/O X4, FLAT AFFECT/DEPRESSED MOOD BUT COOPERATIVE W/ ALL NURSING CARE, ENGAGES STAFF IN CONVERSATION, OVERALL CONDITION APPEARS TO BE IMPROVING, PT APPEARS TO REPORT HIGHER PAIN LEVELS AT NIGHT ON 0-10 PAIN SCALE (SEE EMAR), NON AMBULATORY BUT MAKING PROGRESS WORKING W/ PHYSICAL THERAPY, GOOD OUTPUT IN OSTOMY, SMALL INCONTINENT VOID THIS SHIFT, TOLERATING PO INTAKE. NO ACUTE EVENTS THIS SHIFT. CALL LIGHT IN REACH, WILL CONTINUE TO MONITOR AND REPORT TO ONCOMING DAY RN.
[2020-05-27 04:39] LABS: BASOPHILS ABSOLUTE AUTO 0.06 K/mm3 (0.00-0.23); BASOPHILS PERCENT AUTO 0 % (0-2); EOSINOPHILS ABSOLUTE AUTO 0.32 K/mm3 (0.00-0.68); EOSINOPHILS PERCENT AUTO 2 % (0-6); Hematocrit 25.1 % (37.0-53.0); Hemoglobin 7.6 g/dL (13.5-17.5); IMMATURE GRAN ABSOLUTE AUTO 0.14 K/mm3 (0.00-0.10); IMMATURE GRAN PERCENT AUTO 1 % (0-1); LYMPHOCYTES ABSOLUTE AUTO 1.85 K/mm3 (0.84-5.20); LYMPHOCYTES PERCENT AUTO 12 % (21-46); MONOCYTES ABSOLUTE AUTO 0.98 K/mm3 (0.16-1.47); MONOCYTES PERCENT AUTO 6 % (4-13); Mean Corpuscular HGB 26.7 pg (26.0-34.0); Mean Corpuscular HGB Conc 30.3 g/dL (31.5-36.5); Mean Corpuscular Volume 88 fL (80-100); NEUTROPHILS ABSOLUTE AUTO 12.41 K/mm3 (1.96-9.15); NEUTROPHILS PERCENT AUTO 79 % (41-73); Platelet Count 640 K/mm3 (150-400); RDW Coefficient Variation 17.3 % (11.7-14.2); RDW Standard Deviation 55.6 fL (35.1-46.3); Red Blood Cell Count 2.85 M/mm3 (4.30-5.90); White Blood Cell Count 15.76 K/mm3 (4.00-11.30)
[2020-05-27 04:54] LABS: Albumin, Blood 1.4 g/dL (3.4-5.0); Anion Gap 8 mmol/L (6-16); Blood Urea Nitrogen 29 mg/dL (8-24); Bun/Creatinine Ratio 8.7 (12.0-20.0); CO2, Blood 29 mmol/L (21-32); Calcium, Blood 8.1 mg/dL (8.5-10.1); Chloride, Blood 99 mmol/L (98-108); Creatinine, Blood 3.33 mg/dL (0.60-1.20); Glomerular Filtration Rate 20 (60-); Glucose, Blood 121 mg/dL (70-99); Phosphorus, Blood 2.8 mg/dL (2.5-4.9); Potassium, Blood 3.8 mmol/L (3.5-5.5); Sodium, Blood 136 mmol/L (136-145)
--- NOTE | 2020-05-27 17:21 | NUR ---
SUMMARY: NO ACUTE CHANGE TODAY. VSS, A/O. SURGICAL SITE WNL. OSTOMY BAG CHANGED, FORMED BROWN STOOL NOTED, STOMA WNL. ABD IS MODERATELY DISTENDED. PT REFUSED BREAKFAST AND LUNCH TRAYS, STATING THAT HE "JUST DOESN'T FEEL LIKE EATING". AGREED TO TRY AND EAT SOME DINER. DR. FERNÁNDEZ MADE AWARE, DIETARY CONSULT ORDERED. PT AGREED TO BED BATH AND DRESSING CHANGE AT COCCYX, TOLERATED WELL. CONTINUING Q2 TURNS AND ENCOURAGING MOBILITY, ALTHOUGH PT SEEMS UNMOTIVATED. WILL CTM AND REPORT TO JOSH RN.
--- NOTE | 2020-05-28 06:07 | NUR ---
SHIFT SUMMARY S/P EX LAP W/ SIG COLECTOMY AND NEW OSTOMY PLACEMENT, A/O, VSS, TOLERATING PO, PT REFUSING MED, HAS REFUSED SOME CARE PER PRIOR REPORTS, COOPERATIVE W/ REPOSITION, DENIES PAIN T/O SHIFT, NO ACUTE EVENTS THIS SHIFT. CALL LIGHT IN REACH, WILL CONTINUE TO MONITOR AND REPORT TO ONCOMING DAY RN.
[2020-05-28 09:31] LABS: BASOPHILS ABSOLUTE AUTO 0.07 K/mm3 (0.00-0.23); BASOPHILS PERCENT AUTO 0 % (0-2); EOSINOPHILS ABSOLUTE AUTO 0.35 K/mm3 (0.00-0.68); EOSINOPHILS PERCENT AUTO 2 % (0-6); Hematocrit 24.6 % (37.0-53.0); Hemoglobin 7.4 g/dL (13.5-17.5); IMMATURE GRAN ABSOLUTE AUTO 0.16 K/mm3 (0.00-0.10); IMMATURE GRAN PERCENT AUTO 1 % (0-1); LYMPHOCYTES ABSOLUTE AUTO 1.73 K/mm3 (0.84-5.20); LYMPHOCYTES PERCENT AUTO 11 % (21-46); MONOCYTES PERCENT AUTO 6 % (4-13); Mean Corpuscular HGB 26.5 pg (26.0-34.0); Mean Corpuscular HGB Conc 30.1 g/dL (31.5-36.5); Mean Corpuscular Volume 88 fL (80-100); Mean Platelet Volume 9.1 fL (9.1-12.4); NEUTROPHILS ABSOLUTE AUTO 12.36 K/mm3 (1.96-9.15); NEUTROPHILS PERCENT AUTO 80 % (41-73); Platelet Count 620 K/mm3 (150-400); RDW Coefficient Variation 17.3 % (11.7-14.2); RDW Standard Deviation 55.8 fL (35.1-46.3); Red Blood Cell Count 2.79 M/mm3 (4.30-5.90); White Blood Cell Count 15.57 K/mm3 (4.00-11.30)
[2020-05-28 09:38] LABS: Albumin, Blood 1.3 g/dL (3.4-5.0); Anion Gap 7 mmol/L (6-16); Blood Urea Nitrogen 33 mg/dL (8-24); Bun/Creatinine Ratio 9.1 (12.0-20.0); CO2, Blood 31 mmol/L (21-32); Calcium, Blood 8.2 mg/dL (8.5-10.1); Chloride, Blood 100 mmol/L (98-108); Creatinine, Blood 3.64 mg/dL (0.60-1.20); Glomerular Filtration Rate 18 (60-); Glucose, Blood 129 mg/dL (70-99); Phosphorus, Blood 3.2 mg/dL (2.5-4.9); Potassium, Blood 3.6 mmol/L (3.5-5.5); Sodium, Blood 138 mmol/L (136-145)
--- NOTE | 2020-05-28 17:41 | NUR ---
SHIFT SUMMARY PT HAS DONE BETTER W/ PO INTAKE & THERAPY. WAS ABLE TO STAND 3 TIMES W/ THERAPY.
--- NOTE | 2020-05-29 03:40 | NUR ---
SHIFT SUMMARY: NEW OSTOMY PLACEMENT ON 04/29/20. PATIENT IS ALERT AND ORIENTED X3 WHILE AWAKE. THOUGH HE HAS BEEN ASLEEP MAJORITY OF THE SHIFT BUT IS EASILY AROUSABLE. HE IS ON 2L OXYGEN NC WITH OXYGEN SATS >90%. HE HAS SMALL AMOUNT OF STOOL OUTPUT IN OSTOMY. STOOL IS BROWN AND SOFT. WOUND VAC ON MIDLINE OF ABD IS SUCTIONING AND FOAM IS COMPRESSED. HE IS INCONTINENT AND HAS ATTENDS CHANGED PRN. HE WAS ABLE TO LET THIS NURSE AND ANIMAL KEEPER REPOSITION HIS PILLOWS Q2H. PICC LINE IS WNL AND WAS ABLE TO FLUSH 10 NS. MEPILEX IS PLACED ON COCCYX. HE HAS A FLAT AFFECT AND AT TIMES IS UNINTERESTED IN ANY INFORMATION. CALL LIGHT WITHIN REACH. PAIN IS CONTROLLED WITH 1 PERCOCET BUT HASN'T NEEDED ONE FOR THIS SHIFT YET. THE PLAN IS TO ENCOURAGE WORKING WITH PT AND PO INTAKE.
--- NOTE | 2020-05-30 03:38 | NUR ---
SHIFT SUMMARY: POD 30+ NEW OSTOMY PATIENT IS ALERT AND ORIENTED X3 WHILE AWAKE. HE HAS BEEN ON AND OFF SLEEPING MAJORITY OF THE SHIFT. VS ARE WNL AND IS ON 2L OXYGEN NC BUT WILL TAKE IT OFF RANDOMLY DURING THE NIGHT. HE IS A TWO PERSON MAX ASSIST. HE IS INCONTINENT AND HAS BEEN CHANGED PRN. HE IS VERY FLAT AFFECT. PATIENT USES CALL LIGHT. HE DENIED PAIN DURING THIS SHIFT. HE HAS BEEN REPOSITIONED WHEN POSSIBLE SINCE HE SOMETIMES REFUSES REPOSITIONING. MEPILEX IS ON COCCYX. CALL LIGHT WITHIN REACH. OSTOMY HAS SMALL AMOUNT OF OUTPUT. MIDLINE WOUND VAC IS SUCTIONING AND FOAM IS COMPRESSED. THE PLAN IS TO BE DISCHARGED TO A SNF WHEN POSSIBLE.
[2020-05-30 12:55] LABS: BASOPHILS ABSOLUTE AUTO 0.07 K/mm3 (0.00-0.23); BASOPHILS PERCENT AUTO 0 % (0-2); EOSINOPHILS ABSOLUTE AUTO 0.23 K/mm3 (0.00-0.68); EOSINOPHILS PERCENT AUTO 1 % (0-6); Hemoglobin 7.9 g/dL (13.5-17.5); IMMATURE GRAN ABSOLUTE AUTO 0.09 K/mm3 (0.00-0.10); IMMATURE GRAN PERCENT AUTO 1 % (0-1); LYMPHOCYTES ABSOLUTE AUTO 1.92 K/mm3 (0.84-5.20); LYMPHOCYTES PERCENT AUTO 12 % (21-46); MONOCYTES ABSOLUTE AUTO 0.89 K/mm3 (0.16-1.47); MONOCYTES PERCENT AUTO 5 % (4-13); Mean Corpuscular HGB Conc 30.4 g/dL (31.5-36.5); Mean Corpuscular Volume 89 fL (80-100); Mean Platelet Volume 9.3 fL (9.1-12.4); NEUTROPHILS ABSOLUTE AUTO 13.34 K/mm3 (1.96-9.15); NEUTROPHILS PERCENT AUTO 81 % (41-73); Platelet Count 660 K/mm3 (150-400); RDW Coefficient Variation 17.5 % (11.7-14.2); RDW Standard Deviation 56.8 fL (35.1-46.3); Red Blood Cell Count 2.93 M/mm3 (4.30-5.90); White Blood Cell Count 16.54 K/mm3 (4.00-11.30)
[2020-05-30 13:25] LABS: Albumin, Blood 1.4 g/dL (3.4-5.0); Anion Gap 9 mmol/L (6-16); Blood Urea Nitrogen 26 mg/dL (8-24); Bun/Creatinine Ratio 8.8 (12.0-20.0); CO2, Blood 31 mmol/L (21-32); Calcium, Blood 8.2 mg/dL (8.5-10.1); Chloride, Blood 97 mmol/L (98-108); Creatinine, Blood 2.96 mg/dL (0.60-1.20); Glomerular Filtration Rate 23 (60-); Glucose, Blood 204 mg/dL (70-99); Phosphorus, Blood 2.3 mg/dL (2.5-4.9); Potassium, Blood 3.1 mmol/L (3.5-5.5); Sodium, Blood 137 mmol/L (136-145)
--- NOTE | 2020-05-30 16:09 | NUR ---
SHIFT SUMMARY PT POD 30+ FOR COLECTOMY WITH OSTOMY. A/O X3 WITH A FLAT AFFECT AND IS ABLE TO MAKE NEEDS KNOWN. HAD DIALYSIS TODAY. REFUSED ALL MORNING MEDICATIONS EXCEPT THE COLACE. MEDICATED FOR PAIN X1 THIS SHIFT. PICC LINE DRESSING CHANGED. MIDLINE DRESSING IN PLACE AND FOAM IS COMPRESSED. WORKED WITH PHYSICAL THERAPY TODAY. AWAITING SNF PLACEMENT. VSS.
--- NOTE | 2020-05-31 04:22 | NUR ---
SHIFT SUMMARY LYING IN SEMI FOWLERS WITH EYES CLOSED. HAS BEEN RESTLESS MOST OF THIS SHIFT. AAO X3 WITH INTERITTENT CONFUSION NOTED. RESPIRATIONS EVEN AND UNLABORED ON RA. ABDOMEN SOFT AND NONDISTENDED. HYPOACTIVE BOWEL TONES NOTED IN ALL QUADS. PT IS S/P COLECTOMY WITH OSTOMY >30 DAYS AGO. OSTOMY APPLIANCE CHANGED ON THE 05/27/20. MINIMAL LIQUID BROWN STOOL AND FLATUS NOTED IN BAG. RIGHT UPPER ARM PICC WITH [address] DRESSING CHANGE COMPLETED 05/30/20. AM LABS TO BE DRAWN FROM PICC. INCONTINENT OF BLADDER, VOIDS PER ATTENDS AND PADS. POOR INTAKE NOTED, REITERATED NEED TO INCREASE D/T NEEDS, VOICES UNDERSTANDING. DENIES FURTHER NEEDS OR WANTS AT THIS TIME. SAFETY MEASURES IN PLACE. WILL CONTINUE TO MONITOR AND GIVE HAND OFF TO ONCOMING SHIFT USING SBAR DURING BEDSIDE REPORT.
--- NOTE | 2020-05-31 05:20 | NUR ---
TRANSFER FROM 209 TO 359 REPORT GIVEN TO Re MONAHAN RN USING SBAR. ALL PERSONAL BELONGINGS GATHERED AND TAKEN WITH PT VIA BED FROM ROOM 209 TO ROOM 359 AFTER AM MED GIVEN, AND DRAWING AM LABS FROM RIGHT UPPER ARM PICC LINE AND CHANGING ALL CAPS, DENIES NEEDS AT THIS TIME.
[2020-05-31 05:21] LABS: Hematocrit 26.4 % (37.0-53.0); Hemoglobin 8.2 g/dL (13.5-17.5)
[2020-05-31 05:36] LABS: Albumin, Blood 1.6 g/dL (3.4-5.0); Anion Gap 6 mmol/L (6-16); Blood Urea Nitrogen 18 mg/dL (8-24); Bun/Creatinine Ratio 8.2 (12.0-20.0); CO2, Blood 33 mmol/L (21-32); Chloride, Blood 98 mmol/L (98-108); Glomerular Filtration Rate 32 (60-); Glucose, Blood 142 mg/dL (70-99); Magnesium, Blood 1.7 mg/dL (1.6-2.4); Potassium, Blood 3.1 mmol/L (3.5-5.5); Sodium, Blood 137 mmol/L (136-145)
--- NOTE | 2020-05-31 18:14 | NUR ---
PATIENT IS ALERT AND ORIENTED AND COOPERATIVE WITH CARE. PATIENT C/O BACK AND ABDOMINAL PAIN, MEDICATED PER EMAR. PATIENT PARTICIPATED WITH PHYSICAL THERAPY TODAY WHERE HE WAS ENCOURAGED TO TURN IN BED AND MOVE UP IN BED ON HIS OWN. THE PATIENT EMPTIED HIS COLOSTOMY WITH THE ASSISTANCE OF THE CARD PUNCHER. HE IS A LITTLE RELUCTANT TO DO THINGS FOR HIMSELF BUT HAS THE CAPABILITIES. THE PATIENT'S IS AT THE BEDSIDE. THE PATIENT REPORTS AN INCREASE IN HIS APPETITE TODAY. Q2H TURNS AT TH EPATIENT'S REQUEST. WILL CONTINUE TO MONITOR
--- NOTE | 2020-06-01 04:22 | NUR ---
MARBLE CUTTER SUMMARY PT A/O X4. MEDICATED FOR ABD PAIN. DENIES SOB, NAUSEA, DIZZINIESS. PT SLEPT WELL TONIGHT. REPOSITIONING PROVIDED TOLERATED, SOMETIMES PT WOULD REFUSE. MIDLINE WOUND VAC C.D.I. VSS. CONTINUES TO BE ON 2L O2 VIA NC SATTING IN THE HI 90'S. NO ACUTE CHANGES. CALL LIGHT WITHIN REACH.
[2020-06-01 04:59] LABS: Hematocrit 24.8 % (37.0-53.0); Hemoglobin 7.6 g/dL (13.5-17.5)
[2020-06-01 05:21] LABS: Albumin, Blood 1.5 g/dL (3.4-5.0); Anion Gap 6 mmol/L (6-16); Blood Urea Nitrogen 25 mg/dL (8-24); Bun/Creatinine Ratio 9.4 (12.0-20.0); CO2, Blood 32 mmol/L (21-32); Calcium, Blood 7.9 mg/dL (8.5-10.1); Chloride, Blood 97 mmol/L (98-108); Creatinine, Blood 2.65 mg/dL (0.60-1.20); Glomerular Filtration Rate 26 (60-); Glucose, Blood 196 mg/dL (70-99); Magnesium, Blood 1.6 mg/dL (1.6-2.4); Phosphorus, Blood 2.9 mg/dL (2.5-4.9); Potassium, Blood 3.5 mmol/L (3.5-5.5); Sodium, Blood 135 mmol/L (136-145)
--- NOTE | 2020-06-01 18:28 | NUR ---
SHIFT SUMMARY. A&OX4, BEDBOUND, INCONTINENT OF URINE. PT HAD ONE LARGE INCONTINENT VOID THIS EVENING, MEPILEX TO COCCYX CHANGED AT THAT TIME. DIALYSIS COMPLETED THIS AFTERNOON. PT [address], N/V. PT REPORTS CHRONIC BACK PAIN THAT HAS BEEN MANAGED WELL WITH CURRENT ORDERS. WAS UNABLE TO CHANGE WOUND VAC DRESSING THIS AFTERNOON PT WAS IN DIALYSIS AND IS NOW EATING DINNER, WILL ALERT NOC SHIFT. NO OTHER CHANGES OR CONCERNS.
--- NOTE | 2020-06-02 04:00 | NUR ---
PROTOTYPER SUMMARY A/OX3, COOPERATIVE WITH CARE. C/O PAIN X1, MEDICATED PER EMAR. Q2 REPOSITIONING. PERMACATH TO RCW. COLOSTOMY WITH SOFT FORMED BROWN STOOL. WOUND VAC IN PLACE TO MIDLINE ABD. DENIES SOB, ON 2L VIA NC WITH SATS GREATER THAN 92. CURRENTLY AWAITING PLACEMENT FOR SAFE D/C. VSS, NO ACUTE CHANGES AT THIS TIME. BED IN LOWEST POSITION WITH CALL LIGHT IN REACH. WILL CONTINUE TO MONITOR AND REPORT TO ONCOMING NR.
[2020-06-02 05:51] LABS: Hematocrit 26.8 % (37.0-53.0); Hemoglobin 8.2 g/dL (13.5-17.5)
[2020-06-02 06:09] LABS: Albumin, Blood 1.6 g/dL (3.4-5.0); Anion Gap 5 mmol/L (6-16); Blood Urea Nitrogen 18 mg/dL (8-24); Bun/Creatinine Ratio 8.6 (12.0-20.0); CO2, Blood 33 mmol/L (21-32); Calcium, Blood 8.3 mg/dL (8.5-10.1); Chloride, Blood 97 mmol/L (98-108); Glomerular Filtration Rate 34 (60-); Glucose, Blood 169 mg/dL (70-99); Magnesium, Blood 1.7 mg/dL (1.6-2.4); Phosphorus, Blood 2.5 mg/dL (2.5-4.9); Potassium, Blood 3.6 mmol/L (3.5-5.5); Sodium, Blood 135 mmol/L (136-145)
--- NOTE | 2020-06-02 16:09 | NUR ---
SHIFT SUMMARY PT AxOx4. PLEASANT AND COOPERATIVE WITH CARE. PT HAD BED BATH, AND WOUND VAC DRESSING CHANGE TODAY. UPDATED PICS IN CHART. IN ROOM FOR VISIT, UPDATED ON PLAN. PT WEANED FROM O2 TODAY WITHOUT DIFFICULTY. PT NOT VOIDED ON THIS SHIFT. BLADDER SCAN AT APRROX 1600 = [phone]. WILL CONTACT DR FOR ORDERS. VITALS REVIEWED. PT CURRENTLY RESTING IN BED WITH CALL LIGHT IN REACH. DENIES ANY NEEDS AT THIS TIME.
--- NOTE | 2020-06-03 03:40 | NUR ---
HELICOPTER CREW CHIEF SUMMARY A/OX3. Q2 REPOSITIONING. PERMACATH TO RCW. COLOSTOMY WITH MINIMAL SOFT BROWN OUTPUT. MIDLINE ABD WOUND VAC DRESSING C/D/I. C/O PAIN TO ABD AND BACK, MEDICATED PER EMAR X2. CURRENTLY ON RA WITH SATS GREATER THAN 92. VSS, NO ACUTE CHANGES AT THIS TIME. BED IN LOWEST POSITION WITH CALL LIGHT IN REACH. WILL CONTINUE TO MONITOR AND REPORT TO ONCOMING RN.
[2020-06-03 04:52] LABS: Hematocrit 24.2 % (37.0-53.0); Hemoglobin 7.5 g/dL (13.5-17.5)
[2020-06-03 05:31] LABS: Albumin, Blood 1.5 g/dL (3.4-5.0); Anion Gap 6 mmol/L (6-16); Blood Urea Nitrogen 27 mg/dL (8-24); Bun/Creatinine Ratio 11.1 (12.0-20.0); CO2, Blood 31 mmol/L (21-32); Calcium, Blood 8.1 mg/dL (8.5-10.1); Chloride, Blood 96 mmol/L (98-108); Creatinine, Blood 2.43 mg/dL (0.60-1.20); Glomerular Filtration Rate 29 (60-); Glucose, Blood 197 mg/dL (70-99); Magnesium, Blood 1.6 mg/dL (1.6-2.4); Phosphorus, Blood 2.8 mg/dL (2.5-4.9); Potassium, Blood 3.5 mmol/L (3.5-5.5); Sodium, Blood 133 mmol/L (136-145)
--- NOTE | 2020-06-03 17:18 | NUR ---
SHIFT SUMMARY- PT IS A/O, PLESANT AND COOPERATIVE. HE C/O NAUSEA TODAY WITH NO VOMITING. SPOKE WITH DR. LITTLE ABOUT THIS ORDERED REGLAN PT REPORTED SOME RELIEF OF SYMPTOMS. HIS APPETITE HAS BEEN POOR THIS SHIFT. NO DYALISIS TODAY. HE RECIEVED A BED BATH THIS AFTERNOON. HIS WAS AT BEDSIDE THIS AFTERNOON. HIS BED IS IN THE LOW POSITION AND CALL LIGHT IS WITHIN REACH.
--- NOTE | 2020-06-04 05:24 | NUR ---
SUMMARY: PT A/OX3, CALLS APPROPRIATELY AND SPECIFIES NEEDS. HE SEEMS SOMEWHAT FLAT AND WITHDRAWN BUT IS PLEASANT AND COOPERATIVE W/CARE. HE'S DENIED NAUSEA THIS SHIFT BUT CONT'S TO C/O ABDO AND BACK PAIN. PERCOCET RECIEVED PRN FOR TOLERABLE RELIEF. WOUND VAC REMAINS INTACT W/SUCTION TO MID ABDO, NO OUTPUT OBSERVED. COLOSTOMY HAS SCANT OUTPUT BUT FLATTUS NOTED. PICC LINE IS SL AND DX TO R.CW PERMACATH IS C/D/I. PT MAY HAVE DIALYSIS AGAIN TODAY. HE ISN'T ALWAYS AWARE OF NEED OR HAVING VOIDED SO ATTENDS CHANGED PRN FOR INCONTINENCE. TURN SCHEDULE MAINTAINED FOR BEDREST. NO ACUTE CHANGES, VSS/AFEBRILE. WCTM AND REPORT TO DAY RN.
[2020-06-04 08:10] LABS: BASOPHILS ABSOLUTE AUTO 0.05 K/mm3 (0.00-0.23); BASOPHILS PERCENT AUTO 0 % (0-2); EOSINOPHILS ABSOLUTE AUTO 0.26 K/mm3 (0.00-0.68); EOSINOPHILS PERCENT AUTO 2 % (0-6); Hematocrit 25.3 % (37.0-53.0); Hemoglobin 7.9 g/dL (13.5-17.5); IMMATURE GRAN ABSOLUTE AUTO 0.08 K/mm3 (0.00-0.10); IMMATURE GRAN PERCENT AUTO 1 % (0-1); LYMPHOCYTES ABSOLUTE AUTO 1.74 K/mm3 (0.84-5.20); LYMPHOCYTES PERCENT AUTO 12 % (21-46); MONOCYTES ABSOLUTE AUTO 0.78 K/mm3 (0.16-1.47); MONOCYTES PERCENT AUTO 5 % (4-13); Mean Corpuscular HGB 26.9 pg (26.0-34.0); Mean Corpuscular HGB Conc 31.2 g/dL (31.5-36.5); Mean Corpuscular Volume 86 fL (80-100); Mean Platelet Volume 9.3 fL (9.1-12.4); NEUTROPHILS ABSOLUTE AUTO 11.98 K/mm3 (1.96-9.15); NEUTROPHILS PERCENT AUTO 81 % (41-73); Platelet Count 483 K/mm3 (150-400); RDW Coefficient Variation 17.2 % (11.7-14.2); RDW Standard Deviation 54.8 fL (35.1-46.3); Red Blood Cell Count 2.94 M/mm3 (4.30-5.90); White Blood Cell Count 14.89 K/mm3 (4.00-11.30)
[2020-06-04 08:30] LABS: Albumin, Blood 1.6 g/dL (3.4-5.0); Anion Gap 6 mmol/L (6-16); Blood Urea Nitrogen 33 mg/dL (8-24); Bun/Creatinine Ratio 12.6 (12.0-20.0); CO2, Blood 30 mmol/L (21-32); Calcium, Blood 8.1 mg/dL (8.5-10.1); Chloride, Blood 97 mmol/L (98-108); Creatinine, Blood 2.62 mg/dL (0.60-1.20); Glomerular Filtration Rate 26 (60-); Glucose, Blood 170 mg/dL (70-99); Phosphorus, Blood 3.6 mg/dL (2.5-4.9); Potassium, Blood 3.5 mmol/L (3.5-5.5); Sodium, Blood 133 mmol/L (136-145)
--- NOTE | 2020-06-04 18:27 | NUR ---
NO ACUTE CHANGES NOTED THIS SHIFT, PER DR RAGLAND CONTINUE TO HOLD HEPARIN TONIGHT FOR A BIOPSY IN THE MORNING. PT REPORTED PAIN THIS AFTERNOON, @ 1715 MEDICATED PER EMAR WITH PERCOCET 1 5/325 PER EMAR. NO DIALYSIS TODAY PER DR LA. WILL CONTINUE TO MONITOR AND REPORT TO ONCOMING RN
--- NOTE | 2020-06-05 04:35 | NUR ---
SUMMARY: PT A/OX3, CALLS APPROPRIATELY AND SPECIFIES NEEDS. FLAT AFFECT NOTED BUT HE IS PLEASANT/COOPERATIVE W/CARE. HE CONT'S TO REPORT ABDO AND BACK PAIN W/PERCOCET RECIEVED FOR TOLERABLE RELIEF. TURN SCHEDULE MAINTAINED AND PT REMAINS ON BEDREST. WOUND VAC W/SUCTION IS C/D/I, NO DRAINAGE OBSERVED. HEPARIN WAS HELD PER ORDERS FOR BIOPSY THIS AM. COLOSTOMY NOTED TO HAVE FLATTUS SO WAS BURPED BUT NO OUPUT OBSERVED THIS SHIFT DESPITE (+) BT'S X4 QUADS AND SCHEDULED COLACE AT HS. URINE SPECIMEN STILL PENDING BUT PT IS INCONTINENT SO STAFF UNABLE TO OBTAIN IT. NO ACUTE CHANGES, VSS/AFEBRILE. WCTM AND REPORT TO DAY RN.
[2020-06-05 06:25] LABS: Albumin, Blood 1.5 g/dL (3.4-5.0); Anion Gap 7 mmol/L (6-16); Blood Urea Nitrogen 36 mg/dL (8-24); Bun/Creatinine Ratio 13.4 (12.0-20.0); CO2, Blood 31 mmol/L (21-32); Calcium, Blood 7.8 mg/dL (8.5-10.1); Chloride, Blood 97 mmol/L (98-108); Creatinine, Blood 2.68 mg/dL (0.60-1.20); Glomerular Filtration Rate 26 (60-); Glucose, Blood 145 mg/dL (70-99); Potassium, Blood 3.7 mmol/L (3.5-5.5); Sodium, Blood 135 mmol/L (136-145)
[2020-06-05 08:26] LABS: International Normalized Ratio 1.14; Prothrombin Time Results 12.1 Sec (9.7-11.5)
--- NOTE | 2020-06-05 11:55 | NUR ---
TALKED TO OFFICE ABOUT WOUND VAC. VERY LITTLE OUTPUT. WONDERING ABOUT D'C. PER OFFICE WHO SPOKE TO , HE WILL BE IN LATER TODAY TO TAKE CARE OF THE WOUND VAC.
--- NOTE | 2020-06-05 15:40 | NUR ---
ALERT. NO ACUTE CHANGES. WOUND VAC D'C WITH DRESSING PLACED BY . MEDICATED FOR ABD/BACK PAIN WITH SOME RELIEF. CT GUIDED BIOPSY FOR TOMORROW AT 1030 WITH NPO AFTER MIDNITE. LITTLE OUTPUT FROM OSTOMY. INCONTINENT OF URINE SINCE DX OF BLADDER CA.WCTM
--- NOTE | 2020-06-06 05:39 | NUR ---
PROCEDURE WRITER SUMMARY NO ACUTE CHANGES THIS SHIFT. PT AAOX4 AND PLEASANT. MAKES NEEDS KNOWN AND CALLS APPROPRIATELY. MEDICATED FOR PAIN X1 PER EMAR. PT INCONTINENT OF URINE SO ATTENDS CHANGED NEEDED. WOUND VAC REMOVED YESTERDAY, DRESSING OVER MIDLINE ABD WOUND C/D/I. PT HAS BEEN NPO SINCE MIDNIGHT FOR LIVER BIOPSY LATER TODAY.
[2020-06-06 06:38] LABS: BASOPHILS ABSOLUTE AUTO 0.04 K/mm3 (0.00-0.23); BASOPHILS PERCENT AUTO 0 % (0-2); EOSINOPHILS ABSOLUTE AUTO 0.35 K/mm3 (0.00-0.68); EOSINOPHILS PERCENT AUTO 3 % (0-6); Hematocrit 25.8 % (37.0-53.0); IMMATURE GRAN ABSOLUTE AUTO 0.07 K/mm3 (0.00-0.10); IMMATURE GRAN PERCENT AUTO 1 % (0-1); LYMPHOCYTES ABSOLUTE AUTO 1.78 K/mm3 (0.84-5.20); LYMPHOCYTES PERCENT AUTO 13 % (21-46); MONOCYTES ABSOLUTE AUTO 0.66 K/mm3 (0.16-1.47); MONOCYTES PERCENT AUTO 5 % (4-13); Mean Corpuscular HGB 26.4 pg (26.0-34.0); Mean Corpuscular Volume 85 fL (80-100); Mean Platelet Volume 9.1 fL (9.1-12.4); NEUTROPHILS ABSOLUTE AUTO 11.07 K/mm3 (1.96-9.15); NEUTROPHILS PERCENT AUTO 79 % (41-73); Platelet Count 497 K/mm3 (150-400); RDW Standard Deviation 52.7 fL (35.1-46.3); Red Blood Cell Count 3.03 M/mm3 (4.30-5.90); White Blood Cell Count 13.97 K/mm3 (4.00-11.30)
[2020-06-06 06:54] LABS: Albumin, Blood 1.7 g/dL (3.4-5.0); Anion Gap 7 mmol/L (6-16); Blood Urea Nitrogen 37 mg/dL (8-24); Bun/Creatinine Ratio 13.8 (12.0-20.0); CO2, Blood 31 mmol/L (21-32); Calcium, Blood 7.9 mg/dL (8.5-10.1); Chloride, Blood 97 mmol/L (98-108); Creatinine, Blood 2.68 mg/dL (0.60-1.20); Glomerular Filtration Rate 26 (60-); Glucose, Blood 157 mg/dL (70-99); Phosphorus, Blood 4.1 mg/dL (2.5-4.9); Potassium, Blood 3.5 mmol/L (3.5-5.5); Sodium, Blood 135 mmol/L (136-145)
--- NOTE | 2020-06-06 12:06 | NUR ---
RETURN FROM LIVER BIOPSY PT RETURNED FROM LIVER BIOPSY, APPEARS TO BE BREATHING EASILY, PT VOMITED 100CC EMISIS APROX, MEDICATED THE PT FOR NAUSEA, SPOT CHECKED THE PTS BS DUE TO NPO STATUS BS WAS 141, CALL LIGHT IN REACH WILL CONTINUE TO MONITOR AND ASSESS FOR CHANGES
--- NOTE | 2020-06-06 16:52 | NUR ---
PT IS A/OX3, COOPERATIVE, FLAT WITHDRAWN AFFECT, THE PT IS PALE IN COLOR, THE PT APPEARS TO BE BREATHING EASILY ON RA AT THIS TIME, THE PT WAS NAUSEATED T/O THE DAY AND HAD SOME EMISIS POST THE LIVER BIOPSY, THE PT WAS MEDICATED FOR NAUSEA X2 AND FOR PAIN X1 TODAY, PT IS VERY WEAK AND REPORTED THAT HE WAS NOT ABLE TO STAND TODAY, PT DECLINED TO STAND WITH THE PHYSICAL THERAPIST, THE PTS WAS AT THE BEDSIDE THIS AFTERNOON, AND REQUESTED TO TALK WITH THE CARE MANAGMENT TEAM, THE CARE TEAM WAS NOTIFIED, PTS CALL LIGHT IS WITHIN REACH, WILL CONTINUE TO MONITOR AND ASSESS FOR CHANGES
--- NOTE | 2020-06-07 04:21 | NUR ---
patient was up the better part of the night. A&OX4, Flat affect, very cooperative with care, medicated twice for pain with one percocet with good result. Replaced colostomy bag and disk when the old seal sprang a leak. Still, not much stool out at all. Stoma is pink and appears intact.
[2020-06-07 08:28] LABS: Albumin, Blood 1.6 g/dL (3.4-5.0); Anion Gap 7 mmol/L (6-16); Blood Urea Nitrogen 41 mg/dL (8-24); Bun/Creatinine Ratio 14.9 (12.0-20.0); CO2, Blood 30 mmol/L (21-32); Calcium, Blood 7.8 mg/dL (8.5-10.1); Chloride, Blood 99 mmol/L (98-108); Creatinine, Blood 2.75 mg/dL (0.60-1.20); Glomerular Filtration Rate 25 (60-); Glucose, Blood 106 mg/dL (70-99); Phosphorus, Blood 4.9 mg/dL (2.5-4.9); Potassium, Blood 3.9 mmol/L (3.5-5.5); Sodium, Blood 136 mmol/L (136-145)
--- NOTE | 2020-06-07 16:29 | NUR ---
SHIFT SUMMARY T A&OX4, ABLE TO MAKE NEEDS KNOWN. PLEASANT AND COOPERATIVE TO CARE. PT MEDICATED FOR PAIN PER EMAR. NO C/O SOB, CP, OR N&V. PT CALM AND RESTED IN BED T/O SHIFT, INCONTINENT OF BLADDER, DENIES DYSURIA. COLOSTOMY C/D/I. PT's AT BEDSIDE THIS SHIFT. BED AT LOWEST POSITION. CALL LIGHT WITHIN REACH.
--- NOTE | 2020-06-08 05:17 | NUR ---
Patient still unable to produce stool. Colostomy stoma is pink and looks moist. seal is good on bag. Patient has complained of pain much more frequently in last 24 hours. He is Receiving percocet every 4 hours when he requests it for abd and flank pain. Unable to draw from any of the three lumens in his right arm PICC Line. A little less flat affect tonight.
[2020-06-08 05:22] LABS: BASOPHILS ABSOLUTE AUTO 0.06 K/mm3 (0.00-0.23); BASOPHILS PERCENT AUTO 1 % (0-2); EOSINOPHILS ABSOLUTE AUTO 0.36 K/mm3 (0.00-0.68); EOSINOPHILS PERCENT AUTO 4 % (0-6); Hematocrit 23.3 % (37.0-53.0); Hemoglobin 7.3 g/dL (13.5-17.5); IMMATURE GRAN ABSOLUTE AUTO 0.03 K/mm3 (0.00-0.10); IMMATURE GRAN PERCENT AUTO 0 % (0-1); LYMPHOCYTES ABSOLUTE AUTO 1.91 K/mm3 (0.84-5.20); LYMPHOCYTES PERCENT AUTO 20 % (21-46); MONOCYTES ABSOLUTE AUTO 0.64 K/mm3 (0.16-1.47); MONOCYTES PERCENT AUTO 7 % (4-13); Mean Corpuscular HGB 26.7 pg (26.0-34.0); Mean Corpuscular HGB Conc 31.3 g/dL (31.5-36.5); Mean Corpuscular Volume 85 fL (80-100); Mean Platelet Volume 9.1 fL (9.1-12.4); NEUTROPHILS ABSOLUTE AUTO 6.66 K/mm3 (1.96-9.15); NEUTROPHILS PERCENT AUTO 69 % (41-73); Platelet Count 440 K/mm3 (150-400); RDW Coefficient Variation 16.8 % (11.7-14.2); RDW Standard Deviation 52.4 fL (35.1-46.3); Red Blood Cell Count 2.73 M/mm3 (4.30-5.90); White Blood Cell Count 9.66 K/mm3 (4.00-11.30)
[2020-06-08 05:44] LABS: Albumin, Blood 1.6 g/dL (3.4-5.0); Anion Gap 7 mmol/L (6-16); Blood Urea Nitrogen 42 mg/dL (8-24); Bun/Creatinine Ratio 15.1 (12.0-20.0); CO2, Blood 30 mmol/L (21-32); Chloride, Blood 98 mmol/L (98-108); Creatinine, Blood 2.79 mg/dL (0.60-1.20); Glomerular Filtration Rate 24 (60-); Glucose, Blood 119 mg/dL (70-99); Phosphorus, Blood 4.1 mg/dL (2.5-4.9); Potassium, Blood 3.4 mmol/L (3.5-5.5); Sodium, Blood 135 mmol/L (136-145)
[2020-06-08 07:38] LABS: Percent Saturation 17.8 % (20.0-50.0)
[2020-06-08 15:11] LABS: A/G RATIO 0.4 (0.7-1.7); ALBUMIN 2.4 g/dL (2.9-4.4); ALPHA-1-GLOBULIN 0.4 g/dL (0.0-0.4); BETA GLOBULIN 1.7 g/dL (0.7-1.3); GAMMA GLOBULIN 3.2 g/dL (0.4-1.8); GLOBULIN, TOTAL 6.5 g/dL (2.2-3.9); IMMUNOGLOBULIN A, QN, SERUM 1842 mg/dL (61-437); IMMUNOGLOBULIN G, QN, SERUM 2906 mg/dL (603-1613); IMMUNOGLOBULIN M, QN, SERUM 60 mg/dL (20-172); M-SPIKE Not Observed g/dL (Not Observed); PROTEIN, TOTAL, SERUM 8.9 g/dL (6.0-8.5)
--- NOTE | 2020-06-08 19:23 | NUR ---
SHIFT SUMMARY PATIENT ALERT AND ORIENTED THIS SHIFT. PATIENT SITTING UP IN BED THROUGHOUT THIS SHIFT. PATIENT REFUSED SOME OF HIS DAILY MEDICATIONS THIS AM. PATIENT MEDICATED FOR NAUSEA 2X THIS SHIFT, STATES IMPROVEMENT WITH REGLAN. PATIENT MEDICATED FOR PAIN 1X THIS SHIFT. PATIENT'S SPOUSE IN THE ROOM VISITING THIS AFTERNOON. PATIENT CURRENTLY SITTING UP IN BED WATCHING TELEVISION.
--- NOTE | 2020-06-09 04:10 | NUR ---
SHIFT SUMMARY ADMITTED FOR ABDOMINAL PAIN/ARF/BILAT PNEUMONIA. FULL CODE. FOUND TO HAVE LIVER ABSCESS AND PERFORATED DIVERTICULITIS. NEW COLOSTOMY IN LUQ, MINIMAL OUTPUT NOTED. UNABLE TO GET UA DUE TO INCONTINENCE. IV ANTIBIOTICS STARTED THIS SHIFT. PICC LINE IN RUE. HE DENIED NAUSEA THIS SHIFT. HE DID REQUEST PAIN MEDICATION. RECENT HX OF DIALYSIS DUE TO ARF, NOW DC'D.
--- NOTE | 2020-06-09 05:36 | NUR ---
VENEER JOINTER HELPER/CTA I HAVE READ VENEER JOINTER HELPER [employer]'S DOCUMENTATION ON THIS PT, AND I CONCUR. [email or web address]
--- NOTE | 2020-06-09 10:00 | NUR ---
TALKED TO ABOUT SOMETHING FOR CONSTIPATION VERY LITTLE OUTPUT VIA OSTOMY. AWAITING ORDERS.
--- NOTE | 2020-06-09 11:41 | NUR ---
OSTOMY BAG CHANGED. USED 2 3/4 IN 70MM. DRESSING TO MID ABD CHANGED.
--- NOTE | 2020-06-09 14:14 | NUR ---
PER OK TO DO STRAIGHT CATH FOR URINE SAMPLES. PATIENT REFUSES CONDOM CATH.
--- NOTE | 2020-06-09 14:32 | NUR ---
14 FR IN AND OUT CATH UDSED TO COLLECT URINE SPECIMEN
[2020-06-09 14:41] LABS: Source, Urine Clean Catch
[2020-06-09 17:20] LABS: Appearance, Urine Clear (Clear); Bilirubin, Urine Neg (Neg); Blood, Urine 2+ (Neg); Color, Urine Yellow (P-Yellow); Glucose Qualitative, Urine Neg (Neg); Ketones, Urine 1+ (Neg); Leukocyte Esterase, Urine 2+ (Neg); Nitrite, Urine Neg (Neg); Protein, Urine 3+ (Neg); Urobilinogen, Urine NORM (Normal)
--- NOTE | 2020-06-09 17:41 | NUR ---
ALERT. ORIENTED. FLAT AFFECT. OSTOMY APPLIANCE TO LUQ CHANGED. LITTLE OUTPUT WITH AWARE. STRAIGHT CATHED FOR URINE SAMPLES. PATIENT NORMALLY INCONTINENT POST BLADDER CANCER. DRESSING TO MIDLINE CHANGES WITH TISSUE RED, HEALING WITH SOME BLD OOZING DUE TO XEROFORM STICKING WHEN CHANGED. PATIENT REFUSES SOME MEDS EVEN WHEN REVIEWED WHY HE SHOULD TAKE THEM. ABLE TO MAKE HIS NEEDS KNOWN. MEDICATED PRETTY MUCH Q 4 HOURS WITH TOLERABLE RESULTS. TM
[2020-06-09 19:18] LABS: Red Blood Cells, Urine 0-2 /hpf (0-2)
[2020-06-09 19:19] LABS: Bacteria Mod /hpf; Squamous Epithelial Cells Not Seen /hpf (Few)
--- NOTE | 2020-06-09 22:34 | NUR ---
PHYSICIAN COMMUNICATION CONTACTED DR LA IN REGARDS TO A 24 HOUR URINE SPECIMINE COLLECTION THAT HAD BEEN ORDERED. INFORMED HER THAT THE PATIENT IS INCONTINENT AND WOULD REQUIRE A MCMULLEN CATHETER IN ORDER TO COLLECT THE URINE. DR LA SAID TO PUT AN ORDER FOR THE MCMULLEN CATHETER AND TO HAVE IT REMOVED WHEN THE 24 HOURS WAS OVER. SHE ALSO SAID TO START THE COLLECTION IN THE MORNING.
--- NOTE | 2020-06-10 06:02 | NUR ---
SHIFT SUMMARY PATIENT ALERT AND ORIENTED. WAS MEDICATED PER EMAR FOR PAIN. HAD NO COMPLAINTS OF SHORTNESS OF BREATH OR CHEST PAIN. ABDOMINAL DRESSING REMAINS CLEAN, DRY, AND INTACT. COLOSTOMY HAD MINIMAL OUTPUT. POWERGLIDE PATENT AND FLUSHED. BED IN LOWEST POSITION WITH WHEELS LOCKED AND ALARM ON. CALL [facility] WITHIN REACH. REPORT GIVEN TO ONCOMING RN.
[2020-06-10 08:33] LABS: BASOPHILS ABSOLUTE AUTO 0.05 K/mm3 (0.00-0.23); BASOPHILS PERCENT AUTO 1 % (0-2); EOSINOPHILS PERCENT AUTO 6 % (0-6); Hematocrit 25.6 % (37.0-53.0); Hemoglobin 7.8 g/dL (13.5-17.5); IMMATURE GRAN ABSOLUTE AUTO 0.03 K/mm3 (0.00-0.10); IMMATURE GRAN PERCENT AUTO 0 % (0-1); LYMPHOCYTES ABSOLUTE AUTO 1.74 K/mm3 (0.84-5.20); LYMPHOCYTES PERCENT AUTO 16 % (21-46); MONOCYTES ABSOLUTE AUTO 0.58 K/mm3 (0.16-1.47); MONOCYTES PERCENT AUTO 5 % (4-13); Mean Corpuscular HGB 26.4 pg (26.0-34.0); Mean Corpuscular HGB Conc 30.5 g/dL (31.5-36.5); Mean Corpuscular Volume 87 fL (80-100); NEUTROPHILS ABSOLUTE AUTO 7.67 K/mm3 (1.96-9.15); NEUTROPHILS PERCENT AUTO 72 % (41-73); Platelet Count 487 K/mm3 (150-400); RDW Coefficient Variation 16.7 % (11.7-14.2); RDW Standard Deviation 52.7 fL (35.1-46.3); Red Blood Cell Count 2.95 M/mm3 (4.30-5.90); White Blood Cell Count 10.67 K/mm3 (4.00-11.30)
[2020-06-10 08:50] LABS: Albumin, Blood 1.7 g/dL (3.4-5.0); Albumin/Globulin Ratio 0.2 (0.8-1.8); Bilirubin, Total 0.3 mg/dL (0.1-1.0); Bun/Creatinine Ratio 14.9 (12.0-20.0); Creatinine, Blood 2.49 mg/dL (0.60-1.20); Globulin, Blood 7.5 g/dL (2.2-4.0); Potassium, Blood 3.4 mmol/L (3.5-5.5); Total Protein, Blood 9.2 g/dL (6.4-8.2)
--- NOTE | 2020-06-10 17:41 | NUR ---
ALERT. ORIENTED. MEDICATED T/O SHIFT FOR PAIN ABD/BACK. BACK IS CHRONIC PAIN. STS PAIN NEVER CHANGES FROM 8(1-10) BUT IS TOLERABLE AFTER PAIN MEDS. LARGE SOLID BOWEL MOVEMENTS X 2 THRU OSTOMY. UNLABORED RESPIRATIONS. MCMULLEN IN FOR 24 HOUR URINE SAMPLE AND TO BE D'C AFTER COLLECTION WITH PATIENT AWARE. TURNED Q 2. DRESSING TO ABD CHANGED WITH NEW PICS. LITTLE TO NO DRAINAGE. NEW PIC OF BUTTOCK TAKEN WITH 2 VERY SMALL OPENINGS, ONE TO FOLD AND ONE TO INNER LEFT BUTT. MEPILEX PLACED. PATIENTS HIPS ALWAYS FLOATED. PERMACATH TO RT C.W. PICC TO RT UPPER ARM. REFUSES SOME MEDS EVEN WITH EXPLANATION TO WHY HE NEEDS THEM. PLEASANT. WCTM
[2020-06-11 04:59] LABS: BASOPHILS ABSOLUTE AUTO 0.03 K/mm3 (0.00-0.23); BASOPHILS PERCENT AUTO 0 % (0-2); EOSINOPHILS ABSOLUTE AUTO 0.55 K/mm3 (0.00-0.68); EOSINOPHILS PERCENT AUTO 6 % (0-6); Hematocrit 22.6 % (37.0-53.0); IMMATURE GRAN ABSOLUTE AUTO 0.04 K/mm3 (0.00-0.10); IMMATURE GRAN PERCENT AUTO 0 % (0-1); LYMPHOCYTES PERCENT AUTO 18 % (21-46); MONOCYTES PERCENT AUTO 6 % (4-13); Mean Corpuscular HGB 26.7 pg (26.0-34.0); Mean Corpuscular Volume 86 fL (80-100); Mean Platelet Volume 9.3 fL (9.1-12.4); NEUTROPHILS ABSOLUTE AUTO 7.04 K/mm3 (1.96-9.15); NEUTROPHILS PERCENT AUTO 70 % (41-73); Platelet Count 459 K/mm3 (150-400); RDW Coefficient Variation 16.6 % (11.7-14.2); RDW Standard Deviation 52.2 fL (35.1-46.3); Red Blood Cell Count 2.62 M/mm3 (4.30-5.90); White Blood Cell Count 10.06 K/mm3 (4.00-11.30)
[2020-06-11 05:27] LABS: Albumin, Blood 1.6 g/dL (3.4-5.0); Anion Gap 6 mmol/L (6-16); Blood Urea Nitrogen 36 mg/dL (8-24); Bun/Creatinine Ratio 14.9 (12.0-20.0); CO2, Blood 29 mmol/L (21-32); Calcium, Blood 7.6 mg/dL (8.5-10.1); Chloride, Blood 101 mmol/L (98-108); Creatinine, Blood 2.42 mg/dL (0.60-1.20); Glomerular Filtration Rate 29 (60-); Glucose, Blood 108 mg/dL (70-99); Phosphorus, Blood 3.8 mg/dL (2.5-4.9); Potassium, Blood 3.2 mmol/L (3.5-5.5); Sodium, Blood 136 mmol/L (136-145)
--- NOTE | 2020-06-11 06:02 | NUR ---
SHIFT SUMMARY PATIENT ALERT AND ORIENTED. MEDICATED PER EMAR FOR PAIN. HAD NO COMPLAINTS OF SHORTNESS OF BREATH OR CHEST PAIN. PATIENT HAD A GOOD BOWEL MOVEMENT FROM HIS OSTOMY TONIGHT. DID NOT SLEEP MUCH OVERNIGHT. PICC LINE PATENT AND FLUSHED. BED IN LOWEST POSITION WITH WHEELS LOCKED AND ALARM ON. CALL LIGHT WITHIN REACH. REPORT GIVEN TO ONCOMING RN.
[2020-06-11 10:07] LABS: Protein, Urine Quantitative 147.9 mg/dL (0.0-11.9)
--- NOTE | 2020-06-11 15:41 | NUR ---
RECEIVED ORDER FROM DR LA TO HAVE SURGERY REMOVE HD CATH, CALLED DR ALFARO'S OFFICE AND LEFT MESSAGE FOR HIM TO REMOVE IT
--- NOTE | 2020-06-11 16:49 | NUR ---
received callback from dr davison, he will try to fit in removal of HD cath tomorrow at bedside with lidocaine, pt updated
--- NOTE | 2020-06-11 17:39 | NUR ---
SHIFT SUMMARY MIKE'S VISITED. UP TO EDGE OF BED WITH PT, BUT PT STATED THIS MADE HIM FEEL NAUSEOUS (GOT ANTIEMETIC), DECLINED TO GET UP TO EDGE OF BED THIS AFTERNOON. BESSIE REQUESTED HD CATH REMOVAL, DR CHASE TO POSSIBLY COME DO THIS AT BEDSIDE TOMORROW. PT GOT TWO PRN PERCOCET DOSES FOR BACK/ABD PAIN. ABDOMINAL WOUND CLEANED AND REDRESSED. SACRAL MEPILEX C/D/I, PICTURES IN CHART OF WOUNDS, Q2 TURNS COMPLETED. CALL LIGHT IN REACH, TM
--- NOTE | 2020-06-11 19:31 | NUR ---
pt refused heparin and scds, educated on importance of avoiding complications from a blood clot, he is aware, continues to decline
[2020-06-12 04:57] LABS: BASOPHILS ABSOLUTE AUTO 0.05 K/mm3 (0.00-0.23); BASOPHILS PERCENT AUTO 1 % (0-2); EOSINOPHILS ABSOLUTE AUTO 0.56 K/mm3 (0.00-0.68); EOSINOPHILS PERCENT AUTO 6 % (0-6); Hematocrit 22.3 % (37.0-53.0); IMMATURE GRAN ABSOLUTE AUTO 0.04 K/mm3 (0.00-0.10); IMMATURE GRAN PERCENT AUTO 0 % (0-1); LYMPHOCYTES ABSOLUTE AUTO 1.81 K/mm3 (0.84-5.20); LYMPHOCYTES PERCENT AUTO 18 % (21-46); MONOCYTES ABSOLUTE AUTO 0.55 K/mm3 (0.16-1.47); MONOCYTES PERCENT AUTO 6 % (4-13); Mean Corpuscular HGB 26.7 pg (26.0-34.0); Mean Corpuscular HGB Conc 31.4 g/dL (31.5-36.5); Mean Corpuscular Volume 85 fL (80-100); Mean Platelet Volume 9.4 fL (9.1-12.4); NEUTROPHILS ABSOLUTE AUTO 6.92 K/mm3 (1.96-9.15); NEUTROPHILS PERCENT AUTO 70 % (41-73); Platelet Count 518 K/mm3 (150-400); RDW Coefficient Variation 16.4 % (11.7-14.2); RDW Standard Deviation 51.5 fL (35.1-46.3); Red Blood Cell Count 2.62 M/mm3 (4.30-5.90); White Blood Cell Count 9.93 K/mm3 (4.00-11.30)
--- NOTE | 2020-06-12 04:59 | NUR ---
REGISTERED VASCULAR TECHNOLOGIST (RVT) SUMMARY NO ACUTE CHANGES THIS SHIFT. PT AAOX4 AND PLEASANT. INCONTINENT OF URINE, ASSISTED NEEDED WITH ATTENDS CHANGES. MINIMAL STOOL OUTPUT INTO COLOSTOMY BAG, GIVEN SCHEDULED BOWEL MEDS. MEDICATED FOR CHRONIC PAIN X2 WITH PERCOCET PER EMAR. CATHFLO USED ON PICC LINE BY CONTOUR BAND SAW OPERATOR VERTICAL. VSS, WILL CONTINUE TO MONITOR.
[2020-06-12 05:37] LABS: Albumin, Blood 1.6 g/dL (3.4-5.0); Anion Gap 8 mmol/L (6-16); Blood Urea Nitrogen 32 mg/dL (8-24); Bun/Creatinine Ratio 13.9 (12.0-20.0); CO2, Blood 28 mmol/L (21-32); Calcium, Blood 7.6 mg/dL (8.5-10.1); Chloride, Blood 101 mmol/L (98-108); Glomerular Filtration Rate 30 (60-); Glucose, Blood 110 mg/dL (70-99); Magnesium, Blood 1.6 mg/dL (1.6-2.4); Phosphorus, Blood 3.6 mg/dL (2.5-4.9); Potassium, Blood 3.5 mmol/L (3.5-5.5); Sodium, Blood 137 mmol/L (136-145)
--- NOTE | 2020-06-12 18:09 | NUR ---
SUMMARY PT SITTING UP IN BED EATING DINNER, PT HAS BEEN COOPERATIVE WITH CARE T/O THE DAY, MED PER EMAR FOR PAIN, PT WORKED WITH THERAPY, PT HAD HIS PERM CATH REMOVED BY DR ALFARO AND DR ALVARADO, PT EUGENIO GROSS, VSS, WILL CONT TO MONITOR
--- NOTE | 2020-06-13 05:07 | NUR ---
SHIFT SUMMARY PT HAD AN UNEVENTFUL NIGHT. SLEPT OFF AND ON THROUGH THE NIGHT. PT REPORTS PAIN TO BE A 7-8 CONSISTENTLY, HOWEVER PT DOES NOT APPEAR TO BE PAINFUL AND HAS NO NONVERBAL S/S OF PAIN. PT REPORTS PAIN TO BE IN "ABDOMEN AND BACK". MEDICATED PER EMAR. COLOSTOMY TO LLQ OF ABD. MINIMAL OUTPUT. MIDLINE INCISION DRESSED WITH EXUDRY PAD. REMAINED INTACT THROUGHOUT THE NIGHT. PT REQUESTS TO BE FLOATED ON WITH PILLOWS ON EACH SIDE OF BODY, REFUSING ANY OTHER POSITION. PT WITH FLAT AFFECT. RESTING IN BED AT THIS TIME. WILL CONTINUE TO MONITOR.
[2020-06-13 05:21] LABS: BASOPHILS ABSOLUTE AUTO 0.04 K/mm3 (0.00-0.23); BASOPHILS PERCENT AUTO 0 % (0-2); EOSINOPHILS PERCENT AUTO 5 % (0-6); Hematocrit 22.4 % (37.0-53.0); Hemoglobin 6.8 g/dL (13.5-17.5); IMMATURE GRAN ABSOLUTE AUTO 0.04 K/mm3 (0.00-0.10); IMMATURE GRAN PERCENT AUTO 0 % (0-1); LYMPHOCYTES ABSOLUTE AUTO 2.02 K/mm3 (0.84-5.20); LYMPHOCYTES PERCENT AUTO 20 % (21-46); MONOCYTES ABSOLUTE AUTO 0.48 K/mm3 (0.16-1.47); MONOCYTES PERCENT AUTO 5 % (4-13); Mean Corpuscular HGB 26.2 pg (26.0-34.0); Mean Corpuscular HGB Conc 30.4 g/dL (31.5-36.5); Mean Corpuscular Volume 86 fL (80-100); Mean Platelet Volume 9.3 fL (9.1-12.4); NEUTROPHILS ABSOLUTE AUTO 6.97 K/mm3 (1.96-9.15); NEUTROPHILS PERCENT AUTO 69 % (41-73); Platelet Count 532 K/mm3 (150-400); RDW Coefficient Variation 16.4 % (11.7-14.2); RDW Standard Deviation 52.3 fL (35.1-46.3); White Blood Cell Count 10.05 K/mm3 (4.00-11.30)
[2020-06-13 06:00] LABS: Albumin, Blood 1.6 g/dL (3.4-5.0); Anion Gap 6 mmol/L (6-16); Blood Urea Nitrogen 28 mg/dL (8-24); CO2, Blood 28 mmol/L (21-32); Calcium, Blood 7.6 mg/dL (8.5-10.1); Chloride, Blood 102 mmol/L (98-108); Creatinine, Blood 2.16 mg/dL (0.60-1.20); Glomerular Filtration Rate 33 (60-); Glucose, Blood 103 mg/dL (70-99); Phosphorus, Blood 3.9 mg/dL (2.5-4.9); Potassium, Blood 3.7 mmol/L (3.5-5.5); Sodium, Blood 136 mmol/L (136-145)
--- NOTE | 2020-06-13 06:20 | NUR ---
PT'S H/H THIS AM 6.8/22.4. CALL MADE TO DATA SECURITY ADMINISTRATOR HOSPITALIST DR. PADRON WITH NEW ORDERS TO TRANSFUSE 1 UNIT OF PRBC'S.
[2020-06-13 13:51] LABS: Hematocrit 25.8 % (37.0-53.0)
--- NOTE | 2020-06-13 17:19 | NUR ---
SUMMARY PT RESTING QUIETLY IN BED WATCHING TV, HAS BEEN PLEASANT AND COOPERATIVE WITH CARE, MED PER EMAR FOR PAIN, PT WORKED WITH THERAPY TODAY, DRESSING TO ABD CHANGED, PT EUGENIO WELL, VSS, WILL CONT TO MONITOR
[2020-06-14 05:06] LABS: BASOPHILS ABSOLUTE AUTO 0.05 K/mm3 (0.00-0.23); BASOPHILS PERCENT AUTO 1 % (0-2); EOSINOPHILS PERCENT AUTO 4 % (0-6); Hematocrit 24.6 % (37.0-53.0); Hemoglobin 7.8 g/dL (13.5-17.5); IMMATURE GRAN ABSOLUTE AUTO 0.03 K/mm3 (0.00-0.10); IMMATURE GRAN PERCENT AUTO 0 % (0-1); LYMPHOCYTES ABSOLUTE AUTO 1.86 K/mm3 (0.84-5.20); LYMPHOCYTES PERCENT AUTO 18 % (21-46); MONOCYTES ABSOLUTE AUTO 0.51 K/mm3 (0.16-1.47); MONOCYTES PERCENT AUTO 5 % (4-13); Mean Corpuscular HGB 27.5 pg (26.0-34.0); Mean Corpuscular HGB Conc 31.7 g/dL (31.5-36.5); Mean Corpuscular Volume 87 fL (80-100); Mean Platelet Volume 8.7 fL (9.1-12.4); NEUTROPHILS ABSOLUTE AUTO 7.67 K/mm3 (1.96-9.15); NEUTROPHILS PERCENT AUTO 73 % (41-73); Platelet Count 519 K/mm3 (150-400); RDW Coefficient Variation 15.9 % (11.7-14.2); RDW Standard Deviation 50.7 fL (35.1-46.3); Red Blood Cell Count 2.84 M/mm3 (4.30-5.90); White Blood Cell Count 10.52 K/mm3 (4.00-11.30)
[2020-06-14 05:36] LABS: Albumin, Blood 1.6 g/dL (3.4-5.0); Anion Gap 7 mmol/L (6-16); Blood Urea Nitrogen 27 mg/dL (8-24); Bun/Creatinine Ratio 12.6 (12.0-20.0); CO2, Blood 27 mmol/L (21-32); Calcium, Blood 7.6 mg/dL (8.5-10.1); Chloride, Blood 103 mmol/L (98-108); Creatinine, Blood 2.15 mg/dL (0.60-1.20); Glomerular Filtration Rate 33 (60-); Glucose, Blood 120 mg/dL (70-99); Potassium, Blood 3.5 mmol/L (3.5-5.5); Sodium, Blood 137 mmol/L (136-145)
--- NOTE | 2020-06-14 06:18 | NUR ---
WRAPPER STEMMER HAND SUMMARY PT A/O X4. MEDICATED FOR CHRONIC PAIN OVERNIGHT. SLEPT ON AND OFF. PT LIKES BEING BOOSTED UP IN BED BUT HAS REFUSED TO BE REPOSITIONED. HYPERTENSIVE THIS AM. IV HYDRALAZINE GIVEN. COLOSTOMY IN PLACE. CALLS APPROPIRATELY. CALL LIGHT WITHIN REACH. NO ACUTE CHANGES.
[2020-06-14 12:02] LABS: M-SPIKE, % 12.8 % (Not Observed); M-SPIKE, MG/24 HR 205.4 mg/24 hr (Not Observed); PROTEIN,TOTAL,URINE 133.7 mg/dL (Not Estab.)
--- NOTE | 2020-06-14 18:14 | NUR ---
SHIFT SUMMARY PT C/O NAUSEA MOST THE AM & INTO THE DAY. PT DID VOMIT A SMALL AMOUNT OF BILE & STATED HE FELT BETTER AFTERWARD THIS AFTERNOON. PT HAD A LITTLE APPETITE A RESULT. PT MEDICATED FOR PAIN ONCE THIS AFTERNOON. OTHERWISE PT DENIED NEED FOR IT. PT ALLOWED FOR HIS HIPS TO BE FLOATED IN BED. PT STATES "I AM MOVING MY HIPS AROUND & DO NOT NEED TO HAVE THE PILLOWS MOVED", WHEN ASKED IF STAFF WOULD REPOSITION HIM. REPEAT LIVER ULTRASOUND TO BE COMPLETED TOMORROW AM. PT TO BE NPO AFTER MIDNIGHT IN PREP FOR THIS. NO OTHER ACUTE CHANGES IN ASSESSMENT AT THIS TIME. PICC LINE DRESSING CHANGED TODAY. VS REVIEWED. PT SITTING UPRIGHT IN BED IN PREP FOR DINNER. CALL LIGHT IN REACH. DENIES OTHER NEEDS AT THIS TIME.
[2020-06-15 06:02] LABS: BASOPHILS ABSOLUTE AUTO 0.04 K/mm3 (0.00-0.23); BASOPHILS PERCENT AUTO 0 % (0-2); EOSINOPHILS ABSOLUTE AUTO 0.24 K/mm3 (0.00-0.68); EOSINOPHILS PERCENT AUTO 2 % (0-6); Hematocrit 25.8 % (37.0-53.0); Hemoglobin 8.2 g/dL (13.5-17.5); IMMATURE GRAN ABSOLUTE AUTO 0.04 K/mm3 (0.00-0.10); IMMATURE GRAN PERCENT AUTO 0 % (0-1); LYMPHOCYTES ABSOLUTE AUTO 1.67 K/mm3 (0.84-5.20); LYMPHOCYTES PERCENT AUTO 16 % (21-46); MONOCYTES ABSOLUTE AUTO 0.53 K/mm3 (0.16-1.47); MONOCYTES PERCENT AUTO 5 % (4-13); Mean Corpuscular HGB 27.4 pg (26.0-34.0); Mean Corpuscular HGB Conc 31.8 g/dL (31.5-36.5); Mean Corpuscular Volume 86 fL (80-100); Mean Platelet Volume 9.3 fL (9.1-12.4); NEUTROPHILS ABSOLUTE AUTO 8.22 K/mm3 (1.96-9.15); NEUTROPHILS PERCENT AUTO 77 % (41-73); Platelet Count 573 K/mm3 (150-400); Red Blood Cell Count 2.99 M/mm3 (4.30-5.90); White Blood Cell Count 10.74 K/mm3 (4.00-11.30)
[2020-06-15 06:16] LABS: Albumin, Blood 1.6 g/dL (3.4-5.0); Anion Gap 6 mmol/L (6-16); Blood Urea Nitrogen 25 mg/dL (8-24); Bun/Creatinine Ratio 12.1 (12.0-20.0); CO2, Blood 27 mmol/L (21-32); Calcium, Blood 7.7 mg/dL (8.5-10.1); Chloride, Blood 105 mmol/L (98-108); Creatinine, Blood 2.07 mg/dL (0.60-1.20); Glomerular Filtration Rate 34 (60-); Glucose, Blood 105 mg/dL (70-99); Potassium, Blood 3.7 mmol/L (3.5-5.5); Sodium, Blood 138 mmol/L (136-145)
--- NOTE | 2020-06-15 06:19 | NUR ---
SHIFT SUMMARY A/O, ABLE TO MAKE NEEDS KNOWN. COOPERATIVE WITH CARE. CALLS AND ANSWERS QUESTIONS APPROPRIATELY. C/O PAIN/DISCOMFORT X1; MEDICATED PER EMAR. MIDLINE DRSG REMAINED C/D/I. OSTOMY DRAINING MINIMALLY WITH BROWN SOFT STOOL. RECIEVED IV ABX WITHOUT COMPLICATION TO PICC IN MILENA. NO ACUTE CHANGES NOTED OVERNIGHT. DID NOT APPEAR TO REST MUCH OVERNIGHT. BED REMAINED IN LOWEST POSITION. CALL LIGHT AND BELONGINGS WITHIN REACH. CONTINUE WITH CURRENT PLAN OF CARE. REPORT TO ONCOMING RN.
--- NOTE | 2020-06-16 04:02 | NUR ---
SUMMARY NO NEW ISSUES NOTED. PT TX FOR NAUSEA AND DISCOMFORT ORDERED WITH RELIEF. PT HAS SLEPT OFF AND ON T/O SHIFT. PT CURRENTLY SLEEPING IN NO DISTRESS. CALL LIGHT IN REACH.
[2020-06-16 06:17] LABS: BASOPHILS ABSOLUTE AUTO 0.06 K/mm3 (0.00-0.23); BASOPHILS PERCENT AUTO 1 % (0-2); EOSINOPHILS ABSOLUTE AUTO 0.17 K/mm3 (0.00-0.68); EOSINOPHILS PERCENT AUTO 2 % (0-6); Hematocrit 26.5 % (37.0-53.0); Hemoglobin 8.3 g/dL (13.5-17.5); IMMATURE GRAN ABSOLUTE AUTO 0.03 K/mm3 (0.00-0.10); IMMATURE GRAN PERCENT AUTO 0 % (0-1); LYMPHOCYTES ABSOLUTE AUTO 1.72 K/mm3 (0.84-5.20); LYMPHOCYTES PERCENT AUTO 16 % (21-46); MONOCYTES ABSOLUTE AUTO 0.47 K/mm3 (0.16-1.47); MONOCYTES PERCENT AUTO 5 % (4-13); Mean Corpuscular HGB Conc 31.3 g/dL (31.5-36.5); Mean Corpuscular Volume 86 fL (80-100); NEUTROPHILS ABSOLUTE AUTO 8.11 K/mm3 (1.96-9.15); NEUTROPHILS PERCENT AUTO 77 % (41-73); Platelet Count 562 K/mm3 (150-400); RDW Coefficient Variation 16.4 % (11.7-14.2); RDW Standard Deviation 51.1 fL (35.1-46.3); Red Blood Cell Count 3.07 M/mm3 (4.30-5.90); White Blood Cell Count 10.56 K/mm3 (4.00-11.30)
[2020-06-16 06:36] LABS: Albumin, Blood 1.7 g/dL (3.4-5.0); Anion Gap 7 mmol/L (6-16); Blood Urea Nitrogen 25 mg/dL (8-24); Bun/Creatinine Ratio 12.2 (12.0-20.0); CO2, Blood 27 mmol/L (21-32); Calcium, Blood 7.7 mg/dL (8.5-10.1); Chloride, Blood 105 mmol/L (98-108); Creatinine, Blood 2.05 mg/dL (0.60-1.20); Glomerular Filtration Rate 35 (60-); Glucose, Blood 130 mg/dL (70-99); Phosphorus, Blood 3.6 mg/dL (2.5-4.9); Potassium, Blood 3.3 mmol/L (3.5-5.5); Sodium, Blood 139 mmol/L (136-145)
--- NOTE | 2020-06-16 16:53 | NUR ---
SHIFT SUMMARY PT AOX4; CALLS APPROPRIATELY. PT IS 1P ASSIST. PT HAS COLOSTOMY ON LEFT SIDE AND INTACT. WOUND DRESSING CHANGED TODAY AND MEPELEX INTACT ON COCCYX AREA. PT MEDICATED FOR ABD AND BACK PAIN X2. PT HBG IS 8.3- ARANESP GIVEN TODAY. NERISSA WAS UPDATED AT BEDSIDE, WHO IS THE PRIMARY PLANETARIUM SKY SHOW TECHNICIAN OF THIS PT. PT REFUSE HEPARIN. BED IS IN THE LOWEST POSITION AND CALL LIGHT WITHIN REACH.
--- NOTE | 2020-06-17 05:10 | NUR ---
SHIFT SUMMARY PT IS A 65 Y/O MALE, ADMITTED FOR PNEUMOPERITONEUM. HE IS A&O X 3, BEDREST. PT WAS MEDICATED ONCE AT HS FOR ABD PAIN, AND ONCE FOR INTERMITTENT NAUSEA THIS AM WITH PRN ZOFRAN. NO C/O SOB. COLOSTOMY IN PLACE WITH SMALL AMOUNT OF OUTPUT. VITAL SIGNS STABLE. NO OTHER ACUTE CHANGES IN PT CONDITION NOTED. WILL CONTINUE TO MONITOR AND TREAT PER EMAR UNTIL HAND OFF TO DAY SHIFT RN.
[2020-06-17 06:40] LABS: BASOPHILS ABSOLUTE AUTO 0.05 K/mm3 (0.00-0.23); BASOPHILS PERCENT AUTO 1 % (0-2); EOSINOPHILS ABSOLUTE AUTO 0.28 K/mm3 (0.00-0.68); EOSINOPHILS PERCENT AUTO 3 % (0-6); Hematocrit 25.2 % (37.0-53.0); Hemoglobin 7.9 g/dL (13.5-17.5); IMMATURE GRAN ABSOLUTE AUTO 0.04 K/mm3 (0.00-0.10); IMMATURE GRAN PERCENT AUTO 0 % (0-1); LYMPHOCYTES ABSOLUTE AUTO 2.03 K/mm3 (0.84-5.20); LYMPHOCYTES PERCENT AUTO 19 % (21-46); MONOCYTES ABSOLUTE AUTO 0.61 K/mm3 (0.16-1.47); MONOCYTES PERCENT AUTO 6 % (4-13); Mean Corpuscular HGB 27.5 pg (26.0-34.0); Mean Corpuscular HGB Conc 31.3 g/dL (31.5-36.5); Mean Corpuscular Volume 88 fL (80-100); NEUTROPHILS ABSOLUTE AUTO 7.61 K/mm3 (1.96-9.15); NEUTROPHILS PERCENT AUTO 72 % (41-73); Platelet Count 517 K/mm3 (150-400); RDW Coefficient Variation 16.4 % (11.7-14.2); RDW Standard Deviation 52.1 fL (35.1-46.3); Red Blood Cell Count 2.87 M/mm3 (4.30-5.90); White Blood Cell Count 10.62 K/mm3 (4.00-11.30)
[2020-06-17 07:27] LABS: Bun/Creatinine Ratio 11.9 (12.0-20.0); Calcium, Blood 7.5 mg/dL (8.5-10.1); Creatinine, Blood 1.94 mg/dL (0.60-1.20); Potassium, Blood 3.5 mmol/L (3.5-5.5)
--- NOTE | 2020-06-17 16:50 | NUR ---
SHIFT SUMMARY PT AOX4; CALLS APPROPRIATELY. PT RECEIVED TRAMADOL THIS AFTERNOON, AND STATED IT WORKS BETTER THAN THE PERCOCET. PERCOCET WAS DC'D THIS AM. PT NO NAUSEA EPISODE TODAY. PT WOUND DRESSING CHANGED TODAY AND COLOSTOMY CHANGED WELL 06/17. PT EDUCATED ABOUT CHANGING COLOSTOMY BAG. BED IS IN THE LOWEST POSITION AND CALL LIGHT WITHIN REACH
[2020-06-18 05:14] LABS: Hematocrit 25.9 % (37.0-53.0)
[2020-06-18 05:36] LABS: Bun/Creatinine Ratio 12.1 (12.0-20.0); Calcium, Blood 7.3 mg/dL (8.5-10.1); Creatinine, Blood 1.82 mg/dL (0.60-1.20); Potassium, Blood 3.2 mmol/L (3.5-5.5)
--- NOTE | 2020-06-18 05:45 | NUR ---
SHIFT SUMMARY PT IS A 65 Y/O MALE, ADMITTED FOR PNEUMOPERITONEUM. POST COLECTOMY AND COLOSTOMY. A&O X 4, BEDREST. PT WAS MEDICATED ONCE FOR PAIN AT HS WITH PRN TRAMADOL. NO C/O NAUSEA OR SOB. VITAL SIGNS STABLE. NO ACUTE CHANGES IN PT CONDITION NOTED DURING THE NIGHT. WILL CONTINUE TO MONITOR AND TREAT PER EMAR UNTIL HAND OFF TO DAY SHIFT RN.
[2020-06-18 14:12] LABS: Bun/Creatinine Ratio 13.5 (12.0-20.0); Calcium, Blood 7.3 mg/dL (8.5-10.1); Creatinine, Blood 1.7 mg/dL (0.60-1.20); Potassium, Blood 3.3 mmol/L (3.5-5.5)
--- NOTE | 2020-06-18 18:47 | NUR ---
SHIFT SUMMARY. A&OX4, ONE ASSIST TO CHAIR WITH FWW. PT WAS ABLE TO WALK INTO BATHROOM AND SHAVE SELF WITH OT TODAY. PT WITH CHRONIC BACK PAIN AND ABD PAIN R/T ABD WOUNDS THAT HAS BEEN MANAGED WELL WITH ADDITION OF DILAUDID TODAY. NO N/V, SOB. DRESSING CHANGED TO ABD, NO S/SX OF INFECTION, DRESSING TO COCCYX C/D/I. IN TO VISIT THIS AFTERNOON AND SPOKE WITH CASE MANAGEMENT. NO OTHER CHANGES OR CONCERNS.
--- NOTE | 2020-06-19 06:19 | NUR ---
TABLE CUT OFF SAW OPERATOR SUMMARY PT A/O X4. SLEPT WELL TONIGHT. MEDICATED FOR PAIN CHRONIC ABD, BACK PAIN X1 TONIGHT. USES CALL LIGHT APPROPRIATELY. DRESSINGS C.D.I. HYPERTENSIVE THIS AM. MEDICATED WITH HYDRALAZINE PER EMAR. DENIES SOB, NAUSEA. WILL REPORT TO ONCOMING RN. NO ACUTE CHANGES. CALL LIGHT WITHIN REACH.
[2020-06-19 06:45] LABS: Hematocrit 26.7 % (37.0-53.0); Hemoglobin 8.4 g/dL (13.5-17.5)
[2020-06-19 06:59] LABS: Bun/Creatinine Ratio 11.9 (12.0-20.0); Calcium, Blood 7.7 mg/dL (8.5-10.1); Creatinine, Blood 1.59 mg/dL (0.60-1.20); Potassium, Blood 3.8 mmol/L (3.5-5.5)
[2020-06-20 05:12] LABS: BASOPHILS ABSOLUTE AUTO 0.04 K/mm3 (0.00-0.23); BASOPHILS PERCENT AUTO 0 % (0-2); EOSINOPHILS ABSOLUTE AUTO 0.22 K/mm3 (0.00-0.68); EOSINOPHILS PERCENT AUTO 2 % (0-6); Hematocrit 26.3 % (37.0-53.0); Hemoglobin 8.2 g/dL (13.5-17.5); IMMATURE GRAN ABSOLUTE AUTO 0.06 K/mm3 (0.00-0.10); IMMATURE GRAN PERCENT AUTO 1 % (0-1); LYMPHOCYTES ABSOLUTE AUTO 1.83 K/mm3 (0.84-5.20); LYMPHOCYTES PERCENT AUTO 16 % (21-46); MONOCYTES ABSOLUTE AUTO 0.55 K/mm3 (0.16-1.47); MONOCYTES PERCENT AUTO 5 % (4-13); Mean Corpuscular HGB 26.9 pg (26.0-34.0); Mean Corpuscular HGB Conc 31.2 g/dL (31.5-36.5); Mean Corpuscular Volume 86 fL (80-100); Mean Platelet Volume 9.3 fL (9.1-12.4); NEUTROPHILS ABSOLUTE AUTO 8.67 K/mm3 (1.96-9.15); NEUTROPHILS PERCENT AUTO 76 % (41-73); Platelet Count 498 K/mm3 (150-400); RDW Coefficient Variation 16.5 % (11.7-14.2); RDW Standard Deviation 52.7 fL (35.1-46.3); Red Blood Cell Count 3.05 M/mm3 (4.30-5.90); White Blood Cell Count 11.37 K/mm3 (4.00-11.30)
[2020-06-20 05:43] LABS: Calcium, Blood 7.5 mg/dL (8.5-10.1); Creatinine, Blood 1.63 mg/dL (0.60-1.20); Potassium, Blood 3.2 mmol/L (3.5-5.5)
--- NOTE | 2020-06-20 07:16 | NUR ---
SHIFT SUMMARY NO ACUTE CHANGES THIS SHIFT, MEDICATED 1X FOR HTN, 1X FOR PAIN, 1X FOR NAUSEA, SLEPT T/O THE NIGHT, BEDRESTING AT THIS TIME, CALL LIGHT IN REACH, REPORT GIVEN TO DAY RN, ERNESTINA @ BEDSIDE.
--- NOTE | 2020-06-20 18:40 | NUR ---
SHIFT SUMMARY PT UP WITH P.T. AND AMBULATED IN HALLWAY. HAS BEEN IN BED SINCE. AT BEDSIDE THIS AFTERNOON AND EDUCATION PROVIDED ON OSTOMY CARE. PRINTED OSTOMY INFORMATION OUT FOR TO READ PRIOR TO CLEANING/CHANGING OSTOMY APPLIANCE. APPLIANCE CHANGED TODAY SPECIFICALLY FOR PT/FAMILY EDUCATION. HANDS ON PROVIDED TO WITH INSTRUCTION WE WENT. SHOWN HOW TO EMPTY OSTOMY BAG AND CLEAN IT OUT. SHOWN HOW TO REMOVE APPLIANCE AND ASSISTED WITH NEW APPLIANCE BEING PLACED. DISCUSSED USE OF OSTOMY POWDER AND PASTE AND WHEN IT WOULD BE NEEDED. EXPRESSED UNDERSTANDING BUT REMAINED A BIT ANXIOUS ABOUT PROCESS. EXPLAINED IF SHE HAD QUESTIONS SHE COULD ALWAYS CALL HOME HEALTH AFTER SHE DISCHARGED WITH QUESTIONS. DRESSING TO ABDOMEN CHANGED WELL.
[2020-06-21 04:38] LABS: BASOPHILS ABSOLUTE AUTO 0.03 K/mm3 (0.00-0.23); BASOPHILS PERCENT AUTO 0 % (0-2); EOSINOPHILS ABSOLUTE AUTO 0.19 K/mm3 (0.00-0.68); EOSINOPHILS PERCENT AUTO 2 % (0-6); Hematocrit 25.8 % (37.0-53.0); Hemoglobin 8.3 g/dL (13.5-17.5); IMMATURE GRAN ABSOLUTE AUTO 0.07 K/mm3 (0.00-0.10); IMMATURE GRAN PERCENT AUTO 1 % (0-1); LYMPHOCYTES ABSOLUTE AUTO 2.08 K/mm3 (0.84-5.20); LYMPHOCYTES PERCENT AUTO 19 % (21-46); MONOCYTES ABSOLUTE AUTO 0.58 K/mm3 (0.16-1.47); MONOCYTES PERCENT AUTO 5 % (4-13); Mean Corpuscular HGB 27.7 pg (26.0-34.0); Mean Corpuscular HGB Conc 32.2 g/dL (31.5-36.5); Mean Corpuscular Volume 86 fL (80-100); Mean Platelet Volume 9.2 fL (9.1-12.4); NEUTROPHILS ABSOLUTE AUTO 8.25 K/mm3 (1.96-9.15); NEUTROPHILS PERCENT AUTO 74 % (41-73); Platelet Count 446 K/mm3 (150-400); RDW Coefficient Variation 16.8 % (11.7-14.2); RDW Standard Deviation 52.7 fL (35.1-46.3)
--- NOTE | 2020-06-21 04:38 | NUR ---
SHIFT SUMMARY: HTN TONIGHT, HYDRALAZINE ADMINISTERED PER ORDERS. MED X 1 FOR PAIN. PT REPORTS NAUSEA AFTER. VOMITED ONCE. EMESIS CLEAR, WHITE, SMALL AMT. VOIDING, CONTINENT WITHOUT DIFFICULTY. COLOSTOMY EDUCATION PERFORMED TONIGHT. DRESSING TO ABD CDI. DRESSING OVER D/C'D PERMACATH ON R UPPER SHOULDER SITE CDI. APPEARS TO HAVE SLEPT MINIMALLY. AFFECT FLAT. WCTM.
[2020-06-21 05:12] LABS: Bun/Creatinine Ratio 10.4 (12.0-20.0); Calcium, Blood 7.3 mg/dL (8.5-10.1); Creatinine, Blood 1.54 mg/dL (0.60-1.20); Potassium, Blood 3.4 mmol/L (3.5-5.5)
[2020-06-21 14:10] LABS: A/G RATIO 0.4 (0.7-1.7); ALBUMIN 2.5 g/dL (2.9-4.4); ALPHA-1-GLOBULIN 0.3 g/dL (0.0-0.4); ALPHA-2-GLOBULIN 0.9 g/dL (0.4-1.0); BETA GLOBULIN 1.5 g/dL (0.7-1.3); GAMMA GLOBULIN 3.1 g/dL (0.4-1.8); GLOBULIN, TOTAL 5.8 g/dL (2.2-3.9); IMMUNOGLOBULIN A, QN, SERUM 1581 mg/dL (61-437); IMMUNOGLOBULIN G, QN, SERUM 3025 mg/dL (603-1613); IMMUNOGLOBULIN M, QN, SERUM 60 mg/dL (20-172); M-SPIKE Comment: g/dL (Not Observed); PROTEIN, TOTAL, SERUM 8.3 g/dL (6.0-8.5)
[2020-06-21] MEDS ORDERED: ACET325 PO (15:54)
[2020-06-21] MEDS ORDERED: LOSA25 PO (15:55)
[2020-06-21] MEDS ORDERED: DOCU100 PO (15:57)
[2020-06-21] MEDS ORDERED: FOLI1 PO (15:57)
[2020-06-21] MEDS ORDERED: POTA10T PO (15:58)
[2020-06-21] MEDS ORDERED: ONDA4ODT MM (15:58)
[2020-06-21] MEDS ORDERED: SENN187 PO (15:59)
[2020-06-21] MEDS ORDERED: SERT50 PO (15:59)
[2020-06-21] MEDS ORDERED: VISBIOME 112.51 EACH PO (16:00)
[2020-06-21] MEDS ORDERED: ERGO50000 PO (16:01)
--- NOTE | 2020-06-21 17:30 | NUR ---
DISCHARGE INSTRUCTIONS COMPLETED AND DISCUSSED WITH PT AND EXPRESSING UNDERSTANDING. GIVEN AN OSTOMY APPLIANCE TO PRACTICE WITH APPLYING AND REMOVING FOR MORE CONFIDENCE. PROVIDED FURTHER INSTRUCTION AND REASSURANCE THAT SHE HAD THE PROCESS WELL IN HAND. EXTRA SUPPLIES GIVEN TO PT FOR TRANSITION TIL SUPPLIES AVAILABLE FROM [facility] TO ARRIVE. DRESSING CHANGED TO ABDOMEN PRIOR TO LEAVING. SCRIPTS FAXED TO [employer]. [facility] W[facility]C SERVICE HERE TO PICK PT UP. TO [facility] VIA W/C.
== END 2020-06-21 17:00 | disposition home health service (06) | DRG 853 ==
LOC: ER 10:45 → PCU 14:44 → MEDS 14:44 → ICUE 14:44 → SURS 14:44 → ERHOLD 14:44 → ICUE 17:15 → SURS 05-03 14:25 → ICUW 05-07 11:08 → SURS 05-08 18:26 → PCU 05-18 23:35 → SURS 05-19 11:55 → MEDS 05-31 05:22
PROVIDERS: Emergency Medicine; Family Medicine; Internal Medicine; Internal Medicine Critical Care Medicine; Internal Medicine Nephrology; Nurse Practitioner Acute Care; Surgery; ADMIT Family Medicine
PROC: 3E033XZ Introduction of Vasopressor into Peripheral Vein, Percutaneous Approach (ICD-10-PCS; 2020-04-29)
PROC: 0BH17EZ Insertion of Endotracheal Airway into Trachea, Via Natural or Artificial Opening (ICD-10-PCS; 2020-04-29)
PROC: 5A1945Z Respiratory Ventilation, 24-96 Consecutive Hours (ICD-10-PCS; 2020-04-29)
PROC: 0DTN0ZZ Resection of Sigmoid Colon, Open Approach (ICD-10-PCS; principal; 2020-04-29 10:15)
PROC: 0D1M0Z4 Bypass Descending Colon to Cutaneous, Open Approach (ICD-10-PCS; 2020-04-29 10:15)
PROC: 0JH63XZ Insertion of Tunneled Vascular Access Device into Chest Subcutaneous Tissue and Fascia, Percutaneous Approach (ICD-10-PCS; 2020-05-07)
PROC: 02HV33Z Insertion of Infusion Device into Superior Vena Cava, Percutaneous Approach (ICD-10-PCS; 2020-05-07)
PROC: B518ZZA Fluoroscopy of Superior Vena Cava, Guidance (ICD-10-PCS; 2020-05-07)
PROC: 5A1D70Z Performance of Urinary Filtration, Intermittent, Less than 6 Hours Per Day (ICD-10-PCS; 2020-05-07)
PROC: 5A09357 Assistance with Respiratory Ventilation, Less than 24 Consecutive Hours, Continuous Positive Airway Pressure (ICD-10-PCS; 2020-05-19)
DX: A41.9 Sepsis, unspecified organism (principal); R65.21 Severe sepsis with septic shock; G92 Toxic encephalopathy; N17.0 Acute kidney failure with tubular necrosis; K75.0 Abscess of liver; J96.21 Acute and chronic respiratory failure with hypoxia; J96.22 Acute and chronic respiratory failure with hypercapnia; J18.9 Pneumonia, unspecified organism; E87.2 Acidosis; E87.1 Hypo-osmolality and hyponatremia; K57.20 Diverticulitis of large intestine with perforation and abscess without bleeding; Z20.822 Contact with and (suspected) exposure to COVID-19; Z89.411 Acquired absence of right great toe; Z87.891 Personal history of nicotine dependence; E66.01 Morbid (severe) obesity due to excess calories; Z79.4 Long term (current) use of insulin; E86.0 Dehydration; D50.9 Iron deficiency anemia, unspecified; R74.01 Elevation of levels of liver transaminase levels; I35.0 Nonrheumatic aortic (valve) stenosis; C67.9 Malignant neoplasm of bladder, unspecified; E83.39 Other disorders of phosphorus metabolism; K66.8 Other specified disorders of peritoneum; E88.09 Other disorders of plasma-protein metabolism, not elsewhere classified; E11.649 Type 2 diabetes mellitus with hypoglycemia without coma; F32.9 Major depressive disorder, single episode, unspecified; E87.70 Fluid overload, unspecified; E87.6 Hypokalemia; D47.2 Monoclonal gammopathy; N18.9 Chronic kidney disease, unspecified; Z68.37 Body mass index [BMI] 37.0-37.9, adult; Z78.1 Physical restraint status; I12.9 Hypertensive chronic kidney disease with stage 1 through stage 4 chronic kidney disease, or unspecified chronic kidney disease
CPT/HCPCS: 0241U; 31500; 36415; 36430; 36556; 36569; 36600; 47000; 51702; 71045; 74018; 74176; 76705; 76770; 77001; 77012; 80048; 80053; 80069; 80074; 80202; 81001; 81050; 82248; 82306; 82330; 82378; 82550; 82565; 82570; 82607; 82728; 82746; 82784; 82803; 82947; 83516; 83520; 83540; 83550; 83605; 83690; 83735; 84100; 84156; 84165; 84166; 85014; 85018; 85025; 85610; 85730; 86038; 86256; 86317; 86334; 86335; 86850; 86900; 86901; 86923; 87040; 87070; 87075; 87086; 87103; 87205; 88108; 88307; 88312; 93005; 93010; 94002; 94003; 94660; 94760; 94762; 96361; 96365; 96375; 97110; 97116; 97162; 97165; 97530; 97535; 99285-25; A9270; A9270-GY; C1750; C1751; C1752; C8929; C9113; J0295; J0360; J0696; J0881; J1100; J1170; J1642; J1644; J1650; J1815; J1885; J1940; J2060; J2250; J2270; J2405; J2543; J2704; J2765; J3010; J3370; J3475; J3480; J7030; J7040; J7050; J7060; J7070; P9016; P9041; P9046; Q9957

== ENCOUNTER 2021-06-29 07:59 | Inpatient (IN) | payer OTHER ==
[~2021-06-29] VITALS: Ht 175.3 cm; Wt 109.5 kg
[~2021-06-29 07:59] MED LIST changes: +ACET325 PO; +BASAGLAR K100 UNIT/6 SC; +Cipro500 MG PO; +DOCU100 PO; +ERGO50000 PO; +FOLI1 PO; +LOSA25 PO; +ONDA4ODT MM; +POTA10T PO; +SULFAMETHOXAZO1 EAC1 PO; +TRULICITY0.75 MG/01 SC; +VISBIOME 112.51 EACH PO
[2021-06-29 08:31] LABS: BASOPHILS ABSOLUTE AUTO 0.07 K/mm3 (0.00-0.23); BASOPHILS PERCENT AUTO 0 % (0-2); EOSINOPHILS ABSOLUTE AUTO 0.23 K/mm3 (0.00-0.68); EOSINOPHILS PERCENT AUTO 1 % (0-6); Hemoglobin 13.3 g/dL (13.5-17.5); IMMATURE GRAN ABSOLUTE AUTO 0.53 K/mm3 (0.00-0.10); IMMATURE GRAN PERCENT AUTO 3 % (0-1); LYMPHOCYTES PERCENT AUTO 15 % (21-46); MONOCYTES ABSOLUTE AUTO 0.75 K/mm3 (0.16-1.47); MONOCYTES PERCENT AUTO 5 % (4-13); Mean Corpuscular HGB 29.8 pg (26.0-34.0); Mean Corpuscular HGB Conc 30.2 g/dL (31.5-36.5); Mean Corpuscular Volume 98 fL (80-100); Mean Platelet Volume 10.2 fL (9.1-12.4); NEUTROPHILS PERCENT AUTO 76 % (41-73); Platelet Count 268 K/mm3 (150-400); RDW Standard Deviation 46.7 fL (35.1-46.3); Red Blood Cell Count 4.47 M/mm3 (4.30-5.90); White Blood Cell Count 16.28 K/mm3 (4.00-11.30)
[2021-06-29 08:57] LABS: Albumin, Blood 3.1 g/dL (3.4-5.0); Albumin/Globulin Ratio 0.6 (0.8-1.8); Bilirubin, Total 0.3 mg/dL (0.1-1.0); Bun/Creatinine Ratio 14.5 (12.0-20.0); Calcium, Blood 8.3 mg/dL (8.5-10.1); Creatinine, Blood 3.38 mg/dL (0.60-1.20); Globulin, Blood 5.2 g/dL (2.2-4.0); Total Protein, Blood 8.3 g/dL (6.4-8.2)
[2021-06-29 09:34] LABS: PCO2 Arterial 84.3 mmHg (35-45); PO2 Arterial 140 mmHg (80-100); pH Blood Arterial 7.11 (7.35-7.45)
[2021-06-29] MEDS ORDERED: PREGABALIN75 MG PO (10:43)
[2021-06-29] MEDS ORDERED: AMOX-CLAV 875-1 EAC5 PO (10:43)
[2021-06-29] MEDS ORDERED: PRAVASTATIN SOD20 MG PO (10:44)
[2021-06-29] MEDS ORDERED: FOLI1 PO (10:44)
[2021-06-29] MEDS ORDERED: BASAGLAR K100 UNIT/3 SC (10:44)
[2021-06-29] MEDS ORDERED: IPRATROPIUM BRO30 ML (10:45)
[2021-06-29] MEDS ORDERED: AMLODIPINE BESY10 MG PO (10:45)
[2021-06-29] MEDS ORDERED: TRULICITY0.75 MG/01 SQ (10:45)
[2021-06-29] MEDS ORDERED: THERA-D2000 UNIT PO (10:45)
[2021-06-29] MEDS ORDERED: NOVOLOG FL100 UNIT/3 SQ (10:46)
[2021-06-29] MEDS ORDERED: POTA10T PO (10:46)
[2021-06-29] MEDS ORDERED: BUMETANIDE2 M6 PO (10:46)
[2021-06-29] MEDS ORDERED: ZOLOFT50 MG PO (10:47)
[2021-06-29] MEDS ORDERED: ACET325 PO (10:48)
[2021-06-29] MEDS ORDERED: DOCU100 PO (10:48)
[2021-06-29] MEDS ORDERED: ZYRTEC10 M2 PO (10:48)
[2021-06-29] MEDS ORDERED: ASCO500 PO (10:49)
[2021-06-29] MEDS ORDERED: BENADRYL25 MG PO (10:49)
[2021-06-29 11:06] LABS: Adenovirus Not Detected (NOT DETECT); Bordetella pertussis Not Detected (NOT DETECT); Chlamydophila pneumoniae Not Detected (NOT DETECT); Coronavirus 229E Not Detected (NOT DETECT); Coronavirus HKU1 Not Detected (NOT DETECT); Coronavirus NL63 Not Detected (NOT DETECT); Coronavirus OC43 Not Detected (NOT DETECT); Human Metapneumovirus Not Detected (NOT DETECT); Human Rhinovirus/Enterovirus Not Detected (NOT DETECT); Influenza A/2009-H1 Not Detected (NOT DETECT); Influenza A/H1 Not Detected (NOT DETECT); Influenza A/H3 Not Detected (NOT DETECT); Influenza B Not Detected (NOT DETECT); Mycoplasma pneumoniae Not Detected (NOT DETECT); Parainfluenza Virus 1 Not Detected (NOT DETECT); Parainfluenza Virus 2 Not Detected (NOT DETECT); Parainfluenza Virus 3 Not Detected (NOT DETECT); Parainfluenza Virus 4 Not Detected (NOT DETECT); Respiratory Syncytial Virus Not Detected (NOT DETECT); SARS-Cov-2 (COVID-19), BioFire Not Detected (NOT DETECT)
[2021-06-29 13:00] LABS: Bun/Creatinine Ratio 15.2 (12.0-20.0); Creatinine, Blood 3.36 mg/dL (0.60-1.20); Potassium, Blood 6.4 mmol/L (3.5-5.5)
[2021-06-29 15:28] LABS: Source, Urine Foley catheter
[2021-06-29 16:03] LABS: Appearance, Urine Cloudy (Clear); Bilirubin, Urine Neg (Neg); Blood, Urine 4+ (Neg); Color, Urine Yellow (P-Yellow); Glucose Qualitative, Urine 2+ (Neg); Ketones, Urine Neg (Neg); Leukocyte Esterase, Urine 3+ (Neg); Nitrite, Urine Neg (Neg); Protein, Urine 4+ (Neg); Specific Gravity, Urine 1.025 (1.003-1.022); Urobilinogen, Urine NORM (Normal)
[2021-06-29 16:10] LABS: PCO2 Arterial 44.1 mmHg (35-45); PO2 Arterial 97.9 mmHg (80-100)
[2021-06-29 16:11] LABS: White Blood Cells, Urine TNTC /hpf (0-5); Yeast/Fungi Urine Many /hpf
[2021-06-29 16:12] LABS: Bacteria Many /hpf; Renal Epithelial Rare /hpf (0-Rare); Squamous Epithelial Cells Not Seen /hpf (Few)
--- NOTE | 2021-06-29 18:29 | NUR ---
PT ARRIVED IN THE UNIT AT APPROX 1400, PT IS HERE FOR RESPIRATORY FAILURE, WAS ON OXYMIZER UPON ARRIVAL, WAS SWITCHED BACK TO BIPAP DUE TO HI CO2 LEVEL REPEAT ABG WAS DONE CO2 WENT DOWN ON THE 40'S AT APPROX 1500, VITALS HRR SR AT 70-80'S, BP SYSTOLIC 120-130'S, SATS ABOVE 88% ON BIPAP SETTINGS 16/8 WITH 12L O2 BLEED, AFEBRILE. PT ABLE TO MAKE NEEDS KNOWN, ALERT AND ORIENTED X3, CAN CONVERSE BUT MOSTLY LETHARGIC, PT REMAINED NPO WAS KEPT ON BIPAP TIL VICTOR HUGO REST OF THE SHIFT DUE TO BEING LETHARGIC, MCMULLEN WAS PLACED FOR ACCURATE I&O'S MEASUREMENT. PT HAS A SCAB FROM AN OLD PRESSURE SORE ON RIGHT BUTTOCK MEPILEX IN PLACE, PHOTOS IN CHART. POTASSIUM LEVEL WAS TRENDING UP EVEN AFTER FIRST TREATMENT WAS ADMINSITERED, AT K-7.0 THIS TIME SECOND TREATMENT ADMINISTERED TO CHECK BMP AT 1900. WAS CALLED AND WAS GIVEN UPDATE REGARDING PT'S STATUS. ECHO WAS DONE BEFORE THE END OF THE SHIFT, AWAITING FOR RESULT. PT CURRENTLY IN BED RESTING, ABLE TO MAKE NEEDS KNOWN, CALL LIGHTS IN REACH WILL MONITOR
[2021-06-29 19:57] LABS: Bun/Creatinine Ratio 14.8 (12.0-20.0); Creatinine, Blood 3.72 mg/dL (0.60-1.20)
[2021-06-29 20:10] LABS: Calcium, Blood 10.2 mg/dL (8.5-10.1)
--- NOTE | 2021-06-30 05:42 | NUR ---
Overnight pt mentation much improved, he is asking to eat and drink, a diet would be nice today, VSS, no pain, BiPaP in place with good sats, will continue to monitor
[2021-06-30 05:54] LABS: BASOPHILS ABSOLUTE AUTO 0.02 K/mm3 (0.00-0.23); BASOPHILS PERCENT AUTO 0 % (0-2); EOSINOPHILS PERCENT AUTO 0 % (0-6); Hematocrit 39.5 % (37.0-53.0); Hemoglobin 11.9 g/dL (13.5-17.5); IMMATURE GRAN ABSOLUTE AUTO 0.25 K/mm3 (0.00-0.10); IMMATURE GRAN PERCENT AUTO 2 % (0-1); LYMPHOCYTES ABSOLUTE AUTO 1.29 K/mm3 (0.84-5.20); LYMPHOCYTES PERCENT AUTO 9 % (21-46); MONOCYTES ABSOLUTE AUTO 1.01 K/mm3 (0.16-1.47); MONOCYTES PERCENT AUTO 7 % (4-13); Mean Corpuscular HGB 29.7 pg (26.0-34.0); Mean Corpuscular HGB Conc 30.1 g/dL (31.5-36.5); Mean Corpuscular Volume 99 fL (80-100); Mean Platelet Volume 10.4 fL (9.1-12.4); NEUTROPHILS ABSOLUTE AUTO 11.73 K/mm3 (1.96-9.15); NEUTROPHILS PERCENT AUTO 82 % (41-73); NRBC ABSOLUTE 0.02 K/mm3 (0.00-0.02); NRBC Auto 0.1 /100 WBC (0.0-0.2); Platelet Count 253 K/mm3 (150-400); RDW Coefficient Variation 12.7 % (11.7-14.2); RDW Standard Deviation 45.6 fL (35.1-46.3); Red Blood Cell Count 4.01 M/mm3 (4.30-5.90)
[2021-06-30 06:02] LABS: Albumin, Blood 2.6 g/dL (3.4-5.0); Albumin/Globulin Ratio 0.6 (0.8-1.8); Bilirubin, Total 0.2 mg/dL (0.1-1.0); Bun/Creatinine Ratio 15.2 (12.0-20.0); Calcium, Blood 9.4 mg/dL (8.5-10.1); Creatinine, Blood 4.09 mg/dL (0.60-1.20); Globulin, Blood 4.6 g/dL (2.2-4.0); Total Protein, Blood 7.2 g/dL (6.4-8.2)
[2021-06-30 10:54] LABS: Phosphorus, Blood 6.7 mg/dL (2.5-4.9); Potassium, Blood 5.3 mmol/L (3.5-5.5); Uric Acid, Blood 7.4 mg/dL (3.5-7.2)
--- NOTE | 2021-06-30 18:17 | NUR ---
PT SUMMARY: PT WAS MORE ALERT AND TALKING AT THE BEGINNING OF THE SHIFT, WAS UPSET ABOUT NOT GETTING FOOD, DIET RESUMED REFUSED LUNCH AND DINNER TRAY. ATTEMPTED TO GET IN THE CHAIR AFTER LUNCH SINCE PT WAS UNCOMFORTABLE IN BED, PT WAS NOT ABLE TO TOLERATE GOT REALLY SHORT OF BREATH DESATS TO LOW 80'S ON 8L OF O2 WAS ENCOURAGED TO GET BACK IN BED HAS TO TURN UP TO 10L VIA OXYMIZER TO RECOVER, PT WAS PLACED BACK ON BIPAP WHILE DOING ULTRASOUND WAS ONLY ON FOR 45 MINS PT REQUESTED TO BE BACK ON OXYMIZER REFUSED TO BE BACK ON THE PAP, PT STARTED BEING LETHARGIC AROUND AFTERNOON WAKES UP BUT KEEPS FALLING ASLEEP PT WAS PLACED BACK ON THE PAP. CAME IN THIS MORNING TO VISIT WAS GIVEN UPDATE REGARDING PT'S STATUS AND PLAN, PT FOR PERMACATH PLACEMENT IN AM, NPO AFTER MIDNIGHT, FOR PT TO DO DIALYSIS FIRST THEN TO PROCEED WITH ANGIOGRAM POSSIBLY ON THURSDAY. PT DENIES ANY CHEST PAIN/PRESSURE. POTASSIUM LEVEL WENT DOWN TO 5.3 AFTER LOKELMA, D10 GTT AND INSULIN IV WAS GIVEN. BLOOD SUGAR HAS BEEN ON THE 300'S DR GREENWOOD MADE AWARE, ORDER TO FINISH FIRST BAG OF D10GTT. PT ONLY HAD 300MLS URINE OUTPUT FOR THE SHIFT, DR REED FOLLOWING THE PT. RENAL UTX DONE. NO OTHER ISSUES REPORTED PT REPOSITIONED IN BED FOR COMFORT, ABLE TO MAKE NEEDS KNOWN, WILL REPORT TO ONCOMING SHIFT.
--- NOTE | 2021-07-01 04:30 | NUR ---
Overnight uneventful, kept NPO for possible HD cath placement. VSS, will continue to monitor
[2021-07-01 05:54] LABS: Albumin, Blood 2.7 g/dL (3.4-5.0); Anion Gap 4 mmol/L (6-16); Blood Urea Nitrogen 70 mg/dL (8-24); Bun/Creatinine Ratio 13.8 (12.0-20.0); CO2, Blood 29 mmol/L (21-32); Calcium, Blood 8.5 mg/dL (8.5-10.1); Chloride, Blood 102 mmol/L (98-108); Creatinine, Blood 5.08 mg/dL (0.60-1.20); Glomerular Filtration Rate 11 (60-); Glucose, Blood 242 mg/dL (70-99); Potassium, Blood 6.1 mmol/L (3.5-5.5); Sodium, Blood 135 mmol/L (136-145)
[2021-07-01 08:08] LABS: HBSAG SCREEN Negative (Negative); HCV AB <0.1 (0.0-0.9); HEP B CORE AB, TOT Negative (Negative)
--- NOTE | 2021-07-01 08:08 | NUR ---
ASSUME AND TRANSFER CARE: AFTER SHIFT CHANGED THIS UPON DOING ASSESSMENT AND VITALS PT TOOK OXYMIZER OFF PT SATS WERE IN THE LOW 70'S, OXYMIZER WAS MAXED OUT TO 15L OF 02 PT WAS NOT COMING BACK UP ON O2 STAYED ON THE 80'S BIPAP WAS PLACED SETTINGS AT 16/10 45% FIO2 STILL NOT GETTING THE PT'S SATS UP, HAS TO TURN FIO2 TO 75% FINALLY PT STAYED ON THE 90'S. ALSO NOTED PT'S RHYTHM ON THE MONITOR HAS SOME ST CHANGES/DEPRESSION CALLED TELE TO VERIFY POLISHER IMPLANT MADE AWARE AND CALLED DR GREENWOOD, EKG WAS ORDERED TO CONFIRM, PT DENIES ANY CHEST PAIN/PRESSURE REMAINS ALERT AND ORIENTED X3 STILL ABLE TO CONVERSE SLOW SPEECH WAS VERY LETHARGIC, VITALS HRR SR 60-90'S WITH SOME ST CHANGES ON EKG, BP 99/69, RR 18 SPO2 90% ON BIPAP, TEMP 97.8. ORDER TO TRANSFER PT TO ICU FOR CLOSE MONITORING, POSS PERMACATH PLACEMENT TODAY TO RECEIVE DIALYSIS. NERISSA WAS GIVEN UPDATE REGARDING PT'S STATUS, ALL BELONGINGS SENT WITH THE PT, REPORT GIVEN TO RUTH ENCINAS
--- NOTE | 2021-07-01 08:11 | NUR ---
ICU TRANSFER: Pt arrived to ICU at 0755 from PCU. He was placed on BIPAP 16/10 75%. Pt is A/O X 4 and conversing with staff with mask in place. PCU charge nurse spoke to pt's over the phone to notify her of transfer.
--- NOTE | 2021-07-01 08:44 | NUR ---
UPDATE: RN assisted pt with zoom visit with Dr. Gregory.
--- NOTE | 2021-07-01 11:28 | NUR ---
UPDATE: Dr. Gregory was notifed of most recent potassium potassium. RN notified that Dr Vance is currently in a procedure. Will request that Dr Tam place dialysis line at bedside per Colt.
--- NOTE | 2021-07-01 12:00 | NUR ---
UPDATE: RN requested bedside dialysis catheter placement from Dr Tam. Yonatan phoned Pinky in pathology laboratory aide to discuss case. Pinky to place line in IR within the next two hours.
--- NOTE | 2021-07-01 12:14 | NUR ---
UPDATE: IR physician tiler's assistant at bedside consenting pt for procedure.
--- NOTE | 2021-07-01 13:30 | NUR ---
PROCEDURE: Pt to medical lab specialist with medical lab specialist staff and RT on BIPAP.
--- NOTE | 2021-07-01 14:05 | NUR ---
DIALYSIS: assorter laundry notified of cath placement; She will come dialyze pt when he returns to unit.
--- NOTE | 2021-07-01 14:50 | NUR ---
DIALYSIS: Dialysis RNs at bedside setting up procedure.
--- NOTE | 2021-07-01 19:04 | NUR ---
SHIFT SUMMARY: Pt transferred to ICU this morning. He was taken to IR for permacath placement. Dialysis removed approximately three liters of fluid. Pt remained on BIPAP 16/10 70% for much of the day. He was able to take some sips of water with Oxymizer in place. Pt awknowledges that he is becoming confused and anxious this evening. He accepts redirection and reorientation gracefully.
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
--- NOTE | 2021-07-01 22:01 | NUR ---
PT IS ON 0.7MCG OF PRECEDEX. HE CONTINUES TO YELL OUT, UNABLE TO REORIENT OR REDIRECT PT AT THIS TIME. DR PADRON NOTIFIED. ORDERS GIVEN.
--- NOTE | 2021-07-02 01:53 | NUR ---
PRECEDEX GTT PLACED ON STANDBY
[2021-07-02 04:09] LABS: COMPLEMENT C3, SERUM 168 mg/dL (82-167); COMPLEMENT C3, SERUM 175 mg/dL (82-167); COMPLEMENT C4, SERUM 36 mg/dL (12-38)
[2021-07-02 05:12] LABS: Bun/Creatinine Ratio 12.2 (12.0-20.0); Creatinine, Blood 4.1 mg/dL (0.60-1.20); Potassium, Blood 4.6 mmol/L (3.5-5.5)
--- NOTE | 2021-07-02 05:56 | NUR ---
SHIFT SUMMERY PT HAD INCREASING CONFUSION W/AGITATION THAT PROGRESSED TO COMBATIVNESS REQUIRING A CODE MORALES TO BE CALLED AND RESTRAINTS TO BE PLACED. BIPAP IS AT 16/10 80%. PRECEDEX GTT IS AT 0.3MCGS. PT CONTINUES TO BE CONFUSED AND NON COMPLIANT WITH TREATMENTS. HE IS ONLY ORIENTED TO SELF. HE HAS BEEN NPO FOR ANGIOGRAM TODAY.
[2021-07-02 08:10] LABS: HBSAG SCREEN Negative (Negative); HCV AB <0.1 (0.0-0.9); HEP A AB, IGM Negative (Negative); HEP B CORE AB, IGM Negative (Negative)
--- NOTE | 2021-07-02 08:15 | NUR ---
ASSUMED CARE PT RESTING IN BED. BIPAP IN PLACE, 23/12/79%. LUNGS DIM THROUGHOUT. TV 500'S. OPENS EYES TO VERBAL STIMULI. FOLLOWS SIMPLE COMMANDS. ORIENTED TO SELF ONLY. PRECEDEX GTT AT 0.03 MCG/KG.HR. PT IN BILATERAL WRIST REST D/T AGITATION ON NOC SHIFT. PERMACATH TO RIGHT CHEST WALL, DRESSING C/D/I. PLAN FOR DIALYSIS THIS SHIFT. ABD ROUND, SOFT, NON TENDER. OSTOMY TO LLQ. MCMULLEN PATENT, DRAINING BOBY CLOUDY URINE TO GRAVITY. VSS. WILL CONTINUE TO MONITOR.
[2021-07-02 15:11] LABS: A/G RATIO 0.9 (0.7-1.7); ALPHA-1-GLOBULIN 0.3 g/dL (0.0-0.4); ALPHA-2-GLOBULIN 0.9 g/dL (0.4-1.0); BETA GLOBULIN 1.2 g/dL (0.7-1.3); GAMMA GLOBULIN 1.2 g/dL (0.4-1.8); GLOBULIN, TOTAL 3.6 g/dL (2.2-3.9); IMMUNOGLOBULIN A, QN, SERUM 767 mg/dL (61-437); IMMUNOGLOBULIN G, QN, SERUM 1106 mg/dL (603-1613); IMMUNOGLOBULIN M, QN, SERUM 88 mg/dL (20-172); M-SPIKE Not Observed g/dL (Not Observed); PROTEIN, TOTAL, SERUM 6.6 g/dL (6.0-8.5)
--- NOTE | 2021-07-02 18:05 | NUR ---
SHIFT SUMMARY PT STATUS CHANGED TO MED c TELE THIS SHIFT. MENTATION IMPROVED. A&OX 3. OCCASIONALLY FORGETS LOCATION, REORIENTS EASILY. FOLLOWS COMMANDS. RESTRAINTS REMOVED THIS SHIFT. PRECEDEX D/C'D. DIALYSIS COMPLETE, 2 L OFF. PERMACATH TO RIGHT CHEST WALL, DRESSING C/D/I. DIURESED THIS SHIFT, 300 ML CLOUDY YELLOW URINE OUT, MCMULLEN PATENT, DRAINING TO GRAVITY. OSTOMY TO LLQ, SMALL THIN BROWN LIQUID OUT. STOMA MOIST, PINK. LUNGS DIM THROUGHOUT, PRODUCTIVE COUGH c CLEAR SPUTUM. 13L VIA HFC. VSS. WILL CONTINUE TO MONITOR UNTIL REPORT TO ONCOMING NURSE.
[2021-07-02 18:11] LABS: ANTI-DSDNA ANTIBODIES 1 IU/mL (0-9); RNP ANTIBODIES <0.2 AI (0.0-0.9); SJOGREN'S ANTI-SS-A <0.2 AI (0.0-0.9); SJOGREN'S ANTI-SS-B 2.5 AI (0.0-0.9); SMITH ANTIBODIES <0.2 AI (0.0-0.9)
--- NOTE | 2021-07-02 20:59 | NUR ---
ASSUMED CARE @ 1900 SHIFT SUMMARY: PT AOX4, PLEASANT AND COOPERATIVE. OVERALL DOING GOOD AND STABLE. REPORT GIVEN TO KIMBERLYN TO TRANSFER PT TO MEDICAL FLOOR ROOM 327.
--- NOTE | 2021-07-02 21:40 | NUR ---
Patient recieved as transfer from ICU. O2 10/L NC in place. Skin check completed with Olegario Estrada RN. No acute skin issues noted.
--- NOTE | 2021-07-02 23:09 | NUR ---
PT ON O2 PER NC. RT IN ROOM TO PLACE CPAP, BUT PT REFUSED. CALL LIGHT IN REACH. HOP ELEVATED FOR COMFORT.
--- NOTE | 2021-07-03 03:17 | NUR ---
VOICED COULDNT BREATHE, NURSE ASSESSED PT, SATS LOW 80'S. RT NOTIFIED, PLACED ON BIPAP, STILL SATTING IN THE LOW 80'S. MD NOTIFIED, ORDERS FOR STAT CXR AND TRANSFER TO PCU. CXR DONE. PRODUCTION ASSOCIATE NOTIFIED, SATS 80 WITH 15L BLEED IN OF CPAP. PT TRANSFERRED TO ICU 4 WITH PCU STATUS. PHYSIOLOGIST RECEIVED REPORT.
[2021-07-03 03:48] LABS: BASOPHILS ABSOLUTE AUTO 0.02 K/mm3 (0.00-0.23); BASOPHILS PERCENT AUTO 0 % (0-2); EOSINOPHILS PERCENT AUTO 0 % (0-6); Hematocrit 37.4 % (37.0-53.0); Hemoglobin 11.6 g/dL (13.5-17.5); IMMATURE GRAN ABSOLUTE AUTO 0.12 K/mm3 (0.00-0.10); IMMATURE GRAN PERCENT AUTO 1 % (0-1); LYMPHOCYTES ABSOLUTE AUTO 0.78 K/mm3 (0.84-5.20); LYMPHOCYTES PERCENT AUTO 6 % (21-46); MONOCYTES ABSOLUTE AUTO 0.43 K/mm3 (0.16-1.47); MONOCYTES PERCENT AUTO 3 % (4-13); Mean Corpuscular HGB 29.9 pg (26.0-34.0); Mean Corpuscular Volume 96 fL (80-100); Mean Platelet Volume 10.1 fL (9.1-12.4); NEUTROPHILS ABSOLUTE AUTO 12.56 K/mm3 (1.96-9.15); NEUTROPHILS PERCENT AUTO 90 % (41-73); Platelet Count 246 K/mm3 (150-400); RDW Coefficient Variation 12.7 % (11.7-14.2); RDW Standard Deviation 44.9 fL (35.1-46.3); Red Blood Cell Count 3.88 M/mm3 (4.30-5.90); White Blood Cell Count 13.91 K/mm3 (4.00-11.30)
--- NOTE | 2021-07-03 04:03 | NUR ---
ASSUMED CARE RECEIVED BEDSIDE REPORT FROM HUANG SILVA AT 0303 WHEN PT ARRIVED BACK TO THE ICU. HE WAS NOTED TO DESAT ON THE FLOOR INTO 80'S WHILE WEARING 2L NC. SHIRA ATTEMPTED TO PLACE BACK ON CPAP, BUT APPARENTLY THE PT REFUSED. HOWEVER, PT WA WEARING CPAP UPON TRANSFER, AND WAS SWITCHED TO BIPAP. PT IS ALERT AND ORIENTED TO SELF, PLACE AND YEAR. HE IS PLEASANT AND COOPERATIVE, AND HAVING DIFFICULTY SPEAKING IN FULL SENTENCES, STATES HE FEELS SOMEWHAT SHORT OF BREATH, BUT OVER TIME DURING ASSESSMENT, HE STATED HIS SOB IMPROVED. PUPILS ARE 3 BILATERAL, EQUAL, ROUND AND REACTIVE. HE IS ABLE TO FOLLOW COMMANDS WELL. BIPAP SETTINGS OF 16/10, 85%, RATE SET AT 18, ACTUAL RR 20-24. SPO2 READING 94% OR GREATER, LUNGS ARE VERY COARSE AND WET SOUNDING THROUGHOUT, EXCEPT IN LEFT LOWER LOBE WHICH IS DIMINISHED. HR IS SR WITH RATE IN 70'S. BP IN 110-120'S/60-80'S, MAP >65. PERMACATH IN PLACE TO RIGHT CHEST WALL, DRESSING C/D/I, ANTICIPATING DIALYSIS TODAY. ABDOMEN IS ROUNDS, SOFT, NON-TENDER WITH COLOSTOMY IN PLACE TO LLQ, STOMA PINK AND MOIST. SKIN INTACT AROUND OSTOMY APPLIANCE. HE HAS SMALL ABRASIONS ON HIS STOMACH, BUT ARE SCABBED OVER. PITTING EDEMA 2+ IN BILATERAL UPPER AND LOWER EXTREMITIES. RIGHT GREAT TOE AND THIRD TOE AMPUTATION, WELL HEALED. PG TO ANNE MARIE, DRAWS AND FLUSHES WELL, AM LABS DRAWN. PERIPHERAL IV TO RIGHT AC, DIFFICULT TO FLUSH, NO BLOOD RETURN. MCMULLEN PATENT, DRAINING TO GRAVITY. PT APPEARS TO BE COMFORTABLE AT THIS TIME, WITH NO SIGNS OF RESIPRATORY DISTRESS. ORDERS REVIEWED.
[2021-07-03 04:09] LABS: Bun/Creatinine Ratio 14.2 (12.0-20.0); Calcium, Blood 7.7 mg/dL (8.5-10.1); Creatinine, Blood 4.02 mg/dL (0.60-1.20); Magnesium, Blood 2.1 mg/dL (1.6-2.4); Phosphorus, Blood 7.4 mg/dL (2.5-4.9); Potassium, Blood 4.9 mmol/L (3.5-5.5)
--- NOTE | 2021-07-03 06:12 | NUR ---
PT REMAINS ON BIPAP SINCE ARRIVAL. SETTINGS CHANGED TO 16/10 AT 100% FIO2 HE DESATTED INTO LOW 80'S, CURRENTLY 96% SPO2 ON MONITOR. HE REMAINS AROUSABLE BY VOICE, BUT IS CONFUSED AT FIRST, HOWEVER REORIENTS EASILY. HE REMAINED PLEASANT AND COOPERATIVE. HR CONTINUES SR WITH BP STABLE. AFEBRILE. MINIMAL OUTPUT FROM COLOSTOMY, NOT EMPTIED. MCMULLEN REMAINS PATENT, 175ML OUT THIS SHIFT. HE COMPLAINS OF ITCHY SKIN, OTHERWISE STATED HE WAS DOING WELL. NO COMPLAINTS OF SOB. WILL REPORT TO ONCOMING SHIFT.
--- NOTE | 2021-07-03 11:02 | NUR ---
CARE ASSUMPTION / UPDATE PT PCU STATUS. A&O X4, PLEASANT & COOPERATIVE. PT VSS. MONITOR SHOWING SR, HR 60's-70's. SPO2 > 92% ON BIPAP: 22/12, FIO2 100%, TITRATED DOWN TO 80% THIS SHIFT & THEN PT TRANSITIONED TO HI-JAMIE NC VIA V60 @ 45L, 60% W/ PT TOLERATING WELL. DIALYSIS BEING DONE IN PT ROOM AT THIS TIME. MCMULLEN CATH PATENT & DRAINING. WILL CONTINUE TO MONITOR & PROVIDE CARE.
--- NOTE | 2021-07-03 17:47 | NUR ---
SHIFT SUMMARY PT CONTINUES TO BE PCU STATUS, A&O X4, IRRITABLE AT TIMES, OTHERWISE COOPERATIVE. VSS. MONITOR SHOWING SR, HR 60's-70's. SPO2 > 92% ON HI-JAMIE NC VIA V60 @ 45L, 60%. DIALYSIS DONE IN PT RM TODAY. MCMULLEN CATH PATENT & DRAINING SMALL AMOUNT OF CLEAR YELLOW URINE. COLOSTOMY DRAINING ONLY A FEW DROPS WORTH OF BROWN LIQUID.
--- NOTE | 2021-07-03 19:00 | NUR ---
ASSUMED CARE OF PT. REPORT RECEIVED FROM HUANG CLIFTON.
--- NOTE | 2021-07-03 19:20 | NUR ---
PT IS AWAKE AND AOX4/4. HE IS SITTING UPRIGHT IN BED, WEARING HFNC WITH FIO2 70%. HE STATES HE DOES NOT NEED TO BE MOVED OR WEAR HIS BIPAP. DISCUSSED RISKS. PT ALSO C/O BACK PAIN, STATES HE USUALLY TAKES TYLENOL FOR THIS PAIN, WILL MEDICATE. HE DECLINES A HEATING PAD. LS TIGHT, DIM, AND PT IS TACHYPNEIC, WORSE WITH ANY EXERTION. WHEN OFFERED TO GET UP TO A CHAIR, HE STATES HE WILL DO THIS TOMORROW. HE USES A WALKER AT BASELINE. BLE AND DISCOLORED, TENDER, AND EDEMATOUS. WILL ELEVATE ON PILLOWS. DISCUSSED POC FOR TONIGHT WITH PT.
--- NOTE | 2021-07-04 01:04 | NUR ---
PT TAKES OFF BIPAP MASK AND REFUSES TO PUT IT BACK ON. HE AGREES TO WEAR THE HFNC AND THAT IS REPLACED. RISKS OF REFUSING BIPAP ARE DISCUSSED WITH PT BUT HE CONTINUES TO REFUSE.
--- NOTE | 2021-07-04 01:17 | NUR ---
SKIN ON COCCYX CHECKED UNDER MEPILEX. NO CHANGE FROM PICTURE.
[2021-07-04 03:35] LABS: Hematocrit 35.6 % (37.0-53.0); Hemoglobin 11.1 g/dL (13.5-17.5); Mean Corpuscular HGB 29.5 pg (26.0-34.0); Mean Corpuscular HGB Conc 31.2 g/dL (31.5-36.5); Mean Corpuscular Volume 95 fL (80-100); Mean Platelet Volume 9.8 fL (9.1-12.4); Platelet Count 249 K/mm3 (150-400); RDW Coefficient Variation 12.6 % (11.7-14.2); RDW Standard Deviation 43.4 fL (35.1-46.3); Red Blood Cell Count 3.76 M/mm3 (4.30-5.90); White Blood Cell Count 11.92 K/mm3 (4.00-11.30)
[2021-07-04 03:56] LABS: Bun/Creatinine Ratio 13.1 (12.0-20.0); Calcium, Blood 7.9 mg/dL (8.5-10.1); Creatinine, Blood 3.37 mg/dL (0.60-1.20); Potassium, Blood 3.7 mmol/L (3.5-5.5)
--- NOTE | 2021-07-04 05:53 | NUR ---
PT IS COMPLIANT AT TIMES WITH CARE. HE AGREES TO WEAR BIPAP MASK FOR SHORTER PERIODS WITH BREAKS ON HFCN. HE SLEEPS 1-2 HOURS AT A TIME OVER NIGHT. NO OTHER SIGNIFICANT CHANGES NOTED OVERNIGHT. PT STATES HE WOULD LIKE TO GET UP TO A CHAIR AND HAVE A CUP OF COFFEE THIS MORNING. WILL CONTINUE TO MONITOR AND REPORT TO ONCOMING SHIFT.
--- NOTE | 2021-07-04 10:22 | NUR ---
0800 Pt assisted up to recliner chair for breakfast. When sitting on side of bed pre-transfer, his spo2 dropped to 84% and had to recover before getting up to the chair. Again spo2 dropped with the activity while on AirVo, 45l/min and 90% Fio2, but recovered after a couple of minutes. He feels dypsneic when this happens, but better after spo2 improved to 93%. 0900 Pt's spo2 improved to 96% while up in chair. Assisted back to bed to be transported to dialysis this morning. Telemetry monitoring in process while in dialysis.
--- NOTE | 2021-07-04 10:28 | NUR ---
IV antibiotics, IV lasix and oral metoprolol held before dialysis per Renetta, podiatry assistant.
--- NOTE | 2021-07-04 12:31 | NUR ---
Pt returned from dialysis to ICU 4. He states he is very tired, and cold. Warm blanket provided and lunch held per his request until he wakes up from a nap.
--- NOTE | 2021-07-04 14:48 | NUR ---
Spoke with Ariela, pt's who is sitting at the bedside while the pt is napping. Gave her update on the pt's day so far and ongoing treatment.
--- NOTE | 2021-07-04 16:59 | NUR ---
Pt states that he got a good nap while tolerating the bipap. Now on hiflow AirVo and waiting for his dinner. Still noticing that he has shortness of breath with minimal exertion, including talking while at rest.
--- NOTE | 2021-07-04 17:12 | NUR ---
Appears to be resting comfortably, wearing the bipap again at this time as he did not want to eat dinner. STates tired from dialysis.
--- NOTE | 2021-07-04 23:48 | NUR ---
ASSUMED CARE PATIENT LYING IN BED SLEEPING WITH BIPAP IN PLACE SET AT 16/10 70% FIO2; SPO2 95%. LUNG SOUNDS COARSE T/O. BT HYPOACTIVE W/ OSTOMY TO LT SIDE. MCMULLEN PATENT AND DRAINING DARK YELLOW URINE TO GRAVITY. MONITOR SHOWS SINUS NIRANJAN W/ RATE 57. STRONG JESSICA RADIAL PULSES, FAINT PEDAL PULSES JESSICA. SKIN OVERALL DRY AND INTACT EXCEPT FOR BREAKFDOWN ON BRIDGE OF NOSE FROM PREVIOUS BIPAP MASK AND SCATTERED SCABBING. EASILY AROUSABLE FROM SLEEP, A&O X 2. REPORT RECEIVED FROM CONCHA Montes RN.
[2021-07-05 04:18] LABS: BASOPHILS ABSOLUTE AUTO 0.02 K/mm3 (0.00-0.23); BASOPHILS PERCENT AUTO 0 % (0-2); EOSINOPHILS ABSOLUTE AUTO 0.15 K/mm3 (0.00-0.68); EOSINOPHILS PERCENT AUTO 1 % (0-6); Hematocrit 36.1 % (37.0-53.0); Hemoglobin 11.3 g/dL (13.5-17.5); IMMATURE GRAN ABSOLUTE AUTO 0.07 K/mm3 (0.00-0.10); IMMATURE GRAN PERCENT AUTO 1 % (0-1); LYMPHOCYTES ABSOLUTE AUTO 1.43 K/mm3 (0.84-5.20); LYMPHOCYTES PERCENT AUTO 13 % (21-46); MONOCYTES ABSOLUTE AUTO 0.77 K/mm3 (0.16-1.47); MONOCYTES PERCENT AUTO 7 % (4-13); Mean Corpuscular HGB Conc 31.3 g/dL (31.5-36.5); Mean Corpuscular Volume 96 fL (80-100); Mean Platelet Volume 9.7 fL (9.1-12.4); NEUTROPHILS ABSOLUTE AUTO 8.27 K/mm3 (1.96-9.15); NEUTROPHILS PERCENT AUTO 77 % (41-73); Platelet Count 236 K/mm3 (150-400); RDW Coefficient Variation 12.3 % (11.7-14.2); RDW Standard Deviation 43.6 fL (35.1-46.3); Red Blood Cell Count 3.77 M/mm3 (4.30-5.90); White Blood Cell Count 10.71 K/mm3 (4.00-11.30)
[2021-07-05 04:52] LABS: Albumin, Blood 2.8 g/dL (3.4-5.0); Anion Gap 8 mmol/L (6-16); Blood Urea Nitrogen 60 mg/dL (8-24); Bun/Creatinine Ratio 13.6 (12.0-20.0); CO2, Blood 32 mmol/L (21-32); Calcium, Blood 7.7 mg/dL (8.5-10.1); Chloride, Blood 93 mmol/L (98-108); Creatinine, Blood 4.41 mg/dL (0.60-1.20); Glomerular Filtration Rate 13 (60-); Glucose, Blood 234 mg/dL (70-99); Potassium, Blood 4.1 mmol/L (3.5-5.5); Sodium, Blood 133 mmol/L (136-145)
[2021-07-05 05:21] LABS: Phosphorus, Blood 8.3 mg/dL (2.5-4.9)
--- NOTE | 2021-07-05 05:49 | NUR ---
END OF SHIFT SUMMARY PATIENT SLEPT T/O SHIFT. USED BIPAP WHILE ASLEEP, SWITCHED TO HI FLOW NC WHEN AWAKE. PATIENT DESATTED TO 82% ON HI FLOW NC 55LPM 70% FIO2 WHEN DANGLED ON BED TO TRANSFER FROM BED TO CHAIR. LAID PATIENT BACK IN BED AND INCREASED FIO2 TO 100% FOR 2 MINUTES. AFTER 2 MINUTES SPO2 INCREASED TO 90%. PATIENT REPORTED SOB. MCMULLEN REMAINED PATENT AND DRAINING TO GRAVITY. MINIMAL OUTPUT FROM OSTOMY. PATIENT USED CALL LIGHT TO MAKE NEEDS KNOWN TO STAFF. PATIENT DENIED REPOSITIONING MOST OF SHIFT. CRITICAL PHOS OF 8.3, DIALYSIS PLANNED SO NO PHONE CALL MADE. VSS REMAINED STABLE T/O SHIFT.
--- NOTE | 2021-07-05 08:23 | NUR ---
makes needs known, ate breakfast, rt treatment in room now, to have dialysis today at 9 am in the dialysis room. call light with in diana irvin
--- NOTE | 2021-07-05 09:14 | NUR ---
PATIENT TRANSFERRED TO DIALYSIS ROOM IN BED WITH HIGHFLOW 50LITERS AND 70%
--- NOTE | 2021-07-05 14:50 | NUR ---
OT IN WORKING WITH PATIENT, AT BEDSIDE
--- NOTE | 2021-07-05 17:13 | NUR ---
ALERT AND ORIENTED X4, MAKES NEEDS KNOWN, IRRITABLE AT TIMES, SOB AND DESATS WITH MINIAL ACTIVITY TO 80s, HIGH FLOW 50 75%, SLOW SHALLOW RESPIRATIONS, ENCOURAGING DEEP COUGH. WORKED WITH OT TODAY REFUSED PT. NSR TELE 60-80s, ELO AVILA, DOPPLER FOR PULSES. COLOSTOMY TO LLQ, APPLIANCE CHANGED WITH AND HOME SUPPLIES, COLOSTOMY IS CHANGED EVERY 5-7 DAYS, STOMA RED MOIST AND CLEAN. GOOD APETITE TODAY. BS 228 THIS EVENING COVERED WITH 4 UNITS. MCMULLEN DRAINIG TO GRAVITY, POOR OUTPUT, CKD STAGE 4, DILAYSIS TODAY 2.5 LITERS OFF. BUTTOCK WOUND, REPOSITIONED THROUGH THE DAY, PATIENT RELUCTANT TO MOVE AND CONTINUED TO REFSUE ORAL CARE. CALL LIGHT WITH IN REACH, PATIENT DEOS NOT USE CALL LIGHT JUST YELLS OUT FOR HELP, WILL REALY TO PM RN, WCTM
--- NOTE | 2021-07-05 18:18 | NUR ---
NEW COLOSTOMY APPLIANCE PLACED PER THAT THE PRESENT ONE WAS 7 DAYS OLD. SKIN INTACT, PATIENT TOLERATED REMOVAL OF TAPE AND ADHESIVE REMOVER AROUND STOMA BUT NOT TOUCHING THE STOMA, SKIN BARRIER APPLIED, ADHESIVE CIRLE TAPE AROUND THE STOMA, ADAPT APPLIED TO THE TOP OF THE [place] TAPE AND THEN THE APPLIANCE PLACED. PATIENT TOLERATED WITH EASE, VERY EDUCATED ON STOMA CARE FOR PATIENT, RAMA
--- NOTE | 2021-07-05 20:08 | NUR ---
ASSUMED CARE RECEIVED REPORT FROM HUANG BLANCHARD AT 1900. PT SITTING UP IN BED WATCHING TV. PLEASANT AND COOPERATIVE, FOLLOWS COMMANDS AND ORIENTED X3, UNSURE OF ACTUAL DATE. WEARING HI-FLOW O2 AT 55L & 75%, SPO2 92%. HE DENIES SOB, RR IS 17, HE DOES DESATURATE QUICKLY WITH MOVEMENTS, AND RECOVERS SLOWLY, RELUCTANT TO REPOSITION. HR IS SR WITH RATE IN 70'S, BP STABLE. COLOSTOMY IN LLQ, NO OUTPUT NOTED, STOMA PINK AND MOIST, APPLIANCE CHANGED BY EARIER TODAY, C/D/I. MCMULLEN PATENT, MINIMAL URINE OUT, PT HAD DIALYSIS TODAY WITH 2.5L REMOVED. PULSES IN BLE ARE DOPPLER ONLY, 2+ PITTING EDEMA TO BLE. REMOVED PERIPHERAL IV IN RAC IT WAS NOT PATENT, PG TO ANNE MARIE PATENT, GOOD BLOOD RETURN, SALINE LOCKED. AFEBRILE AT 98.5 F. ORDERS REVIEWED.
--- NOTE | 2021-07-05 23:40 | NUR ---
RT IN ROOM AND SWITCHED PT FROM HI-FLOW TO BIPAP, SETTINGS 16/10, 80%FIO2, SPO2 READING 92% ON MONITOR
[2021-07-06 04:20] LABS: BASOPHILS ABSOLUTE AUTO 0.03 K/mm3 (0.00-0.23); BASOPHILS PERCENT AUTO 0 % (0-2); EOSINOPHILS ABSOLUTE AUTO 0.05 K/mm3 (0.00-0.68); EOSINOPHILS PERCENT AUTO 0 % (0-6); Hematocrit 36.7 % (37.0-53.0); Hemoglobin 11.2 g/dL (13.5-17.5); IMMATURE GRAN ABSOLUTE AUTO 0.32 K/mm3 (0.00-0.10); IMMATURE GRAN PERCENT AUTO 2 % (0-1); LYMPHOCYTES PERCENT AUTO 6 % (21-46); MONOCYTES ABSOLUTE AUTO 0.67 K/mm3 (0.16-1.47); MONOCYTES PERCENT AUTO 5 % (4-13); Mean Corpuscular HGB 29.5 pg (26.0-34.0); Mean Corpuscular HGB Conc 30.5 g/dL (31.5-36.5); Mean Corpuscular Volume 97 fL (80-100); Mean Platelet Volume 9.9 fL (9.1-12.4); NEUTROPHILS ABSOLUTE AUTO 12.06 K/mm3 (1.96-9.15); NEUTROPHILS PERCENT AUTO 86 % (41-73); Platelet Count 264 K/mm3 (150-400); RDW Coefficient Variation 12.3 % (11.7-14.2); RDW Standard Deviation 42.9 fL (35.1-46.3); White Blood Cell Count 14.03 K/mm3 (4.00-11.30)
[2021-07-06 04:42] LABS: Albumin, Blood 2.8 g/dL (3.4-5.0); Anion Gap 7 mmol/L (6-16); Blood Urea Nitrogen 43 mg/dL (8-24); Bun/Creatinine Ratio 10.1 (12.0-20.0); CO2, Blood 33 mmol/L (21-32); Chloride, Blood 95 mmol/L (98-108); Creatinine, Blood 4.24 mg/dL (0.60-1.20); Glomerular Filtration Rate 14 (60-); Glucose, Blood 255 mg/dL (70-99); Phosphorus, Blood 6.5 mg/dL (2.5-4.9); Potassium, Blood 4.6 mmol/L (3.5-5.5); Sodium, Blood 135 mmol/L (136-145)
--- NOTE | 2021-07-06 05:07 | NUR ---
REPORT GIVEN TO HUANG MENDOZA AT 0440 AND PT TRANSFERRED AT 0500. PT TRANSFERRED WITH RT, AND WAS CHANGED BACK TO HI-FLOW AT 55L AND 80%, SPO2 REMAINED 92-93%. HR REMAINED SR WITH RATE IN 60'S, BP STABLE WITH SBP IN 130'S. LLQ COLOSTOMY APPLIANCE REMAINS C/D/I, NO OUTPUT NOTED IN BAG. MCMULLEN PATENT, MINIMAL URINE OUT. PT TOLERATED BIPAP DURING SHIFT WELL AND REMAINED PLEASANT, A/O X3, AND COOPERATIVE.
--- NOTE | 2021-07-06 05:52 | NUR ---
Assumed care of patient as an ICU transfer at 0500. Patient is on bedrest. A/Ox4 at this time and cooperative with care. Airvo 55L/80% to maintain 90% or better. Bipap at bedside. LS Clear on top, and fine crackles at bases. SBP in 140's. Patient sitting in bed watching television. Other than that, agree with previous RN's assessment. Will report to dayshift RN.
--- NOTE | 2021-07-06 09:11 | NUR ---
PATIENT OUT OF ROOM TO DIALYSIS
--- NOTE | 2021-07-06 09:23 | NUR ---
ASSUMPTION OF CARE RECEIVED REPORT AT 0715, ASSUMED CARE OF PATIENT. PATIENT IN BED, A/O, REMOVING AIRVO OXYGEN NASAL PRONGS FREQUENTLY. DESATS TO 70'S ON RA VERY QUICKLY. REQUIRES 100% FIO2 TO RECOVER ONCE NASAL PRONGS ARE REPLACED. SPO2 88-90% ON 55L/80% FIO2, RT INCREASED FIO2 TO 90% WITH NO CHANGE TO SPO2 NOTED AT THIS TIME. PATIENT WAS PLACED SUPINE AND SAT UP IN BED TO EAT BREAKFAST WITH NO DIFFICULTIES. LASIX AND METOPROLOL HELD FOR DIALYSIS. ORDERS REVIEWED, WILL TREAT PRESCRIBED.
--- NOTE | 2021-07-06 12:13 | NUR ---
PATIENT RETURNED FROM STEAM PLANT OPERATOR AT 1200, EYES CLOSED, AWAKENS TO VOICE BUT DOES NOT STAY AWAKE. AIRVO 55L/95% WITH SATS ABOVE 95%. CONTINUING TO HOLD PO MEDICATIONS UNTIL PATIENT FULLY AWAKE.
--- NOTE | 2021-07-06 15:05 | NUR ---
BIPAP PATIENT MORE SOB, AIRVO 55L/100% WITH SP02 88%. PATIENT REQUESTED BIPAP. RT TO ROOM AND PLACED BIPAP 16/10, FIO2 100%. SP02 ABOVE 90% AT THIS TIME. TO BEDSIDE.
--- NOTE | 2021-07-06 17:44 | NUR ---
SHIFT SUMMARY PATIENT ON AIRVO 55L/80%, FIO2 TITRATED UP TO 95% AND EVENUTALLY SWITCHING TO BIPAP IN AFTERNOON WITH SETTINGS 18/10, 90%. CURRENTLY ON AIRVO TO EAT DINNER, TOLERATING WELL. CONTINUES TO DESAT WITH NO OXYGEN AND SLOW TO RECOVER SATS. DIALYSIS COMPLETED. [facility] CATHETER DC'D AT 1400 CURRENTLY DENIES NEED TO VOID. EVENING DIURETICS GIVEN CHARTED. EDUCATION PROVIDED TO REGARDING DIETARY CHANGES. WILL CONTINUE TO MONITOR AND TREAT PRESCRIBED.
[2021-07-07 04:12] LABS: BASOPHILS ABSOLUTE AUTO 0.04 K/mm3 (0.00-0.23); BASOPHILS PERCENT AUTO 0 % (0-2); EOSINOPHILS ABSOLUTE AUTO 0.02 K/mm3 (0.00-0.68); EOSINOPHILS PERCENT AUTO 0 % (0-6); Hematocrit 37.2 % (37.0-53.0); Hemoglobin 11.4 g/dL (13.5-17.5); IMMATURE GRAN ABSOLUTE AUTO 0.34 K/mm3 (0.00-0.10); IMMATURE GRAN PERCENT AUTO 2 % (0-1); LYMPHOCYTES PERCENT AUTO 7 % (21-46); MONOCYTES ABSOLUTE AUTO 0.74 K/mm3 (0.16-1.47); MONOCYTES PERCENT AUTO 5 % (4-13); Mean Corpuscular HGB 29.6 pg (26.0-34.0); Mean Corpuscular HGB Conc 30.6 g/dL (31.5-36.5); Mean Corpuscular Volume 97 fL (80-100); Mean Platelet Volume 10.1 fL (9.1-12.4); NEUTROPHILS ABSOLUTE AUTO 12.89 K/mm3 (1.96-9.15); NEUTROPHILS PERCENT AUTO 86 % (41-73); Platelet Count 270 K/mm3 (150-400); RDW Coefficient Variation 12.3 % (11.7-14.2); RDW Standard Deviation 43.3 fL (35.1-46.3); Red Blood Cell Count 3.85 M/mm3 (4.30-5.90); White Blood Cell Count 15.03 K/mm3 (4.00-11.30)
[2021-07-07 04:39] LABS: Albumin, Blood 2.8 g/dL (3.4-5.0); Anion Gap 6 mmol/L (6-16); Blood Urea Nitrogen 61 mg/dL (8-24); Bun/Creatinine Ratio 10.3 (12.0-20.0); CO2, Blood 33 mmol/L (21-32); Calcium, Blood 7.8 mg/dL (8.5-10.1); Chloride, Blood 93 mmol/L (98-108); Creatinine, Blood 5.92 mg/dL (0.60-1.20); Glomerular Filtration Rate 10 (60-); Glucose, Blood 305 mg/dL (70-99); Phosphorus, Blood 7.7 mg/dL (2.5-4.9); Potassium, Blood 4.7 mmol/L (3.5-5.5); Sodium, Blood 132 mmol/L (136-145)
--- NOTE | 2021-07-07 06:42 | NUR ---
Assumed care of pt at 1900. A/Ox4 but very lethargic and having difficulty keeping his eyes open. At beginning of shift, pt was on bipap 16/10 and 100%, however was able to titrate to 85% and maintain over 93% on his oxygen saturation. SR on tele avg 60-70. Patient no longer has rodriguez, after 8hrs of no need to urinate a bladder scan was done (at 1999 and 0400) which showed 0ml of urine. Penis draining small amounts of purulent yellow/white fluid. Doppler tibial/pedal produce very faint pulses. Q4 neuro checks in place. Patient only took an hour break off bipap during the night requiring Airvo 55L/100% but still would desat and choose to go back on the Bipap. Patient slept most of the night, had a small period of confusion lasting 5 minutes but cleared up. Will report to dayshift RN.
--- NOTE | 2021-07-07 17:32 | NUR ---
SHIFT SUMMARY Pt is a/o x 4 and can answer questions appropriately but he continuously pulls off his oxygen. He does not like the AIRVO or the BIPAP and says that they are uncomfortable. But when education is done with him about the necessity of keeping them on for proper oxygenation he verbalizes an understanding of their importance. He appears to be frustrated with his lack of ability to do things for himself but does not like to ask for help. He needs help cutting up his food but has said with each meal that he would rather not eat because its too much hassel. For dinner his tray was set up and meat cut up but he reports that he does not like the food. Many alternatives have been offered. He went to dialysis this morning and came back and had lunch with his at the bedside. He has been anuric today and his bladder scan showed 33 ml. His colostomy is CDI. RT has been working with him and switching him back and forth between the high flow AIRVO and the full face mask BIPAP. He is generally unpleasant and the reports that he has become more unpleasant with increased illness. She visited for some time today and left for an appoitment that she had this afternoon. He is able to make his needs known and has his call light in reach and uses his light as well as calling out every few minutes.
--- NOTE | 2021-07-07 21:36 | NUR ---
Assumed care of pt at 1900. A/Ox4. On full face bipap 22/12 85% and satting above 94%. SR on tele avg 70s. Pt alternating between sleeping and watching television.
[2021-07-08 03:54] LABS: BASOPHILS ABSOLUTE AUTO 0.03 K/mm3 (0.00-0.23); BASOPHILS PERCENT AUTO 0 % (0-2); EOSINOPHILS ABSOLUTE AUTO 0.08 K/mm3 (0.00-0.68); EOSINOPHILS PERCENT AUTO 1 % (0-6); Hematocrit 34.6 % (37.0-53.0); IMMATURE GRAN ABSOLUTE AUTO 0.14 K/mm3 (0.00-0.10); IMMATURE GRAN PERCENT AUTO 1 % (0-1); LYMPHOCYTES ABSOLUTE AUTO 1.33 K/mm3 (0.84-5.20); LYMPHOCYTES PERCENT AUTO 10 % (21-46); MONOCYTES ABSOLUTE AUTO 0.84 K/mm3 (0.16-1.47); MONOCYTES PERCENT AUTO 6 % (4-13); Mean Corpuscular HGB 30.1 pg (26.0-34.0); Mean Corpuscular HGB Conc 31.8 g/dL (31.5-36.5); Mean Corpuscular Volume 95 fL (80-100); Mean Platelet Volume 10.1 fL (9.1-12.4); NEUTROPHILS ABSOLUTE AUTO 10.75 K/mm3 (1.96-9.15); NEUTROPHILS PERCENT AUTO 82 % (41-73); Platelet Count 261 K/mm3 (150-400); RDW Coefficient Variation 12.4 % (11.7-14.2); RDW Standard Deviation 43.4 fL (35.1-46.3); Red Blood Cell Count 3.66 M/mm3 (4.30-5.90); White Blood Cell Count 13.17 K/mm3 (4.00-11.30)
[2021-07-08 04:12] LABS: Albumin, Blood 2.7 g/dL (3.4-5.0); Anion Gap 6 mmol/L (6-16); Blood Urea Nitrogen 55 mg/dL (8-24); Bun/Creatinine Ratio 9.9 (12.0-20.0); CO2, Blood 33 mmol/L (21-32); Calcium, Blood 8.1 mg/dL (8.5-10.1); Chloride, Blood 96 mmol/L (98-108); Creatinine, Blood 5.53 mg/dL (0.60-1.20); Glomerular Filtration Rate 10 (60-); Glucose, Blood 242 mg/dL (70-99); Phosphorus, Blood 5.9 mg/dL (2.5-4.9); Potassium, Blood 4.2 mmol/L (3.5-5.5); Sodium, Blood 135 mmol/L (136-145)
--- NOTE | 2021-07-08 06:24 | NUR ---
A/Ox4. No reports of pain, CP/pressure. Increase in patients urinary urgency/frequency noted with sometimes twice hourly using BSC and needing to sit on the BSC for up to 15 minutes at a time. Still urinating small amounts at a time. BLE wounds covered and C/D/I, jose changed dressings today. Afib on tele in 80's at beginning of shift with 1-[address] Qureshi ordered Cardio consult which was called in to Dr. Stout by jose ENCINAS. Jose ENCINAS said than Dr. Stout said he would be by to see patient tonight, but when it got to be later in the evening he was called back and instead will see pt in morning. By end of shift, HR averaging 115-120, with peaks up to 140. Still has multiple pauses, however has decreased in length from 3 sec to 1-2 sec. Patient was able to get a few hours of uninterrupted sleep. Will report to jose ENCINAS.
--- NOTE | 2021-07-08 17:29 | NUR ---
SHIFT SUMMARY: PT CONTINUES A&Ox4, COOPERATIVE WITH CARE, PRESSES CALL BUTTON OFTEN TO MAKE NEEDS KNOWN. NO ACUTE CHANGES TO PT RESPIRATORY STATUS, PT CURRENTLY MAINTAINING O2 SATS 92-95% ON HUM HIFLO NC 55L 75%. SR CONTINUES ON MONITOR, BLE EDEMATOUS, PT TO DIALYSIS TODAY WITH 2.6L TAKEN OFF. PT VOIDS IN URINAL W/ 2ML POST VOID RESIDUAL NOTED ON BLADDER SCAN. COLOSTOMY APPLIANCE CHANGED TODAY. MEPILEX CONTINUES TO L BUTTOCK, C/D/I. PT C/O BACK PAIN AND DISCOMFORT, BUT OFTEN REFUSING REPOSITIONING. PT DOES NOT DO, OR ASSIST WITH, SELF CARE AND REPORTS THAT HIS EMPTIES AND CARES FOR HIS COLOSTOMY. AT THIS TIME, PT RESTING QUIETLY IN BED WITH CALL LIGHT WITHIN REACH. WILL CONTINUE TO MONITOR AND TREAT ACCORDINGLY UNTIL CHANGE OF SHIFT.
--- NOTE | 2021-07-08 18:34 | NUR ---
UPDATE: DR GASCA NOTIFIED OF REPEAT BLOOD GLUCOSE RESULTS, NO NEW ORDERS AT THIS TIME D/TO CURRENT ORDERS IN PLACE.
[2021-07-09 04:51] LABS: BASOPHILS ABSOLUTE AUTO 0.04 K/mm3 (0.00-0.23); BASOPHILS PERCENT AUTO 0 % (0-2); EOSINOPHILS ABSOLUTE AUTO 0.14 K/mm3 (0.00-0.68); EOSINOPHILS PERCENT AUTO 1 % (0-6); Hematocrit 38.8 % (37.0-53.0); IMMATURE GRAN ABSOLUTE AUTO 0.15 K/mm3 (0.00-0.10); IMMATURE GRAN PERCENT AUTO 1 % (0-1); LYMPHOCYTES ABSOLUTE AUTO 1.34 K/mm3 (0.84-5.20); LYMPHOCYTES PERCENT AUTO 8 % (21-46); MONOCYTES ABSOLUTE AUTO 1.03 K/mm3 (0.16-1.47); MONOCYTES PERCENT AUTO 6 % (4-13); Mean Corpuscular HGB Conc 30.9 g/dL (31.5-36.5); Mean Corpuscular Volume 94 fL (80-100); NEUTROPHILS ABSOLUTE AUTO 14.95 K/mm3 (1.96-9.15); NEUTROPHILS PERCENT AUTO 85 % (41-73); Platelet Count 283 K/mm3 (150-400); RDW Coefficient Variation 12.3 % (11.7-14.2); RDW Standard Deviation 42.9 fL (35.1-46.3); Red Blood Cell Count 4.14 M/mm3 (4.30-5.90); White Blood Cell Count 17.65 K/mm3 (4.00-11.30)
[2021-07-09 05:22] LABS: Albumin, Blood 2.9 g/dL (3.4-5.0); Anion Gap 9 mmol/L (6-16); Blood Urea Nitrogen 81 mg/dL (8-24); Bun/Creatinine Ratio 11.2 (12.0-20.0); CO2, Blood 31 mmol/L (21-32); Calcium, Blood 8.3 mg/dL (8.5-10.1); Chloride, Blood 91 mmol/L (98-108); Creatinine, Blood 7.25 mg/dL (0.60-1.20); Glomerular Filtration Rate 8 (60-); Glucose, Blood 246 mg/dL (70-99); Potassium, Blood 4.7 mmol/L (3.5-5.5); Sodium, Blood 131 mmol/L (136-145)
[2021-07-09 05:37] LABS: Phosphorus, Blood 8.8 mg/dL (2.5-4.9)
--- NOTE | 2021-07-09 05:51 | NUR ---
SHIFT SUMMARY PATIENT ALERT AND ORIENTED x3-4. ABLE TO MAKE NEEDS KNOWN TO STAFF, USES CALL LIGHT APPROPRIATELY. VSS. PATIENT ON AIRVO 55L 85% WITH O2 SAT >90%. TELE READING SINUS RHYTHM 70s. PATIENT DENIES CHEST PAIN. PATIENT HAD DIALYSIS YESTERDAY ON DAY SHIFT, 97mls TOTAL IN BLADDER VIA BLADDER SCANNER. PATIENT IS COOPERATIVE WITH CARE BUT DOES NOT WANT TO PARTICIPATE IN HIS OWN PERSONAL CARE. PATIENT ALSO RELUCTANT TO REPOSITIONING, PATIENT EDUCATED ON PREVENTING FURTHER SKIN BREAK DOWN ON HIS BUTTOCKS. PATIENT DECLINES MOST OFFERS TO REPOSITION. NO OTHER SIGNIFICANT CHANGES, WILL REPORT TO DAY SHIFT RN.
--- NOTE | 2021-07-09 09:56 | NUR ---
DIALYSIS STOPPED DUE TO PT HYPOTENSION. DR ALMANZAR CALLED AND UPDATED. HE ASKED US TO STOP TX AND TRY AGAIN 07/10/21. JAYSON
--- NOTE | 2021-07-09 18:40 | NUR ---
SHIFT SUMMARY: PT MORE LETHARGIC TODAY, STATES "I'M MORE TIRED", CONTINUES ORIENTED AND ANSWERING QUESTIONS APPROPRIATELY. PT CONTINUES BIPAP/AIRVO, CURRENTLY AIRVO 55L 90%, O2 SATS >90%. SR ON MONITOR. PT TO DIALYSIS TODAY, DID NOT TOLERATE WELL, BECAME HYPOTENSIVE AND DIZZY, DIALYSIS STOPPED EARLY W/489ML OFF. PT SLEEPS MOST OF DAY UPON RETURNING TO ROOM. PT VOIDS ONE TIME THIS SHIFT W/MINIMAL POST VOID RESIDUAL. PT REQUESTING LUNCH AND DINNER TRAYS TO BE GIVEN TO HIM A LITTLE LATER, DINNER TRAY HELD IN PANTRY AT THIS TIME, MEDS HELD FOR ADMINISTRATION WITH DINNER. PT CURRENTLY RESTING IN BED W/EYES CLOSED. WILL CONTINUE TO MONITOR AND TREAT ACCORDINGLY UNTIL CHANGE OF SHIFT.
[2021-07-10 05:10] LABS: BASOPHILS ABSOLUTE AUTO 0.03 K/mm3 (0.00-0.23); BASOPHILS PERCENT AUTO 0 % (0-2); EOSINOPHILS ABSOLUTE AUTO 0.03 K/mm3 (0.00-0.68); EOSINOPHILS PERCENT AUTO 0 % (0-6); Hematocrit 38.3 % (37.0-53.0); Hemoglobin 11.9 g/dL (13.5-17.5); IMMATURE GRAN ABSOLUTE AUTO 0.21 K/mm3 (0.00-0.10); IMMATURE GRAN PERCENT AUTO 1 % (0-1); LYMPHOCYTES ABSOLUTE AUTO 0.78 K/mm3 (0.84-5.20); LYMPHOCYTES PERCENT AUTO 4 % (21-46); MONOCYTES ABSOLUTE AUTO 0.59 K/mm3 (0.16-1.47); MONOCYTES PERCENT AUTO 3 % (4-13); Mean Corpuscular HGB 29.6 pg (26.0-34.0); Mean Corpuscular HGB Conc 31.1 g/dL (31.5-36.5); Mean Corpuscular Volume 95 fL (80-100); Mean Platelet Volume 10.3 fL (9.1-12.4); NEUTROPHILS ABSOLUTE AUTO 16.57 K/mm3 (1.96-9.15); NEUTROPHILS PERCENT AUTO 91 % (41-73); Platelet Count 279 K/mm3 (150-400); RDW Coefficient Variation 12.3 % (11.7-14.2); RDW Standard Deviation 43.2 fL (35.1-46.3); Red Blood Cell Count 4.02 M/mm3 (4.30-5.90); White Blood Cell Count 18.21 K/mm3 (4.00-11.30)
[2021-07-10 05:46] LABS: Albumin, Blood 2.8 g/dL (3.4-5.0); Anion Gap 10 mmol/L (6-16); Blood Urea Nitrogen 88 mg/dL (8-24); Bun/Creatinine Ratio 11.6 (12.0-20.0); CO2, Blood 30 mmol/L (21-32); Calcium, Blood 8.4 mg/dL (8.5-10.1); Chloride, Blood 93 mmol/L (98-108); Creatinine, Blood 7.56 mg/dL (0.60-1.20); Glomerular Filtration Rate 7 (60-); Glucose, Blood 252 mg/dL (70-99); Potassium, Blood 5.8 mmol/L (3.5-5.5); Sodium, Blood 133 mmol/L (136-145)
[2021-07-10 06:14] LABS: Phosphorus, Blood 10.4 mg/dL (2.5-4.9)
--- NOTE | 2021-07-10 06:20 | NUR ---
SHIFT SUMMARY PATIENT ALERT AND ORIENTED x3-4, ABLE TO MAKE NEEDS KNOWN TO STAFF. PATIENT REPORTS THAT HE WAS MORE TIRED DURING DAY SHIFT FROM DIALYSIS. VSS. PATIENT WAS ON AIRVO 55L 90% FOR MAJORITY OF NIGHT WITH SATURATIONS 88-90%, PATIENT SWITCHED OVER TO BIPAP 18/8 95% AND IS MAINTAINING O2 SAT MID 90s. TELE READING SINUS RHYTHM 70s. PATIENT ALLOWING STAFF TO REPOSITION HIM MORE FREQUENTLY THIS SHIFT BUT STILL DOES NOT WANT TO PARTICIPATE IN HIS PERSONAL CARE. OSTOMY IN PLACE WITH MINIMAL DARK BROWN OUTPUT. NO OTHER SIGNIFICANT CHANGES THIS SHIFT. WILL REPORT TO DAY SHIFT RN.
--- NOTE | 2021-07-10 16:07 | NUR ---
Spiritual care visit conducted. Patient is lying in bed and alert. Pt's spouse, Ariela is bedside. They discuss pt's medical problems and the plan moving forward. They talk about his passion for [facility] [employer] [facility], their trust in God and their strong friend support system. Ariela is tearful at times during the visit as they talk about the seriousness of the medical issues and about the pt's value and worth and God's love for them both. I normalize their fears and experience, listen empathically and provide companionship, emotional support, gentle counseling center manager and prayer. They both respond well and show signs of being encouraged in their stanley and of having greater peace. I will continue to remain available to patient and family.
--- NOTE | 2021-07-10 16:43 | NUR ---
SHIFT SUMMARY Pt is a/o x 3. He does become aggitated and frustrated if he does not have an immediate response to pressing his call light. He can answer orientation questions but then mid conversation with talk about something nonsensical. He continues to pull the BIPAP mask off and reports that he does not like the mask and it makes his mouth dry. Oral care has been done with drinks of water and he is now on a mask break on the AIRVO. When he takes off his oxygen he desaturates quickly. Education has been done with him throughout the day about the importance of the o2 and he verbalizes an understanding. Him and his met with palliative care today and then Dr Hernandez. The pt reports that he still wants "whatever he needs to get better". During dialysis he asked to stop early reporting that he did not feel well but when asked what specifially did not feel good he could not report anything specific. He declined lunch and thus his insulin and renvela were held as he said he was too tired to eat after dialysis and wanted to sleep. Dr and charge nurse were notified of this. This afternoon after skipping lunch he was hungry and so he was given a sandwich and snacks out of the pantry for an early dinner and he is now reporting that he is full. He reports being uncomfortable in the bed and can move his extremities when asked to do so but declines to reposition himself and more times than not he does not want help being repositioned. He does have an egg crate on his mattress now. He is resting in bed watching TV. His has left for the day. He has his call light in reach and will use it but prefers to call out when he needs something. Dr Hernandez has ordered a CT with contrast for tomorrow and the ui developer was notified and said they will schedule his dialysis accordingly.
[2021-07-11 04:43] LABS: BASOPHILS ABSOLUTE AUTO 0.04 K/mm3 (0.00-0.23); BASOPHILS PERCENT AUTO 0 % (0-2); EOSINOPHILS ABSOLUTE AUTO 0.31 K/mm3 (0.00-0.68); EOSINOPHILS PERCENT AUTO 2 % (0-6); Hematocrit 35.3 % (37.0-53.0); Hemoglobin 11.1 g/dL (13.5-17.5); IMMATURE GRAN ABSOLUTE AUTO 0.12 K/mm3 (0.00-0.10); IMMATURE GRAN PERCENT AUTO 1 % (0-1); LYMPHOCYTES ABSOLUTE AUTO 1.57 K/mm3 (0.84-5.20); LYMPHOCYTES PERCENT AUTO 9 % (21-46); MONOCYTES ABSOLUTE AUTO 0.94 K/mm3 (0.16-1.47); MONOCYTES PERCENT AUTO 6 % (4-13); Mean Corpuscular HGB 29.4 pg (26.0-34.0); Mean Corpuscular HGB Conc 31.4 g/dL (31.5-36.5); Mean Corpuscular Volume 93 fL (80-100); Mean Platelet Volume 10.4 fL (9.1-12.4); NEUTROPHILS ABSOLUTE AUTO 13.82 K/mm3 (1.96-9.15); NEUTROPHILS PERCENT AUTO 82 % (41-73); Platelet Count 291 K/mm3 (150-400); RDW Coefficient Variation 12.5 % (11.7-14.2); RDW Standard Deviation 43.1 fL (35.1-46.3); Red Blood Cell Count 3.78 M/mm3 (4.30-5.90)
[2021-07-11 05:00] LABS: Albumin, Blood 2.7 g/dL (3.4-5.0); Anion Gap 11 mmol/L (6-16); Blood Urea Nitrogen 79 mg/dL (8-24); Bun/Creatinine Ratio 12.6 (12.0-20.0); CO2, Blood 29 mmol/L (21-32); Chloride, Blood 92 mmol/L (98-108); Creatinine, Blood 6.27 mg/dL (0.60-1.20); Glomerular Filtration Rate 9 (60-); Glucose, Blood 207 mg/dL (70-99); Phosphorus, Blood 7.6 mg/dL (2.5-4.9); Potassium, Blood 4.2 mmol/L (3.5-5.5); Sodium, Blood 132 mmol/L (136-145)
--- NOTE | 2021-07-11 05:30 | NUR ---
SHIFT SUMMARY Assumed care of pt at 1900. A/Ox4. Patient has been on Airvo all night 55L and 90%, and maintains avg 94% on his oxygen saturation. SR on tele avg 60-70. Pt unable to void this shift. No acute changes this shift. Will report to dayshift RN.
--- NOTE | 2021-07-11 16:47 | NUR ---
Case Conference Met with the patient's yesterday in ICU wating room, and again today at pt's bedside. She was very tearful yesterday, and expressed concen that the pt's condition is worsening overal. She remininces about memories in their younger years. She also talks about the changes in her role over the years, becoming more of a caregiver than a "". She states it has been a grieving process for her, and is still ongoing. Ariela, pt's also met with Dr. Ovalles yesterday, but no new decisions were made at that time. New orders for CT scan and labs yesterday. Pt's Ariela came today for a short visit, and left soon after as pt was sleeping with cpap in place, and she does't want to wake him up. Plan to see pt and again tomorrow.
[2021-07-11 16:50] LABS: PCO2 Arterial 67.8 mmHg (35-45)
[2021-07-11 16:51] LABS: pH Blood Arterial 7.21 (7.35-7.45)
--- NOTE | 2021-07-11 17:19 | NUR ---
SHIFT SUMMARY Pt WAS A/O x 2-3 this morning. He started the day on the AIRVO and ate a small amount of his breakfast. We went down for the CT and he had a hard time staying still during the procedure but we got it done and got him back to his room. His sats were hovering in the mid 80's and RT has been in the room throughout the day but the pt declined going back on the BIPAP and said he needed a break from the mask. He did not have dialysis today and when the quality control manager came by he said that he was giving him a break from dialysis today and would resume tomorrow. He continues to be anuric. He did not want lunch so I made him a snack plate but he hardly ate any. After lunch he went back on the BIPAP and has been sleeping ever since. He opened his eyes when Dr Hernandez came to see him and said his name but went right back to sleep. His came by this afternoon but he did not wake during her visit. She brought some of his favorite foods from home in hopes that he would want to eat more but he has yet to wake up enough to eat and this was discussed with Dr Hernandez and his evening meds were held due to him sleeping. Dr Christy was notified of the pt's current status and a thoracentesis was scheduled for tomorrow morning. The has since gone home and she has been called and updated. He is on the BIPAP per RT settings and his sats are @ 96%. He is in NSR @ 67. He continues on remote monitoring and has his call light and personal items in reach.
[2021-07-11 18:42] LABS: International Normalized Ratio 0.98; Prothrombin Time Results 10.3 Sec (9.7-11.5)
[2021-07-11 19:14] LABS: Automated BF RBC Count 0.016 M/mm3 (0-0); Automated BF WBC Count 0.437 K/mm3 (0-999); Body Fluid WBC Count 437 /mm3 (0-999); RBC Count, Body Fluid 16000 /mm3 (0-0)
[2021-07-11 19:17] LABS: Albumin, Body Fluid 2.2 g/dL; Glucose, Body Fluid 239 mg/dL; Lactate Dehydrogenase, Body Fl 120 U/L; Protein, Body Fluid 4.2 g/dL
[2021-07-11 20:14] LABS: Total Cell Count, Body Fluid 100
[2021-07-11 20:15] LABS: Appearance, Body Fluid Cloudy (Clear)
[2021-07-12 04:14] LABS: BASOPHILS ABSOLUTE AUTO 0.03 K/mm3 (0.00-0.23); BASOPHILS PERCENT AUTO 0 % (0-2); EOSINOPHILS ABSOLUTE AUTO 0.19 K/mm3 (0.00-0.68); EOSINOPHILS PERCENT AUTO 1 % (0-6); Hematocrit 34.2 % (37.0-53.0); Hemoglobin 11.1 g/dL (13.5-17.5); IMMATURE GRAN ABSOLUTE AUTO 0.13 K/mm3 (0.00-0.10); IMMATURE GRAN PERCENT AUTO 1 % (0-1); LYMPHOCYTES PERCENT AUTO 6 % (21-46); MONOCYTES ABSOLUTE AUTO 1.04 K/mm3 (0.16-1.47); MONOCYTES PERCENT AUTO 6 % (4-13); Mean Corpuscular HGB Conc 32.5 g/dL (31.5-36.5); Mean Corpuscular Volume 92 fL (80-100); Mean Platelet Volume 10.3 fL (9.1-12.4); NEUTROPHILS ABSOLUTE AUTO 15.43 K/mm3 (1.96-9.15); NEUTROPHILS PERCENT AUTO 87 % (41-73); Platelet Count 280 K/mm3 (150-400); RDW Coefficient Variation 12.4 % (11.7-14.2); RDW Standard Deviation 42.4 fL (35.1-46.3); White Blood Cell Count 17.82 K/mm3 (4.00-11.30)
[2021-07-12 05:00] LABS: Albumin, Blood 2.6 g/dL (3.4-5.0); Anion Gap 13 mmol/L (6-16); Blood Urea Nitrogen 103 mg/dL (8-24); Bun/Creatinine Ratio 12.9 (12.0-20.0); CO2, Blood 27 mmol/L (21-32); Calcium, Blood 7.9 mg/dL (8.5-10.1); Chloride, Blood 89 mmol/L (98-108); Creatinine, Blood 7.98 mg/dL (0.60-1.20); Glomerular Filtration Rate 7 (60-); Glucose, Blood 220 mg/dL (70-99); Magnesium, Blood 2.7 mg/dL (1.6-2.4); Potassium, Blood 5.1 mmol/L (3.5-5.5); Sodium, Blood 129 mmol/L (136-145)
[2021-07-12 05:04] LABS: Phosphorus, Blood 10.3 mg/dL (2.5-4.9)
--- NOTE | 2021-07-12 06:27 | NUR ---
SHIFT SUMMARY Assumed care of pt at 1900. SHARI A/O status as patient is very lethargic. Unable to keep his eyes open for more than a few seconds at a time. Pt did report that he felt "very sleepy". To note, patient was awake night before most of the night. On bipap 18/8 and 90%, maintaining 97% O2 sats. SR on tele avg 60-70. Large amount of stool cleared from colostomy pouch, formed and brown. Pt voided 175ml of urine this shift into urinal, dark bradford and odorous. Post void residual was 23mL. Critical Phosphorus of 10.3, patient is being followed by nephrology. Rub auscultated in R upper lobe, notified. Expecting another thoracentesis today. Will report to jose ENCINAS.
--- NOTE | 2021-07-12 12:23 | NUR ---
ASSUMED CARE OF PT AT 0700. PER RADILOGY, PT WILL NEED TO BE OFF OF PLAVIX AND ASA FOR 5 DAYS PRIOR TO US GUIDED THORACENTESIS. DR MORIN NOTIFIED, SHE STATES SHE WILL CONSULT W DR MUSA. OK TO GIVE PLAVIX AND ASA TODAY.
--- NOTE | 2021-07-12 15:16 | NUR ---
Spiritual Care Visit. Referred by Palliative Care. Pt. is alone sitting up in bed and welcomes my visit. Pt. had just been seen by Dr. Nolan. Pt. is unsettled by my presence. Attempt to establish rapport, and informed pt. that the optical effects line up person he had seen would not be in till Thursday. Pt. displayed evidence of being guarded and verbally declined further spiritual care.
--- NOTE | 2021-07-12 18:40 | NUR ---
PT IN DIALYSIS FROM APROX 0900 TO 1300, TOLERATED WELL. PT TAKEN OFF BIPAP AFTER RETURNING TO HIS ROOM AND PLACED ON HEATED HIFLO @ 80% WITH SATS MAINTAINING >95%. PT DID EAT LUNCH AND SOME DINNER TODAY. DR MUSA AND DR MORIN AT BEDSIDE TO DISCUSS PLAN OF CARE WITH THE PT, ALONG WITH DR MUSA CALLING THE PT'S TO DISCUSS. PT HAS HAD NO COMPLAINTS T/O THE DAY. NO ACUTE EVENTS. CALL LIGHT IN REACH, WILL CONTINUE TO MONITOR AND GIVE REPORT TO ONCOMING SHIFT RN.
[2021-07-13 05:02] LABS: BASOPHILS ABSOLUTE AUTO 0.02 K/mm3 (0.00-0.23); BASOPHILS PERCENT AUTO 0 % (0-2); EOSINOPHILS ABSOLUTE AUTO 0.19 K/mm3 (0.00-0.68); EOSINOPHILS PERCENT AUTO 2 % (0-6); Hematocrit 31.6 % (37.0-53.0); Hemoglobin 9.9 g/dL (13.5-17.5); IMMATURE GRAN ABSOLUTE AUTO 0.07 K/mm3 (0.00-0.10); IMMATURE GRAN PERCENT AUTO 1 % (0-1); LYMPHOCYTES ABSOLUTE AUTO 1.13 K/mm3 (0.84-5.20); LYMPHOCYTES PERCENT AUTO 9 % (21-46); MONOCYTES PERCENT AUTO 8 % (4-13); Mean Corpuscular HGB 29.6 pg (26.0-34.0); Mean Corpuscular HGB Conc 31.3 g/dL (31.5-36.5); Mean Corpuscular Volume 95 fL (80-100); Mean Platelet Volume 10.1 fL (9.1-12.4); NEUTROPHILS PERCENT AUTO 80 % (41-73); Platelet Count 244 K/mm3 (150-400); RDW Coefficient Variation 12.6 % (11.7-14.2); RDW Standard Deviation 43.8 fL (35.1-46.3); Red Blood Cell Count 3.34 M/mm3 (4.30-5.90); White Blood Cell Count 12.31 K/mm3 (4.00-11.30)
[2021-07-13 05:15] LABS: Albumin, Blood 2.3 g/dL (3.4-5.0); Anion Gap 8 mmol/L (6-16); Blood Urea Nitrogen 56 mg/dL (8-24); Bun/Creatinine Ratio 10.8 (12.0-20.0); CO2, Blood 30 mmol/L (21-32); Calcium, Blood 7.1 mg/dL (8.5-10.1); Chloride, Blood 100 mmol/L (98-108); Creatinine, Blood 5.19 mg/dL (0.60-1.20); Glomerular Filtration Rate 11 (60-); Glucose, Blood 228 mg/dL (70-99); Potassium, Blood 3.8 mmol/L (3.5-5.5); Sodium, Blood 138 mmol/L (136-145)
[2021-07-13 05:48] LABS: Phosphorus, Blood 6.1 mg/dL (2.5-4.9)
--- NOTE | 2021-07-13 06:06 | NUR ---
End of shift summary Overall uneventful night, Pt does desat into the 70s with any movement, but recovers slowly Pt with flat effect, appears depressed and does not want to engage in conversation. He has been on BiPaP all shifty (80%, 18/8 sats ranging 90-95%). RT attempted to wean O2 but pt not tolerating, especially with turns/ activity, it would benefit addressing code status with family, as he is a full code, palliative consulted, will continue to monitor. Eron Wall RN
--- NOTE | 2021-07-13 13:00 | NUR ---
I was contacted this am with request from pt's to meet with her and pt's JIHAN Ramirez this afternoon when they arrived from [facility] and to also meet with pt after family meeting to assess pt's understanding of his current medical condition and start goals of care conversation with him. I met with family for approx 45 minutes to answer questions on levels of care, interventions available, update on current status and concerns per EMR and conversation [facility] pt's bedside RN. Family requested that I discuss code status and options of less agressive care with pt. They state that his quality of life has been very poor for more than a year now, with one catastrophic health event after another with frequent hospitalizations or procedures performed. Currently pt is ESRD and HD dependent, experiencing resp failure w/hypoxia, cardiac s/s. He has a colostomy due to ruptured diverticula last year, is morbidly obese with DM, severe PVD, GERD, PE and mayi pleural effusions, NSTEMI, and anemia. states that golf was what he lived for and he has been unable to do that since a back surgery more than a year ago. Pt is currently a full code. After family meeting, brother, and I went to pt's room. Pt is alert and oriented today and seems able to process and in simple terms tell me what he understands from his drs re: need for residential dialysis and his respiratory conditions. He appears anxious at times and with somewhat flat affect. reports chronic depression, worsened in recent years by illness and sequelae of noncompliance with DM and cardiac care. I spent 20 minutes with pt and family discussing Code status, goals of care, options for care and gently assisting in making sure pt understood she can no longer manage his care at home. She does not have any other local family members or respite care. We discussed his wishes and at this time he wants to remain a full code and continue agressive treatment. I believe he understands the seriousness of his multiple comorbidities but is not fully accepting of that or realistic in his LT care planning. states he has always been stubborn and unrealistic, while noncompliant with his health care needs. During s/s assessment pt's chief c/o is anxiety and dyspnea. He denies CP today or bodily pain, nausea, DODGE, sorethroat or mouth soreness. When I sensed pt's growing anxiety with difficult conversation I transitioned to s/s and whether he would like us to try to treat his anxiety. Pt stated he would gladly try and would like something for anxiety. I left to report to on my visit and left family and pt to have some private time and conversation. Brother is supportive of both pt and and trying to assist them with decision making/support. Report called and requested prn medication for anxiety, which entered new orders for. Report on my visit provided to pt's RN. Later I called to f/u and discuss residential care options in light of pt's desire to cont with agressive tx. She again stated that she cannot care for pt at home. Pt is a . Options in community discussed as no care management available today. Order entered for 7th grade social studies teacher consult with request for assist with placement, funding, transportation, dialysis chair for OP tx. Also discussed Pt's stanley and spirituality with offer of Pastoral care visit to address pt's anxiety and fears of EOL issues. states even with all of his severe illness and episodes/crisis that he declines conversation about his wishes in regard to EOL or afterlife. Consult for spiritual care requested to visit 1:1 with pt when no other visitors present per 's request. will f/u tomorrow on s/s and support.
--- NOTE | 2021-07-13 18:05 | NUR ---
NO ACUTE EVENTS T/O SHIFT. FAMILY AND PT MET WITH PALLIATIVE CARE, SEE NOTES FOR DETAILS. PT ON AND OFF HIFLO/BIPAP NEEDED. NO HD TODAY. DR KING AT BEDSIDE TO EVALUATE PT, NO NEW ORDERS. SEE DOCUMENTED VS. PT'S APPETITE HAS IMPROVED TODAY. WILL CONTINUE TO MONITOR AND GIVE REPORT TO NOC SHIFT RN, CALL LIGHT IN REACH.
--- NOTE | 2021-07-14 05:25 | NUR ---
Overnight without issues, BiPaP in place for majority of noc shift, O2 demand is the same as previous night, he is also still desatting with every Q2 Turn/ dropping HOB lower than 30 degrees, ativan po somewhat beneficial for sleep Will continue to monitor HUANG Littlejohn
[2021-07-14 07:17] LABS: Hematocrit 32.6 % (37.0-53.0); Hemoglobin 10.2 g/dL (13.5-17.5)
[2021-07-14 07:36] LABS: Albumin, Blood 2.4 g/dL (3.4-5.0); Anion Gap 12 mmol/L (6-16); Blood Urea Nitrogen 80 mg/dL (8-24); Bun/Creatinine Ratio 10.8 (12.0-20.0); CO2, Blood 28 mmol/L (21-32); Calcium, Blood 7.9 mg/dL (8.5-10.1); Chloride, Blood 90 mmol/L (98-108); Creatinine, Blood 7.41 mg/dL (0.60-1.20); Glomerular Filtration Rate 7 (60-); Glucose, Blood 250 mg/dL (70-99); Potassium, Blood 4.5 mmol/L (3.5-5.5); Sodium, Blood 130 mmol/L (136-145)
[2021-07-14 07:40] LABS: Phosphorus, Blood 8.9 mg/dL (2.5-4.9)
--- NOTE | 2021-07-14 16:35 | NUR ---
ASSUMED CARE OF PT AT 0700. PT TO DIALYSIS VIA BED FROM APROX 0930 TO 1315. PT'S AND FAMILY MEMBERS AT BEDSIDE UNTIL APROX 1500. PT 02 SATURATION NOTED TO BE DROPPING INTO THE 70s WITH PT ON HEATED HIFLO 02. PT PLACED ON BIPAP WITH O2 SATURATIONS REMAINING IN THE 60-70s. RT PAGED TO ROOM. DR CASTELLANOS/DR KING NOTIFIED, NEW ORDERS RECEIVED AND CARRIED OUT. LABS DRAWN, XRAY TAKEN, EKG DONE. DR KING TO BEDSIDE TO EVALUATE, PT WILL BE TRANSFERRED TO ICU. DR KING STATES THAT SHE SUSPECTS A MUCUS PLUG MAY BE CAUSING RESIRATORY DISTRESS AND ORDERS CPT AND NT SUCTIONING. RT CARRYING OUT ORDERS. PT'S NERISSA CALLED BY THIS RN AND UPDATED ON PT'S CONDITION AND TRANSFER TO ICU. PT TRANSFERRED TO ICU15 WITH ALL BELONGINGS.
--- NOTE | 2021-07-14 16:52 | NUR ---
TRANSFER PT ARRIVED TO ICU 15, AWAKE, ON BIPAP 20/10, FIO2 100%, BUT RT WAS ABLE TO QUICKLY TITRATE FIO2 DOWN TO 80%. PT'S CHART SHOWS SORE ON HIS BUTTOCKS WHEN HE WAS ADMITTED AND UPON ARRIVAL TO ICU THAT WOUND APPEARS TO HAVE HEALED, NEW PICTURE TAKEN AND NEW DRESSING PLACED ON BOTTOM TO CONTINUE TO PROTECT SKIN. PT ORIENTED TO ROOM, CALL LIGHT WITHIN REACH, UPDATED ON PLAN FOR THE EVENING. CONTINUE TO MONITOR.
--- NOTE | 2021-07-14 18:24 | NUR ---
Call received from earlier, who had received update from RN that pt was being transferred to ICU. wanted to review pt's AD over the phone with me and discuss current status. I received an update from Dr Tam & passed on to Ariela. I reassure her that Nikolay had improved once plug removed from R bronchus, CPT and suction helping with resp status. Reassurance given that she will be called with any new developments or need for additional interventions. Pt's advanced directive names as proxy decision maker and he initialed "as my provider recommends" for most decision making. to bring us a copy when able. anxious to speak with Tobacco Wrapping Machine Tender re: d/c options outside of home. She verbalized understanding that until pt is stable no d/c timeframe known but she wants to start formulating a plan and have help [facility]. Will review with CM in am.
--- NOTE | 2021-07-14 19:24 | NUR ---
ASSUMED CARE OF PT, HE APPEARS TO BE SLEEPING AT THIS TIME, RESP EVEN AND REGULAR, BIPAP IN USE 20/10 FIO2 WAS 70% ON ARRIVAL TO ROOM, SATS 97-98% AND FIO2 TITRATED DOWN TO 65%. VITALS REVIEWED. ORDERS REVIEWED. WILL FURTHER ASSESS WITH HS MEDS AND PO CARE AT 1999.
[2021-07-15 04:25] LABS: BASOPHILS ABSOLUTE AUTO 0.03 K/mm3 (0.00-0.23); BASOPHILS PERCENT AUTO 0 % (0-2); EOSINOPHILS ABSOLUTE AUTO 0.23 K/mm3 (0.00-0.68); EOSINOPHILS PERCENT AUTO 2 % (0-6); Hematocrit 29.7 % (37.0-53.0); Hemoglobin 9.3 g/dL (13.5-17.5); IMMATURE GRAN ABSOLUTE AUTO 0.06 K/mm3 (0.00-0.10); IMMATURE GRAN PERCENT AUTO 0 % (0-1); LYMPHOCYTES ABSOLUTE AUTO 1.26 K/mm3 (0.84-5.20); LYMPHOCYTES PERCENT AUTO 9 % (21-46); MONOCYTES ABSOLUTE AUTO 1.09 K/mm3 (0.16-1.47); MONOCYTES PERCENT AUTO 8 % (4-13); Mean Corpuscular HGB 29.7 pg (26.0-34.0); Mean Corpuscular HGB Conc 31.3 g/dL (31.5-36.5); Mean Corpuscular Volume 95 fL (80-100); Mean Platelet Volume 10.2 fL (9.1-12.4); NEUTROPHILS PERCENT AUTO 82 % (41-73); Platelet Count 278 K/mm3 (150-400); RDW Coefficient Variation 12.7 % (11.7-14.2); RDW Standard Deviation 44.1 fL (35.1-46.3); Red Blood Cell Count 3.13 M/mm3 (4.30-5.90); White Blood Cell Count 14.47 K/mm3 (4.00-11.30)
[2021-07-15 04:41] LABS: Albumin, Blood 2.2 g/dL (3.4-5.0); Anion Gap 8 mmol/L (6-16); Blood Urea Nitrogen 50 mg/dL (8-24); Bun/Creatinine Ratio 10.2 (12.0-20.0); CO2, Blood 32 mmol/L (21-32); Calcium, Blood 8.1 mg/dL (8.5-10.1); Chloride, Blood 97 mmol/L (98-108); Creatinine, Blood 4.88 mg/dL (0.60-1.20); Glomerular Filtration Rate 12 (60-); Glucose, Blood 143 mg/dL (70-99); Magnesium, Blood 2.2 mg/dL (1.6-2.4); Sodium, Blood 137 mmol/L (136-145)
[2021-07-15 04:55] LABS: Phosphorus, Blood 4.9 mg/dL (2.5-4.9)
--- NOTE | 2021-07-15 06:06 | NUR ---
PT RESTS QUIETLY THROUGHOUT NOC, HE HAS REMOVED BIPAP MASK VERY FEW TIMES THIS SHIFT, IMPORTANCE OF BIPAP THERAPY IS DISCUSSED WITH PATIENT WELL RISK OF WITH NONCOMPLIANCE. PT VERBALIZES UNDERSTANDING AND ALLOWS MASK REPLACED WITH EACH REMOVAL. AIR MOVEMENT HAS IMPROVED TO RIGHT LUNG HOWEVER REMAINS DIMINISHED THROUGHOUT, FIO2 HAS BEEN ABLE TO BE TITRATED DOWN FROM 70 TO 55% WITH PT SATS CURRENTLY UPPER 90S. PRESSURES HAVE MAINTAINED THIS SHIFT, CONTINUES IN SINUS RHYTHM. NO VOID THIS SHIFT. TOLERATES TURNS EVERY 2 HOURS.
--- NOTE | 2021-07-15 09:15 | NUR ---
PATIENT DONE EATING BREAKFAST, DESATS TO 86%, BACK ON BIPAP
--- NOTE | 2021-07-15 09:45 | NUR ---
PT IN WORKING WITH PATIENT NOW, BED EXERCISES ONLY
--- NOTE | 2021-07-15 13:02 | NUR ---
Patient is lying in bed and alert. Patient welcomes me but answers in short sentences. We talk about how he is looking forward to football season in the fall. Pt seems frustrated when deeper topics such as his hopes for the future, preferred level of care and his medical wishes. I back out of those topics a return to conversations centered around the [facility] and provide prayer and pt clearly relaxes and shows signs of increased peace. I will continue to remain available to patient and family.
--- NOTE | 2021-07-15 14:48 | NUR ---
PATIENT HAVING DIALYSIS IN ROOM NOW, KEIRA PATIENTS VISITED EARLIER TODAY, COLOSTMY APPLIANCE CHANGED DUE TO A LEAK OF STOOL IN THE OTHER ONE
--- NOTE | 2021-07-15 18:22 | NUR ---
ALERT AND ORIENTED, SLOW TO RESPOND, WITHDRAWN. WORKED WITH PT TODAY, OT DIDNT SEE HIM DUE TO HAVING DIALYSIS. LS COARSE, WEAK COUGH, CLEARS CONGESTION, BIPAP AND HIFLOW THROUGH THE DAY, PATIENT HAS TOLERATED BOTH. HYPO TENSION, MURMUR, DENIES CP. TWO HARD FORMED STOOL FROM HIS OSTOMY, APPLIANCE REPLACED DUE TO LEAKAGE, STARTED STOOL SOFTENERS. BS 301 COVERED AND PATIENT ATE DINNER, GOOD APPETITE, WILL RELAY TO PM RN, ARMA
--- NOTE | 2021-07-15 19:15 | NUR ---
ASSUMED CARE OF PT, BEDSIDE REPORT RECEIVED. PT IS RECLINING IN BED AND WATCHING TV, NO VISIBLE INCREASED WORK OF BREATHING IS NOTED WHILE AT REST, SATS ARE NOTED LOW TO MID 90S WITH HEATED HUMIDIFIED HIGH FLOW OXYGEN AT 50 L/MIN AND FIO2 60%. PRESSURES MAINTAINING MAP GREATER THAN 65, CONTINUES IN SINUS RHYTHM ON MONITOR, RATE LOW 80S AT THIS TIME. OSTOMY APPLIANCE AND STOOL OUTPUT REVIEWED WITH OFFGOING RN. PT DENIES NEEDS AT THIS TIME. WILL PLAN FOR CONTINUATION OF EVERY 2 HOUR TURNS, BIPAP USE WITH SLEEP TONIGHT, PT EXPRESSES DESIRE TO USE REGULAR BIPAP MASK INSTEAD OF FULL FACE MASK TONIGHT.
[2021-07-16 04:25] LABS: BASOPHILS ABSOLUTE AUTO 0.03 K/mm3 (0.00-0.23); BASOPHILS PERCENT AUTO 0 % (0-2); EOSINOPHILS PERCENT AUTO 4 % (0-6); Hematocrit 31.2 % (37.0-53.0); Hemoglobin 9.8 g/dL (13.5-17.5); IMMATURE GRAN ABSOLUTE AUTO 0.05 K/mm3 (0.00-0.10); IMMATURE GRAN PERCENT AUTO 0 % (0-1); LYMPHOCYTES ABSOLUTE AUTO 1.29 K/mm3 (0.84-5.20); LYMPHOCYTES PERCENT AUTO 10 % (21-46); MONOCYTES ABSOLUTE AUTO 1.01 K/mm3 (0.16-1.47); MONOCYTES PERCENT AUTO 8 % (4-13); Mean Corpuscular HGB 29.5 pg (26.0-34.0); Mean Corpuscular HGB Conc 31.4 g/dL (31.5-36.5); Mean Corpuscular Volume 94 fL (80-100); Mean Platelet Volume 9.9 fL (9.1-12.4); NEUTROPHILS ABSOLUTE AUTO 10.47 K/mm3 (1.96-9.15); NEUTROPHILS PERCENT AUTO 78 % (41-73); Platelet Count 307 K/mm3 (150-400); RDW Coefficient Variation 12.7 % (11.7-14.2); RDW Standard Deviation 43.8 fL (35.1-46.3); Red Blood Cell Count 3.32 M/mm3 (4.30-5.90); White Blood Cell Count 13.35 K/mm3 (4.00-11.30)
[2021-07-16 04:46] LABS: Albumin, Blood 2.3 g/dL (3.4-5.0); Anion Gap 12 mmol/L (6-16); Blood Urea Nitrogen 70 mg/dL (8-24); CO2, Blood 29 mmol/L (21-32); Calcium, Blood 8.8 mg/dL (8.5-10.1); Chloride, Blood 95 mmol/L (98-108); Creatinine, Blood 6.36 mg/dL (0.60-1.20); Glomerular Filtration Rate 9 (60-); Glucose, Blood 223 mg/dL (70-99); Phosphorus, Blood 5.8 mg/dL (2.5-4.9); Sodium, Blood 136 mmol/L (136-145)
--- NOTE | 2021-07-16 06:05 | NUR ---
PT RESTS QUIETLY THROUGHOUT SHIFT, TOLERATES EVERY 2 HOUR TURNS WELL, DOES REPORT THAT HE FEELS LIKE HE SLEPT BETTER TONIGHT THAN LAST NIGHT. FIO2 WAS TITRATED DOWN TO 35% AND PT TOLERATED WELL, SWITCHED BACK TO HEATED HUMIDIFIED HIGH FLOW OXYGEN AT 0600 FOR AM MEDS. LUNG SOUNDS IMPROVED THIS SHIFT HOWEVER DO CONINTUE DIMINISHED MID TO BASES BILAT.
--- NOTE | 2021-07-16 08:10 | NUR ---
Received report from Celi ENCINAS. He is on AirVo at 50L 40% and has been increased to 80% after downing breakfast very quickly and disregarded staff telling him top slow down. He has 18ga PowerGlide to ANNE MARIE dressing intact and flushed and SL'd. He is alert and oriented and is able to communicate his needs. He staed that he does not want to , but then does not want to assist with care ansd aske for everyone to do for him when he is able and encouraging self care. He positions self for comfort.
--- NOTE | 2021-07-16 09:51 | NUR ---
Patient has coarse cough and has been possibly aspirating while eating quickly and Dr Chisholm has made NPO until ST. He tolerated meds and breakfast. He is currently on AirVop 50L 75% and sats 95%.
--- NOTE | 2021-07-16 12:19 | NUR ---
Patients in dialysis and has about another 1.5 hours of treatment. VSS
--- NOTE | 2021-07-16 14:57 | NUR ---
Spiritual Care Visit - "Things We Care to Know" Pt. is awake and welcomes my visit. While this percussion instrument tuner didn't remember it at the time, I attempted a visit last week on 07/12/21. Pt. requested his bed be lowered. I asked for nursing help to adjust the bed. Pt. displayed evidence of being more comfortable. Based on previous spiritual care attempts that were not warmly recieved, this percussion instrument tuner has chosen to invest more time in building rapport with pt. Use the "Things We Care to Know" survey as a tool ot reinforce rapport with staff. I returned to post the "Things We Care to Know " rag inspector. "Things We Care to Know" is a Spiritual Care fixed wing pilot program designed to personalize the Pt./staff relationship, particualarly for the to Pt. who can't always speak for themselves.
--- NOTE | 2021-07-16 17:38 | NUR ---
SHIFT SUMMARY PT STATUS CHANGED TO PCU THIS SHIFT. DIALYSIS COMPLETE, 2600 ML OFF. SPEECH EVAL COMPLETE. MEALS OK c SUPERVISION. TOLERATED DINNER WELL. REMAINS ON AIRVO 50L/55%. LUNGS DIM THOUGHOUT. A&OX 3. OCCASIONALLY FORGETFUL. COOPERATIVE c CARE. VSS. WILL CONTINUE TO MONITOR UNTIL REPORT TO ONCOMING NURSE.
--- NOTE | 2021-07-16 21:09 | NUR ---
CALLED HOSPITALIST REGARDING PATIENTS BLOOD GLUCOSE OF 418, ORDERS TO RECHECK IN 2 HOURS.
[2021-07-17 04:08] LABS: BASOPHILS ABSOLUTE AUTO 0.04 K/mm3 (0.00-0.23); BASOPHILS PERCENT AUTO 0 % (0-2); EOSINOPHILS ABSOLUTE AUTO 0.45 K/mm3 (0.00-0.68); EOSINOPHILS PERCENT AUTO 3 % (0-6); Hematocrit 31.3 % (37.0-53.0); Hemoglobin 9.7 g/dL (13.5-17.5); IMMATURE GRAN ABSOLUTE AUTO 0.05 K/mm3 (0.00-0.10); IMMATURE GRAN PERCENT AUTO 0 % (0-1); LYMPHOCYTES ABSOLUTE AUTO 1.45 K/mm3 (0.84-5.20); LYMPHOCYTES PERCENT AUTO 11 % (21-46); MONOCYTES ABSOLUTE AUTO 0.98 K/mm3 (0.16-1.47); MONOCYTES PERCENT AUTO 7 % (4-13); Mean Corpuscular HGB 29.4 pg (26.0-34.0); Mean Corpuscular Volume 95 fL (80-100); NEUTROPHILS ABSOLUTE AUTO 10.48 K/mm3 (1.96-9.15); NEUTROPHILS PERCENT AUTO 78 % (41-73); Platelet Count 309 K/mm3 (150-400); RDW Coefficient Variation 12.6 % (11.7-14.2); RDW Standard Deviation 44.2 fL (35.1-46.3); White Blood Cell Count 13.45 K/mm3 (4.00-11.30)
[2021-07-17 04:30] LABS: Bun/Creatinine Ratio 10.6 (12.0-20.0); Calcium, Blood 8.7 mg/dL (8.5-10.1); Creatinine, Blood 4.53 mg/dL (0.60-1.20); Potassium, Blood 3.9 mmol/L (3.5-5.5)
--- NOTE | 2021-07-17 06:28 | NUR ---
SHIFT SUMMARY PATIENT IS ALERT AND ORIENTED. 02 SATS 93% ON HIGH FLOW, 50L 55%. SOME SOB WITH ACTIVITY. HR SR @70s. BP STABLE. OSTOMY WITH MINIMAL OUTPUT. INCONTINENT OF BLADDER, ONE LARGE VOID UNMEASURED. TOLERTING PO INTAKE. REPOSITIONED WHEN PATIENT WOULD ALLOW, REFUSED AT TIMES. PATIENT SLEPT MOST THE NIGHT. CALL LIGHT IN REACH.
--- NOTE | 2021-07-17 08:30 | NUR ---
ASSUMED CARE REPORT FROM CANELO ENCINAS AT 0700. PT RESTING IN BED. WAKES c VERBAL STIMULI. FOLLOWS COMMANDS. A&OX 3. COOPERATIVE c CARE. GENERALIZED WEAKNESS. ABLE SHIFT HIPS AND MINIMALLY HELP c REPOSITIONS. SR ON MONITOR, RATE 80'S. BP STABLE. PT ON AIRVO 45L/50%. LUNGS DIM IN BASES. PRODUCTIVE COUGH. ABLE TO MANAGE SECRETIONS. ABD ROUND, SOFT, NON TENDER. BT X 4. OSTOMY TO LLU, STOMA MOIST AND PINK. MINIMAL OUTPUT. INCREASED APPETITE c BREAKFAST THIS AM. PERMACATH TO RIGHT CHEST WALL, DRESSING C/D/I. POWERGLIDE TO LUE, DRESSING C/D/I. WILL CONTINUE TO MONITOR.
--- NOTE | 2021-07-17 11:25 | NUR ---
Spiritual Care Visit. Pt. is awake in bed and welcomes my visit. Pt. displays evidence of feeling better, and verbalized that he slept well the previous evening. Re-establish rapport. Pt. visit was interrupted by medical team. Pt. verbalized gratitude for the spiritual care visit.
--- NOTE | 2021-07-17 13:52 | NUR ---
TRANSFER TO PCU NO ACUTE CHANGES THIS SHIFT. PT UP TO CHAIR FOR APPROX 1 HOUR BEFORE REQUESTING TO GET BACK TO BED. AIRVO TITRATED TO 45L/45%. NO DIALYSIS THIS SHIFT. REPORT TO ASHU ENCINAS. TRANSFERRED TO PCU 4. ALL BELONGINGS SENT c PT.
--- NOTE | 2021-07-17 13:56 | NUR ---
PT TRANSFERRED TO PCU FROM ICU 15. NSR ON TELE, 45L AND 45% ON AIRVO. POWERGLIDE IN PLACE AND DRESSING CHANGED BY THIS RN. RT AT BEDSIDE PROVIDING CPT. LUNG SOUNDS COARSE IN UPPER LOBES AND DIMINISHED IN BASES AFTER THIS. CALL LIGHT IN REACH. DENIES NEEDS OR CONCERNS AT THIS TIME.
--- NOTE | 2021-07-17 14:07 | NUR ---
Spiritual Care Visit. Soon after Pt. was moved into PCU. Pt. was getting settled with PCU nursing team. This r&d engineer let him know we were still tracking him. Re-established rapport. Pt. requested I return.
--- NOTE | 2021-07-17 14:35 | NUR ---
PT'S AT BEDSIDE AND STATED THAT ORE BRIDGE OPERATOR IN ICU ASKED HER TO FILL OUT FORMS TO GET PT PLACED IN SNF AT [place]. REPORTS THAT SHE DID THIS. PHARMACY HELPER AWARE. REQUESTED TO SPEAK WITH PALLIATIVE CARE. RIC STATES SHE WILL GET THE MESSAGE TO SAMINA TO COME SPEAK WITH PT'S
--- NOTE | 2021-07-17 16:25 | NUR ---
DR EMERSON WAS AT BEDSIDE WITH PT AND . THIS RN LET HIM KNOW ABOUT EVENING CBG OF 431 AND DISCUSSED LANTUS DOSE WITH HIM. STATES HE IS CURRENTLY PLACING ORDERS TO ADDRESS THIS
--- NOTE | 2021-07-17 17:37 | NUR ---
SHIFT SUMMARY: PT HAS BEEN RESTING IN BED WITH AIRVO IN PLACE AT 45L AND 50% FIO2. NSR ON TELE. PALLIATIVE CARE AND DR SPOKE WITH PT AND HIS TODAY. RECOMMENDATION IS SNF AT DISCHARGE. PT/OT WORKED WITH PT AND ATTEMPTED TO HELP WITH EDUCATION AND MOTIVATION REGARDING MOBILIZATION. NO FURTHER NEEDS OR CONCERNS AT THIS TIME.
--- NOTE | 2021-07-17 18:17 | NUR ---
pt reting on airvo. good eye contact chronic low back pain feels fatigued. at bedside very stressed. Showing great caregiver stress. she states pt cannot come home she cannot get him to wheelchair for dialyis . pt total care a this point. discussed being able to paticipate. Gently discussed with pt he needs intesinve rehab and if he has further decline he may not be able to tolerate treatment. will follow up with pt and . himanshu bernal physician notes with pt . She want to speak with a physician . suggested she speak with chaplian about her stress.
--- NOTE | 2021-07-18 06:19 | NUR ---
PROPERTY FIELD INSPECTOR SUMMARY PT IS ALERT AND ORIENTED BUT HAS A VERY FLAT DEMEANOR W STAFF. O2 SATS >90% ON AIRVO 45L AND 50% FIO2. BP WNL AND STABLE. TELE SHOWING SR IN THE 70'S THIS SHIFT. PT HAD A PEAK TEMP OF 100.6 AT START OF THE SHIFT, TYLENOL GIVEN AND AFEBRILE THE REST OF THE NIGHT. PT'S COLOSTOMY HAD ALMOST NO OUTPUT THIS SHIFT. BLADDER SCAN DONE ON PT WHICH SHOWED APPROX 260ML OF URINE AND PT ABLE TO VOID 150ML AFTER THE SCAN. PT ABLE TO SLEEP MUCH OF THE NIGHT. WILL REPORT TO ONCOMING RN.
--- NOTE | 2021-07-18 07:25 | NUR ---
ASSUMED CARE: PT UPRIGHT IN BED AT TIME OF BEDSIDE REPORT, A&OX4. PT SATTING AT 94% ON 45L/50% ON AIRVO, SINUS RHYTHM IN 70'S. COLOSTOMY APPLIANCE IN PLACE, DRESSING IS C/D/I AND NO SIGNS OF LEAKING. CALL LIGHT WITHN REACH, NO ACUTE NEEDS/DISTRESS AT THIS TIME.
--- NOTE | 2021-07-18 09:40 | NUR ---
PT TAKEN TO DIALYSIS BY TECH, STUDENT NURSE, AND RT VIA BED W/ AIRVO RUNNING AT 45L/50%
--- NOTE | 2021-07-18 09:47 | NUR ---
REVIEWED SPEECH AND LANGUAGE CLINICIAN'S HEAD TO TOE ASSESSMENT AND AGREE
--- NOTE | 2021-07-18 12:56 | NUR ---
PT RETURNED TO ROOM FROM DIALYSIS BY VICK RN AND RT VIA BED W/ AIRVO RUNNING 45L/50%
--- NOTE | 2021-07-18 14:10 | NUR ---
Spiritual Care Request Contacted by charge nurse that Pt. had requested spiritual care. Spouse is present and she quickly met me at the door. She asked if there was a private place to talk. Brought spouse to second floor physician consult room. Spouse is quickly cathartic about the frustration of mixed messages she feels she and the Pt. have recieved from different medical personnel. Theraputically listen with a calming presence. Prayed with spouse. Spouse displays evidence that she has felt she was heard and affirmed. When Spouse and I return to the Pts. room, a Radio Producer arrived who communicated very clearly what the options were for the Pt. and the risks that are placed on his Spouse. The Pt. displayed evidence of understanding the disease case manager presentations. The Pts. Spouse is present, and catharticaly appeals to the Pt. to decide for comfort care. In that present moment, the Pt. was not able to make that decision. This material handler loader will return to the Pt. when he is alone for a pastoral care discussion.
--- NOTE | 2021-07-18 14:43 | NUR ---
Spiritual Care (Pt. follow-up) Returned to check in with Pt. while he was alome. This egg processor had heard from the nursing staff that the Pt. had denied some treatment "because I am going on hospice soon." Pt. welcomed my visit. Pt. is unsettled by the weight of his EOL situation. Empathetically listen with a calming presence. Pt. displays evidence of guarded intentions. The difficult consideration of Comfort Care (his term = hospice) is identified, and Pastoral general counselor is given. Pt. denied he has any spiritual concerns he wanted to discuss. Pt. did NOT make a Comfort Care decision in my presence. Will remain avilable to the Pt. and spouse.
--- NOTE | 2021-07-18 16:45 | NUR ---
PT HAS HAD MULTIPLE DISCUSSIONS W/ CARE MANAGEMENT AND SPIRITUAL SERVICES REGARDING HIS PROGNOSIS AND CONITUATION OF CARE. PT HAD REFUSED PT SERVICES TODAY STATING THAT HE WOULD BE "PUT ON HOSPICE" BY THE END OF THIS WEEK. DR MALDONADO CONFIRMED THAT PT IS NOT APPROPRIATE FOR HOSPICE MEDICALLY. DR MALDONADO AND CARE MANAGEMENT DISCUSSED THE NEED FOR PT AND CAREGIVERS TO DETERMINE BEST COURSE FOR ALL PARTIES. CARE MANAGEMENT STATED THAT THEY WOULD CONTINUE TO FOLLOW UP W/ NERISSA TO DETERMINE BEST COURSE AND POTENTIAL TRANSFER TO DIFFERENT FACILITY OR OUTPATIENT CARE.
--- NOTE | 2021-07-18 16:47 | NUR ---
THIS NURSE MET AND DISCUSSED PT WITH CARE MANAGEMENT, DR MORIN, PASTORAL CARE, AND PALLIATIVE CARE. IT WAS DECIDED THAT TEAM MEETING WILL BE ATTEMPTED TO BE COORDINATED TOMORROW TO SEE IF WE CAN WORK ON OPTIMIZATION FOR PT AND MAKE SURE HE UNDERSTANDS THAT HE HAS CHRONIC CONDITIONS THAT WE CANNOT CURE. DIRECTOR BUSINESS TRAVEL AWARE. PT CURRENTLY TEARFUL AND GUARDED AFTER PRIOR CONVERSATION WITH CARE MANAGEMENT. PALLIATIVE CARE AND SPIRITUAL CARE WILL BROACH THE TOPIC AT A LATER TIME WHEN PT MAY BE MORE RECEPTIVE. PT APPEARS OVERWHELMED AT THIS TIME.
--- NOTE | 2021-07-18 17:51 | NUR ---
SHIFT SUMMARY: PT IS A&OX4, SATTING AT 92 ON 45L/60% FIO2 AIRVO, SINUS RHYTHM IN THE 80'S. COLOSTOMY APPLIANCE IN PLACE AND DRESSING IS C/D/I. PROTECTIVE MEPILEX IN PLACE. PT HAS BEEN TOLERATING PO INTAKE WELL AND RECEIVED DIALYSIS THERAPY TODAY. PT HAS BEEN SPEAKING W/ , CARE MANAGEMENT, AND SPIRITUAL SERVICES THROUGHOUT THE DAY. TEAM MEETING IS SET TO TAKE PLACE TOMORROW FOR ALL PARTIES TO BE ON THE SAME PAGE FOR FUTURE CARE AND PLANNING. PT'S AFFECT IS FLAT AND HAS REFUSED PT THERAPY TODAY. CALL LIGHT WITHIN REACH, NO ACUTE NEEDS/DISTRESS AT THIS TIME.
[2021-07-19 04:36] LABS: Albumin, Blood 2.3 g/dL (3.4-5.0); Anion Gap 10 mmol/L (6-16); Blood Urea Nitrogen 47 mg/dL (8-24); Bun/Creatinine Ratio 9.7 (12.0-20.0); CO2, Blood 33 mmol/L (21-32); Calcium, Blood 8.7 mg/dL (8.5-10.1); Chloride, Blood 94 mmol/L (98-108); Creatinine, Blood 4.83 mg/dL (0.60-1.20); Glomerular Filtration Rate 13 (60-); Glucose, Blood 183 mg/dL (70-99); Phosphorus, Blood 4.1 mg/dL (2.5-4.9); Potassium, Blood 4.1 mmol/L (3.5-5.5); Sodium, Blood 137 mmol/L (136-145)
--- NOTE | 2021-07-19 06:07 | NUR ---
MANAGER TRANSPORTATION SUMMARY PT IS ALERT AND ORIENTED THIS SHIFT. PT SILL VERY UNMOTIVATED IN PROVIDING HIS OWN PERSONAL CARE. BP WNL AND STABLE. TELE SHOWING SR IN THE 70'S THIS SHIFT. PT HAD TEMP OF 100.6 AT START OF THE SHIFT BUT AFEBRILE FOR MOST OF THE NIGHT. O2 SETTINGS TITRATED DOWN THIS SHIFT FROM 45L AND 50% FIO2 TO 40L AND 35% FIO2. PT STILL HAS HAD VERY LITTLE OUTPUT FROM HIS COLOSTOMY THIS SHIFT. NO URINE OUTPUT THIS SHIFT. WILL REPORT TO ONCOMING RN.
--- NOTE | 2021-07-19 18:02 | NUR ---
SHIFT SUMMARY PT HAS BEEN RESTING IN BED THROUGHOUT THE DAY. PT HAS LIMITED ABILITY TO REPOSITION SELF AND WILL CALL FOR ASSISTANCE TO REPOSITION FOR COMFORT. OSTOMY HAS HAD MINIMAL OUTPUT THIS SHIFT, APPLIANCE HAS NOT BEEN EMPTIED. PT HAS BEEN WITHDRAWN AND APATHETIC TOWARD CARE. PT HAS STATED THAT THEY FEEL EMOTIONALLY OVERWHELMED. BLOOD PRESSURE READINGS WERE INCONSISTENT WHEN MEAUSRED ON THE FOREARM, CONSISTENT READINGS WERE ACHIEVED ON THE UPPER ARM. AM DOSE OF METOPROLOL WAS HELD DUE TO LOW BP, SBP HAS CLIMBED STEADILY FROM 97 UP TO 130. SPO2 HAS REMAINED >88% ON 40L/40%FIO2 HIGH FLOW NC.
--- NOTE | 2021-07-20 05:29 | NUR ---
SHIFT SUMMARY: PT HAS BEEN A&OX4, NO CHANGES IN MENTATION. HR HAS BEEN NSR IN THE 80'S DURING MY SHIFT. ON OLESYA FLOW OXYGEN V60 AT 40 LETER/40%. PT O2 SATS REMAIN IN THE LOW 90'S WITH OCCASIONAL DESATURATIONS TO 88% WITH A QUICK INCREASE. ATTEMPTED TO REPOSITION Q2H BUT PT DECLINING MULTIPLE TIMES. VOIDING ONCE DURING SHIFT DARK, CLOUDY URINE. PT PO TEMP NOTED TO BE TRENDING UP DURING BEGINNING OF SHIFT BUT NOW TRENDING DOWN. NO INTERVENTION NEEDED TO DECREASE TEMPERATURE. HIGHEST LEVEL WAS 100.2. WILL CONTINUE TO MONITOR.
[2021-07-20 08:40] LABS: BASOPHILS ABSOLUTE AUTO 0.04 K/mm3 (0.00-0.23); BASOPHILS PERCENT AUTO 0 % (0-2); EOSINOPHILS ABSOLUTE AUTO 0.33 K/mm3 (0.00-0.68); EOSINOPHILS PERCENT AUTO 2 % (0-6); Hematocrit 30.7 % (37.0-53.0); Hemoglobin 9.6 g/dL (13.5-17.5); IMMATURE GRAN ABSOLUTE AUTO 0.09 K/mm3 (0.00-0.10); IMMATURE GRAN PERCENT AUTO 1 % (0-1); LYMPHOCYTES ABSOLUTE AUTO 1.25 K/mm3 (0.84-5.20); LYMPHOCYTES PERCENT AUTO 7 % (21-46); MONOCYTES ABSOLUTE AUTO 1.16 K/mm3 (0.16-1.47); MONOCYTES PERCENT AUTO 6 % (4-13); Mean Corpuscular HGB 29.4 pg (26.0-34.0); Mean Corpuscular HGB Conc 31.3 g/dL (31.5-36.5); Mean Corpuscular Volume 94 fL (80-100); Mean Platelet Volume 10.7 fL (9.1-12.4); NEUTROPHILS ABSOLUTE AUTO 16.15 K/mm3 (1.96-9.15); NEUTROPHILS PERCENT AUTO 85 % (41-73); Platelet Count 307 K/mm3 (150-400); RDW Coefficient Variation 12.6 % (11.7-14.2); RDW Standard Deviation 43.2 fL (35.1-46.3); Red Blood Cell Count 3.27 M/mm3 (4.30-5.90); White Blood Cell Count 19.02 K/mm3 (4.00-11.30)
[2021-07-20 08:54] LABS: Albumin, Blood 2.2 g/dL (3.4-5.0); Anion Gap 11 mmol/L (6-16); Blood Urea Nitrogen 68 mg/dL (8-24); Bun/Creatinine Ratio 12.2 (12.0-20.0); CO2, Blood 29 mmol/L (21-32); Calcium, Blood 8.8 mg/dL (8.5-10.1); Chloride, Blood 91 mmol/L (98-108); Creatinine, Blood 5.59 mg/dL (0.60-1.20); Glomerular Filtration Rate 11 (60-); Glucose, Blood 242 mg/dL (70-99); Phosphorus, Blood 5.4 mg/dL (2.5-4.9); Potassium, Blood 4.8 mmol/L (3.5-5.5); Sodium, Blood 131 mmol/L (136-145)
--- NOTE | 2021-07-20 12:25 | NUR ---
Call back- Spoke with clinical coordinator and palliative care nurse for update. Met with pt's spouse and pt's brother briefly. She stated the pt and spouse had made the difficult decision to place pt on hospice yesterday. spoke with pt at a later time to let him know hospice may not be appropriate. Spouse verbalized fatigue from caregiving, but wants to support pt in whatever decision he makes. arrives and the pt's spouse and brother go to consultation room as brother has some questions for the Updated RN's who were previously consulted. End of call
--- NOTE | 2021-07-20 17:34 | NUR ---
SHIFT SUMMARY PT HAD DIALYSIS IN ROOM THIS AM. PT WAS MARKEDLY DROWSY FOR SEVERAL HOURS AFTER DIALYSIS. PT HAD COMMENTED THAT THEY WOULD LIKE TO ATTEMPT TO GET UP TO THE CHAIR TODAY. THIS RN CHOSE TO NOT DISTURB THE PT WHILE SLEEPING AFTER DIALYSIS. FAMILY MEMBERS CAME TO VISIT AND SPENT SEVERAL HOURS IN THE PT'S ROOM. THIS RN CHOSE TO NOT INTERRUPT THE FAMILY VISIT. THIS RN SPOKE WITH THE PT ABOUT POTENTIALLY USING THE CEILING LIFT TO SAFELY MOVE TO THE CHAIR IN ROOM AND PT DECLINED. PT REQUESTED TO HAVE PHYSICAL THERAPY PRESENT TO ATTEMPT A TRANSFER TO CHAIR TOMORROW. PT HAS INTERACTED WITH THIS RN MORE TODAY THAN YESTERDAY. PT REMAINS WITHDRAWN WITH A FLAT AFFECT. VSS, NO ACUTE CHANGES IN PT CONDITION NOTED.
--- NOTE | 2021-07-21 07:36 | NUR ---
PT SUMMARY PT AOX4, TACHYPNEIC. SATS 90-93% ON AIRVO AT 40 L 40% THROUGHOUT SHIFT. PT BARELY SLEEPS THROUGH SHIFT. REPOSITIONED FREQUENTLY. POWERGLIDE SALINE LOCKED. HYPOTENSIVE W/MAP MAINTAINING ABOVE 65.
--- NOTE | 2021-07-21 15:44 | NUR ---
UPDATE PHYSICAL THERAPY CAME TO ASSIST THIS RN WITH THE AID OF A SECOND RN AND A PCT TO GET THE PT SITTING AT BEDSIDE. IT WAS DETERMINED THAT THE SAFEST MEANS OF TRANSFERRING TO A CHAIR WOULD BE TO USE THE CEILING LIFT. PT WAS AGREEABLE TO THIS AND CONVERSED WITH THIS RN AND THE PHYSICAL THERAPIST DURING THE ENTIRE INTERACTION. PT TRANSITIONED FROM LYING TO SITTING AT BEDSIDE WITH MODERATE ASSISTANCE. PT WAS ABLE TO GET TO STANDING WITH MODERATE ASSISTANCE. PT STOOD AT BEDSIDE WITH GAITBELT AND WALKER FOR APPROXIMATELY ONE MINUTE. THIS RN AND PT MAINTAINED POSITIVE CONTACT WITH PT DURING THE ENTIRE MANEUVER. PT SAT DOWN ONCE TIRED. RETURNING TO A LYING POSITION REQUIRED MORE ASSISTANCE. PT WAS ABLE TO MINIMALLY ROLL FROM SIDE TO SIDE FOR PLACMENT OF A LIFT SHEET. PT WAS TRANSFERRED BY CEILING LIFT TO CHAIR, THIS RN, A SECOND RN, AND A MANAGEMENT INSTRUCTOR ALL ASSISTED IN THE TRANSFER. PT TOLERATED THIS WELL AND COMMENTED THAT "IT FEELS REALLY GOOD TO GET UP AND OUT OF THAT BED."
--- NOTE | 2021-07-21 18:13 | NUR ---
SHIFT SUMMARY PT IS CURRENTLY ASLEEP IN BED. PT MADE EYE CONTACT DURING INTERACTIONS WITH THIS RN TODAY, THIS BEHAVIOR HAS NOT BEEN OBSERVED BY THIS RN BEFORE TODAY. PT REMAINS WITH A FLAT AFFECT BUT HAS BEEN LESS WITHDRAWN AND MORE WILLING TO COMMUNICATE FREELY THAN THIS RN'S PREVIOUS ENCOUNTER. PT MADE SMALL TALK ABOUT THE TELEVISION PROGRAM THEY WERE WATCHING. PT WAS WILLING TO PARTICIPATE IN ALL CARES AND ACTIVELY PARTICIPATED. PT STATED THAT THEY WERE GRATEFUL FOR CARE TODAY. VSS, NO ACUTE CHANGES IN PT CONDITION.
[2021-07-22 04:29] LABS: BASOPHILS ABSOLUTE AUTO 0.02 K/mm3 (0.00-0.23); BASOPHILS PERCENT AUTO 0 % (0-2); EOSINOPHILS ABSOLUTE AUTO 0.49 K/mm3 (0.00-0.68); EOSINOPHILS PERCENT AUTO 4 % (0-6); Hematocrit 28.5 % (37.0-53.0); Hemoglobin 8.7 g/dL (13.5-17.5); IMMATURE GRAN ABSOLUTE AUTO 0.04 K/mm3 (0.00-0.10); IMMATURE GRAN PERCENT AUTO 0 % (0-1); LYMPHOCYTES ABSOLUTE AUTO 1.76 K/mm3 (0.84-5.20); LYMPHOCYTES PERCENT AUTO 13 % (21-46); MONOCYTES ABSOLUTE AUTO 0.86 K/mm3 (0.16-1.47); MONOCYTES PERCENT AUTO 6 % (4-13); Mean Corpuscular HGB 29.3 pg (26.0-34.0); Mean Corpuscular HGB Conc 30.5 g/dL (31.5-36.5); Mean Corpuscular Volume 96 fL (80-100); Mean Platelet Volume 10.4 fL (9.1-12.4); NEUTROPHILS ABSOLUTE AUTO 10.38 K/mm3 (1.96-9.15); NEUTROPHILS PERCENT AUTO 77 % (41-73); Platelet Count 315 K/mm3 (150-400); RDW Coefficient Variation 12.4 % (11.7-14.2); RDW Standard Deviation 44.1 fL (35.1-46.3); Red Blood Cell Count 2.97 M/mm3 (4.30-5.90); White Blood Cell Count 13.55 K/mm3 (4.00-11.30)
[2021-07-22 04:45] LABS: Anion Gap 9 mmol/L (6-16); Blood Urea Nitrogen 69 mg/dL (8-24); Bun/Creatinine Ratio 13.6 (12.0-20.0); CO2, Blood 30 mmol/L (21-32); Calcium, Blood 8.3 mg/dL (8.5-10.1); Chloride, Blood 97 mmol/L (98-108); Creatinine, Blood 5.08 mg/dL (0.60-1.20); Glomerular Filtration Rate 12 (60-); Glucose, Blood 240 mg/dL (70-99); Phosphorus, Blood 5.8 mg/dL (2.5-4.9); Potassium, Blood 3.9 mmol/L (3.5-5.5); Sodium, Blood 136 mmol/L (136-145)
--- NOTE | 2021-07-22 05:59 | NUR ---
SHIFT SUMMARY PT A0X4 BUT IS WITHDRAWN AND HAS FLAT AFFECT. PT RESPONDS TO QUESTIONS APPROPRIATELY BUT IS SOMETIMES SLOWER TO RESPOND. VSS. PT ON AIRVO AT 45 L, 35% FI02. PT DENIES CHEST PAIN OR PRESSURE. PT DENIES SOB. PT USING URINAL INDEPENDENTLY. PT HAS NOT BEEN USING CALL LIGHT TO CALL APPROPRIATELY. PT DOES NOT WANT TO BE REPOSITIONED. NO ACUTE CHANGES IN PT STATUS. WILL CONTINUE TO MONITOR. CALL LIGHT WITHIN REACH AND BED IN LOWEST POSITION.
--- NOTE | 2021-07-22 06:53 | NUR ---
REJECT OPENER AND FILLER DOCUMENTATION THIS RN REVIEWED ALL REJECT OPENER AND FILLER DOCUMENTATION T/O SHIFT AND AGREES WITH ASSESSMENTS AND ALL OTHER DOCUMENTATION
--- NOTE | 2021-07-22 17:32 | NUR ---
SHIFT SUMMARY; ASSUMED CARE AT 0700, A/A/OX4 DURING SHIFT. WORKED WITH PT AND STOOD AT BEDSIDE, DECLINED RECLINER CHAIR TODAY. ALLOWS REPOSITIONING AT TIMES, REFUSES AT OTHERS. 6L 02 VIA NC WITH SATS MAINTAINING >96. PLEASANT AND APPEARS TO BE IN GOOD SPIRITS. DISCUSSED POSSIBLE TRANSFER TO SNIFF TOMORROW, PT AGREES WITH PLAN. DIAYLSIS TODAY, OSTEOMY IN PLACE PINK APPEARING HEALTHY. USES URINAL IN BED FOR VOID OF 200ML. VSS, WILL CONTINUE TO MONITOR AND TREAT UNTIL CHANGE OF SHIFT.
[2021-07-23 05:07] LABS: BASOPHILS ABSOLUTE AUTO 0.03 K/mm3 (0.00-0.23); BASOPHILS PERCENT AUTO 0 % (0-2); EOSINOPHILS ABSOLUTE AUTO 0.44 K/mm3 (0.00-0.68); EOSINOPHILS PERCENT AUTO 4 % (0-6); Hematocrit 29.4 % (37.0-53.0); Hemoglobin 8.8 g/dL (13.5-17.5); IMMATURE GRAN ABSOLUTE AUTO 0.03 K/mm3 (0.00-0.10); IMMATURE GRAN PERCENT AUTO 0 % (0-1); LYMPHOCYTES ABSOLUTE AUTO 1.57 K/mm3 (0.84-5.20); LYMPHOCYTES PERCENT AUTO 14 % (21-46); MONOCYTES ABSOLUTE AUTO 0.65 K/mm3 (0.16-1.47); MONOCYTES PERCENT AUTO 6 % (4-13); Mean Corpuscular HGB 29.1 pg (26.0-34.0); Mean Corpuscular HGB Conc 29.9 g/dL (31.5-36.5); Mean Corpuscular Volume 97 fL (80-100); Mean Platelet Volume 10.4 fL (9.1-12.4); NEUTROPHILS ABSOLUTE AUTO 8.74 K/mm3 (1.96-9.15); NEUTROPHILS PERCENT AUTO 76 % (41-73); Platelet Count 351 K/mm3 (150-400); RDW Coefficient Variation 12.5 % (11.7-14.2); RDW Standard Deviation 44.9 fL (35.1-46.3); Red Blood Cell Count 3.02 M/mm3 (4.30-5.90); White Blood Cell Count 11.46 K/mm3 (4.00-11.30)
--- NOTE | 2021-07-23 05:20 | NUR ---
SHIFT SUMMARY PT A0X4 BUT DISPLAYS FLAT AFFECT. PT DOES SHOW IMPROVEMENT IN INTERACTION AND ENGAGEMENT TODAY. PT SMILED UPON INTRODUCTION AND WAS RESPONSIVE TO CONVERSATIONS. PT ENGAGED AND PARTCIPATED IN CARE. VSS; SR W/HEART RATE IN 60'S 70'S. O2 SATS >96% ON 6 L NC. PT DENIES SOB, CHEST PAIN AND CHEST PRESSURE. PT REPORTS FEELING BETTER THAN HE HAS BEEN. PT ALLOWED FOR REPOSITIONING AND TURNING, WELL CALLED AND REQUESTED REPOSITIONING NEEDED. PT HAD DIALYSIS TODAY DURING DAY SHIFT; URINE OUTPUT FOR CARPET INSTALLER HELPER IS 50 ML. NO OTHER ACUTE CHANGES OR CONCERNS. WILL CONTINUE TO MONITOR. BED IN LOWEST POSITION AND CALL LIGHT WITHIN REACH.
[2021-07-23 05:37] LABS: Anion Gap 6 mmol/L (6-16); Blood Urea Nitrogen 46 mg/dL (8-24); Bun/Creatinine Ratio 12.5 (12.0-20.0); CO2, Blood 34 mmol/L (21-32); Calcium, Blood 8.4 mg/dL (8.5-10.1); Chloride, Blood 101 mmol/L (98-108); Creatinine, Blood 3.68 mg/dL (0.60-1.20); Glomerular Filtration Rate 17 (60-); Glucose, Blood 149 mg/dL (70-99); Potassium, Blood 3.6 mmol/L (3.5-5.5); Sodium, Blood 141 mmol/L (136-145)
--- NOTE | 2021-07-23 08:00 | NUR ---
PT IS A&OX4. DENIES PAIN OR SOB. ECG SHOWS SR WITH RATE IN 70'S. BP STABLE. LUNGS DIMINISHED IN THE BASES. SATS>90% ON 6 LITERS NASAL CANULA. SATS DROPPED TO 88% WITH EXERTION. PT DID COUGH UP MODERATED AMOUNT OF THICK, CALVERT SPUTUM. PT DENIES GI DISTRESS. COLOSTOMY STOMA PINK, APPLIANCE INTACT WITH SMALL AMOUNT OF BROWN, FORMED STOOL TO DRAINAGE BAG. PT VOIDED 150 CC DARK, BOBY URINE VIA URINAL. DIALYSIS CATH TO [facility]-SITE CLEAR AND DRESSING C/D/I. PT BATHED, LINEN CHANGED COMPLETED, THEN USED LIFT TO GET PT UP TO CHAIR-TOLERATED WELL. PT LOW BACK AND COCCYX SLIGHTLY RED-SMALL WOUND TO LEFT BUTTOCK. CLEANSED WITH SOAP AND WATER AMD NEW FOAM DRESSINGS APPLIED. PT ABLE TO FEED HIMSELF BREAKFAST. SITTING UP IN THE CHAIR WATCHING TV WITHOUT NOTED DISTRESS. CALL LIGHT WITHIN REACH.
--- NOTE | 2021-07-23 10:00 | NUR ---
PT CALLED AND REQUESTED TO BE REPOSITIONED IN THE RECLINER. ASSISTED BY HUANG CLIFTON AND ANNAMARIA DO. CALL LIGHT WITHIN REACH AND PT WILL CALL FOR ASSIST PRN.
--- NOTE | 2021-07-23 11:42 | NUR ---
PT SITTING UP IN CHAIR WATCHING TV WITHOUT NOTED DISTRESS. CALL LIGHT WITHIN REACH.
--- NOTE | 2021-07-23 14:06 | NUR ---
Spiritual Care Visit. Pt. is reclining in bed and welcomes my visit. Spouse is present. Quickly re-establish rapport. Pt. verbalizes that the weekend has been good, and displays evidence of a positive outlook. Spouse excuses herself as she has PM appointments. Re-enage with Pt. Pt. is unsettled about the next phase of rehab. Listen empathetically. Pt. displays a desire to take steps of theraputic recovery. Pt. verbalized gratitude for the spiritual care visit.
--- NOTE | 2021-07-23 16:00 | NUR ---
PT SAT AT THE EDGE OF THE BED WITH PHYSICAL THERAPY FOR 5+ MINUTES. NO NOTED SOB. MAINTAINS SATS>905 ON 6 LITERS NASAL CANULA. NO ACUTE CHANGES/NO NOTED DISTRESS.
--- NOTE | 2021-07-23 19:19 | NUR ---
TELEHEALTH CASE MANAGER DOCUMENTATION THIS RN HAS REVIEWED ALL OF TELEHEALTH CASE MANAGER DOCUMENTATION AND THIS RN AGREES.
--- NOTE | 2021-07-24 06:57 | NUR ---
SEE PAPER CHARTING FOR PREVIOUS PROGRESS NOTES DURING DOWNTIME
[2021-07-24 07:46] LABS: Hematocrit 29.2 % (37.0-53.0); Hemoglobin 8.7 g/dL (13.5-17.5)
[2021-07-24 07:58] LABS: Anion Gap 5 mmol/L (6-16); Blood Urea Nitrogen 52 mg/dL (8-24); Bun/Creatinine Ratio 11.4 (12.0-20.0); CO2, Blood 31 mmol/L (21-32); Calcium, Blood 8.5 mg/dL (8.5-10.1); Chloride, Blood 100 mmol/L (98-108); Creatinine, Blood 4.55 mg/dL (0.60-1.20); Glomerular Filtration Rate 13 (60-); Glucose, Blood 144 mg/dL (70-99); Phosphorus, Blood 5.2 mg/dL (2.5-4.9); Sodium, Blood 136 mmol/L (136-145)
--- NOTE | 2021-07-24 17:06 | NUR ---
Spiritual Care Visit. Pt. is awake and welcomes my visit. Spouse is present for a short while before she excused herself. Pt. is pleasant and we re-establish rapport. Pt. verbalized the health progress as a result of his dialysis as well as his motivation to work on physical therapy as he continues to make progress. Pt. verbalized gratitude for the many spiritual care visits, and invited this red cap to return.
--- NOTE | 2021-07-24 18:17 | NUR ---
SHIFT SUMMARY PT HAS BEEN RESTING IN BED. AFTER DIALYSIS PT WAS VERY TIRED AND REQUESTED TO BE DISTURBED MINIMALLY IN ORDER TO SLEEP. PHYSICAL THERAPY WORKED WITH PT TODAY. PT EXPRESSED SATISFACTION WITH THE PROGRESS THEY HAVE MADE THIS WEEK. PT STATED THAT THEY ARE LOOKING FORWARD TO BEING MORE INDEPENDENT AFTER CONTINUED THERAPY. PT SAID TO THIS RN THAT THEY ARE HOPEFUL TO BE PLACED AT A LOCAL FACILITY SOON AND THAT THEY WERE IMMENSELY RELIEVED TO LEARN THAT THEY WERE ABLE TO GET OUTPATIENT DIALYSIS ARRANGED. PT WAS ON 5L NC FOR THE DURATION OF THE DAY WITH NO EPISODES OF DESATURATION. VITAL SIGNS STABLE, NO ACUTE CHANGES IN PT CONDITION.
--- NOTE | 2021-07-24 21:29 | NUR ---
ASSUMPTION OF CARE Assumed care of pt at 1900. A/Ox4, with flat affect. Above 93% on 5L NC. Watching sports on television. No c/o of CP/pressure/dyspnea.
[2021-07-25 03:57] LABS: BASOPHILS ABSOLUTE AUTO 0.02 K/mm3 (0.00-0.23); BASOPHILS PERCENT AUTO 0 % (0-2); EOSINOPHILS ABSOLUTE AUTO 0.29 K/mm3 (0.00-0.68); EOSINOPHILS PERCENT AUTO 2 % (0-6); Hematocrit 27.2 % (37.0-53.0); Hemoglobin 8.1 g/dL (13.5-17.5); IMMATURE GRAN ABSOLUTE AUTO 0.06 K/mm3 (0.00-0.10); IMMATURE GRAN PERCENT AUTO 0 % (0-1); LYMPHOCYTES ABSOLUTE AUTO 1.49 K/mm3 (0.84-5.20); LYMPHOCYTES PERCENT AUTO 11 % (21-46); MONOCYTES ABSOLUTE AUTO 0.73 K/mm3 (0.16-1.47); MONOCYTES PERCENT AUTO 5 % (4-13); Mean Corpuscular HGB 29.2 pg (26.0-34.0); Mean Corpuscular HGB Conc 29.8 g/dL (31.5-36.5); Mean Corpuscular Volume 98 fL (80-100); Mean Platelet Volume 9.9 fL (9.1-12.4); NEUTROPHILS ABSOLUTE AUTO 11.36 K/mm3 (1.96-9.15); NEUTROPHILS PERCENT AUTO 82 % (41-73); Platelet Count 338 K/mm3 (150-400); RDW Coefficient Variation 12.6 % (11.7-14.2); Red Blood Cell Count 2.77 M/mm3 (4.30-5.90); White Blood Cell Count 13.95 K/mm3 (4.00-11.30)
[2021-07-25 04:15] LABS: Anion Gap 5 mmol/L (6-16); Blood Urea Nitrogen 39 mg/dL (8-24); Bun/Creatinine Ratio 10.7 (12.0-20.0); CO2, Blood 34 mmol/L (21-32); Calcium, Blood 8.5 mg/dL (8.5-10.1); Chloride, Blood 98 mmol/L (98-108); Creatinine, Blood 3.66 mg/dL (0.60-1.20); Glomerular Filtration Rate 18 (60-); Glucose, Blood 179 mg/dL (70-99); Phosphorus, Blood 3.7 mg/dL (2.5-4.9); Potassium, Blood 3.5 mmol/L (3.5-5.5); Sodium, Blood 137 mmol/L (136-145)
--- NOTE | 2021-07-25 05:49 | NUR ---
SHIFT SUMMARY Pt remained A/Ox4. No c/o pain, CP/pressure or dyspnea. VSS. Patient had dialysis today that he tolerated well, and also worked with PT. Maintaining over 95% on 5L NC, LS clear on top and dim at bases. Shallow breathing pattern. SR on tele 70's with murmur auscultated. faint +1 pulses t/o, with 1+ pitting edema to BLE with trace generalized edema. Firm abdomen pt reports normal with hypoactive bowel tones, ostomy in place with formed output. Attempted urination, unable to do so. Bladder scan showed 0ml in bladder. Will report to dayshift RN.
[2021-07-25 13:56] LABS: SARS-Cov-2 (COVID-19) PCR, MMC NEGATIVE (NEGATIVE)
[2021-07-25] MEDS ORDERED: HUMALOG KW100 UNIT/1 SC (15:26)
[2021-07-25] MEDS ORDERED: ATOR80 PO (15:26)
[2021-07-25] MEDS ORDERED: ASPI81CH PO (15:27)
[2021-07-25] MEDS ORDERED: VITAMIN B COMP1 EAC1 PO (15:28)
[2021-07-25] MEDS ORDERED: CLOP75 PO (15:28)
[2021-07-25] MEDS ORDERED: IPRAT-ALBUT 0.5-3 ML INH (15:29)
[2021-07-25] MEDS ORDERED: PANT40 PO (15:30)
[2021-07-25] MEDS ORDERED: METO25 PO (15:30)
[2021-07-25] MEDS ORDERED: SEVEC800 PO (15:31)
[2021-07-25] MEDS ORDERED: VITAMIN B-1100 MG PO (15:31)
--- NOTE | 2021-07-25 17:52 | NUR ---
DISCHARGE SUMMARY PT WAS DISCHARGED TO SNF VIA EMS TRANSPORT. ALL PT BELONGINGS AND CHARTS WERE IN THE POSSESSION OF EMS STAFF AT TIME OF TRANSPORT. REPORT CALLED TO RECIEVING FACILITY.
== END 2021-07-25 16:12 | DRG 280 ==
LOC: ER 07:59 → ICUW 13:03 → PCU 13:03 → ICUW 07-01 07:55 → MEDS 07-02 21:04 → ICUE 07-03 03:00 → PCU 07-06 05:12 → ICUW 07-14 16:35 → PCU 07-17 14:05
PROVIDERS: Emergency Medicine; Family Medicine; Internal Medicine; Internal Medicine Critical Care Medicine; Internal Medicine Nephrology; Physician Assistant; ADMIT Internal Medicine
PROC: 5A1D70Z Performance of Urinary Filtration, Intermittent, Less than 6 Hours Per Day (ICD-10-PCS; principal; 2021-06-29)
PROC: 5A09557 Assistance with Respiratory Ventilation, Greater than 96 Consecutive Hours, Continuous Positive Airway Pressure (ICD-10-PCS; 2021-06-29)
PROC: 3E03329 Introduction of Other Anti-infective into Peripheral Vein, Percutaneous Approach (ICD-10-PCS; 2021-06-29)
PROC: 0JH63XZ Insertion of Tunneled Vascular Access Device into Chest Subcutaneous Tissue and Fascia, Percutaneous Approach (ICD-10-PCS; 2021-07-02)
PROC: 02HV33Z Insertion of Infusion Device into Superior Vena Cava, Percutaneous Approach (ICD-10-PCS; 2021-07-02)
PROC: B5181ZA Fluoroscopy of Superior Vena Cava using Low Osmolar Contrast, Guidance (ICD-10-PCS; 2021-07-02)
PROC: 0W9930Z Drainage of Right Pleural Cavity with Drainage Device, Percutaneous Approach (ICD-10-PCS; 2021-07-11)
PROC: 5A0955A Assistance with Respiratory Ventilation, Greater than 96 Consecutive Hours, High Flow/Velocity Cannula (ICD-10-PCS; 2021-07-11)
DX: I13.2 Hypertensive heart and chronic kidney disease with heart failure and with stage 5 chronic kidney disease, or end stage renal disease (principal); I21.4 Non-ST elevation (NSTEMI) myocardial infarction; J96.01 Acute respiratory failure with hypoxia; I50.33 Acute on chronic diastolic (congestive) heart failure; N18.6 End stage renal disease; J69.0 Pneumonitis due to inhalation of food and vomit; G92.8 Other toxic encephalopathy; J96.02 Acute respiratory failure with hypercapnia; J91.8 Pleural effusion in other conditions classified elsewhere; N17.9 Acute kidney failure, unspecified; Z66 Do not resuscitate; Z51.5 Encounter for palliative care; Z78.1 Physical restraint status; E87.5 Hyperkalemia; Z20.822 Contact with and (suspected) exposure to COVID-19; E11.22 Type 2 diabetes mellitus with diabetic chronic kidney disease; E53.8 Deficiency of other specified B group vitamins; E55.9 Vitamin D deficiency, unspecified; K21.9 Gastro-esophageal reflux disease without esophagitis; E83.39 Other disorders of phosphorus metabolism; D47.2 Monoclonal gammopathy; E66.01 Morbid (severe) obesity due to excess calories; E11.51 Type 2 diabetes mellitus with diabetic peripheral angiopathy without gangrene; I35.0 Nonrheumatic aortic (valve) stenosis; E78.5 Hyperlipidemia, unspecified; D63.1 Anemia in chronic kidney disease; Z68.38 Body mass index [BMI] 38.0-38.9, adult; Z85.51 Personal history of malignant neoplasm of bladder; Z90.89 Acquired absence of other organs; Z89.421 Acquired absence of other right toe(s); Z87.891 Personal history of nicotine dependence; Z79.899 Other long term (current) drug therapy; Z93.3 Colostomy status
CPT/HCPCS: 0202U; 36415; 36558; 36600; 71045; 71260; 76770; 76937; 77001; 80048; 80053; 80069; 80074; 81001; 82042; 82140; 82306; 82570; 82784; 82803; 82945; 82947; 83036; 83521; 83605; 83615; 83735; 83880; 84100; 84132; 84145; 84155; 84156; 84157; 84165; 84484; 84550; 85014; 85018; 85025; 85027; 85610; 86160; 86225; 86235; 86317; 86334; 86335; 86704; 86708; 86803; 87015; 87040; 87070; 87075; 87077; 87086; 87102; 87116; 87186; 87205; 87206; 87340; 88108; 88305; 89051; 92610; 93005; 93010; 93306; 93308; 93321; 93925; 94640; 94644; 94660; 94664; 94667; 94668; 94760; 94762; 96365; 96375; 97110; 97116; 97162; 97164; 97166; 97530; 97535; 99285-25; A9270; C1750; C1751; C1769; C1894; C9113; J0295; J0456; J0696; J1644; J1815; J1817; J1940; J2405; J2550; J3010; J7040; J7050; J7060; J7131; J7799; P9046; Q9967; U0004